=== PATIENT | female | born 1965 | race Caucasian/White ===

== ENCOUNTER 2020-06-24 13:31 | Outpatient (REF) | payer OTHER, SELFPAY | END 2020-06-24 13:32 | disposition home or self-care (01) | LOC: HO.HMGCLDS 13:31 | PROVIDERS: PCP Internal Medicine; Visit Provider Internal Medicine | DX: Z20.828 Contact with and (suspected) exposure to other viral communicable diseases (principal) | CPT/HCPCS: C9803; U0003 ==

== ENCOUNTER 2020-08-04 08:53 | Emergency (ER) | payer MEDICAID, SELFPAY ==
[2020-08-04 09:13] VITALS: BP 151/68; PULSE 59; RESP 16; TEMP 36.6; O2SAT 98; BMI 26.5
--- NOTE | 2020-08-04 09:18 | ED.BACK ---
HPI - Back Pain/Injury General Chief Complaint: Back Pain/Injury Stated Complaint: back pain Time Seen by Provider: 08/04/20 09:16 Source: patient Mode of arrival: ambulatory Limitations: no limitations History of Present Illness HPI Narrative: 5-year-old female with a past medical history of chronic back pain here with right lower back pain for the last 3-4 days. She tells me last she went to plug something in and felt a spasm in her right lower back. Since then she has had persistent pain. She also tells me she has been doing a lot of wrapping, decorating her house for [employer] and she also has been some time outside shoveling. The pain does not radiate anywhere. No numbness or tingling. No bowel or bladder incontinence. No fevers or chills. Taking naproxen and Tylenol at home with continued pain. MD elicited complaint: back pain Pertinent past history: prior back pain Onset (ago): day(s) Timing: constant Severity: moderate Quality: sharp and spasming Location: lumbar spine Radiation: none Exacerbating factors: movement and walking Relieving factors: immobilization Associated symptoms: denies other symptoms Related Data Previous Rx's Medication Instructions Recorded naproxen 500 mg tablet 500 mg PO BID PRN #60 tab 07/30/20 cyclobenzaprine 10 mg PO TID PRN #15 tab 08/04/20 hydrocodone-acetaminophen 1 tab PO TID PRN #10 tab 08/04/20 lidocaine [Lidoderm] 1 patch TOPICAL DAILY #15 ea 08/04/20 Allergies Allergy/AdvReac Type Severity Reaction Status Date / Time peanut [Peanut] Allergy Mild AVOIDS Verified 08/04/20 08:56 PREFERANCE strawberry [[place]] Allergy Mild HIVES Verified 08/04/20 08:56 lactose [Lactose] AdvReac Mild STOMACH Verified 08/04/20 08:56 UPSET sertraline [Zoloft] AdvReac Unknown skin lesion Verified 03/05/20 00:00 tramadol AdvReac Unknown severe Verified 08/04/20 08:56 headaches Review of Systems Review of Systems: Yes all other systems are reviewed and are negative Constitutional: Constitutional: Reports no additional constitutional complaints, Denies body ache(s), Denies chills, Denies fever(s), Denies headache(s) and Denies weakness Eyes: Eyes: Reports no additional eye complaints and Denies change in vision ENT: Reports system reviewed and no additional complaints, except as documented, Denies dizziness, Denies headache(s), Denies nasal congestion, Denies nasal discharge and Denies neck pain Cardiovascular: Cardiovascular: Reports no additional cardiovascular complaints, Denies chest pain, Denies leg edema and Denies dyspnea Respiratory: Respiratory: Reports no additional respiratory complaints, Denies cough and Denies dyspnea Gastrointestinal: Gastrointestinal: Reports no additional gastrointestinal complaints, Denies abdominal pain, Denies diarrhea, Denies nausea and Denies vomiting Genitourinary: Genitourinary: Reports no additional female genitourinary complaints and Denies urinary incontinence Musculoskeletal: Musculoskeletal: Reports no additional musculoskeletal complaints, Reports back pain, Denies arthralgias, Denies joint swelling, Denies neck pain, Denies numbness and Denies tingling Integumentary/Breasts: Skin/Breast: Reports system reviewed and no additional complaints, except as docu and Denies rash Neurologic: Reports system reviewed and no additional complaints, except as documented, Denies Abnormal speech present, Denies dizziness, Denies headache(s), Denies numbness, Denies tingling and Denies weakness PMFSH Past Medical History Attestation statement: The following information was validated with the patient. Source: old records reviewed and nursing notes reviewed Medical History Chronic back pain IBS (irritable bowel syndrome) Social History Social History Alcohol intake: never Smoked in Last 30 Days: No Use of substances other than those prescribed or required for medical reasons: No Advance Directives: No Advance Directives Information Provided: Yes Physical Exam Vital Signs: Vital Signs: Last Vital Signs Temp 97.9 F 08/04/20 09:13 Pulse 59 08/04/20 09:13 Resp 16 08/04/20 09:13 BP 151/68 H 08/04/20 09:13 Pulse Ox 98 08/04/20 09:13 Body Mass Index 26.5 Const: General: cooperative, healthy appearing, comfortable and no acute distress Orientation/consciousness: patient oriented x3 Limitations: no limitations HENMT: Head: Yes normal to inspection Ears: hearing grossly normal bilaterally General nose exam: Normal external nose present Face and sinus: Yes normal facial exam Mouth: Normal oral and palatal mucosa present Throat: Yes posterior oropharynx normal Eyes: General: appearance normal, both eyes and all related structures Pupils: Equal, round and reactive pupils present Neck: Neck: Yes normal visual inspection Chest: Chest palpation & inspection: normal inspection of the chest Resp: Effort & Inspection: normal respiratory effort Auscultation: clear to auscultation bilaterally Cardio: Rate: regular rate Rhythm: regular rhythm Peripheral pulses: Peripheral pulses 2+ throughout GI: Inspection: Yes normal to inspection Palpation (GI): Soft to palpation and nontender Auscultation: normal bowel sounds Back/Spine/Pelvis: Other: Right paraspinal lumbar tenderness in the soft tissue with palpable muscle spasm. Thoracic/Lumbar Spine: thoracic and lumbar spine normal to inspection Skin: General skin exam: no rashes or lesions noted Neuro: General: patient oriented x3, no focal motor deficits and normal sensation to monofilament Cranial nerves: Yes CN's II-XII intact bilaterally, Yes Equal, round and reactive pupils present, Yes Bilaterally intact EOM present, Yes Nystagmus not present, Yes Normal facial strength present, Yes Midline tongue present and Yes Normal gag reflex present Cognition (Neuro): normal cognition Speech: No Abnormal speech present Gait exam (Neuro): Normal gait present Motor exam (neuro): 5/5 motor strength present throughout Sensory Exam: Normal double simultaneous stimulation for sensation Deep tendon reflexes (DTR's): Right patellar reflex intensity grade: 2+, Left patellar reflex intensity grade: 2+, Right ankle reflex intensity grade: 2+ and Left ankle reflex intensity grade: 2+ Coordination: [id number] test normal, [id number] test normal and tandem gait normal Extrem: General: Yes normal to inspection Course Course Course Narrative: Right lower back pain times 3-4 days with increased activity at home. No neurological deficits. No red flag symptoms. No midline tenderness, step-offs or deformities. Palpable muscle spasm on exam with moderate to severe soft tissue tenderness in the right lower spine. Patient was medicated with Toradol in the ER with improvement. Likely lumbar strain. Will send home with supportive care. Reviewed worrisome signs and symptoms and when to return to the emergency department. Comfortable with discharge home. MDM - Back Pain/Injury Medical Records Attestation: I reviewed the patient's medical records. Lab Data Attestation: I reviewed the patient's lab results. Discharge Plan Discharge Clinical Impression: Strain of lumbar region Qualifiers: Encounter type: initial encounter Qualified Code(s): S39.012A - Strain of muscle, fascia and tendon of lower back, initial encounter Patient Disposition: Home, Self-Care Instructions: Low Back Strain (ED) Additional Instructions: No heavy lifting or bending Heat or ice to the area Continue naproxen Prescriptions: New cyclobenzaprine 10 mg tablet 10 mg PO TID PRN (Reason: muscle spasm) Qty: 15 RF: 0 lidocaine [Lidoderm] 5 % adhesive patch,medicated 1 patch topical DAILY Qty: 15 RF: 0 hydrocodone-acetaminophen 5-300 mg tablet 1 tab PO TID PRN (Reason: pain) Qty: 10 RF: 0 No Action naproxen 500 mg tablet 500 mg PO BID PRN (Reason: for pain) Qty: 60 RF: 0 Referrals: Danielle Wahl MD [Primary Care Provider] - 2 days Interventions: ED Discharge Assessment Last Done: 08/04/20 09:43 Discharge Date/Time: 08/04/20 09:44
[2020-08-04] MEDS: Ketorolac Tromethamine 60 MG/2 ML VIAL IM (09:38)
== END 2020-08-04 09:44 | disposition home or self-care (01) ==
PROVIDERS: Emergency Provider Emergency Medicine; PCP Internal Medicine
DX: S39.012A Strain of muscle, fascia and tendon of lower back, initial encounter (principal); X50.1XXA Overexertion from prolonged static or awkward postures, initial encounter; Y93.H1 Activity, digging, shoveling and raking; Y92.017 Garden or yard in single-family (private) house as the place of occurrence of the external cause; Y99.9 Unspecified external cause status
CPT/HCPCS: 96372; 99283; 99284; J1885

== ENCOUNTER 2020-08-21 19:45 | Outpatient (REF) | payer BC, MEDICAID, SELFPAY ==
--- NOTE | 2020-08-21 19:44 | MR_ITS ---
EXAMINATION: MR LUMBAR SPINE WITHOUT CONTRAST CLINICAL INFORMATION: Intervertebral disc disorder with radiculopathy. COMPARISON: Lumbar spine MRI from 05/08/2014. CT abdomen and pelvis from 09/06/2016. TECHNIQUE: MRI of the lumbar spine was obtained using routine sequences without contrast. FINDINGS: Straightening of the normal lumbar lordosis. Mild left convex curvature of the lumbar spine. Minimal degenerative stepwise retrolistheses from L3-S1. Moderate degenerative disc disease at all lower thoracic and lumbar levels, worst at L3-L4. Associated mixed Modic type discogenic endplate changes including mild Modic type I discogenic edema at L3-L4, L4-L5, and L5-S1. No additional suspicious marrow edema. Small Schmorl's nodes from T10-L5. Otherwise, the vertebral body heights are largely maintained. The conus medullaris terminates at the level of L1. The distal spinal cord is normal in appearance. No significant abnormalities of the paraspinal musculature. Limited evaluation of the intra-abdominal structures without significant abnormalities. The abdominal aorta is of normal contour and caliber. AXIAL SPINAL LEVELS: L1-L2: Shallow diffuse disc bulge. There is mild left and no right facet joint arthropathy. There is no neural foraminal stenosis. There is no spinal canal stenosis. L2-L3: Shallow diffuse disc bulge. There is mild bilateral facet joint arthropathy. There is no neural foraminal stenosis. There is no spinal canal stenosis. L3-L4: Mild diffuse disc bulge eccentric to the right. There is moderate bilateral facet joint arthropathy. There is mild right and no left neural foraminal stenosis. There is narrowing of the right subarticular zone with no overt spinal canal stenosis centrally. L4-L5: Mild diffuse disc bulge eccentric to the left with superimposed shallow left foraminal disc protrusion. There is moderate left and mild right facet joint arthropathy. There is mild bilateral neural foraminal stenosis. There is narrowing of the left worse than right subarticular zones with no overt spinal canal stenosis centrally. L5-S1: Mild diffuse disc bulge with superimposed shallow central disc protrusion. There is mild bilateral facet joint arthropathy. There is mild left and no right neural foraminal stenosis. There is mild narrowing of the subarticular zones with no overt spinal canal stenosis centrally. MR/MR lumbar spine wo con IMPRESSION: Moderate multilevel degenerative spondyloarthropathy of the lumbar spine as described in detail above. There are mild narrowings of the subarticular zones and neural foramina from L3-S1. No overt spinal canal stenosis.
== END 2020-08-21 19:46 | disposition home or self-care (01) ==
LOC: HO.MRI 19:45
PROVIDERS: Visit Provider Internal Medicine
DX: M51.16 Intervertebral disc disorders with radiculopathy, lumbar region (principal)
CPT/HCPCS: 72148

== ENCOUNTER 2021-04-02 12:05 | Emergency (ER) | payer BC, MEDICAID, SELFPAY ==
--- NOTE | ~2021-04-02 | CT_ITS ---
EXAMINATION: CT ABDOMEN AND PELVIS WITH CONTRAST CLINICAL INFORMATION: Right lower quadrant pain COMPARISON: CT scan abdomen pelvis 03/13/2020 TECHNIQUE: Multidetector volumetric images were obtained from the superior aspect of the liver through the pubic symphysis following administration 85 mL of Omnipaque 350 intravenous contrast. Sagittal and coronal reformatted images were obtained on the technologist's workstation. Oral contrast: No This CT examination was performed using dose optimization techniques as appropriate, variously including the following: *Automated exposure control *Adjustment of mA and/or kV according to patient size (this includes techniques or standardized protocols for targeted exams where dose is matched to indication/reason for exam; i.e. extremities or head) *Use of iterative reconstruction technique DLP: 550 mGy-cm FINDINGS: LUNG BASES: The visualized lung bases are unremarkable. LIVER, GALLBLADDER, AND BILIARY TREE: The liver is enlarged measuring 21 cm in greatest length. Smooth border but slightly decreased attenuation suggesting hepatic steatosis. There is a large mass in the right lobe of liver measuring 6.6 x 5.4 x 5.8 cm which has characteristics of a hemangioma and was previously proven to be such on MR of the abdomen. No other focal hepatic lesion or biliary ductal dilatation is present. The gallbladder is unremarkable with no evidence of radiopaque gallstones, gallbladder wall thickening, or obvious pericholecystic inflammatory changes. PANCREAS: Unremarkable. SPLEEN: Spleen is prominent in size measuring 12.8 cm, unchanged. ADRENAL GLANDS: Unremarkable. KIDNEYS AND URETERS: The kidneys are normal in size, shape, and attenuation. No hydronephrosis, hydroureter, or calculi seen. No perinephric stranding. BLADDER: The bladder wall demonstrates symmetric thickening at 8 mm. No stones are seen. GASTROINTESTINAL TRACT: Mucosal edema is seen involving the right and proximal transverse colon, new since the prior study. The edematous changes previously seen in the left: Are no longer without apparent. Multiple prominent lymph nodes in the root of the cecal mesentery have increased in size since the prior study. The small bowel is unremarkable. The appendix is unremarkable. ABDOMINAL WALL: No significant hernia is appreciated. LYMPH NODES: Small mesenteric lymph nodes as described above but no retroperitoneal lymphadenopathy is seen. VASCULAR: Unremarkable PELVIC VISCERA: Status post hysterectomy. An abnormal adnexal mass or free fluid is not seen. OSSEOUS STRUCTURES: Unremarkable. Mild degenerative changes present. CT/CT abdomen pelvis w con IMPRESSION: 1. Enlarged fatty liver with 6.6 cm hemangioma 2. Mild splenomegaly with the spleen measuring 12.8 cm, unchanged 3. Thick-walled bladder again seen could represent chronic cystitis. 4. Resolution of edematous findings in the left colon with now mucosal edema in the right colon and proximal transverse colon consistent with colitis. Increase in size of lymph nodes in the mesentery adjacent to this
[2021-04-02 12:32] VITALS: BP 143/80; PULSE 65; RESP 18; TEMP 36.9; O2SAT 97; BMI 27.4
[2021-04-02 16:20] LABS: MANUAL DIFF FLAG NO
[2021-04-02 16:26] LABS: Basophils Percent Auto 0.7 % (0-2); Eosinophils Absolute Auto 0.1 X10*3/uL (0.0-0.4); Eosinophils Percent Auto 1.7 % (0-4); Hematocrit 38.8 % (37-47); Hemoglobin 12.8 g/dl (12.0-16.0); Imm Gran Abs Auto 0.02 X10*3/uL (0.00-0.03); Imm Gran Pct Auto 0.5 % (0.0-0.4); Lymphocytes Absolute Auto 1.2 X10*3/uL (1.2-4.9); Lymphocytes Percent Auto 28.9 % (20-40); Mean Corpuscular Hemoglobin 29.8 pg (27.0-33.0); Mean Corpuscular Volume 90.4 fL (80-98); Mean Platelet Volume 10.8 fL (9.4-12.3); Monocytes Absolute Auto 0.5 X10*3/uL (0.1-1.2); Monocytes Percent Auto 11.9 % (2-11); Neutrophils Absolute Auto 2.4 X10*3/uL (2.0-8.3); Neutrophils Percent Auto 56.3 % (45-73); Platelet Count 143 X10*3/uL (160-400); Red Blood Count 4.29 X10*6/uL (4.20-5.50); White Blood Count 4.2 X10*3/uL (4.8-10.8)
--- NOTE | 2021-04-02 16:35 | ED.GENADULT ---
HPI - General Adult General Chief complaint: Abdominal Pain Stated complaint: cant eat, drink, severe stomach pain Time Seen by Provider: 04/02/21 16:23 Source: patient Limitations: no limitations History of Present Illness HPI narrative: This is a 55-year-old female with a history of IBS who complains of pain in her abdomen worse over the last few days, but beginning about 3 days ago, associated with profuse vomiting and diarrhea. The patient states she has not been able to keep anything down and also has had watery diarrhea. She notes since yesterday especially that the pain seems to be in her right lower abdomen. She denies any fever but has had chills. She denies any Dysuria or urinary frequency, has had decreased urine output. She has had a mild cough. She notes that she had a COVID test [place] mall but has not received the results yet. She has been vaccinated with [employer] x2. She notes the pain is intermittent, sharp, not worse with movement Related Data Home Medications Medication Instructions Recorded Confirmed naproxen 500 mg tablet 500 mg PO BID PRN 10/23/20 10/23/20 ascorbic acid (vitamin C) 500 mg 500 mg PO DAILY 01/30/21 01/30/21 tablet Previous Rx's Medication Instructions Recorded cyclobenzaprine 10 mg tablet 10 mg PO TID PRN #15 tab 09/17/20 hydroxyzine HCl 25 mg tablet 25 mg PO DAILY PRN #30 tab 09/17/20 sertraline 50 mg tablet 50 mg PO DAILY #30 tab 01/03/21 ondansetron HCl 8 mg tablet 8 mg PO Q12H PRN #14 tab 01/19/21 pantoprazole 40 mg tablet,delayed 40 mg PO DAILY #30 tab 01/19/21 release fluocinonide 0.05 % topical cream 1 appl TOPICAL BID PRN #60 g 03/02/21 dicyclomine 20 mg tablet 20 mg PO QID #12 tab 04/02/21 ondansetron 4 mg disintegrating 4 mg PO Q6H PRN #12 tab 04/02/21 tablet Allergies Allergy/AdvReac Type Severity Reaction Status Date / Time peanut [Peanut] Allergy Mild AVOIDS Verified 04/02/21 12:31 PREFERANCE strawberry [[place]] Allergy Mild HIVES Verified 04/02/21 12:31 lactose [Lactose] AdvReac Mild STOMACH Verified 04/02/21 12:31 UPSET sertraline [Zoloft] AdvReac Unknown skin lesion Verified 04/02/21 12:31 tramadol AdvReac Unknown severe Verified 04/02/21 12:31 headaches Review of Systems Review of Systems: Yes all other systems are reviewed and are negative Constitutional: Constitutional: Reports as per HPI, Reports chills and Denies fever(s) Eyes: Eyes: Reports as per HPI and Reports no additional eye complaints ENT: Reports system reviewed and no additional complaints, except as documented, Reports as per HPI, Denies nasal congestion, Denies nasal discharge and Denies sore throat Cardiovascular: Cardiovascular: Reports as per HPI, Denies chest pain and Denies dyspnea Respiratory: Respiratory: Reports as per HPI, Reports cough and Denies dyspnea Gastrointestinal: Gastrointestinal: Reports as per HPI, Reports abdominal pain, Reports diarrhea, Reports nausea and Reports vomiting Genitourinary: Genitourinary: Reports as per HPI, Denies hematuria, Denies urinary frequency and Denies dysuria Musculoskeletal: Musculoskeletal: Reports no additional musculoskeletal complaints and Denies numbness Integumentary/Breasts: Skin/Breast: Reports as per HPI and Denies rash Neurologic: Reports as per HPI, Denies focal weakness, Denies numbness and Denies Sensory deficit (Neuro) Psychiatric: Psychiatric: Reports no additional psychiatric complaints and Reports as per HPI Endocrine: Endocrine: Reports no additional endocrine complaints and Reports as per HPI Hematologic/Lymphatic: Hematologic/Lymphatic: Reports no additional hematologic/lymphatic complaints, Reports as per HPI and Reports other (No peripheral edema) [facility] Past Medical History Medical History Anxiety Chronic back pain Depression Dermatitis Eczema of both hands IBS (irritable bowel syndrome) Lumbar back pain with radiculopathy affecting right lower extremity Lumbar disc herniation with radiculopathy Surgical History History of partial hysterectomy History of tubal ligation Family History Family History (Updated 01/30/21 @ 10:27 by Rain Barnes CMA) Father IBS (irritable bowel syndrome) Myocardial infarction Mother Arthritis Maternal Aunt Breast cancer Sister Substance use disorder Sister Substance use disorder Mental health disorder Sister Mental health disorder Sister No problems noted. Sister No problems noted. Son No problems noted. Son No problems noted. Son No problems noted. Son No problems noted. Social History Social History (Updated 01/30/21 @ 10:23 by Rain Barnes [facility]) Housing: House Alcohol intake: never Patient Tobacco Use Status: Never used Tobacco e-Cigarette/Vaping Use: Never Used Second Hand Smoke Exposure: Yes Advance Directives: Yes Advance Directives Information Provided: Yes Advance Directives on File: No Patient : No service: No Current occupational status: employed Physical Exam Vital Signs: Vital Signs: Last Vital Signs Temp 98.4 F 04/02/21 12:32 Pulse 58 04/02/21 16:50 Resp 16 04/02/21 16:50 BP 144/62 H 04/02/21 16:50 Pulse Ox 99 04/02/21 16:50 Body Mass Index 27.4 Const: General: cooperative, no acute distress and alert Orientation/consciousness: patient oriented x3 HENMT: Head: Yes normal to inspection Eyes: General: appearance normal, both eyes and all related structures Eyelids: Yes eyelids normal Conjunctivae: conjunctivae normal Pupils: Equal, round and reactive pupils present Neck: Neck: Yes normal visual inspection and Yes supple Chest: Chest palpation & inspection: normal inspection of the chest Resp: Effort & Inspection: normal respiratory effort Auscultation: clear to auscultation bilaterally Cardio: Rate: regular rate Rhythm: regular rhythm Heart sounds: S1 normal heart sound present, S2 normal heart sound present, no gallops, no murmurs and no rubs GI: Palpation (GI): Soft to palpation, Tenderness to palpation present (GI) (Mild right upper quadrant, moderate right lower quadrant, no guarding) Negative for Rovsing's sign negative and Other GI palpation findings present (Non-distended) Auscultation: normal bowel sounds Skin: General skin exam: no rashes or lesions noted Neuro: General: patient oriented x3, no focal motor deficits and CN's II-XI intact bilaterally Cranial nerves: Yes Equal, round and reactive pupils present Cognition (Neuro): normal cognition Motor exam (neuro): 5/5 motor strength present throughout Sensory Exam: No Sensory deficit (Neuro) Extrem: General: Yes normal to inspection and Yes no pedal edema Psych: Appearance: grossly normal Affect: normal affect Medical Decision Making MDM Narrative Medical decision making narrative: Patient with history of irritable bowel syndrome, has had which she describes as profuse vomiting diarrhea for few days. Chemistry normal with no evidence of dehydration, no electrolyte abnormality. White blood cell count normal. Patient afebrile here states she did have a fever few days ago. CT did show right-sided colonic bowel wall edema as well as some mesenteric adenopathy, which may explain the patient's right-sided pain. Given the overall clinical picture, I do not suspect a bacterial colitis since the patient has had significant vomiting, has no elevated white blood cell count, no report of blood in her stool, no fever here today. Lab findings are not consistent with the patient's report of profuse vomiting and diarrhea and inability to hold down any fluids. Likely viral syndrome. Recommend supportive treatment with fluids, Zofran for nausea, Imodium and Bentyl for diarrhea and cramping. Lab Data Lab results reviewed: Yes I reviewed the patient's lab results. Result diagrams: 04/02/21 16:14 04/02/21 16:14 Labs: Lab Results 04/02/21 04/02/21 Range/Units 16:14 16:14 WBC 4.2 L (4.8-10.8) X10*3/uL RBC 4.29 (4.20-5.50) X10*6/uL Hgb 12.8 (12.0-16.0) g/dl Hct 38.8 (37-47) % MCV 90.4 (80-98) fL MCH 29.8 (27.0-33.0) pg MCHC 33.0 (31.0-35.0) g/dl RDW 13.0 (11.0-16.0) % Plt Count 143 L (160-400) X10*3/uL MPV 10.8 (9.4-12.3) fL Immature Gran % (Auto) 0.5 H (0.0-0.4) % Neut % (Auto) 56.3 (45-73) % Lymph % (Auto) 28.9 (20-40) % [place] % (Auto) 11.9 H (2-11) % Eos % (Auto) 1.7 (0-4) % Baso % (Auto) 0.7 (0-2) % Lymph # (Auto) 1.2 (1.2-4.9) X10*3/uL [place] # (Auto) 0.5 (0.1-1.2) X10*3/uL Eos # (Auto) 0.1 (0.0-0.4) X10*3/uL Baso # (Auto) 0.0 (0.0-0.2) X10*3/uL Abs Immat Gran (auto) 0.02 (0.00-0.03) X10*3/uL Absolute Neuts (auto) 2.4 (2.0-8.3) X10*3/uL Absolute Nucleated RBC 0.000 (0.0-0.012) X10*3/uL Nucleated RBC % (auto) 0.0 (0.0-0.2) /100WBC Sodium 141 (135-145) mmol/L Potassium 3.9 (3.3-5.1) mmol/L Chloride 104 (96-108) mmol/L Carbon Dioxide 27 (22-29) mmol/L Anion Gap 14 (12-20) BUN 13 (9-16) mg/dL Creatinine 0.76 (0.5-1.4) mg/dL Estim Creat Clear Calc 74.7 Estimated GFR > 60 Random Glucose 94 (60-115) mg/dL Calcium 9.0 (8.4-10.2) mg/dL Total Bilirubin 0.4 (0.0-1.0) mg/dL Direct Bilirubin 0.2 (0.0-0.5) mg/dL AST 25 (5-31) U/L ALT 25 (0-31) U/L Alkaline Phosphatase 66 (39-117) U/L Total Protein 7.3 (6.5-8.0) g/dL Albumin 4.2 (3.5-5.0) g/dL Lipase 32 (8-78) U/L Imaging Data CT scan - abdomen: Radiologist's impression: IMPRESSION: 1.? Enlarged fatty liver with 6.6 cm hemangioma 2.? Mild splenomegaly with the spleen measuring 12.8 cm, unchanged 3.? Thick-walled bladder again seen could represent chronic cystitis. 4.? Resolution of edematous findings in the left colon with now mucosal edema in the right colon and proximal transverse colon consistent with colitis. Increase in size of lymph nodes in the mesentery adjacent to this Discharge Plan Discharge Clinical Impression: Vomiting and diarrhea Patient Disposition: Home, Self-Care Instructions: Acute Nausea and Vomiting (ED), Acute Diarrhea (ED), Abdominal Pain (ED) Additional Instructions: Drink clear liquids consistently throughout the day. Use the ondansetron as prescribed for nausea. Use the Imodium and Bentyl for diarrhea and cramping. Follow-up with primary care physician. Return for any new or worsened symptoms such as progressive abdominal pain, fever Prescriptions: New dicyclomine 20 mg tablet 20 mg PO QID Qty: 12 RF: 0 ondansetron 4 mg tablet,disintegrating 4 mg PO Q6H PRN (Reason: nausea and vomiting) Qty: 12 RF: 0 No Action cyclobenzaprine 10 mg tablet 10 mg PO TID PRN (Reason: for muscle spasm) Qty: 15 RF: 0 hydroxyzine HCl 25 mg tablet 25 mg PO DAILY PRN (Reason: for anxiety) Qty: 30 RF: 3 sertraline 50 mg tablet 50 mg PO DAILY Qty: 30 RF: 2 ondansetron HCl 8 mg tablet 8 mg PO Q12H PRN (Reason: nausea and vomiting) Qty: 14 RF: 0 pantoprazole 40 mg tablet,delayed release (DR/EC) 40 mg PO DAILY Qty: 30 RF: 3 fluocinonide 0.05 % cream 1 appl topical BID PRN (Reason: rash) Qty: 60 RF: 0 naproxen 500 mg tablet 500 mg PO BID PRN (Reason: pain) RF: 0 ascorbic acid (vitamin C) 500 mg tablet 500 mg PO DAILY RF: 0 Interventions: ED Discharge Assessment Last Done: 04/02/21 19:21 Discharge Date/Time: 04/02/21 19:22
[2021-04-02] MEDS: 0.9 % Sodium Chloride 1,000 ML 999 ML IV (16:47)
[2021-04-02 16:50] VITALS: BP 144/62; PULSE 58; RESP 16; O2SAT 99
[2021-04-02] MEDS: ondansetron HCL 4 MG/2 ML VIAL IVPUSH (16:52)
[2021-04-02 16:58] LABS: Alanine Aminotransferase 25 U/L (0-31); Albumin Level 4.2 g/dL (3.5-5.0); Alkaline Phosphatase 66 U/L (39-117); Anion Gap 14 (12-20); Aspartate Amino Transferase 25 U/L (5-31); Bilirubin Direct 0.2 mg/dL (0.0-0.5); Bilirubin Total 0.4 mg/dL (0.0-1.0); Blood Urea Nitrogen 13 mg/dL (9-16); Carbon Dioxide 27 mmol/L (22-29); Chloride 104 mmol/L (96-108); Creatinine Clr Calc Pharmacy 74.7; Estimated Glomerular Filt Rate > 60; Glucose Random 94 mg/dL (60-115); Lipase 32 U/L (8-78); Potassium 3.9 mmol/L (3.3-5.1); Sodium 141 mmol/L (135-145); Total Protein 7.3 g/dL (6.5-8.0)
[2021-04-02] MEDS: iohexoL 350 MG/ML 100 ML INFUS..BTL IV (17:14)
[2021-04-02] MEDS: Dicyclomine HCl 10 MG CAPSULE 20 MG PO (19:16)
== END 2021-04-02 19:22 | disposition home or self-care (01) ==
PROVIDERS: Emergency Provider Emergency Medicine; PCP Internal Medicine
DX: R10.9 Unspecified abdominal pain (principal); R11.10 Vomiting, unspecified; R19.7 Diarrhea, unspecified; Z79.899 Other long term (current) drug therapy
CPT/HCPCS: 36415; 74177; 80048; 80076; 83690; 85025; 96361; 96374; 99284; J2405; Q9967

== ENCOUNTER 2022-07-28 16:38 | Outpatient (REF) | payer BC, OTHER, SELFPAY ==
[2022-07-28 17:40] LABS: Influenza A PCR NEGATIVE (Negative); Influenza B PCR NEGATIVE (Negative); Resp Syncy Virus RNA Qual PCR NEGATIVE (Negative); SARS COV2 PCR INHOUSE POSITIVE (Negative)
== END 2022-07-28 16:39 | disposition home or self-care (01) ==
LOC: HO.LNP 16:38
PROVIDERS: Visit Provider Physician Assistant
DX: Z20.822 Contact with and (suspected) exposure to COVID-19 (principal); B34.9 Viral infection, unspecified
CPT/HCPCS: 0241U

== ENCOUNTER 2022-10-03 08:06 | Outpatient (REF) | payer BC, OTHER, SELFPAY ==
[2022-10-03 11:43] LABS: MANUAL DIFF FLAG NO
[2022-10-03 11:48] LABS: Basophils Percent Auto 0.4 % (0-2); Eosinophils Absolute Auto 0.3 X10*3/uL (0.0-0.4); Eosinophils Percent Auto 3.5 % (0-4); Hematocrit 40.3 % (37.0-47.0); Hemoglobin 13.4 g/dl (12.0-16.0); Imm Gran Abs Auto 0.02 X10*3/uL (0.00-0.03); Imm Gran Pct Auto 0.3 % (0.0-0.4); Lymphocytes Absolute Auto 1.8 X10*3/uL (1.2-4.9); Lymphocytes Percent Auto 24.2 % (20-40); Mean Corpuscular HGB Conc 33.3 g/dl (31.0-35.0); Mean Corpuscular Hemoglobin 29.2 pg (27.0-33.0); Mean Corpuscular Volume 87.8 fL (80.0-98.0); Mean Platelet Volume 11.6 fL (9.4-12.3); Monocytes Absolute Auto 0.5 X10*3/uL (0.1-1.2); Neutrophils Absolute Auto 4.9 x10*3/uL (2.0-8.3); Neutrophils Percent Auto 65.6 % (45-73); Platelet Count 174 X10*3/uL (160-400); Red Blood Count 4.59 X10*6/uL (4.20-5.50); Red Cell Distribution Width 12.6 % (11.0-16.0); White Blood Count 7.5 X10*3/uL (4.8-10.8)
[2022-10-03 12:09] LABS: Alanine Aminotransferase 24 U/L (0-31); Anion Gap 13 (12-20); Aspartate Amino Transferase 22 U/L (5-31); Blood Urea Nitrogen 13 mg/dL (9-16); Carbon Dioxide 26 mmol/L (22-29); Chloride 107 mmol/L (96-108); Cholesterol 199 mg/dL; Estimated Glomerular Filt Rate > 60; Glucose Fasting 111 mg/dL (60-99); HDL Cholesterol 32 mg/dL; LDL Cholesterol Calculated 113 mg/dl; Potassium 4.3 mmol/L (3.3-5.1); Sodium 142 mmol/L (135-145); Triglycerides 270 mg/dL
[2022-10-03 12:27] LABS: Vitamin D 25-OH Total 20.7 ng/mL (>30)
== END 2022-10-03 08:07 | disposition home or self-care (01) ==
LOC: HO.HMGCLDS 08:06
PROVIDERS: PCP Internal Medicine; Visit Provider Internal Medicine
DX: Z00.01 Encounter for general adult medical examination with abnormal findings (principal); F32.9 Major depressive disorder, single episode, unspecified; G89.29 Other chronic pain; M54.50 Low back pain, unspecified; R12 Heartburn
CPT/HCPCS: 36415; 80048; 80061; 82306; 84450; 84460; 85025

== ENCOUNTER → 2022-10-12 10:03 | Outpatient (BNVA) | payer BC, OTHER, SELFPAY | PROVIDERS: PCP Internal Medicine; Visit Provider Nurse Practitioner Family | DX: Z13.89 Encounter for screening for other disorder (principal) ==

== ENCOUNTER 2022-10-13 12:28 | Day surgery (SDC) | payer BC, OTHER, SELFPAY ==
[2022-10-13 13:06] VITALS: BMI 27.0
[2022-10-13 13:11] VITALS: BP 171/70; PULSE 59; RESP 18; TEMP 36.6; O2SAT 97
[2022-10-13 13:19] VITALS: BMI 27.0
--- NOTE | 2022-10-13 13:19 | MHC.SHP ---
Pre-Procedural Eval Section A Date of Service: 10/13/22 Section B Chief Complaint: screening,heartburn Relevant Family History (Specify if Yes): No Relevant Social History: None Present Medications: see Short Stay Collaborative assessment Medical History: Significant History (Anxiety Chronic low back pain Depression Dermatitis Eczema of both hands Heartburn IBS (irritable bowel syndrome) Idiopathic thrombocytopenia Lumbar back pain with radiculopathy affecting right lower extremity Spondyloarthropathy of lumbar spine) History of Previous Operations: Relevant previous surgery/procedure and date(s) (hysterectomy ) Allergies: Allergies Allergy/AdvReac Type Severity Reaction Status Date / Time peanut [Peanut] Allergy Mild AVOIDS Verified 10/12/22 10:17 PREFERANCE strawberry [[place]] Allergy Mild HIVES Verified 10/12/22 10:17 lactose [Lactose] AdvReac Mild STOMACH Verified 10/12/22 10:17 UPSET tramadol AdvReac Unknown severe Verified 10/12/22 10:17 headaches Review of Systems Sugical H&P ROS: Negative: Constitution, Cardiovascular, Respiratory, Neurological, Psychiatric, Hem-Onc, Allergic/Immunologic, Gastrointestinal, Genitourinary, Musculoskeletal, Integumentary, Endocrine and Eyes/Ears/Nose/Throat Exam Surgical H&P Exam: Normal: HEENT, Normal: Heart, Normal: Lungs, Normal: Extremities, Normal: Abdomen, Normal: Skin and Normal: Neurological Plan Diagnosis/Plan: Unchanged I have reviewed the history and physical and performed a pertinent physical examination on my patient. No changes have occurred unless specified. patient referred for colonoscopy and EGD by PCP for screening colon and due to hx of heartburn Time Spent With Patient Time: Total time managing care of this patient today ____ minutes.
[2022-10-13] MEDS: Lactated Ringers 1,000 ML 50 ML IVCONT (13:42)
--- NOTE | 2022-10-13 14:10 | W.PM.OPN ---
Operative Note Operative Note Date of Service: 10/13/22 Narrative: Operative Information Procedure Description: EGD, Colonoscopy Indication: heartburn and screening Anesthesia: MAC FLEXIBLE TRANSORAL UPPER GASTROINTESTINAL ENDOSCOPY AND COLONOSCOPY PROCEDURE NOTE UPPER ENDOSCOPY Consent: Indications for the procedure and potential complications of bleeding, perforation, reaction to medications and missed diagnosis were discussed with the patient and informed consent was obtained. Instrument: Olympus GIF H 190 J mid size upper endoscope Monitoring: Vital signs and clinical assessment, continuous EKG monitoring, Pulse oximetry, Carbon Dioxide monitoring and blood pressure monitoring were done throughout the procedure. Procedure: The patient was placed in the left lateral decubitis position and pre-procedure medications were administered and a bite block was placed. The endoscope was inserted into the mouth and advanced under direct vision to the third part of duodenum. A careful inspection was made as the upper endoscope was withdrawn including a retroflexed examination of the proximal stomach; Findings and interventions are described below. Findings: Larynx:normal Esophagus: GE junction at 38 cm, diaphragm hiatus at 38 cm, mild bogginess and erythema at GEJ bx taken as well as from distal and proximal esophagus in separate jars Stomach: Patchy erythema. Biopsies were obtained. Grade 2 flap valve on retroflexed examination of the cardia. Duodenum: Normal bulb and descending duodenum, Intervention: Biopsies as noted above COLONOSCOPY Instrument: Olympus variable stiffness pediatric scope 190L Colonoscopy Monitoring: Vital signs and clinical assessment, continuous EKG monitoring, Pulse oximetry, Carbon Dioxide monitoring and blood pressure monitoring were done throughout the procedure. Colon withdrawal time was 14 minutes. Procedure: The patient was placed in the left lateral decubitis position and pre-procedure medications were administered. After a digital rectal examination of the ano-rectum, the video colonoscope was inserted into the rectum and advanced through the colon to the cecum/TI. The colonoscope was slowly withdrawn in a retrograde panoramic fashion and the colon mucosa was carefully examined including a retroflexed view of the rectum. Findings and interventions are described below. Procedure Difficulty: easy Findings: Terminal Ileum- granular appearance -bx taken Cecum: granular appearance, bx taken, 6-7 mm sessile polyp removed with cold forceps Ascending Colon: normal Transverse Colon -normal Descending Colon:normal Sigmoid Colon: moderate diverticulosis Rectum: Retroflexion with medium sized internal hemorrhoids, grade I, patchy erythema distal rectum bx taken, 6-7 mm sessile polyp removed with cold forceps Anorectum - normal Colon preparation: [place] Bowel Preparation Scale Right colon; 1-2 Transverse colon: 2 Left colon; 1-2 (0 = Unprepared colon segment with mucosa not seen due to solid stool that cannot be cleared. 1 = Portion of mucosa of the colon segment seen, but other areas of the colon segment not well seen due to staining, residual stool and/or opaque liquid. 2 = Minor amount of residual staining, small fragments of stool and/or opaque liquid, but mucosa of colon segment seen well. 3 = Entire mucosa of colon segment seen well with no residual staining, small fragments of stool or opaque liquid) Impression and Post Procedure Diagnosis: Endoscopy Findings: gastritis esophagitis Colonoscopy Findings: polyps internal hemorrhoids diverticular disease rectal erythema Plan: Await Pathology results Repeat Colonoscopy in 5 years due to fair prep or earlier if clinically indicated High fiber diet leaflet avoid straining at stool, epsom salts and sitz bath, anusol supps or cream if H pylori pos then treat Above findings were reviewed with the patient and relevant handouts were provided if indicated.
--- NOTE | 2022-10-13 14:30 | P.CONAN_ITS ---
[facility] Active Problems Active Problems: All Active Problems (Updated 10/12/22 @ 10:11 by TEJINDER Hunter) Lumbar degenerative disc disease (Acute) Idiopathic thrombocytopenia (Acute) Heartburn (Acute) Chronic low back pain (Acute) Spondyloarthropathy of lumbar spine (Acute) Eczema of both hands (Acute) Dermatitis (Acute) Anxiety (Acute) Depression (Acute) Past Medical History Medical History Anxiety Chronic low back pain Depression Dermatitis Eczema of both hands Heartburn IBS (irritable bowel syndrome) Idiopathic thrombocytopenia Lumbar back pain with radiculopathy affecting right lower extremity Spondyloarthropathy of lumbar spine Family History Family History Father IBS (irritable bowel syndrome) Myocardial infarction Mother Arthritis Maternal Aunt Breast cancer Sister Substance use disorder Sister Substance use disorder Mental health disorder Sister Mental health disorder Sister No problems noted. Sister No problems noted. Son No problems noted. Son No problems noted. Son No problems noted. Son No problems noted. Family history of problems with anesthesia: No Surgical History Surgical History History of partial hysterectomy History of tubal ligation History of Problems with Anesthesia: No Social History Social History Housing: House Alcohol intake: never Patient Tobacco Use Status: Never used Tobacco e-Cigarette/Vaping Use: Never Used Second Hand Smoke Exposure: Yes Use of substances other than those prescribed or required for medical reasons: No Are you DNR?: No Advance Directives: No Advance Directives Information Provided: Yes service: No Current occupational status: employed Cognitive needs: No Hearing needs: No Vision needs: Yes Meds Allergies Allergy/AdvReac Type Severity Reaction Status Date / Time peanut [Peanut] Allergy Mild AVOIDS Verified 10/12/22 10:17 PREFERANCE strawberry [[place]] Allergy Mild HIVES Verified 10/12/22 10:17 lactose [Lactose] AdvReac Mild STOMACH Verified 10/12/22 10:17 UPSET tramadol AdvReac Unknown severe Verified 10/12/22 10:17 headaches Active Medications: Current Medications Lactated Ringer's (Lr) 1,000 mls @ 50 mls/hr IVCONT .Q20H MERRICK Last Admin: 10/13/22 13:42 Dose: 50 mls/hr Home Medications Medication Instructions Recorded Confirmed Last Taken Type multivitamin 1 tab PO DAILY 01/21/22 10/01/22 Unknown History Exam Exam Date and Time: October 13, 2022 1430 Height,Weight and Vital Signs: Height 5 ft 2.5 in Weight 68.039 kg Last Vital Signs Temp 97.8 F 10/13/22 13:11 Pulse 59 10/13/22 13:11 Resp 18 10/13/22 13:11 BP 171/70 H 10/13/22 13:11 Pulse Ox 97 10/13/22 13:11 O2 Del Method 10/13/22 13:11 Airway Mallampati Class: II TM Dist: >3cm Neck ROM: Full Heart: RRR Lungs: CTA Assessment and Plan Final Anesthetic Review Family History of Problems with Anesthesia: No History of Problems with Anesthesia: No NPO: Yes ASA Class: II Final Preanesthetic Review: Meds/Allgs Chart Reviewed, Consent Obtained/Reviewed and Anes Risks/Benef Reviewed Patient Risk: Low Procedure Risk: Low Anesthetic Plan Anesthetic Plan: MAC: Disposition: Standard PACU
[2022-10-13 14:48] VITALS: BP 146/76; PULSE 56; RESP 16; TEMP 36.3; O2SAT 97
[2022-10-13 15:03] VITALS: BP 180/90; PULSE 59; RESP 16; O2SAT 99
--- NOTE | 2022-10-13 15:08 | HO.POSTANES ---
Post Anesthesia Evaluation Post Anesthesia Evaluation Vital Signs: Vital Signs Temp Pulse Resp BP Pulse Ox O2 Del Method 10/13/22 14:48 97.4 F 56 16 146/76 H 97 Room Air 10/13/22 13:11 97.8 F 59 18 171/70 H 97 Room Air Anesthesia: Monitored Mental Status: Awake Pain Control: Satisfactory Nausea/Vomiting: None (Z) Hydration: Adequate Anesthesia-Related Issues: No Anes. Related Issues
[2022-10-13] MEDS: Acetaminophen 325 MG TABLET 650 MG PO (15:16)
[2022-10-13 15:18] VITALS: BP 172/95; PULSE 54; RESP 18; TEMP 36.3; O2SAT 99
[2022-10-13 15:33] VITALS: BP 164/79; PULSE 57; RESP 18; TEMP 36.3; O2SAT 98
== END 2022-10-13 15:57 | disposition home or self-care (01) ==
PROVIDERS: PCP Internal Medicine; Visit Provider Internal Medicine Gastroenterology
PROC: (CPT 45380; principal; 2022-10-13 13:40)
DX: Z12.11 Encounter for screening for malignant neoplasm of colon (principal); K63.5 Polyp of colon; K62.1 Rectal polyp; K57.30 Diverticulosis of large intestine without perforation or abscess without bleeding; K64.0 First degree hemorrhoids; K62.89 Other specified diseases of anus and rectum; K58.9 Irritable bowel syndrome, unspecified; R12 Heartburn; K29.50 Unspecified chronic gastritis without bleeding; K20.80 Other esophagitis without bleeding; K44.9 Diaphragmatic hernia without obstruction or gangrene; D69.3 Immune thrombocytopenic purpura; L30.9 Dermatitis, unspecified; G89.29 Other chronic pain; M47.26 Other spondylosis with radiculopathy, lumbar region; Z79.899 Other long term (current) drug therapy; Z88.8 Allergy status to other drugs, medicaments and biological substances; Z91.010 Allergy to peanuts; Z91.018 Allergy to other foods
CPT/HCPCS: 45380; 43239; 88305; 88342

== ENCOUNTER 2022-10-15 10:39 | Emergency (ER) | payer BC, OTHER, SELFPAY ==
--- NOTE | ~2022-10-15 | XR_ITS ---
EXAMINATION: XR CHEST CLINICAL INFORMATION: Chest pain. COMPARISON: 03/07/2020 chest radiographs. TECHNIQUE: 2 views of the chest were obtained. FINDINGS: No significant abnormality is noted involving the heart, lungs, mediastinum, bony thorax or soft tissues. XR/XR chest 2V IMPRESSION: No acute cardiopulmonary process.
--- NOTE | 2022-10-15 10:43 | ECG_ITS ---
Test Reason : cp Blood Pressure : / mmHG Vent. Rate : 067 BPM Atrial Rate : 067 BPM P-R Int : 166 ms QRS Dur : 072 ms QT Int : 416 ms P-R-T Axes : 061 038 066 degrees QTc Int : 439 ms Normal sinus rhythm Normal ECG When compared with ECG of 07-MAR-2020 13:03, No significant change was found Referred By: Generic ED Physician Electronically Signed By:RUDY MENESES MD
[2022-10-15 10:52] VITALS: BP 178/97; PULSE 65; RESP 20; TEMP 36.8; O2SAT 97; BMI 28.5
--- NOTE | 2022-10-15 10:59 | ED_ITS ---
HPI - Chest Pain General Chief Complaint: Chest Pain <Nikolas Daniel - Last Filed: 10/15/22 11:00> Stated Complaint: chest pain <Nikolas Daniel - Last Filed: 10/15/22 11:00> Time Seen by Provider: 10/15/22 11:25 <Nikolas Daniel - Last Filed: 10/15/22 11:00> Source: patient <Jen Parker MD - Last Filed: 10/15/22 13:49> Mode of arrival: ambulatory <Jen Parker MD - Last Filed: 10/15/22 13:49> History of Present Illness HPI narrative: 57-year-old female with known GERD/acid reflux presents after having an upper endoscopy and since yesterday has had epigastric discomfort that patient describes as pulsing and pressure in nature and then also had some associated headache. Otherwise, she denies any fevers or chills. <Jen Parker MD - Last Filed: 10/15/22 13:49> Related Data Home Medications: Home Medications Medication Instructions Recorded Confirmed multivitamin 1 tab PO DAILY 01/21/22 10/01/22 Previous Rx's Medication Instructions Recorded aluminum-mag hydroxide-simethicone 5 ml PO QID PRN indigestion #240 mL 07/28/22 400 mg-400 mg-40 mg/5 mL oral susp (Maalox Maximum Strength) sertraline 50 mg tablet 50 mg PO DAILY #90 tabs 07/30/22 tizanidine 4 mg tablet 4 mg PO BEDTIME PRN muscle 09/20/22 spasticity #30 tabs pantoprazole 40 mg tablet,delayed 40 mg PO DAILY #30 tabs 10/01/22 release ondansetron 4 mg disintegrating 4 mg PO Q8H PRN nausea and 10/02/22 tablet vomiting #3 tabs peg-electrolyte solution 420 gram 240 ml PO Q10M #4,000 mL 10/02/22 oral solution lidocaine 5 % topical patch 1 patch topical .COMPLEX pain 30 10/12/22 days #30 ea ondansetron HCl 4 mg tablet 4 mg PO Q8H PRN nausea and 10/15/22 vomiting 4 days #7 tabs <Nikolas Daniel - Last Filed: 10/15/22 11:00> Allergies/Adverse Reactions: Allergies Allergy/AdvReac Type Severity Reaction Status Date / Time peanut [Peanut] Allergy Mild AVOIDS Verified 10/12/22 10:17 PREFERANCE strawberry [[place]] Allergy Mild HIVES Verified 10/12/22 10:17 lactose [Lactose] AdvReac Mild STOMACH Verified 10/12/22 10:17 UPSET tramadol AdvReac Unknown severe Verified 10/12/22 10:17 headaches <Nikolas Daniel - Last Filed: 10/15/22 11:00> Review of Systems Review of Systems: Pertinent positives and negatives as stated in HPI <Jen Parker MD - Last Filed: 10/15/22 13:49> PMFSH Past Medical History Source: nursing notes reviewed <Jen Parker MD - Last Filed: 10/15/22 13:49> Medical History: Medical History Anxiety Chronic low back pain Depression Dermatitis Eczema of both hands Heartburn IBS (irritable bowel syndrome) Idiopathic thrombocytopenia Lumbar back pain with radiculopathy affecting right lower extremity Spondyloarthropathy of lumbar spine <Nikolas Daniel - Last Filed: 10/15/22 11:00> Surgical History: Surgical History History of partial hysterectomy History of tubal ligation <Nikolas Daniel - Last Filed: 10/15/22 11:00> Family History Family History: Family History Father IBS (irritable bowel syndrome) Myocardial infarction Mother Arthritis Maternal Aunt Breast cancer Sister Substance use disorder Sister Substance use disorder Mental health disorder Sister Mental health disorder Sister No problems noted. Sister No problems noted. Son No problems noted. Son No problems noted. Son No problems noted. Son No problems noted. <Nikolas Daniel - Last Filed: 10/15/22 11:00> Social History Social History: Social History Housing: House Alcohol intake: never Patient Tobacco Use Status: Never used Tobacco e-Cigarette/Vaping Use: Never Used Second Hand Smoke Exposure: Yes Advance Directives: No service: No Current occupational status: employed Cognitive needs: No Hearing needs: No Vision needs: Yes <Nikolas Daniel - Last Filed: 10/15/22 11:00> Physical Exam Vital Signs: Vital Signs: Last Vital Signs Temp 98.2 F 10/15/22 10:52 Pulse 62 10/15/22 13:04 Resp 13 10/15/22 13:04 BP 144/75 H 10/15/22 13:04 Pulse Ox 96 10/15/22 13:04 O2 Del Method 10/15/22 13:04 BMI result Body Mass Index 28.5 <Nikolas Daniel - Last Filed: 10/15/22 11:00> Vital Signs: Last Vital Signs Temp 98.2 F 10/15/22 10:52 Pulse 62 10/15/22 13:04 Resp 13 10/15/22 13:04 BP 144/75 H 10/15/22 13:04 Pulse Ox 96 10/15/22 13:04 O2 Del Method 10/15/22 13:04 BMI result Body Mass Index 28.5 VITAL SIGNS: Reviewed. GENERAL: Well developed, well nourished, in no acute distress. HEAD: Normocephalic/atraumatic EYES: PERRLA, EOMI EARS: Ext canals without abnormality OROPHARYNX: no oral lesions noted, posterior pharynx clear LUNGS: Normal breath sounds. No adventitious sounds or accessory muscle use. SpO2<96> CARDIOVASCULAR: Regular rate and rhythm without noted murmurs ABDOMEN: Soft, non-tender, non-distended with bowel sounds. MUSCULOSKELETAL: No tenderness, deformities, or effusions noted on gross inspection. EXTREMITIES: No cyanosis, clubbing or edema. SKIN: Inspection of the skin reveals no rashes NEUROLOGIC: Alert and oriented x 4. Strength and sensation to light touch were grossly intact x 4. <Jen Parker MD - Last Filed: 10/15/22 13:49> Course Course Course Narrative: RME- 49-year-old female past medical history significant for IBS, GERD, chronic back pain presents for evaluation of chest pain. She reports chest pain with associated nausea, vomiting. The chest pain radiates to her left shoulder and started yesterday. Of note, the patient did have an upper endoscopy yesterday. Patient denies any cardiac history but does state that she has been noticing her blood pressure is more elevated recently. She reports that she is not diagnosed with hypertension. Plan for cardiac workup including labs, chest x-ray and EKG. <Nikolas Daniel - Last Filed: 10/15/22 11:00> Medical Decision Making Medical Decision Making MDM Narrative: This is a 57-year-old female with history and clinical presentation suggestive of possible gastritis, pancreatitis but doubt any cardiopulmonary etiology. Basic labs, EKG as well as a chest x-ray were ordered. Review of all investigations, my interpretation is patient likely has a component of gastritis with reflux. Patient was provided with a GI cocktail as well as Tylenol. <Jen Parker MD - Last Filed: 10/15/22 13:49> Differential Diagnosis Please see the discussion above <Jen Parker MD - Last Filed: 10/15/22 13:49> Lab Data Please see the discussion above <Jen Parker MD - Last Filed: 10/15/22 13:49> Result Diagrams: 10/15/22 11:18 10/15/22 11:18 <Nikolas Daniel - Last Filed: 10/15/22 11:00> Labs: Lab Results 10/15/22 10/15/22 10/15/22 Range/Units 11:18 11:18 11:18 WBC 6.7 (4.8-10.8) X10*3/uL RBC 4.66 (4.20-5.50) X10*6/uL Hgb 13.3 (12.0-16.0) g/dl Hct 40.4 (37.0-47.0) % MCV 86.7 (80.0-98.0) fL MCH 28.5 (27.0-33.0) pg MCHC 32.9 (31.0-35.0) g/dl RDW 12.5 (11.0-16.0) % Plt Count 177 (160-400) X10*3/uL MPV 10.6 (9.4-12.3) fL Immature Gran % (Auto) 0.1 (0.0-0.4) % Neut % (Auto) 62.1 (45-73) % Lymph % (Auto) 28.7 (20-40) % [place] % (Auto) 6.4 (2-11) % Eos % (Auto) 2.1 (0-4) % Baso % (Auto) 0.6 (0-2) % Lymph # (Auto) 1.9 (1.2-4.9) X10*3/uL [place] # (Auto) 0.4 (0.1-1.2) X10*3/uL Eos # (Auto) 0.1 (0.0-0.4) X10*3/uL Baso # (Auto) 0.0 (0.0-0.2) X10*3/uL Abs Immat Gran (auto) 0.01 (0.00-0.03) X10*3/uL Absolute Neuts (auto) 4.2 (2.0-8.3) x10*3/uL Absolute Nucleated RBC 0.000 (0.0-0.012) X10*3/uL Nucleated RBC % (auto) 0.0 (0.0-0.2) /100WBC PT 11.6 (10.0-13.1) SEC INR 1.0 (0.9-1.1) APTT 32.0 (26.0-36.4) SEC Sodium 141 (135-145) mmol/L Potassium 3.7 (3.3-5.1) mmol/L Chloride 105 (96-108) mmol/L Carbon Dioxide 27 (22-29) mmol/L Anion Gap 13 (12-20) BUN 11 (9-16) mg/dL Creatinine 0.70 (0.5-1.4) mg/dL Estim Creat Clear Calc 80.7 Estimated GFR > 60 Random Glucose 101 (60-115) mg/dL Calcium 9.1 (8.4-10.2) mg/dL Magnesium 2.1 (1.6-2.6) mg/dL Total Bilirubin 0.4 (0.0-1.0) mg/dL AST 18 (5-31) U/L ALT 20 (0-31) U/L Alkaline Phosphatase 87 (39-117) U/L Troponin I High Sens (<3.5-17.0) ng/L Total Protein 7.2 (6.5-8.0) g/dL Albumin 4.2 (3.5-5.0) g/dL Lipase 46 (8-78) U/L 10/15/22 Range/Units 11:18 WBC (4.8-10.8) X10*3/uL RBC (4.20-5.50) X10*6/uL Hgb (12.0-16.0) g/dl Hct (37.0-47.0) % MCV (80.0-98.0) fL MCH (27.0-33.0) pg MCHC (31.0-35.0) g/dl RDW (11.0-16.0) % Plt Count (160-400) X10*3/uL MPV (9.4-12.3) fL Immature Gran % (Auto) (0.0-0.4) % Neut % (Auto) (45-73) % Lymph % (Auto) (20-40) % [place] % (Auto) (2-11) % Eos % (Auto) (0-4) % Baso % (Auto) (0-2) % Lymph # (Auto) (1.2-4.9) X10*3/uL [place] # (Auto) (0.1-1.2) X10*3/uL Eos # (Auto) (0.0-0.4) X10*3/uL Baso # (Auto) (0.0-0.2) X10*3/uL Abs Immat Gran (auto) (0.00-0.03) X10*3/uL Absolute Neuts (auto) (2.0-8.3) x10*3/uL Absolute Nucleated RBC (0.0-0.012) X10*3/uL Nucleated RBC % (auto) (0.0-0.2) /100WBC PT (10.0-13.1) SEC INR (0.9-1.1) APTT (26.0-36.4) SEC Sodium (135-145) mmol/L Potassium (3.3-5.1) mmol/L Chloride (96-108) mmol/L Carbon Dioxide (22-29) mmol/L Anion Gap (12-20) BUN (9-16) mg/dL Creatinine (0.5-1.4) mg/dL Estim Creat Clear Calc Estimated GFR Random Glucose (60-115) mg/dL Calcium (8.4-10.2) mg/dL Magnesium (1.6-2.6) mg/dL Total Bilirubin (0.0-1.0) mg/dL AST (5-31) U/L ALT (0-31) U/L Alkaline Phosphatase (39-117) U/L Troponin I High Sens < 3.5 (<3.5-17.0) ng/L Total Protein (6.5-8.0) g/dL Albumin (3.5-5.0) g/dL Lipase (8-78) U/L <Nikolas Daniel - Last Filed: 10/15/22 11:00> Lab Results 10/15/22 10/15/22 10/15/22 Range/Units 11:18 11:18 11:18 WBC 6.7 (4.8-10.8) X10*3/uL RBC 4.66 (4.20-5.50) X10*6/uL Hgb 13.3 (12.0-16.0) g/dl Hct 40.4 (37.0-47.0) % MCV 86.7 (80.0-98.0) fL MCH 28.5 (27.0-33.0) pg MCHC 32.9 (31.0-35.0) g/dl RDW 12.5 (11.0-16.0) % Plt Count 177 (160-400) X10*3/uL MPV 10.6 (9.4-12.3) fL Immature Gran % (Auto) 0.1 (0.0-0.4) % Neut % (Auto) 62.1 (45-73) % Lymph % (Auto) 28.7 (20-40) % [place] % (Auto) 6.4 (2-11) % Eos % (Auto) 2.1 (0-4) % Baso % (Auto) 0.6 (0-2) % Lymph # (Auto) 1.9 (1.2-4.9) X10*3/uL [place] # (Auto) 0.4 (0.1-1.2) X10*3/uL Eos # (Auto) 0.1 (0.0-0.4) X10*3/uL Baso # (Auto) 0.0 (0.0-0.2) X10*3/uL Abs Immat Gran (auto) 0.01 (0.00-0.03) X10*3/uL Absolute Neuts (auto) 4.2 (2.0-8.3) x10*3/uL Absolute Nucleated RBC 0.000 (0.0-0.012) X10*3/uL Nucleated RBC % (auto) 0.0 (0.0-0.2) /100WBC PT 11.6 (10.0-13.1) SEC INR 1.0 (0.9-1.1) APTT 32.0 (26.0-36.4) SEC Sodium 141 (135-145) mmol/L Potassium 3.7 (3.3-5.1) mmol/L Chloride 105 (96-108) mmol/L Carbon Dioxide 27 (22-29) mmol/L Anion Gap 13 (12-20) BUN 11 (9-16) mg/dL Creatinine 0.70 (0.5-1.4) mg/dL Estim Creat Clear Calc 80.7 Estimated GFR > 60 Random Glucose 101 (60-115) mg/dL Calcium 9.1 (8.4-10.2) mg/dL Magnesium 2.1 (1.6-2.6) mg/dL Total Bilirubin 0.4 (0.0-1.0) mg/dL AST 18 (5-31) U/L ALT 20 (0-31) U/L Alkaline Phosphatase 87 (39-117) U/L Troponin I High Sens (<3.5-17.0) ng/L Total Protein 7.2 (6.5-8.0) g/dL Albumin 4.2 (3.5-5.0) g/dL Lipase 46 (8-78) U/L 10/15/22 Range/Units 11:18 WBC (4.8-10.8) X10*3/uL RBC (4.20-5.50) X10*6/uL Hgb (12.0-16.0) g/dl Hct (37.0-47.0) % MCV (80.0-98.0) fL MCH (27.0-33.0) pg MCHC (31.0-35.0) g/dl RDW (11.0-16.0) % Plt Count (160-400) X10*3/uL MPV (9.4-12.3) fL Immature Gran % (Auto) (0.0-0.4) % Neut % (Auto) (45-73) % Lymph % (Auto) (20-40) % [place] % (Auto) (2-11) % Eos % (Auto) (0-4) % Baso % (Auto) (0-2) % Lymph # (Auto) (1.2-4.9) X10*3/uL [place] # (Auto) (0.1-1.2) X10*3/uL Eos # (Auto) (0.0-0.4) X10*3/uL Baso # (Auto) (0.0-0.2) X10*3/uL Abs Immat Gran (auto) (0.00-0.03) X10*3/uL Absolute Neuts (auto) (2.0-8.3) x10*3/uL Absolute Nucleated RBC (0.0-0.012) X10*3/uL Nucleated RBC % (auto) (0.0-0.2) /100WBC PT (10.0-13.1) SEC INR (0.9-1.1) APTT (26.0-36.4) SEC Sodium (135-145) mmol/L Potassium (3.3-5.1) mmol/L Chloride (96-108) mmol/L Carbon Dioxide (22-29) mmol/L Anion Gap (12-20) BUN (9-16) mg/dL Creatinine (0.5-1.4) mg/dL Estim Creat Clear Calc Estimated GFR Random Glucose (60-115) mg/dL Calcium (8.4-10.2) mg/dL Magnesium (1.6-2.6) mg/dL Total Bilirubin (0.0-1.0) mg/dL AST (5-31) U/L ALT (0-31) U/L Alkaline Phosphatase (39-117) U/L Troponin I High Sens < 3.5 (<3.5-17.0) ng/L Total Protein (6.5-8.0) g/dL Albumin (3.5-5.0) g/dL Lipase (8-78) U/L <Jen Brazille, MD - Last Filed: 10/15/22 13:49> Independent Interpretation I performed an independent interpretation of an: EKG <Jen Parker MD - Last Filed: 10/15/22 13:49> Interpretation: Normal sinus rhythm, HR-67, no STEMI, NH/QRS/QTC are within normal limits. <Jen Parker MD - Last Filed: 10/15/22 13:49> Radiology Impression Radiologist Impression: My interpretation is in agreement with radiology's impression of the imaging study <Jen Parker MD - Last Filed: 10/15/22 13:49> External Record Review External record reviewed: Office record, Outpatient record and Prior outpatient labs <Jen Parker MD - Last Filed: 10/15/22 13:49> Discharge Plan Discharge Clinical Impression: Gastritis, Atypical chest pain, Headache <Nikolas Daniel - Last Filed: 10/15/22 11:00> Patient Disposition: Home, Self-Care <Nikolas Daniel - Last Filed: 10/15/22 11:00> Instructions: Chest Pain (ED), Gastritis (ED), Diet for Stomach Ulcers and Gastritis (ED), General Headache (ED) <Nikolas Daniel - Last Filed: 10/15/22 11:00> Additional Instructions: 1. Resume all home medications as prescribed. 2. Please limit the consumption of your ibuprofen/Motrin/Aleve/aspirin/Excedrin as this could further contribute to your stomach pain. 3. Please follow-up with your guest service representative. Return to the ER for any worsening symptoms. <Nikolas Daniel - Last Filed: 10/15/22 11:00> Prescriptions: New ondansetron HCl 4 mg tablet 4 mg PO Q8H PRN (Reason: nausea and vomiting) 4 Days Qty: 7 0RF No Action sertraline 50 mg tablet 50 mg PO DAILY Qty: 90 0RF tizanidine 4 mg tablet 4 mg PO BEDTIME PRN (Reason: muscle spasticity) Qty: 30 0RF peg-electrolyte soln 420 gram recon soln 240 ml PO Q10M Qty: 4000 0RF Rx Instructions: until fecal effluent is clear; do not exceed a total volume of 2,000 mL ondansetron 4 mg tablet,disintegrating 4 mg PO Q8H PRN (Reason: nausea and vomiting) Qty: 3 0RF pantoprazole 40 mg tablet,delayed release (DR/EC) 40 mg PO DAILY Qty: 30 1RF multivitamin Tablet 1 tab PO DAILY alum-mag hydroxide-simeth [Maalox Maximum Strength] 400-400-40 mg/5 mL suspension 5 ml PO QID PRN (Reason: indigestion) Qty: 240 0RF lidocaine 5 % adhesive patch,medicated 1 patch topical .COMPLEX 30 Days Qty: 30 3RF Rx Instructions: 1 patch topically up to 12 hours per day <Nikolas Daniel - Last Filed: 10/15/22 11:00> Referrals: Danielle Wahl MD [Primary Care Provider] - Saul Mast MD [Physician] - <Nikolas Daniel - Last Filed: 10/15/22 11:00>
[2022-10-15 11:24] LABS: MANUAL DIFF FLAG NO
[2022-10-15 11:27] LABS: Basophils Percent Auto 0.6 % (0-2); Eosinophils Absolute Auto 0.1 X10*3/uL (0.0-0.4); Eosinophils Percent Auto 2.1 % (0-4); Hematocrit 40.4 % (37.0-47.0); Hemoglobin 13.3 g/dl (12.0-16.0); Imm Gran Abs Auto 0.01 X10*3/uL (0.00-0.03); Imm Gran Pct Auto 0.1 % (0.0-0.4); Lymphocytes Absolute Auto 1.9 X10*3/uL (1.2-4.9); Lymphocytes Percent Auto 28.7 % (20-40); Mean Corpuscular HGB Conc 32.9 g/dl (31.0-35.0); Mean Corpuscular Hemoglobin 28.5 pg (27.0-33.0); Mean Corpuscular Volume 86.7 fL (80.0-98.0); Mean Platelet Volume 10.6 fL (9.4-12.3); Monocytes Absolute Auto 0.4 X10*3/uL (0.1-1.2); Monocytes Percent Auto 6.4 % (2-11); Neutrophils Absolute Auto 4.2 x10*3/uL (2.0-8.3); Neutrophils Percent Auto 62.1 % (45-73); Platelet Count 177 X10*3/uL (160-400); Red Blood Count 4.66 X10*6/uL (4.20-5.50); Red Cell Distribution Width 12.5 % (11.0-16.0); White Blood Count 6.7 X10*3/uL (4.8-10.8)
[2022-10-15 11:43] LABS: Alanine Aminotransferase 20 U/L (0-31); Albumin Level 4.2 g/dL (3.5-5.0); Alkaline Phosphatase 87 U/L (39-117); Anion Gap 13 (12-20); Aspartate Amino Transferase 18 U/L (5-31); Bilirubin Total 0.4 mg/dL (0.0-1.0); Blood Urea Nitrogen 11 mg/dL (9-16); Calcium 9.1 mg/dL (8.4-10.2); Carbon Dioxide 27 mmol/L (22-29); Chloride 105 mmol/L (96-108); Creatinine Clr Calc Pharmacy 80.7; Estimated Glomerular Filt Rate > 60; Glucose Random 101 mg/dL (60-115); Lipase 46 U/L (8-78); Magnesium 2.1 mg/dL (1.6-2.6); Potassium 3.7 mmol/L (3.3-5.1); Sodium 141 mmol/L (135-145); Total Protein 7.2 g/dL (6.5-8.0)
[2022-10-15 11:44] LABS: Prothrombin Time 11.6 SEC (10.0-13.1)
[2022-10-15 11:51] LABS: Troponin-I High Sensitivity < 3.5 ng/L (<3.5-17.0)
--- NOTE | 2022-10-15 12:51 | PC.NURSE ---
ambulating to and from the bathroom with steady gait.
[2022-10-15 13:04] VITALS: BP 144/75; PULSE 62; RESP 13; O2SAT 96
[2022-10-15] MEDS: Lidocaine HCl Viscous 2 % 15 ML SOLUTION 10 ML MUCOUS MEM (13:43)
[2022-10-15] MEDS: Magnesium Hydrox/Alum Hydrox 30 ML ORAL.SUSP PO (13:44)
[2022-10-15] MEDS: Acetaminophen 325 MG TABLET 975 MG PO (13:44)
== END 2022-10-15 13:57 | disposition home or self-care (01) ==
PROVIDERS: Physician Assistant; Emergency Provider Student in an Organized Health Care Education/Training Program; PCP Internal Medicine
DX: R07.89 Other chest pain (principal); R51.9 Headache, unspecified; Z79.899 Other long term (current) drug therapy
CPT/HCPCS: 36415; 71046; 80053; 83690; 83735; 84484; 85025; 85610; 85730; 93005; 99283; 99284

== ENCOUNTER 2023-01-07 11:58 | Day surgery (SDC) | payer BC, OTHER, SELFPAY ==
--- NOTE | 2022-12-03 11:03 | P.CONAN_ITS ---
HPI - Anesthesia Eval Consult details Narrative: 57yo F for Bilateral L4-L5 Transforaminal Epidural Steroid Injection, 12/18/22 s/p EGD/[place] 10/2022 with MAC PMF Active Problems Active Problems: All Active Problems (Updated 10/18/22 @ 15:31 by TEJINDER Hunter) Greater trochanteric bursitis of left hip (Acute) Sacroiliac joint pain (Acute) Lumbar degenerative disc disease (Acute) Idiopathic thrombocytopenia (Acute) Heartburn (Acute) Chronic low back pain (Acute) Spondyloarthropathy of lumbar spine (Acute) Eczema of both hands (Acute) Dermatitis (Acute) Anxiety (Acute) Depression (Acute) Past Medical History Medical History Anxiety Chronic low back pain Depression Dermatitis Eczema of both hands Heartburn IBS (irritable bowel syndrome) Idiopathic thrombocytopenia Lumbar back pain with radiculopathy affecting right lower extremity Spondyloarthropathy of lumbar spine Family History Family History Father IBS (irritable bowel syndrome) Myocardial infarction Mother Arthritis Maternal Aunt Breast cancer Sister Substance use disorder Sister Substance use disorder Mental health disorder Sister Mental health disorder Sister No problems noted. Sister No problems noted. Son No problems noted. Son No problems noted. Son No problems noted. Son No problems noted. Family history of problems with anesthesia: No Surgical History Surgical History History of partial hysterectomy History of tubal ligation History of Problems with Anesthesia: No Social History Social History Housing: House Alcohol intake: never Patient Tobacco Use Status: Never used Tobacco e-Cigarette/Vaping Use: Never Used Second Hand Smoke Exposure: Yes service: No Current occupational status: employed Cognitive needs: No Hearing needs: No Vision needs: Yes Meds Allergies Allergy/AdvReac Type Severity Reaction Status Date / Time peanut [Peanut] Allergy Mild AVOIDS Verified 10/12/22 10:17 PREFERANCE strawberry [[place]] Allergy Mild HIVES Verified 10/12/22 10:17 lactose [Lactose] AdvReac Mild STOMACH Verified 10/12/22 10:17 UPSET tramadol AdvReac Unknown severe Verified 10/12/22 10:17 headaches Home Medications Medication Instructions Recorded Confirmed Last Taken Type multivitamin 1 tab PO DAILY 01/21/22 10/01/22 Unknown History Exam Exam Date and Time: December 03, 2022 1103 Pertinent Lab Results Pertinent Lab Results: Laboratory Tests 10/15/22 10/15/22 11:18 11:18 WBC 6.7 Hgb 13.3 Hct 40.4 Plt Count 177 Sodium 141 Potassium 3.7 Chloride 105 Carbon Dioxide 27 BUN 11 Creatinine 0.70 Narrative Narrative: EKG 10/2022 Vent. Rate : 067 BPM ? ? Atrial Rate : 067 BPM ?? P-R Int : 166 ms? QRS Dur : 072 ms ? ? QT Int : 416 ms ? ? ? P-R-T Axes : 061 038 066 degrees ?? QTc Int : 439 ms ? Normal sinus rhythm Normal ECG When compared with ECG of 07-MAR-2020 13:03, No significant change was found ? Assessment and Plan Assessment Anesthesia Assessment: Chart Reviewed Final Anesthetic Review Family History of Problems with Anesthesia: No History of Problems with Anesthesia: No
--- NOTE | 2023-01-06 09:23 | HO.ANESPROP2 ---
HPI - Anesthesia Eval Consult details Narrative: 57yo F for Bilateral L4-L5 Transforaminal Epidural Steroid Injection [facility] [place] [facility] 10/2022 with atypical Cp post EGD. Found to be gastritis. PMFSH Active Problems Active Problems: All Active Problems (Updated 10/18/22 @ 15:31 by TEJINDER Hunter) Greater trochanteric bursitis of left hip (Acute) Sacroiliac joint pain (Acute) Lumbar degenerative disc disease (Acute) Idiopathic thrombocytopenia (Acute) Heartburn (Acute) Chronic low back pain (Acute) Spondyloarthropathy of lumbar spine (Acute) Eczema of both hands (Acute) Dermatitis (Acute) Anxiety (Acute) Depression (Acute) Past Medical History Medical History Anxiety Chronic low back pain Depression Dermatitis Eczema of both hands Heartburn IBS (irritable bowel syndrome) Idiopathic thrombocytopenia Lumbar back pain with radiculopathy affecting right lower extremity Spondyloarthropathy of lumbar spine Family History Family History Father IBS (irritable bowel syndrome) Myocardial infarction Mother Arthritis Maternal Aunt Breast cancer Sister Substance use disorder Sister Substance use disorder Mental health disorder Sister Mental health disorder Sister No problems noted. Sister No problems noted. Son No problems noted. Son No problems noted. Son No problems noted. Son No problems noted. Family history of problems with anesthesia: No Surgical History Surgical History History of partial hysterectomy History of tubal ligation History of Problems with Anesthesia: No Social History Social History Housing: House Alcohol intake: never Patient Tobacco Use Status: Never used Tobacco e-Cigarette/Vaping Use: Never Used Second Hand Smoke Exposure: Yes Are you DNR?: No Advance Directives: No Advance Directives Information Provided: Yes Nutrition Risks: No Nutritional Risk service: No Current occupational status: employed Cognitive needs: No Hearing needs: No Vision needs: Yes Meds Allergies Allergy/AdvReac Type Severity Reaction Status Date / Time peanut [Peanut] Allergy Mild AVOIDS Verified 10/12/22 10:17 PREFERANCE strawberry [[place]] Allergy Mild HIVES Verified 10/12/22 10:17 lactose [Lactose] AdvReac Mild STOMACH Verified 10/12/22 10:17 UPSET tramadol AdvReac Unknown severe Verified 10/12/22 10:17 headaches Home Medications Medication Instructions Recorded Confirmed Last Taken Type multivitamin 1 tab PO DAILY 01/21/22 10/01/22 Unknown History Exam Exam Date and Time: January 06, 2023 0923 Pertinent Lab Results Pertinent Lab Results: Laboratory Tests 10/15/22 10/15/22 11:18 11:18 WBC 6.7 Hgb 13.3 Hct 40.4 Plt Count 177 Sodium 141 Potassium 3.7 Chloride 105 Carbon Dioxide 27 BUN 11 Creatinine 0.70 Narrative Narrative: EKG 10/2022 Vent. Rate : 067 BPM ? ? Atrial Rate : 067 BPM ?? P-R Int : 166 ms? QRS Dur : 072 ms ? ? QT Int : 416 ms ? ? ? P-R-T Axes : 061 038 066 degrees ?? QTc Int : 439 ms ? Normal sinus rhythm Normal ECG When compared with ECG of 07-MAR-2020 13:03, No significant change was found Assessment and Plan Assessment Anesthesia Assessment: Chart Reviewed Final Anesthetic Review Family History of Problems with Anesthesia: No History of Problems with Anesthesia: No
--- NOTE | ~2023-01-07 | FL_ITS ---
EXAMINATION: XR FLUOROSCOPY WITH IMAGES CLINICAL INFORMATION: Pain management, transforaminal SAM. COMPARISON: MR lumbar spine 08/21/2020 TECHNIQUE: Fluoroscopy Supervised By: Dr. Sylvain Mack. Fluoroscopy Time: 0.4 minutes. Cumulative Dose: 6.72 mGy. DAP: 1.65 Gycm2. Images: 5. FINDINGS: There are spinal needles overlying the bilateral outer L4 neural foramen. There is contrast seen in the respective nerve sheaths. Transforaminal epidural extension is also present. No visible vascular communication. There are scattered degenerative changes lumbar spine with vertebral spurring. FL/FL guidance in OR IMPRESSION: Fluoroscopy for pain management procedures.
[2023-01-07 12:21] VITALS: BMI 28.9
[2023-01-07] MEDS: Lactated Ringers 1,000 ML 100 ML IVCONT (12:23)
--- NOTE | 2023-01-07 12:45 | MHC.SHP ---
Pre-Procedural Eval Section A Date of Service: 01/07/23 The patient is an INPATIENT: No Changes since office visit: Yes Patient answered all questions The History & Physical has been completed within 30 days and I have reviewed it.: No Section B Chief Complaint: Radiculopathy, lumbar region Details of Present Illness: as above Relevant Family History (Specify if Yes): No Relevant Social History: None Present Medications: see Short Stay Collaborative assessment Medical History: No relevant PMH History of Previous Operations: No relevant previous surgery Allergies: Allergies Allergy/AdvReac Type Severity Reaction Status Date / Time peanut [Peanut] Allergy Mild AVOIDS Verified 10/12/22 10:17 PREFERANCE strawberry [[place]] Allergy Mild HIVES Verified 10/12/22 10:17 lactose [Lactose] AdvReac Mild STOMACH Verified 10/12/22 10:17 UPSET tramadol AdvReac Unknown severe Verified 10/12/22 10:17 headaches Review of Systems Sugical H&P ROS: Negative: Constitution, Cardiovascular, Respiratory, Neurological, Psychiatric, Hem-Onc, Allergic/Immunologic, Gastrointestinal, Genitourinary, Musculoskeletal, Integumentary, Endocrine and Eyes/Ears/Nose/Throat Exam Surgical H&P Exam: Normal: HEENT, Normal: Heart, Normal: Lungs, Normal: Extremities, Normal: Abdomen, Normal: Skin and Normal: Neurological Plan Diagnosis/Plan: Unchanged I have reviewed the history and physical and performed a pertinent physical examination on my patient. No changes have occurred unless specified. Time Spent With Patient Time: Total time managing care of this patient today ____ minutes.
[2023-01-07 12:53] VITALS: BP 149/67; PULSE 58; RESP 16; TEMP 36.2; O2SAT 97
--- NOTE | 2023-01-07 12:55 | PC.NURSE ---
IV inserted by Natalie Melissa RN
--- NOTE | 2023-01-07 13:13 | P.OP_ITS ---
Operative Note Operative Note Date of Service: 01/07/23 Narrative: Transforaminal epidural steroid injection L4-L5 BILATRERAL? ?THE PATIENT CAME TO THE OPERATING ROOM AFTER OBTAINING INFORMED CONSENT.? THE RISKS OF THE PROCEDURE WERE DELINEATED THE RISK OF BLEEDING INFECTION PERIPHERAL NERVE DAMAGE EPIDURAL HEMATOMA EPIDURAL ABSCESS AND OTHER UNSPECIFIED RISKS.? THE PATIENT WAS POSITIONED PRONE ON THE OPERATING TABLE [employer] MONITORS WERE APPLIED, PATIENT WAS MINIMALLY SEDATED, BUT STAYED AWAKE THROUGHOUT THE PROCEDURE.. TIME-OUT WAS OBTAINED DELINEATING CORRECT SIDE AND SITE OF THE PROCEDURE, PATIENT NAME AND DATE OF , NEED OF THE ANTIBIOTIC, RISK OF FIRE. The PATIENT PARTICIPATED IN THE TIME OUT PROCEDURE. LUMBAR AREA OF THE PATIENT WAS PREPPED WITH CHLORAPREP AND DRAPED WITH STERILE DRAPES, STERILELY DRAPED C-ARM WAS BROUGHT OVER THE OPERATING FIELD AND SQ PICTURE OF L4 VERTEBRA WAS DELINEATED ON THE SCREEN.? C-ARM WAS TILTED 25? TO THE RIGH SIDE AND PICTURE OF THE RIGHT PEDICLE L4 VERTEBRA WAS OBTAINED ON THE SCREEN.? 3 MM BELOW THE LOWEST POINT OF THE PEDICLE PROJECTION TO THE SKIN WAS CHOSEN A STARTING POINT OF THE INJECTION.? 22 GAUGE 5 IN SPINAL NEEDLE WAS INSERTED THROUGH THE SKIN AND STARTED TO ADVANCE TO THE FORAMINA IN ANTERIOR POSTERIOR, OBLIQUE AND LATERAL VIEWS IN TUNNEL VISION FASHION.? WHEN ON LATERAL VIEW THE NEEDLE ENTERED THE MOST POSTERIOR AND SUPERIOR PORTION OF THE FORAMINA INJECTION OF THE CONTRAST PERFORMED DELINEATING ANTERIOR EPIDURAL SPREAD OF THE CONTRAST.? AFTER THAT TREATMENT SOLUTION CONTAINING 5 ML OF PRESERVATIVE-FREE LIDOCAINE 1% MIXED WITH KENALOG 40 MG WAS INJECTED INTO THE NEEDLE.? UPON COMPLETION OF THE INJECTION THE NEEDLE WAS REMOVED AND STERILE DRESSING WAS APPLIED. THERE INJECTION WAS REPEATED AT THE LEVEL L4-L5 ON THE LEFT IN THE MIRRORING FASHION ABOVE. ?PATIENT TOLERATED PROCEDURE WELL SHE WAS AWAKEN TAKEN OUTSIDE OF THE OPERATING ROOM TO PACU WHERE SHE RECOVERED UNEVENTFULLY.? SHE WENT HOME WITHOUT IMMEDIATE COMPLICATIONS.
[2023-01-07 13:59] VITALS: BP 168/78; PULSE 58; RESP 18; TEMP 36.6; O2SAT 95
[2023-01-07 14:14] VITALS: BP 138/65; PULSE 60; RESP 18; O2SAT 98
[2023-01-07] MEDS: ondansetron HCL 4 MG/2 ML VIAL IVPUSH (14:18)
[2023-01-07 14:29] VITALS: BP 152/76; PULSE 61; RESP 18; O2SAT 98
== END 2023-01-07 15:38 | disposition home or self-care (01) ==
LOC: HO.SSS 11:58
PROVIDERS: PCP Internal Medicine; Visit Provider Anesthesiology
PROC: 3E0R33Z Introduction of Anti-inflammatory into Spinal Canal, Percutaneous Approach (ICD-10-PCS; CPT 64483; principal; 2023-01-07 13:10)
DX: M54.16 Radiculopathy, lumbar region (principal); M54.50 Low back pain, unspecified; G89.29 Other chronic pain; M47.896 Other spondylosis, lumbar region; M53.3 Sacrococcygeal disorders, not elsewhere classified; M70.62 Trochanteric bursitis, left hip; D69.6 Thrombocytopenia, unspecified; F32.A Depression, unspecified; Z87.828 Personal history of other (healed) physical injury and trauma; Z79.899 Other long term (current) drug therapy; Z88.8 Allergy status to other drugs, medicaments and biological substances
CPT/HCPCS: 64483; J2250; J2405; J3010; J3301; Q9965

== ENCOUNTER 2023-02-28 09:05 | Emergency (ER) | payer BC, OTHER, SELFPAY ==
[2023-02-28 09:07] VITALS: BP 185/98; PULSE 70; RESP 16; TEMP 36.1; O2SAT 99; BMI 26.5
--- NOTE | 2023-02-28 09:09 | ECG_ITS ---
Test Reason : HYPERTENSION Blood Pressure : / mmHG Vent. Rate : 060 BPM Atrial Rate : 060 BPM P-R Int : 168 ms QRS Dur : 076 ms QT Int : 438 ms P-R-T Axes : 065 047 066 degrees QTc Int : 438 ms Normal sinus rhythm Normal ECG When compared with ECG of 15-OCT-2022 10:42, No significant change was found Referred By: Generic ED Physician Electronically Signed By:Gurvinder Beebe
--- NOTE | 2023-02-28 09:19 | ED_ITS ---
HPI - General Adult General Chief complaint: General Medical Stated complaint: HBP Time Seen by Provider: 02/28/23 09:19 Source: patient and family Mode of arrival: ambulatory History of Present Illness HPI narrative: 57-year-old female who reports she has had consistent hypertension for over a month, she has been unable to get an appointment with her primary care provider until March in states that last night her blood pressure was elevated and she describes a headache that has not resulted in any visual disturbance, she denies speech abnormalities or unilateral pain/numbness/weakness/tingling. Patient states she did not take any medication today because she was feeling nauseous and is taking antacids for GERD but did not take it today because she was feeling nauseous. She denies any association with alcohol/drugs and denies any fever, chills, shortness of breath, chest pain, bowel or bladder issues and denies any diarrhea and instead states that she has had some constipation after being on Percocet for her dental procedure. Related Data Home Medications Medication Instructions Recorded Confirmed multivitamin 1 tab PO DAILY 01/21/22 10/01/22 Previous Rx's Medication Instructions Recorded aluminum-mag hydroxide-simethicone 5 ml PO QID PRN indigestion #240 mL 07/28/22 400 mg-400 mg-40 mg/5 mL oral susp (Maalox Maximum Strength) ondansetron 4 mg disintegrating 4 mg PO Q8H PRN nausea and 10/02/22 tablet vomiting #3 tabs peg-electrolyte solution 420 gram 240 ml PO Q10M #4,000 mL 10/02/22 oral solution lidocaine 5 % topical patch 1 patch topical .COMPLEX pain 30 10/12/22 days #30 ea ondansetron HCl 4 mg tablet 4 mg PO Q8H PRN nausea and 10/15/22 vomiting 4 days #7 tabs sertraline 50 mg tablet 50 mg PO DAILY #90 tabs 10/27/22 tizanidine 4 mg tablet 4 mg PO BEDTIME PRN muscle 10/27/22 spasticity #30 tabs pantoprazole 40 mg tablet,delayed 40 mg PO DAILY #30 tabs 12/10/22 release hydrochlorothiazide 25 mg tablet 25 mg PO DAILY #14 tabs 02/28/23 Allergies Allergy/AdvReac Type Severity Reaction Status Date / Time peanut [Peanut] Allergy Mild AVOIDS Verified 10/12/22 10:17 PREFERANCE strawberry [[place]] Allergy Mild HIVES Verified 10/12/22 10:17 lactose [Lactose] AdvReac Mild STOMACH Verified 10/12/22 10:17 UPSET tramadol AdvReac Unknown severe Verified 10/12/22 10:17 headaches Review of Systems Review of Systems: Pertinent positives and negatives as stated in HPI PMFSH Past Medical History Source: nursing notes reviewed Medical History Anxiety Chronic low back pain Depression Dermatitis Eczema of both hands [place] IBS (irritable bowel syndrome) Idiopathic thrombocytopenia Lumbar back pain with radiculopathy affecting right lower extremity Spondyloarthropathy of lumbar spine Surgical History History of partial hysterectomy History of tubal ligation Family History Family History Father IBS (irritable bowel syndrome) Myocardial infarction Mother Arthritis Maternal Aunt Breast cancer Sister Substance use disorder Sister Substance use disorder Mental health disorder Sister Mental health disorder Sister No problems noted. Sister No problems noted. Son No problems noted. Son No problems noted. Son No problems noted. Son No problems noted. Social History Social History Housing: House Alcohol intake: never Patient Tobacco Use Status: Never used Tobacco Smoked in Last 30 Days: No e-Cigarette/Vaping Use: Never Used Second Hand Smoke Exposure: Yes Use of substances other than those prescribed or required for medical reasons: No Advance Directives: No Advance Directives Information Provided: Yes service: No Current occupational status: employed Cognitive needs: No Hearing needs: No Vision needs: Yes Physical Exam ED Vital Signs: Vital Signs - 24 hr 02/28/23 09:07 02/28/23 09:26 02/28/23 10:08 Temperature 96.9 F 98.3 F Pulse Rate 70 61 Respiratory Rate 16 16 Blood Pressure 185/98 H 178/80 H 141/77 H Pulse Oximetry 99 97 Oxygen Delivery Method Room Air Room Air 02/28/23 11:07 Temperature Pulse Rate Respiratory Rate Blood Pressure 140/69 H Pulse Oximetry Oxygen Delivery Method BMI result Body Mass Index 26.5 VITAL SIGNS: Reviewed. GENERAL: Well developed, well nourished, in no acute distress. HEAD: Normocephalic/atraumatic EYES: PERRLA, EOMI EARS: Ext canals without abnormality NOSE: Nares patent bilateral OROPHARYNX: no oral lesions noted, posterior pharynx clear NECK: Supple, no adenopathy LUNGS: Normal breath sounds. No adventitious sounds or accessory muscle use. SpO2<97> CARDIOVASCULAR: Regular rate and rhythm without noted murmurs ABDOMEN: Soft, non-tender, non-distended with bowel sounds. MUSCULOSKELETAL: No tenderness, deformities, or effusions noted on gross inspection. EXTREMITIES: No cyanosis, clubbing or edema. SKIN: Inspection of the skin reveals no rashes NEUROLOGIC: Alert and oriented x 4. Strength and sensation to light touch were grossly intact x 4, no facial asymmetry, no pronator drift, cranial nerves 2-12 are grossly intact. Medications Administered Discontinued Medications Generic Name Dose Route Start Last Admin Trade Name Freq PRN Reason Stop Dose Admin Acetaminophen 975 mg 02/28/23 09:39 02/28/23 10:09 Acetaminophen 325 Mg Tablet PO 02/28/23 09:40 975 mg ONCE ONE Administration Hydrochlorothiazide 25 mg 02/28/23 09:40 02/28/23 10:09 Hydrochlorothiazide 25 Mg Tablet PO 02/28/23 09:41 25 mg ONCE ONE Administration Protocol Ibuprofen 400 mg 02/28/23 09:39 02/28/23 10:09 Ibuprofen 400 Mg Tablet PO 02/28/23 09:40 400 mg ONCE ONE Administration Ondansetron HCl 4 mg 02/28/23 09:40 02/28/23 10:09 Ondansetron Odt 4 Mg Tab.Rapdis TRANSLINGU 02/28/23 09:41 4 mg ONCE ONE Administration Medical Decision Making Medical Decision Making [facility] [place] Narrative: 57-year-old female with history and clinical presentation without focal findings or chest pain, DDX: GERD, medication induced hypertension, general headache, gastritis I reviewed all investigations, hematologic indices do not support infection, anemia as there is no leukocytosis/left shift/thrombocytopenia. Chemistry indices negative for evidence of electrolyte abnormalities/HIEU. I feel that urinalysis is a dirty sample and will not empirically start antibiotics at this time. On re-evaluation patient's headache is improved will discharge home with 30 days of antihypertensives until she is seen by her primary care physician. Differential Diagnosis Differential Diagnoses: The differential diagnosis associated with the presentation includes Please see the discussion above Admission/Observation Consideration of admission/observation: Escalation of care including admission/observation considered Lab Data MDM Lab Attestation statement: I reviewed the patient's lab results. Please see the discussion above 02/28/23 09:46 02/28/23 09:47 Labs: Lab Results 02/28/23 02/28/23 02/28/23 Range/Units 09:46 09:46 09:47 WBC 6.3 (4.8-10.8) X10*3/uL RBC 4.55 (4.20-5.50) X10*6/uL Hgb 13.4 (12.0-16.0) g/dl Hct 40.6 (37.0-47.0) % MCV 89.2 (80.0-98.0) fL MCH 29.5 (27.0-33.0) pg MCHC 33.0 (31.0-35.0) g/dl RDW 12.6 (11.0-16.0) % Plt Count 174 (160-400) X10*3/uL MPV 10.3 (9.4-12.3) fL Immature Gran % (Auto) 0.3 (0.0-0.4) % Neut % (Auto) 67.3 (45-73) % Lymph % (Auto) 23.4 (20-40) % [place] % (Auto) 7.5 (2-11) % Eos % (Auto) 1.0 (0-4) % Baso % (Auto) 0.5 (0-2) % Lymph # (Auto) 1.5 (1.2-4.9) X10*3/uL [place] # (Auto) 0.5 (0.1-1.2) X10*3/uL Eos # (Auto) 0.1 (0.0-0.4) X10*3/uL Baso # (Auto) 0.0 (0.0-0.2) X10*3/uL Abs Immat Gran (auto) 0.02 (0.00-0.03) X10*3/uL Absolute Neuts (auto) 4.2 (2.0-8.3) x10*3/uL Absolute Nucleated RBC 0.000 (0.0-0.012) X10*3/uL Nucleated RBC % (auto) 0.0 (0.0-0.2) /100WBC Sodium 141 (135-145) mmol/L Potassium 3.6 (3.3-5.1) mmol/L Chloride 105 (96-108) mmol/L Carbon Dioxide 27 (22-29) mmol/L Anion Gap 13 (12-20) BUN 12 (9-16) mg/dL Creatinine 0.74 (0.5-1.4) mg/dL Estim Creat Clear Calc 73.7 Estimated GFR > 60 Random Glucose 104 (60-115) mg/dL Calcium 9.3 (8.4-10.2) mg/dL Total Bilirubin 0.3 (0.0-1.0) mg/dL AST 14 (5-31) U/L ALT 14 (0-31) U/L Alkaline Phosphatase 72 (39-117) U/L Total Protein 7.3 (6.5-8.0) g/dL Albumin 4.2 (3.5-5.0) g/dL Urine Color Yellow Urine Appearance Clear Urine pH 5.5 (5.0-9.0) Ur Specific [place] 1.015 (1.005-1.025) Urine Protein Negative (Neg-Trace) mg/dL Urine Glucose (UA) Negative (Negative) mg/dL Urine Ketones Negative (Negative) mg/dL Urine Blood Negative (Negative) Urine Nitrite Negative (Negative) Ur Leukocyte Esterase Small (1+) H (Negative) Urine RBC 0-2 (0-2) /HPF Urine WBC 6-10 H (0-5) /HPF Ur Squamous Epith Cells 3-5 (0-2) /HPF Urine Bacteria None Seen (None Seen) Hyaline Casts 0-2 (0-2) /LPF Independent Interpretation I performed an independent interpretation of an: EKG Interpretation: Normal sinus rhythm, HR-60, no STEMI, ID/QRS/QTC is within normal limits. External Record Review External record reviewed: Outpatient record and Prior outpatient labs Chronic Conditions Patient?s care impacted by: Hypertension Discharge Plan Discharge Clinical Impression: Headache, Elevated blood pressure reading Patient Disposition: Home, Self-Care Instructions: DASH Eating Plan (ED), Hypertension (ED), General Headache (ED) Additional Instructions: 1. Resume all home medications as prescribed. 2. Follow-up with primary care provider. 3. I have given you a short prescription for your blood pressure until you are evaluated by your primary care doctor. Return to the ER for any worsening symptoms. Prescriptions: New hydrochlorothiazide 25 mg tablet 25 mg PO DAILY Qty: 14 0RF No Action peg-electrolyte soln 420 gram recon soln 240 ml PO Q10M Qty: 4000 0RF Rx Instructions: until fecal effluent is clear; do not exceed a total volume of 2,000 mL ondansetron 4 mg tablet,disintegrating 4 mg PO Q8H PRN (Reason: nausea and vomiting) Qty: 3 0RF sertraline 50 mg tablet 50 mg PO DAILY Qty: 90 0RF tizanidine 4 mg tablet 4 mg PO BEDTIME PRN (Reason: muscle spasticity) Qty: 30 0RF pantoprazole 40 mg tablet,delayed release (DR/EC) 40 mg PO DAILY Qty: 30 1RF ondansetron HCl 4 mg tablet 4 mg PO Q8H PRN (Reason: nausea and vomiting) 4 Days Qty: 7 0RF multivitamin Tablet 1 tab PO DAILY alum-mag hydroxide-simeth [Maalox Maximum Strength] 400-400-40 mg/5 mL suspension 5 ml PO QID PRN (Reason: indigestion) Qty: 240 0RF lidocaine 5 % adhesive patch,medicated 1 patch topical .COMPLEX 30 Days Qty: 30 3RF Rx Instructions: 1 patch topically up to 12 hours per day Referrals: Danielle Wahl MD [Primary Care Provider] -
[2023-02-28 09:26] VITALS: BP 178/80; PULSE 61; RESP 16; TEMP 36.8; O2SAT 97
--- NOTE | 2023-02-28 09:32 | PC.NURSE ---
pt a &ox3, respirations even and unlabored. skin warm pink and dry. pt reporting headaches 03/25. reports having high blood pressure for a few weeks now. pt stated she had one pressure that was 200/100 . reports nausea.
[2023-02-28 09:51] LABS: Basophils Percent Auto 0.5 % (0-2); Eosinophils Absolute Auto 0.1 X10*3/uL (0.0-0.4); Hematocrit 40.6 % (37.0-47.0); Hemoglobin 13.4 g/dl (12.0-16.0); Imm Gran Abs Auto 0.02 X10*3/uL (0.00-0.03); Imm Gran Pct Auto 0.3 % (0.0-0.4); Lymphocytes Absolute Auto 1.5 X10*3/uL (1.2-4.9); Lymphocytes Percent Auto 23.4 % (20-40); MANUAL DIFF FLAG NO; Mean Corpuscular Hemoglobin 29.5 pg (27.0-33.0); Mean Corpuscular Volume 89.2 fL (80.0-98.0); Mean Platelet Volume 10.3 fL (9.4-12.3); Monocytes Absolute Auto 0.5 X10*3/uL (0.1-1.2); Monocytes Percent Auto 7.5 % (2-11); Neutrophils Absolute Auto 4.2 x10*3/uL (2.0-8.3); Neutrophils Percent Auto 67.3 % (45-73); Platelet Count 174 X10*3/uL (160-400); Red Blood Count 4.55 X10*6/uL (4.20-5.50); Red Cell Distribution Width 12.6 % (11.0-16.0); White Blood Count 6.3 X10*3/uL (4.8-10.8)
[2023-02-28 09:52] LABS: Appearance Urine Clear; Color Urine Yellow; Glucose Urine UA Negative (Negative); Leukocyte Esterase Urine Small (1+) (Negative); Nitrite Urine Negative (Negative); PH 5.5 (5.0-9.0); Specific Gravity - Urine 1.015 (1.005-1.025); UMIC TRIGGER UACC YES; Urine Blood Negative (Negative); Urine Ketones Negative (Negative); Urine Protein Negative (Neg-Trace)
[2023-02-28 09:57] LABS: Bacteria Urine None Seen (None Seen); Hyaline Casts Urine 0-2 /LPF (0-2); RBC Urine 0-2 /HPF (0-2); UACC Culture Trigger YES
[2023-02-28 10:06] LABS: Alanine Aminotransferase 14 U/L (0-31); Albumin Level 4.2 g/dL (3.5-5.0); Alkaline Phosphatase 72 U/L (39-117); Anion Gap 13 (12-20); Aspartate Amino Transferase 14 U/L (5-31); Bilirubin Total 0.3 mg/dL (0.0-1.0); Blood Urea Nitrogen 12 mg/dL (9-16); Calcium 9.3 mg/dL (8.4-10.2); Carbon Dioxide 27 mmol/L (22-29); Chloride 105 mmol/L (96-108); Creatinine Clr Calc Pharmacy 73.7; Estimated Glomerular Filt Rate > 60; Glucose Random 104 mg/dL (60-115); Potassium 3.6 mmol/L (3.3-5.1); Sodium 141 mmol/L (135-145); Total Protein 7.3 g/dL (6.5-8.0)
[2023-02-28 10:08] VITALS: BP 141/77
[2023-02-28] MEDS: hydroCHLOROthiazide 25 MG TABLET PO (10:09)
[2023-02-28] MEDS: Ibuprofen 400 MG TABLET PO (10:09)
[2023-02-28] MEDS: Acetaminophen 325 MG TABLET 975 MG PO (10:09)
[2023-02-28] MEDS: Ondansetron ODT 4 MG TAB.RAPDIS TRANSLINGU (10:09)
[2023-02-28 11:07] VITALS: BP 140/69
== END 2023-02-28 11:38 | disposition home or self-care (01) ==
PROVIDERS: Emergency Provider Student in an Organized Health Care Education/Training Program; PCP Internal Medicine
DX: R51.9 Headache, unspecified (principal); R03.0 Elevated blood-pressure reading, without diagnosis of hypertension; R11.2 Nausea with vomiting, unspecified; Z79.899 Other long term (current) drug therapy
CPT/HCPCS: 36415; 80053; 81001; 85025; 87086; 93005; 99284

== ENCOUNTER → 2023-02-28 09:09 | Outpatient (BNV) | payer BC, OTHER, SELFPAY | PROVIDERS: Emergency Provider Student in an Organized Health Care Education/Training Program; PCP Internal Medicine; Visit Provider Internal Medicine Cardiovascular Disease | DX: I10 Essential (primary) hypertension (principal) | CPT/HCPCS: 93010 ==

== ENCOUNTER 2023-03-01 10:22 | Observation (INO) | payer BC, SELFPAY ==
[2023-03-01] VITALS (11 sets, daily range): BP systolic 125–204; BP diastolic 59–112; PULSE 56–72; RESP 16–20; TEMP 36–37; O2SAT 96–99; BMI 27.1
--- NOTE | ~2023-03-01 | CT_ITS ---
EXAMINATION: CT ABDOMEN AND PELVIS WITHOUT CONTRAST CLINICAL INFORMATION: Abdominal pain. Nausea and vomiting. COMPARISON: 04/02/2021 TECHNIQUE: Multidetector volumetric imaging was performed from the superior aspect of the liver through the pubic symphysis. Sagittal and coronal reformatted images were obtained on the technologist's workstation. This CT examination was performed using dose optimization techniques as appropriate, variously including the following: *Automated exposure control *Adjustment of mA and/or kV according to patient size (this includes techniques or standardized protocols for targeted exams where dose is matched to indication/reason for exam; i.e. extremities or head) *Use of iterative reconstruction technique DLP: 407 mGy-cm FINDINGS: LUNG BASES: The visualized lung bases are unremarkable. LIVER, GALLBLADDER, AND BILIARY TREE: The liver is normal in size, shape, and attenuation. No biliary ductal dilatation. There is a hypodense mass posteriorly in the right lobe of the liver involving segments 6 and 7. This measures 7 x 4 cm. Prior MRI shows that this represents a hemangioma.. Layering high attenuation in the gallbladder lumen suggestive of sludge. No wall thickening or adjacent inflammation. PANCREAS: Unremarkable. SPLEEN: Unremarkable. ADRENAL GLANDS: Unremarkable. KIDNEYS AND URETERS: The kidneys are normal in size, shape, and attenuation. No hydronephrosis, hydroureter, or calculi seen. No perinephric stranding. BLADDER: Unremarkable. GASTROINTESTINAL TRACT: The stomach is unremarkable. Normal caliber of the small bowel. No obstruction. Much of the colon is decompressed. No definite wall thickening. There may be mild pericolonic inflammation. This is most evident at the left hemicolon. ABDOMINAL WALL: No significant hernia is appreciated. LYMPH NODES: Normal. VASCULAR: Normal caliber aorta with mild atherosclerotic calcification. Circumaortic left renal vein. PELVIC VISCERA: Uterus not seen. No adnexal mass. OSSEOUS STRUCTURES: No acute or suspicious osseous abnormality. Degenerative change throughout the spine. Mild degenerative changes in both hips. Mild bilateral sclerosis along the sacroiliac joints. CT/CT abdomen pelvis wo IV con IMPRESSION: There may be mild inflammation along the left hemicolon, suggestive of colitis. Redemonstration of a hemangioma along the posterior aspect of the right lobe of the liver.. Fleischner guidelines were followed.
--- NOTE | ~2023-03-01 | CT_ITS ---
EXAMINATION: CT ANGIOGRAM NECK WITH CONTRAST CT ANGIOGRAM BRAIN WITH CONTRAST CLINICAL INFORMATION: Hypertension. Neck pain. Headache. COMPARISON: None. TECHNIQUE: Test bolus sequences followed by intravenous administration 100 mL of Omnipaque 350. Helical imaging was performed in the axial plane from the thoracic inlet to the skull vertex. Delayed postcontrast imaging of the head was also performed. The data was processed at the staff technologist workstation for generation of MIP sequences. Angled MIPs and volume rendered reformatted images were also generated at an offline 3D workstation. Stenoses are assessed in accordance with NASCET criteria unless otherwise indicated. This CT examination was performed using dose optimization techniques as appropriate, variously including the following: *Automated exposure control *Adjustment of mA and/or kV according to patient size (this includes techniques or standardized protocols for targeted exams where dose is matched to indication/reason for exam; i.e. extremities or head) *Use of iterative reconstruction technique DLP: 2079 mGy-cm FINDINGS: Head CT: There is no intracranial hemorrhage, mass effect, extra-axial collection, or territorial infarction. Low attenuation foci are seen within the right and left basal ganglia on series 16 image 47/76 could represent recent/age indeterminate infarcts. There is no abnormal enhancement. The ventricles are normal in size without hydrocephalus. The dural venous sinuses are normally opacified. There is mild to moderate ethmoid and sphenoid sinus mucosal thickening. Neck CTA: There is a normal aortic arch with no significant stenosis of the great vessel origins. The common and internal carotid arteries are normal in course and caliber. The lower portion the right vertebral artery is difficult to evaluate due to extensive venous contamination. Left vertebral artery is dominant and appears normal. Head CTA: No large vessel occlusion is seen. There is disposition of both [employer] airspace [employer]. There is no evidence of arterial stenosis or occlusion. No aneurysm is seen. Non-vascular findings: There is soft tissue thickening involving the right posterior inferior aspect of the maxillary sinus with associated erosive changes extending into the retroantral fat and retromolar trigone region best seen on series 6 image 5 and 04/1097 bilateral palatine tonsilloliths are noted. No discrete laryngeal or pharyngeal lesion is seen. Enlarged level 2 lymph nodes are noted bilaterally with normal fatty genaro and normal morphology. There is no consolidation within the upper lungs. Degenerative changes are seen within the spine with mild to moderate spinal canal stenosis at C5-C6 and C6-C7 related to prominent disc osteophyte complexes. CT/CT angio head neck IMPRESSION: CT HEAD: No intracranial hemorrhage or large acute infarction. Low-attenuation foci within the right and left basal ganglia could represent recent/age indeterminate infarcts. CTA NECK: No hemodynamically significant stenosis in the major arteries of the neck. CTA HEAD: 1. No large vessel occlusion or significant stenosis within the intracranial circulation. Additional findings: Soft tissue thickening involving the right posterior inferior aspect of the maxillary sinus with associated erosive changes of the sinus floor with abnormal soft tissue extending into the retroantral fat and retromolar trigone region. Findings concerning for infiltrative lesion potentially squamous cell carcinoma for which dedicated ENT evaluation is recommended.
--- NOTE | ~2023-03-01 | CT_ITS ---
EXAMINATION: CT HEAD WITHOUT CONTRAST CLINICAL INFORMATION: Facial numbness. COMPARISON: CT head 03/15/2017 TECHNIQUE: Contiguous axial imaging was performed from the skull base to vertex without intravenous administration of contrast. Coronal and sagittal reformatted images are performed at the CT scanner. [This CT examination was performed using dose optimization techniques as appropriate, variously including the following: *Automated exposure control *Adjustment of mA and/or kV according to patient size (this includes techniques or standardized protocols for targeted exams where dose is matched to indication/reason for exam; i.e. extremities or head) *Use of iterative reconstruction technique] DLP: 747 mGy-cm. FINDINGS: There is no evidence of acute intracranial hemorrhage or territorial infarction. No abnormal mass-effect or midline shift is seen. Joaquin to white matter differentiation is well preserved. No extra-axial fluid collections are identified. The ventricles are normal in size. There is no abnormal attenuation within the brain parenchyma. There is no osseous abnormality. The mastoid air cells and visualized portions of the paranasal sinuses are well-aerated. CT/CT head/brain wo IV con IMPRESSION: No acute intracranial pathology.
--- NOTE | 2023-03-01 10:49 | ED_ITS ---
HPI - General Adult General Chief complaint: General Medical Stated complaint: headache,neck pain,nausea,vomiting,dizzy Time Seen by Provider: 03/01/23 10:35 Source: patient Mode of arrival: ambulatory Limitations: no limitations History of Present Illness HPI narrative: patient is a 57-year-old female with a past medical history of anxiety, chronic low back pain, idiopathic thrombocytopenia of presenting to the emergency department with a chief complaint of hypertension. Patient reports taking your blood pressure this morning and recording 180/110 and again at 190/120. She does patient reports she was here yesterday for similar complaint and was sent home with hydrochlorothiazide. Patient reports right arm pain/weakness last night which is no longer present.Are patient reports associated nausea, vom iting, dizziness, stomach pain, neck pain, shortness of breath, poor p.o. intake. Patient denies chest pain, numbness, tingling, vision changes, pain with extraocular movements, syncope. Related Data Home Medications Medication Instructions Recorded Confirmed multivitamin 1 tab PO DAILY 01/21/22 10/01/22 Previous Rx's Medication Instructions Recorded aluminum-mag hydroxide-simethicone 5 ml PO QID PRN indigestion #240 mL 07/28/22 400 mg-400 mg-40 mg/5 mL oral susp (Maalox Maximum Strength) ondansetron 4 mg disintegrating 4 mg PO Q8H PRN nausea and 10/02/22 tablet vomiting #3 tabs peg-electrolyte solution 420 gram 240 ml PO Q10M #4,000 mL 10/02/22 oral solution lidocaine 5 % topical patch 1 patch topical .COMPLEX pain 30 10/12/22 days #30 ea ondansetron HCl 4 mg tablet 4 mg PO Q8H PRN nausea and 10/15/22 vomiting 4 days #7 tabs sertraline 50 mg tablet 50 mg PO DAILY #90 tabs 10/27/22 tizanidine 4 mg tablet 4 mg PO BEDTIME PRN muscle 10/27/22 spasticity #30 tabs pantoprazole 40 mg tablet,delayed 40 mg PO DAILY #30 tabs 12/10/22 release hydrochlorothiazide 25 mg tablet 25 mg PO DAILY #14 tabs 02/28/23 Allergies Allergy/AdvReac Type Severity Reaction Status Date / Time peanut [Peanut] Allergy Mild AVOIDS Verified 03/01/23 10:49 PREFERANCE strawberry [[place]] Allergy Mild HIVES Verified 03/01/23 10:49 lactose [Lactose] AdvReac Mild STOMACH Verified 03/01/23 10:49 UPSET tramadol AdvReac Unknown severe Verified 03/01/23 10:49 headaches Review of Systems Review of Systems: Constitutional : No Weight loss, No Fever, No Chills, No Fatigue, No Malaise ENT/Mouth : No sore throat, No Rhinorrhea Eyes: No Eye Pain, No Swelling, No Redness Cardiovascular : No Chest Pain, +SOB, No Dyspnea on Exertion, No Orthopnea, No Edema, No Palpitations Respiratory : No Cough, No Sputum, No Wheezing Gastrointestinal : +Nausea, +Vomiting, No Diarrhea, No Constipation, +abdominal Pain, No Hematochezia, No Melena Genitourinary : No Dysuria, No Urinary Frequency, No Hematuria, Musculoskeletal : No joint pain, No Myalgias, No Joint Swelling Skin : No Skin Lesions, No rash Neuro : No Weakness, No Numbness, +Dizziness, +Headache, No vision changes, No Syncope All other systems reviewed and are negative Yes all other systems are reviewed and are negative [facility] Past Medical History Attestation statement: The following information was validated with the patient. Source: old records reviewed and nursing notes reviewed Medical History Anxiety Chronic low back pain Depression Dermatitis Eczema of both hands Heartburn IBS (irritable bowel syndrome) Idiopathic thrombocytopenia Lumbar back pain with radiculopathy affecting right lower extremity Spondyloarthropathy of lumbar spine Surgical History History of partial hysterectomy History of tubal ligation Family History Family History Father IBS (irritable bowel syndrome) Myocardial infarction Mother Arthritis Maternal Aunt Breast cancer Sister Substance use disorder Sister Substance use disorder Mental health disorder Sister Mental health disorder Sister No problems noted. Sister No problems noted. Son No problems noted. Son No problems noted. Son No problems noted. Son No problems noted. Social History Social History Housing: House Alcohol intake: never Patient Tobacco Use Status: Never used Tobacco Smoked in Last 30 Days: No e-Cigarette/Vaping Use: Never Used Second Hand Smoke Exposure: Yes Use of substances other than those prescribed or required for medical reasons: No Advance Directives: No Advance Directives Information Provided: No service: No Current occupational status: employed Cognitive needs: No Hearing needs: No Vision needs: Yes Physical Exam ED Vital Signs: Vital Signs - 24 hr 03/01/23 10:43 03/01/23 11:35 03/01/23 12:00 Temperature 98.6 F Pulse Rate 62 60 57 Respiratory Rate 18 18 18 Blood Pressure 204/112 H 147/84 H 179/88 H Pulse Oximetry 98 97 Oxygen Delivery Method Room Air Room Air 03/01/23 11:55 03/01/23 12:35 03/01/23 13:18 Temperature Pulse Rate 60 56 63 Respiratory Rate 18 Blood Pressure 166/85 H 145/84 H 125/83 Pulse Oximetry Oxygen Delivery Method BMI result Body Mass Index 27.1 Hypertension 204/112 Appearance: Alert.? Oriented X3.? No acute distress.? Head: Normocephalic, atraumatic, no step-offs or deformities Eyes: Pupils equal, round and reactive to light.? Reports pain with extraoccular movements. Vision intact. Neck: Normal inspection.? Neck supple.? CVS: Normal heart rate and rhythm.? Pulses normal.? Respiratory: No respiratory distress.? Breath sounds normal.? Abdomen: Soft and nontender.? Skin: Skin warm and dry.? Normal skin color.? Normal skin turgor.? Extremities: No lower extremity edema.? No calf ttp. 5/5 strength to bilateral upper and lower extremities Neuro: Oriented X 3.? No motor deficit.? No sensory deficit. CN 2-12 intact Course Reevaluation(s) Reevaluation #1: CBC appears to be within normal limits. Chemistry unremarkable. Troponin negative. EKG nonischemic. BNP within normal limits. Patient still has a negative NIH Stroke Scale, neuro nonfocal. Patient's urine clean. Patient's CTA with no large vessel occlusion or significant stenosis within the intrac ranial circulation. Soft tissue thickening involving the right posterior inferior aspects of the maxillary sinus associated with rows of changes question infiltrative lesion potentially squamous cell carcinoma, advised her to follow- up with ENT, patient aware of these findings. Also showing age-indeterminate infarct in the basal ganglia, I did call neurology did discuss this case with them who tells me to use clinical judgment as to whether not patient should be admitted, patient has been hypertensive, has not been able to get in with PCP, symptomatic. Will speak to the hospitalist team. Patient would benefit from MRI Time: 14:13 Medications Administered Discontinued Medications Generic Name Dose Route Start Last Admin Trade Name Maria Teresa PRN Reason Stop Dose Admin Amlodipine Besylate 5 mg 03/01/23 12:42 03/01/23 12:53 Amlodipine Besylate 5 Mg Tablet PO 03/01/23 12:43 5 mg ONCE ONE Administration Protocol Aspirin 81 mg 03/01/23 13:10 03/01/23 13:42 Aspirin Enteric Coated 81 Mg Tablet. PO 03/01/23 13:11 81 mg ONCE ONE Administration Diphenhydramine HCl 25 mg 03/01/23 13:47 03/01/23 14:09 Diphenhydramine Hcl 50 Mg/Ml Vial IVPUSH 03/01/23 13:48 25 mg ONCE ONE Administration Iohexol 70 ml 03/01/23 11:16 03/01/23 11:17 Iohexol 350 Mg/Ml 100 Ml Infus..Btl IV 03/01/23 11:17 70 ml ONCE ONE Administration Labetalol HCl 5 mg 03/01/23 10:56 03/01/23 13:16 Labetalol Hcl 100 Mg/20 Ml Vial IVPUSH 03/01/23 10:57 Not Given ONCE ONE Metoclopramide HCl 10 mg 03/01/23 13:47 03/01/23 14:10 Metoclopramide Hcl 10 Mg/2 Ml Vial IVPUSH 03/01/23 13:48 10 mg ONCE ONE Administration Morphine Sulfate 2 mg 03/01/23 13:47 03/01/23 14:09 Morphine Sulfate 2 Mg/Ml Cartridge IVPUSH 03/01/23 13:48 2 mg ONCE ONE Administration Protocol Ondansetron HCl 4 mg 03/01/23 12:16 03/01/23 12:19 Ondansetron Hcl 4 Mg/2 Ml Vial IVPUSH 03/01/23 12:17 4 mg ONCE ONE Administration Medical Decision Making Medical Decision Making MDM Narrative: 57-year-old female presenting with hypertension. physical exam significant for a blood pressure of 204/112, pain with extraocular movements, Left-sided neck pain radiating down likely hypertensive urgency versus emergency vs tia . Will rule out carotid dissection , intracranial hemorrhage will give IV blood pressure medications. Will obtain head and neck CTA, EKG, blood work. Differential Diagnosis Differential Diagnoses: The differential diagnosis associated with the presentation includes likely hypertensive urgency versus emergency vs tia. Will rule out carotid dissection , intracranial hemorrhage Lab Data 03/01/23 11:45 03/01/23 11:45 Labs: Lab Results 03/01/23 03/01/23 03/01/23 Range/Units 11:45 11:45 11:45 WBC 7.2 (4.8-10.8) X10*3/uL RBC 4.71 (4.20-5.50) X10*6/uL Hgb 13.9 (12.0-16.0) g/dl Hct 41.1 (37.0-47.0) % MCV 87.3 (80.0-98.0) fL MCH 29.5 (27.0-33.0) pg MCHC 33.8 (31.0-35.0) g/dl RDW 12.4 (11.0-16.0) % Plt Count 181 (160-400) X10*3/uL MPV 10.5 (9.4-12.3) fL Immature Gran % (Auto) 0.1 (0.0-0.4) % Neut % (Auto) 71.5 (45-73) % Lymph % (Auto) 20.8 (20-40) % [place] % (Auto) 6.3 (2-11) % Eos % (Auto) 0.7 (0-4) % Baso % (Auto) 0.6 (0-2) % Lymph # (Auto) 1.5 (1.2-4.9) X10*3/uL [place] # (Auto) 0.5 (0.1-1.2) X10*3/uL Eos # (Auto) 0.1 (0.0-0.4) X10*3/uL Baso # (Auto) 0.0 (0.0-0.2) X10*3/uL Abs Immat Gran (auto) 0.01 (0.00-0.03) X10*3/uL Absolute Neuts (auto) 5.1 (2.0-8.3) x10*3/uL Absolute Nucleated RBC 0.000 (0.0-0.012) X10*3/uL Nucleated RBC % (auto) 0.0 (0.0-0.2) /100WBC Sodium 138 (135-145) mmol/L Potassium 3.5 (3.3-5.1) mmol/L Chloride 101 (96-108) mmol/L Carbon Dioxide 26 (22-29) mmol/L Anion Gap 15 (12-20) BUN 11 (9-16) mg/dL Creatinine 0.74 (0.5-1.4) mg/dL Estim Creat Clear Calc 74.4 Estimated GFR > 60 Random Glucose 103 (60-115) mg/dL Calcium 9.6 (8.4-10.2) mg/dL Magnesium 2.2 (1.6-2.6) mg/dL Total Bilirubin 0.4 (0.0-1.0) mg/dL AST 16 (5-31) U/L ALT 15 (0-31) U/L Alkaline Phosphatase 75 (39-117) U/L Troponin I High Sens (<3.5-17.0) ng/L B-Natriuretic Peptide 18 (<100) pg/mL Total Protein 7.6 (6.5-8.0) g/dL Albumin 4.3 (3.5-5.0) g/dL Urine Color Urine Appearance Urine pH (5.0-9.0) Ur Specific [place] (1.005-1.025) Urine Protein (Neg-Trace) mg/dL Urine Glucose (UA) (Negative) mg/dL Urine Ketones (Negative) mg/dL Urine Blood (Negative) Urine Nitrite (Negative) Ur Leukocyte Esterase (Negative) 03/01/23 03/01/23 Range/Units 11:45 12:11 WBC (4.8-10.8) X10*3/uL RBC (4.20-5.50) X10*6/uL Hgb (12.0-16.0) g/dl Hct (37.0-47.0) % MCV (80.0-98.0) fL MCH (27.0-33.0) pg MCHC (31.0-35.0) g/dl RDW (11.0-16.0) % Plt Count (160-400) X10*3/uL MPV (9.4-12.3) fL Immature Gran % (Auto) (0.0-0.4) % Neut % (Auto) (45-73) % Lymph % (Auto) (20-40) % [place] % (Auto) (2-11) % Eos % (Auto) (0-4) % Baso % (Auto) (0-2) % Lymph # (Auto) (1.2-4.9) X10*3/uL [place] # (Auto) (0.1-1.2) X10*3/uL Eos # (Auto) (0.0-0.4) X10*3/uL Baso # (Auto) (0.0-0.2) X10*3/uL Abs Immat Gran (auto) (0.00-0.03) X10*3/uL Absolute Neuts (auto) (2.0-8.3) x10*3/uL Absolute Nucleated RBC (0.0-0.012) X10*3/uL Nucleated RBC % (auto) (0.0-0.2) /100WBC Sodium (135-145) mmol/L Potassium (3.3-5.1) mmol/L Chloride (96-108) mmol/L Carbon Dioxide (22-29) mmol/L Anion Gap (12-20) BUN (9-16) mg/dL Creatinine (0.5-1.4) mg/dL Estim Creat Clear Calc Estimated GFR Random Glucose (60-115) mg/dL Calcium (8.4-10.2) mg/dL Magnesium (1.6-2.6) mg/dL Total Bilirubin (0.0-1.0) mg/dL AST (5-31) U/L ALT (0-31) U/L Alkaline Phosphatase (39-117) U/L Troponin I High Sens < 2.7 (<3.5-17.0) ng/L B-Natriuretic Peptide (<100) pg/mL Total Protein (6.5-8.0) g/dL Albumin (3.5-5.0) g/dL Urine Color Yellow Urine Appearance Clear Urine pH 6.5 (5.0-9.0) Ur Specific [place] 1.025 (1.005-1.025) Urine Protein Negative (Neg-Trace) mg/dL Urine Glucose (UA) Negative (Negative) mg/dL Urine Ketones Negative (Negative) mg/dL Urine Blood Negative (Negative) Urine Nitrite Negative (Negative) Ur Leukocyte Esterase Negative (Negative) Core Measures AMI core measures followed: Yes Measure exclusions: not indicated Critical Care Time Critical Care Time Critical Care Time: Yes Total Critical Care Time: 35 Attestation: I attest to this time spent taking care of the patient, obtaining history, physical, reviewing labs, imaging, speaking to my attending, speaking to specialist. Discharge Plan Discharge Clinical Impression: Hypertensive urgency, Headache, Nausea Patient Disposition: Admitted As Inpatient
--- NOTE | 2023-03-01 10:50 | ECG_ITS ---
Test Reason : hypertension Blood Pressure : / mmHG Vent. Rate : 057 BPM Atrial Rate : 057 BPM P-R Int : 174 ms QRS Dur : 074 ms QT Int : 438 ms P-R-T Axes : 053 044 061 degrees QTc Int : 426 ms Sinus bradycardia Otherwise normal ECG When compared with ECG of 28-FEB-2023 09:08, No significant change was found Referred By: Sal Ly Electronically Signed By:Gurvinder Beebe
--- NOTE | 2023-03-01 10:58 | PC.NURSE ---
PT CURRENTLY OFF UNIT TO CT SCAN. FAMILY MEMBER AT BEDSIDE. NEUROS INTACT. PT AWARE AND AGREEABLE TO ED CARE PLAN
[2023-03-01] MEDS: iohexoL 350 MG/ML 100 ML INFUS..BTL 70 ML IV (11:17)
--- NOTE | 2023-03-01 11:36 | PC.NURSE ---
PT RETURNED FROM CT SCAN. TECH ATTEMPTING TO OBTAIN LAB WORK. BP RECHECKED. BP 147/84. CURRENTLY HOLDING LABETOLOL DOSE DUE TO DROP IN PRESSURE. ZOEY MCKEON AWARE. PT AWARE OF CARE PLAN. FAMILY AT BEDSIDE
[2023-03-01 11:52] LABS: Basophils Percent Auto 0.6 % (0-2); Eosinophils Absolute Auto 0.1 X10*3/uL (0.0-0.4); Eosinophils Percent Auto 0.7 % (0-4); Hematocrit 41.1 % (37.0-47.0); Hemoglobin 13.9 g/dl (12.0-16.0); Imm Gran Abs Auto 0.01 X10*3/uL (0.00-0.03); Imm Gran Pct Auto 0.1 % (0.0-0.4); Lymphocytes Absolute Auto 1.5 X10*3/uL (1.2-4.9); Lymphocytes Percent Auto 20.8 % (20-40); MANUAL DIFF FLAG NO; Mean Corpuscular HGB Conc 33.8 g/dl (31.0-35.0); Mean Corpuscular Hemoglobin 29.5 pg (27.0-33.0); Mean Corpuscular Volume 87.3 fL (80.0-98.0); Mean Platelet Volume 10.5 fL (9.4-12.3); Monocytes Absolute Auto 0.5 X10*3/uL (0.1-1.2); Monocytes Percent Auto 6.3 % (2-11); Neutrophils Absolute Auto 5.1 x10*3/uL (2.0-8.3); Neutrophils Percent Auto 71.5 % (45-73); Platelet Count 181 X10*3/uL (160-400); Red Blood Count 4.71 X10*6/uL (4.20-5.50); Red Cell Distribution Width 12.4 % (11.0-16.0); White Blood Count 7.2 X10*3/uL (4.8-10.8)
[2023-03-01 12:15] LABS: Alanine Aminotransferase 15 U/L (0-31); Albumin Level 4.3 g/dL (3.5-5.0); Alkaline Phosphatase 75 U/L (39-117); Anion Gap 15 (12-20); Aspartate Amino Transferase 16 U/L (5-31); Bilirubin Total 0.4 mg/dL (0.0-1.0); Blood Urea Nitrogen 11 mg/dL (9-16); Calcium 9.6 mg/dL (8.4-10.2); Carbon Dioxide 26 mmol/L (22-29); Chloride 101 mmol/L (96-108); Creatinine Clr Calc Pharmacy 74.4; Estimated Glomerular Filt Rate > 60; Glucose Random 103 mg/dL (60-115); Magnesium 2.2 mg/dL (1.6-2.6); Potassium 3.5 mmol/L (3.3-5.1); Sodium 138 mmol/L (135-145); Total Protein 7.6 g/dL (6.5-8.0)
[2023-03-01] MEDS: ondansetron HCL 4 MG/2 ML VIAL IVPUSH (12:19)
[2023-03-01 12:20] LABS: Troponin-I High Sensitivity < 2.7 ng/L (<3.5-17.0)
[2023-03-01 12:20] LABS: Appearance Urine Clear; Color Urine Yellow; Glucose Urine UA Negative (Negative); Leukocyte Esterase Urine Negative (Negative); Nitrite Urine Negative (Negative); PH 6.5 (5.0-9.0); Specific Gravity - Urine 1.025 (1.005-1.025); Urine Blood Negative (Negative); Urine Ketones Negative (Negative); Urine Protein Negative (Neg-Trace)
[2023-03-01 12:21] LABS: B Type Natriuretic Peptide 18 pg/mL (<100)
--- NOTE | 2023-03-01 12:21 | PC.NURSE ---
CONTINUE TO HOLD OFF ON LABETOLOL. PROVIDER AWARE OF BLOOD PRESSURES. PT C/O NAUSEA. MEDICATED WITH ZOFRAN ORDERED.
--- NOTE | 2023-03-01 12:44 | PC.NURSE ---
PROVIDER SPOKE WITH NEUROLOGY. NO ADDITIONAL ORDERS FROM NEUROLOGY. PLAN IS TO SPEAK WITH ATTENDING FOR FURTHER DIRECTION
[2023-03-01] MEDS: amLODIPine Besylate 5 MG TABLET PO (12:53)
--- NOTE | 2023-03-01 13:26 | PC.NURSE ---
NAUSEA RETURNED PROVIDER AWARE AWAITING NEW ORDERS PLAN IS FOR MEDICAL ADMISSION. PT AWARE OF CARE PLAN
--- NOTE | 2023-03-01 13:26 | PC.NURSE ---
PT REMAINS AWAKE, ALERT AND ORIENTED SKIN WARM AND DRY C/O NAUSEA. AWAITING MED ORDER NEUROS INTACT. SPEAKING IN FULL CLEAR SENTENCES.
[2023-03-01] MEDS: Aspirin Enteric Coated 81 MG TABLET.DR PO (13:42)
[2023-03-01] MEDS: Morphine Sulfate 2 MG/ML CARTRIDGE IVPUSH (14:09)
[2023-03-01] MEDS: diphenhydrAMINE HCL 50 MG/ML VIAL 25 MG IVPUSH (14:09)
[2023-03-01] MEDS: Metoclopramide HCl 10 MG/2 ML VIAL IVPUSH (14:10)
--- NOTE | 2023-03-01 14:41 | PHA.MEDREC ---
Pharmacy Consult ? Medication Reconciliation Pharmacy has completed the medication reconciliation. spoke with patient and confirmed medications. Nurse and patient report that she did not react well to the HCTZ.
--- NOTE | 2023-03-01 15:03 | PM.IMHP ---
History of Present Illness Date of Service: 03/01/23 Chief Complaint: Headache and dizziness 57 year old women presenting with dizziness, headache, weakness. She reports that the symptoms have worsened in the last 2 days. She reported since September of 2022 she has been experiencing dizziness and headaches and often generalized malaise. She had a dental appointment for tooth extraction last week and they reported to her that her blood pressure was elevated, she reported that she did not know about this previously. On Wednesday she reported that she felt weak and reported that her son had to carry her to her room because she felt like she would pass out. She reported dizziness with nausea and hot and cold flashes that have also been on and off along with headache , however the headache did correlate with palpation posterior neck muscles. She denied chest pain, shortness of breath, vomiting, diarrhea, loss of consciousness, history of seizure disorder. She denied recent travel or sick contacts. She initially presented to the ER yesterday with the same symptoms including headache, and was discharged home with hydrochlorothiazide. Patient reports that her symptoms worsen and she needed to come back to the ER. In the ER, head and neck CTA showed soft tissue thickening involving the right posterior inferior aspect of the maxillary sinus with associated erosive changes on the sinus floor findings concerning for infiltrative lesion potentially squamous cell carcinoma, no large vessel occlusion or significant stenosis, low attenuation foci with the right and left basal ganglia possibly representing age-indeterminate infarcts. All of her labs are within acceptable limits blood pressure was pretty high with reading of 204/112 being the highest. In the ER she was given a dose of amlodipine, labetalol, morphine, Reglan, Benadryl, aspirin. She will be placed on observation for severe headache, dizziness secondary to hypertensive urgency. Review of Systems Review of Systems: Denies any recent fever chills or decrease in appetite respiratory denies any shortness of breath coverage production cardiovascular denied chest pain gastrointestinal denies any dysphagia abdominal pain nausea vomiting or diarrhea genitourinary denies any dysuria frequency or hematuria musculoskeletal denies any joint pain or swelling neuropsych denies any weakness or seizures all other systems reviewed are negative [facility] Medical History Anxiety Chronic low back pain Depression Dermatitis Eczema of both hands Heartburn IBS (irritable bowel syndrome) Idiopathic thrombocytopenia Lumbar back pain with radiculopathy affecting right lower extremity Spondyloarthropathy of lumbar spine Family History Father IBS (irritable bowel syndrome) Myocardial infarction Mother Arthritis Maternal Aunt Breast cancer Sister Substance use disorder Sister Substance use disorder Mental health disorder Sister Mental health disorder Sister No problems noted. Sister No problems noted. Son No problems noted. Son No problems noted. Son No problems noted. Son No problems noted. Surgical History History of partial hysterectomy History of tubal ligation Social History Housing: House Alcohol intake: never Patient Tobacco Use Status: Never used Tobacco Smoked in Last 30 Days: No e-Cigarette/Vaping Use: Never Used Second Hand Smoke Exposure: Yes Use of substances other than those prescribed or required for medical reasons: No Advance Directives: No Advance Directives Information Provided: No service: No Current occupational status: employed Cognitive needs: No Hearing needs: No Vision needs: Yes Meds Allergies Allergy/AdvReac Type Severity Reaction Status Date / Time peanut [Peanut] Allergy Mild AVOIDS Verified 03/01/23 10:49 PREFERANCE strawberry [[place]] Allergy Mild HIVES Verified 03/01/23 10:49 lactose [Lactose] AdvReac Mild STOMACH Verified 03/01/23 10:49 UPSET tramadol AdvReac Unknown severe Verified 03/01/23 10:49 headaches Active Medications: Current Medications Pharmacy Consult (Consult Rx Perform Med Rec) 1 each MISCELLANE ONCE PRN PRN Reason: Consult order Home Medications Medication Instructions Recorded Confirmed Last Taken Type acetaminophen 650 mg 1,950 mg PO DAILY PRN Pain 03/01/23 03/01/23 Unknown History tablet,extended release famotidine 20 mg tablet 20 mg PO DAILY 03/01/23 03/01/23 Unknown History lidocaine 5 % topical patch 1 patch topical DAILY PRN Pain 03/01/23 03/01/23 Unknown History sertraline 25 mg tablet 25 mg PO DAILY 03/01/23 03/01/23 Unknown History Physical Exam Vital Signs and Narrative: Vital Signs: Last Vital Signs Temp 98.6 F 03/01/23 10:43 Pulse 65 03/01/23 14:05 Resp 20 03/01/23 14:05 BP 170/79 H 03/01/23 14:05 Pulse Ox 98 03/01/23 14:05 O2 Del Method Room Air 03/01/23 14:05 BMI result Body Mass Index 27.1 Appearing in no acute distress head is normocephalic atraumatic eyes pupils are PERRLA sclera is anicteric mouth throat mucous membranes are intact and moist neck is supple no lymphadenopathy, no JVD noted lung sounds are clear to auscultation heart regular rate rhythm, clear S1, S2 positive bowel sounds, abdomen is soft, nontender neuro patient is alert x3, no focal deficits, 5/5 strength to upper and lower extremities Palpable soft tissue area to posterior neck Results Labs 03/01/23 11:45 03/01/23 11:45 Labs: Laboratory Results - last 24 hr 03/01/23 03/01/23 03/01/23 11:45 11:45 11:45 MCV 87.3 MCH 29.5 MCHC 33.8 RDW 12.4 Plt Count 181 MPV 10.5 Immature Gran % (Auto) 0.1 Neut % (Auto) 71.5 Lymph % (Auto) 20.8 [place] % (Auto) 6.3 Eos % (Auto) 0.7 Baso % (Auto) 0.6 Lymph # (Auto) 1.5 [place] # (Auto) 0.5 Eos # (Auto) 0.1 Baso # (Auto) 0.0 Abs Immat Gran (auto) 0.01 Absolute Neuts (auto) 5.1 Absolute Nucleated RBC 0.000 Nucleated RBC % (auto) 0.0 Anion Gap 15 Estim Creat Clear Calc 74.4 Estimated GFR > 60 Random Glucose 103 Calcium 9.6 Magnesium 2.2 Total Bilirubin 0.4 AST 16 ALT 15 Alkaline Phosphatase 75 Troponin I High Sens B-Natriuretic Peptide 18 Total Protein 7.6 Albumin 4.3 Urine Color Urine Appearance Urine pH Ur Specific [place] Urine Protein Urine Glucose (UA) Urine Ketones Urine Blood Urine Nitrite Ur Leukocyte Esterase 03/01/23 03/01/23 11:45 12:11 MCV MCH MCHC RDW Plt Count MPV Immature Gran % (Auto) Neut % (Auto) Lymph % (Auto) [place] % (Auto) Eos % (Auto) Baso % (Auto) Lymph # (Auto) [place] # (Auto) Eos # (Auto) Baso # (Auto) Abs Immat Gran (auto) Absolute Neuts (auto) Absolute Nucleated RBC Nucleated RBC % (auto) Anion Gap Estim Creat Clear Calc Estimated GFR Random Glucose Calcium Magnesium Total Bilirubin AST ALT Alkaline Phosphatase Troponin I High Sens < 2.7 B-Natriuretic Peptide Total Protein Albumin Urine Color Yellow Urine Appearance Clear Urine pH 6.5 Ur Specific [place] 1.025 Urine Protein Negative Urine Glucose (UA) Negative Urine Ketones Negative Urine Blood Negative Urine Nitrite Negative Ur Leukocyte Esterase Negative Imaging Radiologist's Impressions: Impressions Head/Neck CTA 03/01/23 11:20 IMPRESSION: CT HEAD: No intracranial hemorrhage or large acute infarction. Low-attenuation foci within the right and left basal ganglia could represent recent/age indeterminate infarcts. CTA NECK: No hemodynamically significant stenosis in the major arteries of the neck. CTA HEAD: 1. No large vessel occlusion or significant stenosis within the intracranial circulation. Additional findings: Soft tissue thickening involving the right posterior inferior aspect of the maxillary sinus with associated erosive changes of the sinus floor with abnormal soft tissue extending into the retroantral fat and retromolar trigone region. Findings concerning for infiltrative lesion potentially squamous cell carcinoma for which dedicated ENT evaluation is recommended. Assessment and Plan (1) Hypertensive urgency: Status: Acute Plan 57-year-old woman admitted by hypertensive urgency and severe headache, dizziness, nausea and weakness. Patient has no previous history of hypertension although her symptoms started in September of 2022. She has been complaining of headaches but does have palpable soft tissue pain to her posterior neck area Hypertensive urgency. symptoms since 09/2022 No diagnosis of hypertension start lisinopril monitor blood pressure closely Headache Possibly related to hypertensive urgency, also some correlation with palpable neck pain, ? musculoskeletal head and neck CTA showing low attenuation within the right and left basal ganglia, not showing any arterial stenosis or occlusion monitor neuro status MRI tomorrow pain management Maxillary sinus lesion noted erosive lesion on Head CTA concern for squamous cell carcinoma MRI ordered for headache and question of TIA therefore can also assess the maxillary sinus area mental health Continue medications GERD Continue PPI chronic low back pain pain management lidocaine patch DVT prophylaxis with Lovenox Attending Dr. Donovan Full code OBS Time Spent With Patient Time: Total time managing care of this patient today ____ minutes. Quality Stroke Does the patient have a stroke diagnosis?: No VTE Prior VTE?: No VTE Risk Level:: Medical - moderate - high VTE Device Contraindication: Treatment Not Indicated VTE Drug Contraindication: N/A - Med Ordered
[2023-03-01] MEDS: 0.9 % Sodium Chloride Flush 3 ML SYRINGE IVFLUSH (16:22)
[2023-03-01] MEDS: Enoxaparin Sodium 40 MG/0.4 ML SYRINGE SUBCUT (16:22)
--- NOTE | 2023-03-01 19:01 | PC.NURSE ---
This RN attempted to call report x2 to IP RN; Unable to connect - discharge planner notified. GUERRERO
[2023-03-01] MEDS: Acetaminophen 325 MG TABLET 650 MG PO (21:01)
[2023-03-02] VITALS (9 sets, daily range): BP systolic 112–189; BP diastolic 58–103; PULSE 54–81; RESP 16–20; TEMP 36–36.9; O2SAT 95–97
[2023-03-02] MEDS: 0.9 % Sodium Chloride Flush 3 ML SYRINGE IVFLUSH ×4 (00:29→20:44)
[2023-03-02] MEDS: Acetaminophen 325 MG TABLET 650 MG PO ×3 (04:45→20:43)
[2023-03-02] MEDS: Omeprazole 20 MG CAPSULE.DR PO (04:46)
[2023-03-02] MEDS: Famotidine 20 MG TABLET PO (04:46)
--- NOTE | 2023-03-02 06:33 | PC.NURSE ---
CARE ASSUMED 23:15...AWAKE..ALERT..ORIENTED X3 AT HS...SPEECH CLEAR..HERNANDEZ..STATED HEADACHE AND NAUSEA PREVIOUSLY RESOLVED POST-PHENERGAN AND ATIVAN....RESTFUL OVERNIGHT...C/O RETURN OF HEADACHE 810 AND NAUSEA (NO VOMITING) THIS AM...MEDICATED WITH IV PHENERGAN FOLLOWED BY TYLENOL WITH RELIEF OF NAUSEA AND HEADACHE DECREASED TO 1/10...RESTFUL....DOZING INTERMITTANTLY AFTERWARDS
[2023-03-02 07:02] LABS: MANUAL DIFF FLAG NO
[2023-03-02 07:05] LABS: Basophils Percent Auto 0.7 % (0-2); Eosinophils Absolute Auto 0.1 X10*3/uL (0.0-0.4); Eosinophils Percent Auto 1.6 % (0-4); Hematocrit 39.2 % (37.0-47.0); Imm Gran Abs Auto 0.02 X10*3/uL (0.00-0.03); Imm Gran Pct Auto 0.4 % (0.0-0.4); Lymphocytes Absolute Auto 2.1 X10*3/uL (1.2-4.9); Lymphocytes Percent Auto 37.3 % (20-40); Mean Corpuscular HGB Conc 33.2 g/dl (31.0-35.0); Mean Corpuscular Hemoglobin 29.7 pg (27.0-33.0); Mean Corpuscular Volume 89.5 fL (80.0-98.0); Mean Platelet Volume 11.1 fL (9.4-12.3); Monocytes Absolute Auto 0.5 X10*3/uL (0.1-1.2); Monocytes Percent Auto 8.1 % (2-11); Neutrophils Absolute Auto 2.9 x10*3/uL (2.0-8.3); Neutrophils Percent Auto 51.9 % (45-73); Platelet Count 182 X10*3/uL (160-400); Red Blood Count 4.38 X10*6/uL (4.20-5.50); Red Cell Distribution Width 12.6 % (11.0-16.0); White Blood Count 5.5 X10*3/uL (4.8-10.8)
[2023-03-02 07:22] LABS: Alanine Aminotransferase 12 U/L (0-31); Albumin Level 3.9 g/dL (3.5-5.0); Alkaline Phosphatase 64 U/L (39-117); Anion Gap 13 (12-20); Aspartate Amino Transferase 14 U/L (5-31); Bilirubin Total 0.3 mg/dL (0.0-1.0); Blood Urea Nitrogen 9 mg/dL (9-16); Calcium 9.3 mg/dL (8.4-10.2); Carbon Dioxide 29 mmol/L (22-29); Chloride 101 mmol/L (96-108); Creatinine Clr Calc Pharmacy 77.5; Estimated Glomerular Filt Rate > 60; Glucose Random 103 mg/dL (60-115); Potassium 3.4 mmol/L (3.3-5.1); Sodium 140 mmol/L (135-145); Total Protein 6.8 g/dL (6.5-8.0)
[2023-03-02] MEDS: Lidocaine 4 % Patch ADH..PATCH 1 PATCH TRANSDERMA (09:39)
[2023-03-02] MEDS: hydrALAZINE HCl 20 MG/ML VIAL 10 MG IVPUSH (09:46)
--- NOTE | 2023-03-02 10:48 | MHC.CM.PN ---
CM attempted to meet with Patient, who was unavailable but CM spoke with Patient's Mother and addressed BHAGAT with her (original left for Patient and a copy has been placed on the chart). 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 Home/self care is the goal and CM has initiated and will follow for dc planning. Patient has received [employer] vax x2 and her PCP is Dr. Wahl.
[2023-03-02] MEDS: lisinopriL 5 MG TABLET PO (11:08)
[2023-03-02] MEDS: Sertraline HCL 25 MG TABLET PO (11:08)
--- NOTE | 2023-03-02 13:01 | P.PNIM_ITS ---
Subjective Subjective Date of Service: 03/02/23 Review of Systems Follow up headache, hypertensive urgency no with abd pain still with nausea Physical Exam Vital Signs: Vital Signs: Last Vital Signs Temp 97.1 F 03/02/23 11:10 Pulse 75 03/02/23 11:10 Resp 20 03/02/23 11:10 BP 131/58 L 03/02/23 11:10 Pulse Ox 96 03/02/23 11:10 O2 Del Method Room Air 03/02/23 11:10 BMI result Body Mass Index 27.1 Appearing in no acute distress lung sounds are clear to auscultation heart regular rate rhythm, clear S1, S2 positive bowel sounds, abdomen is soft, nontender neuro patient is alert x3, no focal deficits Objective Data Active Medications Acetaminophen (Acetaminophen 325 Mg Tablet) 650 mg PO Q6H PRN PRN Reason: Pain, Mild (Pain Scale 1-3) Last Admin: 03/02/23 04:45 Dose: 650 mg Documented By: NAHOMI Al Hydroxide/Mg Hydroxide (Magnesium Hydrox/Alum Hydrox 30 Ml Oral.Susp) 30 ml PO QID PRN PRN Reason: indigestion Enoxaparin Sodium (Enoxaparin Sodium 40 Mg/0.4 Ml Syringe) 40 mg SUBCUT Q24H [facility] Last Admin: 03/01/23 16:22 Dose: 40 mg Documented By: MAYRA Famotidine (Famotidine 20 Mg Tablet) 20 mg PO DAILY@0630 [facility] Last Admin: 03/02/23 04:46 Dose: 20 mg Documented By: NAHOMI Promethazine HCl 12.5 mg/ (Sodium Chloride) 50.5 mls @ 202 mls/hr IV Q6H PRN PRN Reason: Nausea and Vomiting Last Infusion: 03/02/23 09:45 Dose: 0 mls/hr Documented By: SHAYY Levofloxacin (Levofloxacin 500 Mg Tablet) 500 mg PO Q24H [facility] Stop: 03/07/23 12:59 Lidocaine (Lidocaine 4 % Patch Adh..Patch) 1 patch TRANSDERMA DAILY [facility]; Protocol Last Admin: 03/02/23 09:39 Dose: 1 patch Documented By: SHAYY Lisinopril (Lisinopril 5 Mg Tablet) 5 mg PO DAILY [facility]; Protocol Last Admin: 03/02/23 11:08 Dose: 5 mg Documented By: SHAYY Metronidazole (Metronidazole 500 Mg Tablet) 500 mg PO Q8H [facility] Stop: 03/07/23 12:59 Omeprazole (Omeprazole 20 Mg Capsule.Dr) 20 mg PO DAILY@0630 [facility] Last Admin: 03/02/23 04:46 Dose: 20 mg Documented By: NAHOMI Ondansetron HCl (Ondansetron Hcl 4 Mg/2 Ml Vial) 4 mg IVPUSH Q8H PRN PRN Reason: Nausea and Vomiting Oxycodone HCl (Oxycodone Hcl Immed Release 5 Mg Tablet) 5 mg PO Q4H PRN PRN Reason: Pain, Mild (Pain Scale 1-3) Pharmacy Consult (Consult Rx Perform Med Rec) 1 each MISCELLANE ONCE PRN PRN Reason: Consult order Sertraline HCl (Sertraline Hcl 25 Mg Tablet) 25 mg PO DAILY [facility] Last Admin: 03/02/23 11:08 Dose: 25 mg Documented By: SHAYY Sodium Chloride (0.9 % Sodium Chloride Flush 3 Ml Syringe) 3 ml IVFLUSH QSHIFT [facility] Last Admin: 03/02/23 09:39 Dose: 3 ml Documented By: SHAYY Tizanidine HCl (Tizanidine Hcl 4 Mg Tablet) 4 mg PO BEDTIME PRN PRN Reason: muscle spasticity Labs 03/02/23 06:33 03/02/23 06:33 Labs: Laboratory Results - last 24 hr 03/02/23 03/02/23 06:33 06:33 MCV 89.5 MCH 29.7 MCHC 33.2 RDW 12.6 Plt Count 182 MPV 11.1 Immature Gran % (Auto) 0.4 Neut % (Auto) 51.9 Lymph % (Auto) 37.3 [place] % (Auto) 8.1 Eos % (Auto) 1.6 Baso % (Auto) 0.7 Lymph # (Auto) 2.1 [place] # (Auto) 0.5 Eos # (Auto) 0.1 Baso # (Auto) 0.0 Abs Immat Gran (auto) 0.02 Absolute Neuts (auto) 2.9 Absolute Nucleated RBC 0.000 Nucleated RBC % (auto) 0.0 Anion Gap 13 Estim Creat Clear Calc 77.5 Estimated GFR > 60 Random Glucose 103 Calcium 9.3 Total Bilirubin 0.3 AST 14 ALT 12 Alkaline Phosphatase 64 Total Protein 6.8 Albumin 3.9 Assessment and Plan (1) Hypertensive urgency: Status: Acute Plan 57-year-old woman admitted by hypertensive urgency and severe headache, dizziness, nausea and weakness.? Patient has no previous history of hypertension although her symptoms started in September of 2022.? She has been complaining of headaches but does have palpable soft tissue pain to her posterior neck area Hypertensive urgency.? symptoms since 09/2022 seems like culprit of headaches No diagnosis of hypertension start lisinopril monitor blood pressure closely Colitis acute abdominal pain abd ct showing>mild inflammation along left hemicolon suggestive of colitis started levaquin and flagyl po for 5 days Headache Likely related to hypertensive urgency,? also some correlation with palpable neck pain, ? musculoskeletal head and neck CTA showing low attenuation within the right and left basal ganglia, not showing any arterial stenosis or occlusion monitor neuro status pain management Maxillary sinus lesion noted erosive lesion on Head CTA concern for squamous cell carcinoma o/p ENT follow up mental health Continue medications GERD Continue PPI chronic low back pain pain management lidocaine patch DVT prophylaxis with Lovenox Attending Dr. Salas Full code DISPO when abd pain resolves, ut home OBS Time Spent With Patient Time: Total time managing care of this patient today ____ minutes. Quality Stroke Does the patient have a stroke diagnosis?: No VTE Prior VTE?: No VTE Risk Level:: Medical - moderate - high VTE Device Contraindication: Treatment Not Indicated VTE Drug Contraindication: N/A - Med Ordered
[2023-03-02] MEDS: levoFLOXacin 500 MG TABLET PO (14:01)
[2023-03-02] MEDS: Enoxaparin Sodium 40 MG/0.4 ML SYRINGE SUBCUT (14:01)
[2023-03-02] MEDS: metroNIDAZOLE 500 MG TABLET PO ×2 (14:01→20:42)
[2023-03-02] MEDS: oxyCODONE HCl Immed Release 5 MG TABLET PO (20:37)
[2023-03-02] MEDS: TiZANidine HCL 4 MG TABLET PO (20:40)
[2023-03-02] MEDS: ondansetron HCL 4 MG/2 ML VIAL IVPUSH (23:31)
[2023-03-03] VITALS (16 sets, daily range): BP systolic 80–180; BP diastolic 42–88; PULSE 54–67; RESP 14–20; TEMP 35.9–36.4; O2SAT 95–98
--- NOTE | 2023-03-03 | ECG_ITS ---
Test Reason : ruddy Blood Pressure : / mmHG Vent. Rate : 054 BPM Atrial Rate : 054 BPM P-R Int : 180 ms QRS Dur : 086 ms QT Int : 516 ms P-R-T Axes : 052 058 065 degrees QTc Int : 489 ms Sinus bradycardia Prolonged QT Abnormal ECG When compared with ECG of 01-MAR-2023 10:46, QT has lengthened Referred By: Ginette García Electronically Signed By:Gurvinder Beebe
[2023-03-03 01:02] LABS: Glucose, Whole Blood 110 mg/dL (60-115)
[2023-03-03] MEDS: 0.9 % Sodium Chloride 1,000 ML 999 ML IV ×2 (01:03→04:24)
--- NOTE | 2023-03-03 02:53 | PC.NURSE ---
ASSUMED CARE OF PT AT 1900. PT DENIED COMPLAINTS. STATED SHE HAD A HEADACHE EARLIER BUT WAS PAIN FREE AT THAT TIME. BP WAS 114/64. MONITOR DISPLAYED SINUS RHYTHM, RATE 60'S, NO ECTOPY OBSERVED. ASSESSMENT UNREMARKABLE. LATER, AT 2340, PT RANG CALL RUIZ C/O NAUSEA, NO VOMITTING PER NURSES AIDE. WENT IN TO SEE PT AND SHE WAS PALE AND DIAPHORETIC. BP WAS 80'S/40'S BY AUTOMATIC BP MACHINE AND THE SAME MANUALLY. MONITOR SHOWED [place] 50'S WITH PVC'S. PT GIVEN ZOFRAN WITH GOOD EFFECT. NOTIFIED DR HANEY VIA TIGER TEXT AT 2349, 1210 AND 1227 WITH THE LAST TEXT STATING PT'S SYMPTOMS HAVE RESOLVED AND STILL SB, 50'S BUT NO MORE PVC'S AND BP 80/42. MD ORDERED 1 L OF NS IV AND EKG WHICH WAS DONE AND UNREMARKABLE EXCEPT FOR SB WITH PROLONGED QT. EKG TIGER TEXTED TO MD. SBP CONTINUED 80'S CHECKED Q1HR AND NOW AT 0245 BP IS 90/54. PT IS ASYMPTOMATIC AND STARTING TO FALL ASLEEP. MD UPDATED.
--- NOTE | 2023-03-03 04:43 | PC.NURSE ---
another liter of ns ordered and infusing. bp is improving. last bp 107/58. pt denies nausea or headache. monitor shows sinus ruddy, 50'socc pvc's noted.
[2023-03-03] MEDS: metroNIDAZOLE 500 MG TABLET PO ×3 (05:34→21:34)
[2023-03-03] MEDS: Omeprazole 20 MG CAPSULE.DR PO (05:34)
[2023-03-03 06:31] LABS: Anion Gap 11 (12-20); Blood Urea Nitrogen 10 mg/dL (9-16); Calcium 8.6 mg/dL (8.4-10.2); Carbon Dioxide 26 mmol/L (22-29); Chloride 107 mmol/L (96-108); Creatinine Clr Calc Pharmacy 75.4; Estimated Glomerular Filt Rate > 60; Glucose Random 103 mg/dL (60-115); Potassium 3.2 mmol/L (3.3-5.1); Sodium 141 mmol/L (135-145)
[2023-03-03] MEDS: Potassium Chloride ER 20 MEQ TAB.ER.PRT 40 MEQ PO (08:24)
[2023-03-03] MEDS: Lidocaine 4 % Patch ADH..PATCH 1 PATCH TRANSDERMA (08:25)
[2023-03-03] MEDS: 0.9 % Sodium Chloride Flush 3 ML SYRINGE IVFLUSH ×3 (08:25→21:34)
[2023-03-03] MEDS: Sertraline HCL 25 MG TABLET PO (08:25)
--- NOTE | 2023-03-03 10:57 | P.PNIM_ITS ---
Subjective Subjective Date of Service: 03/03/23 Interval History: seen and examined this morning follow up for colitis, elevated blood pressure BP low overnight, in the 80s currently BP 140s, awake, alert, denies dizziness. had some b/l lower facial tingling which has now resolved. abdominal pain improved, no diarrhea yet this am Review of Systems Review of Systems: Yes all other systems are reviewed and are negative Constitutional Constitutional: Denies chills and Denies fever(s) ENT Ears, Nose, Mouth, and Throat: Denies dizziness Cardiovascular Cardiovascular: Denies chest pain, Denies palpitations and Denies dyspnea Respiratory Respiratory: Denies cough and Denies dyspnea Gastrointestinal Gastrointestinal: Denies abdominal pain, Denies nausea and Denies vomiting Neurologic Neurologic: Denies dizziness Endocrine Endocrine: Denies palpitations Physical Exam Vital Signs: Vital Signs: Last Vital Signs Temp 97.5 F 03/03/23 07:35 Pulse 63 03/03/23 07:35 Resp 17 03/03/23 07:35 BP 148/65 H 03/03/23 07:35 Pulse Ox 96 03/03/23 07:35 O2 Del Method Room Air 03/03/23 07:35 BMI result Body Mass Index 27.1 Const: General: cooperative, comfortable, no acute distress, alert and awake Nutritional Appearance: average body habitus Orientation/consciousness: patient oriented x3 Resp: Effort & Inspection: normal respiratory effort, able to speak in complete sentences, no respiratory distress and no use of accessory muscles Auscultation: clear to auscultation bilaterally GI: Inspection: No distended Palpation (GI): Soft to palpation and nontender Neuro: General: patient oriented x3, moves all extremities and CN's II-XI intact bilaterally Extrem: General: Yes no pedal edema Objective Data Active Medications Acetaminophen (Acetaminophen 325 Mg Tablet) 650 mg PO Q6H PRN PRN Reason: Pain, Mild (Pain Scale 1-3) Last Admin: 03/02/23 20:43 Dose: 650 mg Documented By: ADAN Al Hydroxide/Mg Hydroxide (Magnesium Hydrox/Alum Hydrox 30 Ml Oral.Susp) 30 ml PO QID PRN PRN Reason: indigestion Enoxaparin Sodium (Enoxaparin Sodium 40 Mg/0.4 Ml Syringe) 40 mg SUBCUT Q24H [facility] Last Admin: 03/02/23 14:01 Dose: 40 mg Documented By: SHAYY Famotidine (Famotidine 20 Mg Tablet) 20 mg PO DAILY@0630 [facility] Last Admin: 03/03/23 05:36 Dose: Not Given Documented By: ADAN Non-Admin Reason: already on prilosec Promethazine HCl 12.5 mg/ (Sodium Chloride) 50.5 mls @ 202 mls/hr IV Q6H PRN PRN Reason: Nausea and Vomiting Last Infusion: 03/02/23 09:45 Dose: 0 mls/hr Documented By: SHAYY Levofloxacin (Levofloxacin 500 Mg Tablet) 500 mg PO Q24H [facility] Stop: 03/07/23 12:59 Last Admin: 03/02/23 14:01 Dose: 500 mg Documented By: SHAYY Lidocaine (Lidocaine 4 % Patch Adh..Patch) 1 patch TRANSDERMA DAILY [facility]; Protocol Last Admin: 03/03/23 08:25 Dose: 1 patch Documented By: CHRISTINA Lisinopril (Lisinopril 5 Mg Tablet) 5 mg PO DAILY [facility]; Protocol Last Admin: 03/02/23 11:08 Dose: 5 mg Documented By: SHAYY Metronidazole (Metronidazole 500 Mg Tablet) 500 mg PO Q8H [facility] Stop: 03/07/23 12:59 Last Admin: 03/03/23 05:34 Dose: 500 mg Documented By: ADAN Omeprazole (Omeprazole 20 Mg Capsule.Dr) 20 mg PO DAILY@0630 [facility] Last Admin: 03/03/23 05:34 Dose: 20 mg Documented By: ADAN Ondansetron HCl (Ondansetron Hcl 4 Mg/2 Ml Vial) 4 mg IVPUSH Q8H PRN PRN Reason: Nausea and Vomiting Last Admin: 03/02/23 23:31 Dose: 4 mg Documented By: ADAN Oxycodone HCl (Oxycodone Hcl Immed Release 5 Mg Tablet) 5 mg PO Q4H PRN PRN Reason: Pain, Mild (Pain Scale 1-3) Last Admin: 03/02/23 20:37 Dose: 5 mg Documented By: ADAN Pharmacy Consult (Consult Rx Perform Med Rec) 1 each MISCELLANE ONCE PRN PRN Reason: Consult order Sertraline HCl (Sertraline Hcl 25 Mg Tablet) 25 mg PO DAILY [facility] Last Admin: 03/03/23 08:25 Dose: 25 mg Documented By: CHRISTINA Sodium Chloride (0.9 % Sodium Chloride Flush 3 Ml Syringe) 3 ml IVFLUSH QSHIFT [facility] Last Admin: 03/03/23 08:25 Dose: 3 ml Documented By: CHRISTINA Tizanidine HCl (Tizanidine Hcl 4 Mg Tablet) 4 mg PO BEDTIME PRN PRN Reason: muscle spasticity Last Admin: 03/02/23 20:40 Dose: 4 mg Documented By: ADAN Labs 03/02/23 06:33 03/03/23 06:02 Labs: Laboratory Results - last 24 hr 03/03/23 03/03/23 00:56 06:02 Anion Gap 11 L Estim Creat Clear Calc 75.4 Estimated GFR > 60 POC Glucose 110 Random Glucose 103 Calcium 8.6 D Assessment and Plan (1) Hypertensive urgency: Status: Acute (2) Colitis: Status: Acute Plan 57-year-old woman admitted by hypertensive urgency and severe headache, dizziness, nausea and weakness.? Patient has no previous history of hypertension although her symptoms started in September of 2022.? She has been complaining of headaches but does have palpable soft tissue pain to her posterior neck area uncontrolled HTN No previous diagnosis of hypertension received 5 lisinopril and IV hydralazine 10 mg x1 yesterday am. became hypotensive overnight bp improved with IVF will hold lisinopril today and monitor blood pressure trend Colitis acute abdominal pain abd ct showing>mild inflammation along left hemicolon suggestive of colitis does not meet sirs criteria started levaquin and flagyl po for 5 days hypokalemia k 3.2 replace and follow Headache possibly related to hypertensive urgency treat symptomatically possible stroke head and neck CTA showing low attenuation within the right and left basal gangl ia could represent recent/age indeterminate infarcts, not showing any arterial stenosis or occlusion will obtain neurology consult Maxillary sinus lesion noted erosive lesion on Head CTA concern for squamous cell carcinoma o/p ENT follow up mental health Continue medications GERD Continue PPI chronic low back pain pain management lidocaine patch DVT prophylaxis with [employer] Attending Dr. Salas Full code Time Spent With Patient Time: Total time managing care of this patient today ____ minutes. Quality Stroke Does the patient have a stroke diagnosis?: No VTE Prior VTE?: No VTE Risk Level:: Medical - moderate - high VTE Device Contraindication: Treatment Not Indicated VTE Drug Contraindication: N/A - Med Ordered
[2023-03-03] MEDS: ondansetron HCL 4 MG/2 ML VIAL IVPUSH (12:57)
[2023-03-03] MEDS: levoFLOXacin 500 MG TABLET PO (12:57)
[2023-03-03] MEDS: Acetaminophen 325 MG TABLET 650 MG PO (13:04)
--- NOTE | 2023-03-03 13:24 | P.CNNE_ITS ---
History of Present Illness Data of Consult Service Date: 03/03/23 Primary Care Provider: Danielle Wahl MD HPI Reason for consult: Facial numbness 57 years old woman with uncontrolled hypertension came to hospital with high blood pressure and right-sided facial numbness that sometime was also felt on l eft side. It was a difficult to describe feeling. Now on this feeling was resolved. There was no associated speech or language difficulty or headache. Review of Systems Review of Systems: She was not drinking alcohol and did not have any recent cold or flu-like illness. [facility] Past Medical History Medical History Anxiety Chronic low back pain Depression Dermatitis Eczema of both hands Heartburn IBS (irritable bowel syndrome) Idiopathic thrombocytopenia Lumbar back pain with radiculopathy affecting right lower extremity Spondyloarthropathy of lumbar spine Family History Family History Father IBS (irritable bowel syndrome) Myocardial infarction Mother Arthritis Maternal Aunt Breast cancer Sister Substance use disorder Sister Substance use disorder Mental health disorder Sister Mental health disorder Sister No problems noted. Sister No problems noted. Son No problems noted. Son No problems noted. Son No problems noted. Son No problems noted. Surgical History Surgical History History of partial hysterectomy History of tubal ligation Social History Social History Household Members: Spouse Household Members Other:: son Housing: House Do you presently have visiting nurse or other home services: No Alcohol intake: never Patient Tobacco Use Status: Never used Tobacco e-Cigarette/Vaping Use: Never Used Second Hand Smoke Exposure: Yes service: No Current occupational status: employed Cognitive needs: No Hearing needs: No Vision needs: Yes Meds Allergies Allergy/AdvReac Type Severity Reaction Status Date / Time peanut [Peanut] Allergy Mild AVOIDS Verified 03/01/23 10:49 PREFERANCE strawberry [[place]] Allergy Mild HIVES Verified 03/01/23 10:49 lactose [Lactose] AdvReac Mild STOMACH Verified 03/01/23 10:49 UPSET tramadol AdvReac Unknown severe Verified 03/01/23 10:49 headaches Active Medications: Current Medications Acetaminophen (Acetaminophen 325 Mg Tablet) 650 mg PO Q6H PRN PRN Reason: Pain, Mild (Pain Scale 1-3) Last Admin: 03/03/23 13:04 Dose: 650 mg Al Hydroxide/Mg Hydroxide (Magnesium Hydrox/Alum Hydrox 30 Ml Oral.Susp) 30 ml PO QID PRN PRN Reason: indigestion Enoxaparin Sodium (Enoxaparin Sodium 40 Mg/0.4 Ml Syringe) 40 mg SUBCUT Q24H [facility] Last Admin: 03/02/23 14:01 Dose: 40 mg Famotidine (Famotidine 20 Mg Tablet) 20 mg PO DAILY@629 [facility] Last Admin: 03/03/23 05:36 Dose: Not Given Promethazine HCl 12.5 mg/ (Sodium Chloride) 50.5 mls @ 202 mls/hr IV Q6H PRN PRN Reason: Nausea and Vomiting Last Infusion: 03/02/23 09:45 Dose: Infused Levofloxacin (Levofloxacin 500 Mg Tablet) 500 mg PO Q24H [facility] Stop: 03/07/23 12:59 Last Admin: 03/03/23 12:57 Dose: 500 mg Lidocaine (Lidocaine 4 % Patch Adh..Patch) 1 patch TRANSDERMA DAILY [facility]; Prot ocol Last Admin: 03/03/23 08:25 Dose: 1 patch Lisinopril (Lisinopril 5 Mg Tablet) 5 mg PO DAILY [facility]; Protocol Last Admin: 03/02/23 11:08 Dose: 5 mg Metronidazole (Metronidazole 500 Mg Tablet) 500 mg PO Q8H [facility] Stop: 03/07/23 12:59 Last Admin: 03/03/23 12:57 Dose: 500 mg Omeprazole (Omeprazole 20 Mg Capsule.Dr) 20 mg PO DAILY@30 [facility] Last Admin: 03/03/23 05:34 Dose: 20 mg Ondansetron HCl (Ondansetron Hcl 4 Mg/2 Ml Vial) 4 mg IVPUSH Q8H PRN PRN Reason: Nausea and Vomiting Last Admin: 03/03/23 12:57 Dose: 4 mg Oxycodone HCl (Oxycodone Hcl Immed Release 5 Mg Tablet) 5 mg PO Q4H PRN PRN Reason: Pain, Mild (Pain Scale 1-3) Last Admin: 03/02/23 20:37 Dose: 5 mg Pharmacy Consult (Consult Rx Perform Med Rec) 1 each MISCELLANE ONCE PRN PRN Reason: Consult order Sertraline HCl (Sertraline Hcl 25 Mg Tablet) 25 mg PO DAILY [facility] Last Admin: 03/03/23 08:25 Dose: 25 mg Sodium Chloride (0.9 % Sodium Chloride Flush 3 Ml Syringe) 3 ml IVFLUSH QSHIFT [facility] Last Admin: 03/03/23 08:25 Dose: 3 ml Tizanidine HCl (Tizanidine Hcl 4 Mg Tablet) 4 mg PO BEDTIME PRN PRN Reason: muscle spasticity Last Admin: 03/02/23 20:40 Dose: 4 mg Home Medications Medication Instructions Recorded Confirmed Last Taken Type acetaminophen 650 mg 1,950 mg PO DAILY PRN Pain 03/01/23 03/01/23 Unknown History tablet,extended release famotidine 20 mg tablet 20 mg PO DAILY 03/01/23 03/01/23 Unknown History lidocaine 5 % topical patch 1 patch topical DAILY PRN Pain 03/01/23 03/01/23 Unknown History sertraline 25 mg tablet 25 mg PO DAILY 03/01/23 03/01/23 Unknown History Physical Exam Vital Signs: Vital Signs: Last Vital Signs Temp 96.8 F 03/03/23 11:33 Pulse 67 03/03/23 11:33 Resp 17 03/03/23 11:33 BP 180/80 H 03/03/23 11:41 Pulse Ox 98 03/03/23 11:33 O2 Del Method Room Air 03/03/23 11:33 BMI result Body Mass Index 27.1 Neuro: Other: He is alert and awake with normal spontaneity of speech fluency comprehension and affect. Visual martinez are full to confrontation. There is very mild right- sided facial flatness. Tongue is midline. There is no pronator drift. Deep tendon reflexes are trace to absent with flexor plantars. Speech is normal. Results Labs 03/02/23 06:33 03/03/23 06:02 Labs: BMP 03/03/23 06:02 Sodium 141 Potassium 3.2 L Chloride 107 Carbon Dioxide 26 BUN 10 Creatinine 0.[address] did not reveal any significant abnormality and CTA of brain and neck were unremarkable. Assessment and Plan (1) Transient ischemic attack: Status: Acute 57 years old woman with uncontrolled hypertension related microvascular ischemic transient ischemic attack resulting in facial numbness. Mainstay of management is blood pressure control, statin, and anti-platelet agent such as baby aspirin daily. Time Spent With Patient Time: Total time managing care of this patient today ____ minutes. Procedures Date of Service Date of Service: 03/03/23
--- NOTE | 2023-03-03 14:29 | MHC.STROKE ---
Addendum entered by Amy Danielson RN 03/04/23 14:49: I FOLLOWED UP WITH THE PATIENT TODAY AND WE REVIEWED THE NEUROLOGY RECOMMENDATIONS, HER CTA SCAN RESULTS, LIPID PANEL AND I ANSWERED ALL OF HER QUESTIONS. HER BP IS MUCH IMPROVED, SHE IS STILL HAVING SOME DIARRHEA, AND IS SOMEWHAT ANXIOUS MUCH LESS SO AFTER I MET WITH HER. SHE IS AWARE THAT SHE HAS TO FOLLOW UP WITH HER PCP AND COMPLY WITH ANY RECOMMENDATIONS THEY HAVE. SHE IS IN AGREEMENT AND WILL FOLLOW HER PCP RECOMMENDATIONS. I REVIEWED HER TRIGLYCERIDES AND DIET OPTIONS WELL. Original Note: I MET WITH THE PATIENT TO PROVIDE STROKE TIA EDUCATION. WE REVIEWED HER INDIVIDUAL RISK FACTORS AND SPECIFICALLY HER BP. SHE DOES CHECK HER BP AT HOME AND I DID PROVIDE HER WITH A BP MONITORING CHART TO DOCUMENT HER BP'S AT HOME. WE TALKED ABOUT MEDICATION COMPLIANCE, ASPIRIN, STATINS, CHECKING AN ECHO, LIPID PANEL. I REVIEWED THE STROKE HANDOUTS AND EDUCATION BOOKLET. I ANSWERED ALL OF HER QUESTIONS. HER SYMPTOMS STARTED 02/28/23 NO DEFINITE TIME, HER HEADACHE, HER EYES BURNED, HER FACE FELT FUNNY. NIHSS = 0. WE DISCUSSED DIET, EXERCISE. ASSESSED FOR REHAB AND SHE IS INDEPENDENT. I WILL CONTINUE TO FOLLOW.
[2023-03-03] MEDS: Enoxaparin Sodium 40 MG/0.4 ML SYRINGE SUBCUT (14:55)
[2023-03-03 14:57] LABS: Cholesterol 203 mg/dL; HDL Cholesterol 30 mg/dL; LDL Cholesterol Calculated 113 mg/dl; Triglycerides 301 mg/dL
[2023-03-03] MEDS: oxyCODONE HCl Immed Release 5 MG TABLET PO (16:48)
[2023-03-03] MEDS: Atorvastatin Calcium 40 MG TABLET PO (21:34)
[2023-03-04 03:27] VITALS: BP 146/71; PULSE 60; RESP 18; TEMP 36.2; O2SAT 96
[2023-03-04] MEDS: metroNIDAZOLE 500 MG TABLET PO ×2 (05:22→12:52)
[2023-03-04] MEDS: Omeprazole 20 MG CAPSULE.DR PO (05:24)
[2023-03-04] MEDS: Famotidine 20 MG TABLET PO (05:24)
[2023-03-04] MEDS: oxyCODONE HCl Immed Release 5 MG TABLET PO ×2 (05:29→12:52)
[2023-03-04 06:10] LABS: Anion Gap 13 (12-20); Blood Urea Nitrogen 7 mg/dL (9-16); Calcium 9.2 mg/dL (8.4-10.2); Carbon Dioxide 24 mmol/L (22-29); Chloride 108 mmol/L (96-108); Creatinine Clr Calc Pharmacy 78.6; Estimated Glomerular Filt Rate > 60; Glucose Random 101 mg/dL (60-115); Potassium 3.6 mmol/L (3.3-5.1); Sodium 141 mmol/L (135-145)
--- NOTE | 2023-03-04 07:00 | CA_ITS ---
Transthoracic Echocardiogram Patient (Last, First, Middle): Stephany Peña A Gender: Female Date of : 1965 Age: 57 Procedure Date: 03/04/2023 Procedure Type: Transthoracic Echocardiogram Location: [facility] [place] Height: 157.48 cm Weight: 67.13 kg BSA: 1.68 m2 Heart Rate: bpm BP: 148 / 65 mmHg [employer] Tester: TO Referring MD: Sophie MCKEON Symptoms: PVCs, uncontrolled HTN Study Quality: Adequate Conclusions: - Normal left ventricular size and systolic function. The visually estimated ejection fraction is between 60-65%. There is no evidence of regional wall motion abnormalities. Diastolic function is normal for age. There is mild septal asymmetric hypertrophy. Normal global longitudinal strain -22%. - Normal right ventricular cavity size and systolic function. - There is mild dilatation of the sinuses of Valsalva measuring 3.74 cm and mild dilatation of the ascending aorta measuring 3.40 cm. Findings Left Ventricle Normal left ventricular size and systolic function. The visually estimated ejection fraction is between 60-65%. There is no evidence of regional wall motion abnormalities. Diastolic function is normal for age. There is mild septal asymmetric hypertrophy. Normal global longitudinal strain -22%. Right Ventricle Normal right ventricular cavity size and systolic function. Atria The left atrium is likely dilated. The right atrium is mildly dilated. Aortic Valve Normal aortic valve structure and function. There is no aortic valve stenosis. There is trace (trivial) aortic valve regurgitation. Mitral Valve Normal mitral valve structure and function. There is no mitral valve regurgitation. There is no mitral valve stenosis. Pulmonic Valve Normal pulmonic valve structure and function. There is no pulmonic valve regurgitation. Tricuspid Valve Normal tricuspid valve structure and function. There is no tricuspid valve regurgitation. Tricuspid regurgitation envelope is inadequate for calculation of right ventricular systolic pressure. Mildly elevated right atrial pressure. Great Vessels There is mild dilatation of the sinuses of Valsalva measuring 3.74 cm and mild dilatation of the ascending aorta measuring 3.40 cm. Venous The inferior vena cava is dilated and collapses greater than 50% with inspiration. Pericardium/Pleural There is no evidence of pericardial effusion. Prior Study Comparison No prior study available for comparison. Measurements 2D Linear Measurements IVSd: 1.26 0.6-0.9/0.6-1.0 cm LVIDd: 4.23 3.9-5.3/4.2-5.9 cm LVIDd Index: 2.52 2.4-3.2/2.2-3.1 cm/m2 LVIDs: 2.55 2.0-3.6 cm LVPWd: 0.78 0.7-1.1 cm LA Diam: 3.60 2.7-3.8/3.0-4.0 cm LAIDs Index: 2.14 1.5-2.3 cm/m2 LV Mass: 177.27 67-162/88-224 g LV Mass Index: 105.52 43-95/49-115 g/m2 LVOT Diam: 2.10 3.0+(-)1.3 cm 2D Systolic Function EF 4C: 64.10 >55% EF 2C: 63.90 >55% EF BiP: 63.90 >55% Mitral Valve MV Pk E: 0.63 MV PK A: 0.48 MV Decel Time: 263.00 E/A: 1.30 E'Lateral: 8.92 E'Medial: 6.74 E/E' Med: 9.30 E/E' Lat: 7.10 PHT: 77.00 MVA PHT: 2.86 Decel Mills: 2.40 Aortic Valve AoV Pk Neo: 1.36 AoV Mn Neo: 0.87 AoV VTI: 0.27 AoV Pk Grad: 7.00 Aov Mn Grad: 4.00 GINA Cont.VTI: 3.38 AI Pk Neo: 3.34 AI Mills: 1.16 LVOT LVOT Pk Neo: 1.18 LVOT Mn Neo: 0.73 LVOT VTI: 0.26 LVOT Pk Grad: 6.00 LVOT Mn Grad: 2.00 LVOT Diam: 2.10 LVOT Area: 3.46 Diastolic Function MV Pk E: 0.63 MV Pk A: 0.48 E/A: 1.30 E'Medial: 6.74 E/E' Med: 9.30 E' Laterial: 8.92 E/E' Lat: 7.10 Right Ventricle TAPSE (mm): 29.30 TVS' Neo: 14.10 Tricuspid Valve RA Press: 8.00 Great Vessels Aorta Sinus of Valsalva: 3.74 2.0-3.[address] [place]: 2.48 1.7-3.4 cm Ao Asc: 3.40 2.1-3.4 cm Updated in Other Vendor System with Status of Final Gurvinder Beebe MD electronically signed on 03/04/2023 4:06:15 PM with status of Final
[2023-03-04 07:29] VITALS: BP 143/70; PULSE 56; RESP 18; TEMP 36.2; O2SAT 94
[2023-03-04] MEDS: Lidocaine 4 % Patch ADH..PATCH 1 PATCH TRANSDERMA (09:37)
[2023-03-04] MEDS: Aspirin 81 MG TAB.CHEW PO (09:37)
[2023-03-04] MEDS: Sertraline HCL 25 MG TABLET PO (09:37)
[2023-03-04] MEDS: 0.9 % Sodium Chloride Flush 3 ML SYRINGE IVFLUSH ×2 (09:39→15:02)
[2023-03-04] MEDS: Acetaminophen 325 MG TABLET 650 MG PO (09:42)
[2023-03-04 11:47] VITALS: BP 147/74; PULSE 61; RESP 20; TEMP 36.2; O2SAT 97
--- NOTE | 2023-03-04 12:42 | P.DS_ITS ---
DS: Providers Provider Date of Service: 03/04/23 Date of admission: 03/01/23 13:20 Date of discharge: 03/04/23 Primary care physician: Danielle Wahl MD Consults: 03/03/23 11:10 Consult to Neurology Routine Consulting Provider: [facility] Reason for consultation: age indeterminate infarct of brain CT, facial tingling, elevated bp Has provider been notified: No Attending physician on discharge: Po Salas Discharging clinician: Sophie Isaacs DS: Diagnosis Discharge Diagnosis (1) Transient ischemic attack: Status: Acute (2) Colitis: Status: Acute DS: Summary Hospital Course Hospital Course: From H&P on day of admission 57 year old women presenting with? dizziness, headache, weakness.? She reports that the symptoms have worsened in the last 2 days.? She reported since September of 2022 she has been experiencing dizziness and headaches and often generalized malaise.? She had a dental appointment for tooth extraction last week and they reported to her that her blood pressure was elevated, she reported that she did not know about this previously.? On Wednesday she reported that she felt weak and reported that her son had to carry her to her room because she felt like she would pass out.? She reported dizziness with nausea and hot and cold flashes that have also been on and off along with headache , however the headache did correlate with palpation posterior neck muscles.? She denied chest pain, shortness of breath, vomiting, diarrhea, loss of consciousness, history of seizure disorder.? She denied recent travel or sick contacts.? She initially presented to the ER yesterday with the same symptoms including headache, and was discharged home with hydrochlorothiazide.? Patient reports that her symptoms worsen and she needed to come back to the ER.? In the ER, head and neck CTA showed soft tissue thickening involving the right p osterior inferior aspect of the maxillary sinus with associated erosive changes on the sinus floor findings concerning for infiltrative lesion potentially squamous cell carcinoma, no large vessel occlusion or significant stenosis, low attenuation foci with the right and left basal ganglia possibly representing age-indeterminate infarcts.? All of her labs are within acceptable limits blood pressure was pretty high with reading of 204/112 being the highest.? In the ER she was given a dose of amlodipine, labetalol, morphine, Reglan, Benadryl, aspirin.? She will be placed on observation for severe headache, dizziness secondary to hypertensive urgency. uncontrolled HTN No previous diagnosis of hypertension. Blood pressure elevated on day of arrival with BP is 180s. she received meds as above and was admitted and started on 5 mg lisinopril. blood pressure the next evening dropped to the 80s. She was treated with IVF and her blood pressure improved. The lisinopril was placed on hold and her blood pressure has remained in the 140s-150s. she has HCTZ on her med list but states that she has no history of HTN and was not taking HCTZ and think the ED may have prescribed it to her earlier this month. patient urged to monitor blood pressure daily at home and keep a log and follow up with PCP for close blood pressure monitoring. TIA head and neck CTA showing low attenuation within the right and left basal ganglia could represent recent/age indeterminate infarcts, CTA not showing any arterial stenosis or occlusion. she was seen by neurology who felt that her symptoms were related to TIA. She was started on aspirin and statin. LDL was 113. lifestyle modifications including diet and exercise were discussed. Repeat brain CT obtained in follow up and no stroke was seen. Colitis acute abdominal pain. abd ct showing mild inflammation along left hemicolon suggestive of colitis. does not meet sirs criteria. was started on levaquin and flagyl po. abdominal pain improved and she is tolerating a regular diet. she will be discharged to complete course of oral antibiotics. hypokalemia. resolved with replacement Maxillary sinus lesion. incidentally noted erosive lesion on Head CTA concern for squamous cell carcinoma. discussed with patient - will need close outpatient ENT follow up Time Spent with Patient Time attestation: Total time managing care of this patient today ____ minutes. Discharge coordination time: Greater than 30 minutes Quality: Safe Use of Opioids Does Pt have an Active Cancer Diagnosis on the Problem List?: No Quality: Stroke Does the patient have a stroke diagnosis?: No Physical Exam Vital Signs: Vital Signs: Last Vital Signs Temp 97.1 F 03/04/23 11:47 Pulse 61 03/04/23 11:47 Resp 20 03/04/23 11:47 BP 147/74 H 03/04/23 11:47 Pulse Ox 97 03/04/23 11:47 O2 Del Method Room Air 03/04/23 11:47 BMI result Body Mass Index 27.1 Const: General: cooperative, comfortable, no acute distress, alert and awake Nutritional Appearance: average body habitus Orientation/consciousness: patient oriented x3 Resp: Effort & Inspection: normal respiratory effort, able to speak in complete sentences, no respiratory distress and no use of accessory muscles Auscultation: clear to auscultation bilaterally GI: Inspection: No distended Palpation (GI): Soft to palpation and nontender Neuro: General: patient oriented x3, moves all extremities, no focal motor deficits and CN's II-XI intact bilaterally Extrem: General: Yes no pedal edema DS: Data Data Completed and Pending Labs on day of discharge: Laboratory Results - last 24 hr 03/03/23 03/04/23 06:02 05:26 Sodium 141 Potassium 3.6 Chloride 108 Carbon Dioxide 24 Anion Gap 13 BUN 7 L Creatinine 0.70 Estim Creat Clear Calc 78.6 Estimated GFR > 60 Random Glucose 101 Calcium 9.2 D Triglycerides 301 Cholesterol 203 LDL Cholesterol, Calc 113 HDL Cholesterol 30 Discharge Plan Discharge Patient Disposition: Home, Self-Care Discharge Diagnosis: TIA uncontrolled blood pressure colitis Referrals: Danielle Wahl MD [Primary Care Provider] - 1 Week Baljinder Garcia [Physician] - 1 Week Discharge Medications: New levofloxacin 500 mg Tablet 500 mg PO Q24H 2 Days Qty: 2 0RF metronidazole 500 mg Tablet 500 mg PO Q8H 2 Days Qty: 6 0RF atorvastatin 40 mg Tablet 40 mg PO BEDTIME 30 Days Qty: 30 0RF aspirin 81 mg Tablet,Chewable 81 mg PO DAILY 30 Days Qty: 30 0RF Continued tizanidine 4 mg tablet 4 mg PO BEDTIME PRN (Reason: muscle spasticity) Qty: 30 0RF pantoprazole 40 mg tablet,delayed release (DR/EC) 40 mg PO DAILY Qty: 30 1RF acetaminophen 650 mg Tablet Extended Release 1,950 mg PO DAILY PRN (Reason: Pain) famotidine 20 mg Tablet 20 mg PO DAILY sertraline 25 mg Tablet 25 mg PO DAILY lidocaine 5 % adhesive patch,medicated 1 patch topical DAILY PRN (Reason: Pain) Rx Instructions: 1 patch topically up to 12 hours per day alum-mag hydroxide-simeth [Maalox Maximum Strength] 400-400-40 mg/5 mL suspension 5 ml PO QID PRN (Reason: indigestion) Qty: 240 0RF Discontinued hydrochlorothiazide 25 mg tablet 25 mg PO DAILY Qty: 14 0RF Discharge Orders: Discharge Order (Routine); Ordered 03/04/23 Ordered By: Sophie Isaacs Activity on Discharge: As tolerated Stand Alone Forms: Patient Portal Discharge page Care Plan Goals: see below Health Concerns: TIA uncontrolled blood pressure colitis possible ENT lesion Plan of Treatment: start taking 81 mg of aspirin daily start taking lipitor to lower cholesterol - will need liver function monitored periodically per PCP complete course of antibiotics for colitis as prescribed call to schedule appointment with ENT provider as soon as possible to evaluate the lesion noted on the CT scan call to schedule follow up appointment with PCP Assessment: see discharge summary
[2023-03-04] MEDS: ondansetron HCL 4 MG/2 ML VIAL IVPUSH (12:52)
[2023-03-04] MEDS: levoFLOXacin 500 MG TABLET PO (12:52)
[2023-03-04] MEDS: Enoxaparin Sodium 40 MG/0.4 ML SYRINGE SUBCUT (15:01)
[2023-03-04 15:51] VITALS: BP 144/76; PULSE 60; RESP 18; TEMP 36.1; O2SAT 96
== END 2023-03-04 17:52 | disposition home or self-care (01) ==
LOC: HO.ED 10:57 → HO.EDOVER 14:15 → HO.IMC 19:28 → HO.EDOVER 03-03 14:42 → HO.IMC 03-03 14:42
PROVIDERS: Physician Assistant; Admitting Provider Nurse Practitioner Acute Care; Emergency Provider Emergency Medicine; PCP Internal Medicine; Visit Provider Physician Assistant Medical
DX: G45.9 Transient cerebral ischemic attack, unspecified (principal); I16.0 Hypertensive urgency; K52.9 Noninfective gastroenteritis and colitis, unspecified; E87.6 Hypokalemia; J34.89 Other specified disorders of nose and nasal sinuses; R06.02 Shortness of breath; R51.9 Headache, unspecified; R53.1 Weakness; R11.2 Nausea with vomiting, unspecified; K21.9 Gastro-esophageal reflux disease without esophagitis; G89.29 Other chronic pain; M54.50 Low back pain, unspecified; F41.9 Anxiety disorder, unspecified; F32.9 Major depressive disorder, single episode, unspecified; Z79.899 Other long term (current) drug therapy
CPT/HCPCS: 36415; 70450; 70496; 70498; 74176; 80048; 80053; 80061; 81003; 82947; 83735; 83880; 84484; 85025; 93005; 93306; 93356; 96361; 96365; 96366; 96372; 96375; 99222; 99285; J1200; J1650; J2270; J2405; J2550; J2765; Q9957; Q9967

== ENCOUNTER → 2023-03-01 10:50 | Outpatient (BNV) | payer BC, OTHER, SELFPAY | PROVIDERS: Admitting Provider Nurse Practitioner Acute Care; Emergency Provider Emergency Medicine; PCP Internal Medicine; Visit Provider Internal Medicine Cardiovascular Disease | DX: R00.1 Bradycardia, unspecified (principal) | CPT/HCPCS: 93010 ==

== ENCOUNTER 2023-03-01 13:20 | Outpatient (BNV) | payer BC, SELFPAY | END 2023-03-04 07:00 | PROVIDERS: Admitting Provider Nurse Practitioner Acute Care; Emergency Provider Emergency Medicine; PCP Internal Medicine; Visit Provider Internal Medicine Cardiovascular Disease | DX: I51.7 Cardiomegaly (principal) | CPT/HCPCS: 93306 ==

== ENCOUNTER 2023-03-01 13:20 | Outpatient (BNV) | payer BC, SELFPAY | END 2023-03-03 01:03 | PROVIDERS: Admitting Provider Nurse Practitioner Acute Care; Emergency Provider Emergency Medicine; PCP Internal Medicine; Visit Provider Internal Medicine Cardiovascular Disease | DX: I45.81 Long QT syndrome (principal) | CPT/HCPCS: 93010 ==

== ENCOUNTER → 2023-03-01 13:20 | Outpatient (BNV) | payer BC, MEDICAID, SELFPAY | PROVIDERS: Admitting Provider Nurse Practitioner Acute Care; Emergency Provider Emergency Medicine; PCP Internal Medicine; Visit Provider Nurse Practitioner Acute Care | DX: G45.9 Transient cerebral ischemic attack, unspecified (principal); K52.9 Noninfective gastroenteritis and colitis, unspecified | CPT/HCPCS: 99232; 99233; 99236; 99239 ==

== ENCOUNTER 2023-03-19 09:04 | Outpatient (AMB) | payer BC, MEDICAID, SELFPAY ==
--- NOTE | 2023-03-19 09:07 | MHC.PC.OV ---
Vital Signs 03/19/23 09:08 Height 5 ft 2.5 in Weight 153 lb BMI 27.5 BP 150/88 H Blood Pressure Location Rt brachial Position Sitting Pulse 65 Pulse Source Pulse Oximeter Pulse Oximetry (%) 96 Oxygen Delivery Method Room Air Intake Visit Reasons: [facility] ER elevated b/p Intake Note: Pt is here for a [facility] f/u elevated b/p Allergies peanut [Peanut] Allergy (Mild, Verified 03/19/23 09:29) AVOIDS PREFERANCE strawberry [[place]] Allergy (Mild, Verified 03/19/23 09:29) HIVES lactose [Lactose] Adverse Reaction (Mild, Verified 03/19/23 09:29) STOMACH UPSET tramadol Adverse Reaction (Unknown, Verified 03/19/23 09:29) severe headaches Medication List - Last Reconciled 03/19/23 by Danielle Wahl MD acetaminophen ER 1,950 mg PO DAILY PRN alum-mag hydroxide-simeth 400-400-40 mg/5 mL (Maalox Maximum Strength) 5 mL PO QID PRN aspirin 81 mg PO DAILY 30 days atorvastatin 40 mg PO BEDTIME 30 days famotidine 20 mg PO DAILY PRN lidocaine 5% 1 patch topical DAILY PRN losartan 50 mg PO DAILY ondansetron HCl 4 mg PO Q8H PRN sertraline 25 mg PO DAILY sertraline 25 mg PO DAILY tizanidine 4 mg PO BEDTIME PRN Tobacco use date assessed: 03/19/23 Dental Screening Dental Screen Date: 03/19/23 Did you have a dental visit in the last 12 months?: Yes Did you have a dental problem in the last 6 months where you did not have access to dental care?: Yes Was dental information given to patient?: Patient has dentist HPI [facility] ER elevated b/p HPI Details 57-year-old lady with history of anxiety,/depression, IBS, here today for follow-up after recent admission for elevated blood pressure, colitis and TIA. In the ER, she had a head and neck CTA which showed soft tissue thickening involving the right posterior inferior aspect of the maxillary signs with associated erosive changes in sinus floor, concerning for infiltrative lesion potentially squamous cell CA, no large vessel occlusion or significant stenosis, low-attenuation foci with right and left basal ganglia possibly representing age-indeterminate infarct. She was evaluated by Neurology who felt that her symptoms were related to her TIA she was started on aspirin and a statin within LDL cholesterol initially at 113 mg/dL. A repeat brain CT obtained during admission did not show any evidence of stroke. Abdominal CT showed mild inflammation along left abel colon suggestive of colitis, and patient was placed on Levaquin and Flagyl p.o. with improvement of abdominal pain , and she was able to tolerate regular diet on her discharge She was seen by 03/09/2023 by Nephrology, Dr. Modesto Plasencia, who noted that she had persistent hyperkalemia, to be checked for primary hyperaldosteronism. She was started on losartan 50 mg daily, and advised patient to check her blood pressure to keep a record of this, and he also ordered an MRI of the head with and without contrast with results still pending. She is to follow-up with him in a month. He ordered compressive metabolic panel, CBC and differential, magnesium, phosphorus, uric acid, UA with microscope, urine albumin/creatinine ratio, vitamin-D level, aldosterone, plasma renin activity, with results still pending. At present patient states that she has been feeling well with no complaints of any headache, no chest pain, no nausea vomiting or dizziness. [facility] Medical History (Updated 03/19/23 @ 10:01 by Danielle Wahl MD) Anxiety Chronic low back pain Colitis Depression Dermatitis Eczema of both hands Essential hypertension Heartburn Hx of TIA (transient ischemic attack) and stroke IBS (irritable bowel syndrome) Idiopathic thrombocytopenia Lumbar back pain with radiculopathy affecting right lower extremity Sinus mucosal thickening Spondyloarthropathy of lumbar spine Surgical History History of partial hysterectomy History of tubal ligation Family History Father IBS (irritable bowel syndrome) Myocardial infarction Mother Arthritis Maternal Aunt Breast cancer Sister Substance use disorder Sister Substance use disorder Mental health disorder Sister Mental health disorder Sister No problems noted. Sister No problems noted. Son No problems noted. Son No problems noted. Son No problems noted. Son No problems noted. Social History Household Members: Spouse Household Members Other:: son Housing: House Do you presently have visiting nurse or other home services: No Alcohol intake: never Patient Tobacco Use Status: Never used Tobacco e-Cigarette/Vaping Use: Never Used Second Hand Smoke Exposure: Yes service: No Current occupational status: employed Cognitive needs: No Hearing needs: No Vision needs: Yes Questionnaire Thrive Questionnaire Date Thrive assessed: 03/02/23 ANNA-7 AMB Questionnaire ANNA-7 Date ANNA - 7 assessed: 10/01/22 Source: Developed by Drs. Chi Ingram, Lilly Tirado, Eduardo Teixeira and colleagues, with an educational cooper from [employer]. Review of Systems Const Denies fever(s) and Denies weakness Eyes Denies change in vision ENT Details: Has difficulty blowing her nose specially on the right side Card Reports no additional complaints Resp Reports no additional complaints GI Denies change in bowel habits Denies hematuria, Denies urinary frequency, Denies dysuria, Denies urinary incontinence and Denies urinary urgency Musc Reports as per HPI Neuro Denies weakness Psych Reports as per HPI Endo Denies polydipsia and Denies polyuria Dmitry/Lymph Denies easy bleeding and Reports easy bruising Aller/Immun Reports no additional complaints Physical exam (Primary Care) Vital Signs: Last Vital Signs Pulse 65 03/19/23 09:08 BP 150/88 H 03/19/23 09:08 Pulse Ox 96 03/19/23 09:08 Oxygen Delivery Method Room Air 03/19/23 09:08 BMI result Body Mass Index 27.5 Tobacco/Smoking Status: Tobacco use Status Tobacco use date assessed 03/19/23 03/19/23 09:17 Patient Tobacco Use Status Never used Tobacco 03/19/23 09:13 e-Cigarette/Vaping Use Never Used 03/19/23 09:13 Thrive Assessment: Date of Thrive Assessment Date Thrive assessed 03/02/23 03/19/23 09:13 Const General: comfortable, no acute distress, alert and Physically active Orientation/consciousness: patient oriented x3 Limitations: no limitations HENMT Head: Yes normocephalic and Yes atraumatic Ears: external ears normal and TM's normal bilaterally General nose exam: Normal external nose present and No nasal discharge present Face and sinus: Yes face symmetric Mouth: Normal oral and palatal mucosa present, oropharynx normal and moist mucous membranes Eyes General: appearance normal, both eyes and all related structures Neck Neck: Yes full ROM, Yes no lymphadenopathy and Yes supple Thyroid: Thyroid normal Resp Effort & Inspection: normal respiratory effort and able to speak in complete sentences Auscultation: clear to auscultation bilaterally Cardio Rate: regular rate Rhythm: regular rhythm Heart sounds: S1 normal heart sound present and S2 normal heart sound present GI Palpation (GI): Soft to palpation, nontender, no guarding and no masses Auscultation: normal bowel sounds General: Yes no CVA tenderness Back/Spine/Pelvis Back: no CVA tenderness and No back tenderness Skin Other: Erythematous papular rash on the palms of both hands Neuro General: patient oriented x3, gait normal, moves all extremities, Normal light touch and pain sensation and no focal motor deficits Cranial nerves: Yes CN's II-XII intact bilaterally Cognition (Neuro): normal cognition Extrem General: Yes full ROM, Yes no joint enlargement, Yes no clubbing, cyanosis or edema, Yes no calf tenderness and Yes normal gait Psych Appearance: grossly normal and well kempt Mental Status: mental status grossly normal Speech and movement: Normal speech and movement present and Clear speech present Affect: normal affect Attitude: cooperative Thought process: Normal thought process present Thought content: Normal thought content present Assessment and Plan Assessment & Plan (1) Sinus mucosal thickening: Code(s): J34.89 - Other specified disorders of nose and nasal sinuses Plan: Suspicious for squamous cell CA, Referred to ENT for further evaluation management (2) Anxiety: Code(s): F41.9 - Anxiety disorder, unspecified Plan: Currently on sertraline 25 mg daily (3) Transient ischemic attack: Code(s): G45.9 - Transient cerebral ischemic attack, unspecified Plan: Seen by Neurology already continued on aspirin 81 mg daily, and atorvastatin 40 mg at bedtime. Stressed importance of getting blood pressure, lipids under control (4) Heartburn: Code(s): R12 - Heartburn Plan: On famotidine 20 mg once a day 1 hour before eating (5) Essential hypertension: Code(s): I10 - Essential (primary) hypertension Plan: Recently seen by Nephrology and started on losartan 50 mg daily Orders: Orders Alanine Aminotransferase 03/19/23 F41.9 - Anxiety disorder, unspecified, G45.9 - Transient cerebral ischemic attack, unspecified, I10 - Essential (primary) hypertension, R12 - Heartburn, Z86.73 - Personal history of transient ischemic attack (TIA), and cerebral infarction without residual deficits Aspartate Amino Transferase 03/19/23 F41.9 - Anxiety disorder, unspecified, G45.9 - Transient cerebral ischemic attack, unspecified, I10 - Essential (primary) hypertension, R12 - Heartburn, Z86.73 - Personal history of transient ischemic attack (TIA), and cerebral infarction without residual deficits Lipid Panel 03/19/23 F41.9 - Anxiety disorder, unspecified, G45.9 - Transient cerebral ischemic attack, unspecified, I10 - Essential (primary) hypertension, R12 - Heartburn, Z86.73 - Personal history of transient ischemic attack (TIA), and cerebral infarction without residual deficits Referrals Ear/Nose/Throat Referral J34.89 - Other specified disorders of nose and nasal sinuses Medications: New sertraline 25 mg (1/2 x 50 mg) PO DAILY 30 tabs 5RF famotidine 20 mg PO DAILY PRN 30 tabs 5RF heartburn triamcinolone acetonide 0.5% 1 appl topical DAILY 10 days 15 grams 1RF rash on palm Discontinued lidocaine 5% 1 patch topically up to 12 hours per day 30 days 30 ea 3RF pain G89.29 - Other chronic pain, M47.816 - Spondylosis without myelopathy or radiculopathy, lumbar region, M51.36 - Other intervertebral disc degeneration, lumbar region, M54.50 - Low back pain, unspecified Coding Level of Care Code Est Pt Level 4 (12284) Diagnoses Sinus mucosal thickening J34.89 Anxiety F41.9 Transient ischemic attack G45.9 Heartburn R12 Essential hypertension I10
[2023-03-19 09:08] VITALS: BP 150/88; PULSE 65; O2SAT 96; BMI 27.5
== END 2023-03-19 13:14 | disposition home or self-care (01) ==
PROVIDERS: PCP Internal Medicine; Visit Provider Internal Medicine
DX: I10 Essential (primary) hypertension (principal); J34.89 Other specified disorders of nose and nasal sinuses; F41.9 Anxiety disorder, unspecified; G45.9 Transient cerebral ischemic attack, unspecified; R12 Heartburn
CPT/HCPCS: 99214

== ENCOUNTER 2023-04-26 10:35 | Outpatient (AMB) | payer BC, SELFPAY ==
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
[2023-04-26 10:43] VITALS: BP 185/81; PULSE 55; O2SAT 97; BMI 27.8
== END 2023-04-26 11:21 | disposition home or self-care (01) ==
PROVIDERS: PCP Internal Medicine; Visit Provider Nurse Practitioner Family
DX: G89.29 Other chronic pain (principal); M51.36 Other intervertebral disc degeneration, lumbar region; M53.3 Sacrococcygeal disorders, not elsewhere classified; M54.50 Low back pain, unspecified; M47.816 Spondylosis without myelopathy or radiculopathy, lumbar region; M70.62 Trochanteric bursitis, left hip
CPT/HCPCS: 99214

== ENCOUNTER → 2023-04-26 10:35 | Outpatient (BNVA) | payer BC, SELFPAY | PROVIDERS: PCP Internal Medicine; Visit Provider Nurse Practitioner Family ==

== ENCOUNTER 2023-06-04 13:00 | Day surgery (SDC) | payer BC, SELFPAY ==
[2023-06-02 12:19] VITALS: BMI 27.7
--- NOTE | 2023-06-03 11:10 | HO.ANESPROP2 ---
Documented by User: Hansa Galeas NP 06/03/23 11:16 HPI - Anesthesia Eval Consult details Narrative: 58yo F for Bilateral Diagnostic Sacroiliac Joint Steroid Injection s/p epidural injection 12/2022 with MAC [facility] admit 02/2023 with TIA. Neuro eval and started on ASA and statin. Incidental finding of ? sinus mass. MRI and ENT eval WNL. Follows nephro for HTN and hyperkalemia. Started on losartan. PMFSH Active Problems Active Problems: All Active Problems (Updated 03/19/23 @ 10:01 by Danielle Wahl MD) Greater trochanteric bursitis of left hip (Acute) Sacroiliac joint pain (Acute) Lumbar degenerative disc disease (Acute) Essential hypertension (Acute) Hx of TIA (transient ischemic attack) and stroke (Acute) Sinus mucosal thickening (Acute) Idiopathic thrombocytopenia (Acute) Heartburn (Acute) Chronic low back pain (Acute) Spondyloarthropathy of lumbar spine (Acute) Eczema of both hands (Acute) Dermatitis (Acute) Anxiety (Acute) Depression (Acute) Past Medical History Medical History Essential hypertension Hx of TIA (transient ischemic attack) and stroke Sinus mucosal thickening Colitis Idiopathic thrombocytopenia Heartburn Chronic low back pain Spondyloarthropathy of lumbar spine Eczema of both hands Dermatitis Anxiety Depression Lumbar back pain with radiculopathy affecting right lower extremity IBS (irritable bowel syndrome) Family History Family History Father IBS (irritable bowel syndrome) Myocardial infarction Mother Arthritis Maternal Aunt Breast cancer Sister Substance use disorder Sister Substance use disorder Mental health disorder Sister Mental health disorder Sister No problems noted. Sister No problems noted. Son No problems noted. Son No problems noted. Son No problems noted. Son No problems noted. Family history of problems with anesthesia: No Surgical History Surgical History (Updated 06/02/23 @ 12:04 by Gale Bond RN) History of esophagogastroduodenoscopy (EGD) H/O colonoscopy History of surgery History of partial hysterectomy History of tubal ligation History of Problems with Anesthesia: No Social History Social History Household Members: Spouse Household Members Other:: son Housing: House Do you presently have visiting nurse or other home services: No Alcohol intake: never Patient Tobacco Use Status: Never used Tobacco e-Cigarette/Vaping Use: Never Used Second Hand Smoke Exposure: Yes Use of substances other than those prescribed or required for medical reasons: No Are you DNR?: No Advance Directives: No Advance Directives Information Provided: Yes service: No Current occupational status: employed Cognitive needs: No Hearing needs: No Vision needs: Yes Meds Allergies Allergy/AdvReac Type Severity Reaction Status Date / Time peanut [Peanut] Allergy Mild AVOIDS Verified 04/26/23 10:44 PREFERANCE strawberry [[place]] Allergy Mild HIVES Verified 04/26/23 10:44 lactose [Lactose] AdvReac Mild STOMACH Verified 04/26/23 10:44 UPSET tramadol AdvReac Unknown severe Verified 04/26/23 10:44 headaches Home Medications Medication Instructions Recorded Confirmed Last Taken Type acetaminophen 650 mg 1,950 mg PO DAILY PRN Pain 03/01/23 06/02/23 Unknown History tablet,extended release losartan 50 mg tablet 50 mg PO DAILY 03/19/23 06/02/23 Unknown History ondansetron HCl 4 mg tablet 4 mg PO Q8H PRN nausea/vomiting 03/19/23 06/02/23 Unknown History sertraline 25 mg tablet 25 mg PO DAILY 03/19/23 06/02/23 Unknown History Exam Exam Date and Time: June 03, 2023 1110 Height,Weight and Vital Signs: Height 5 ft 2.5 in Weight 69.853 kg Pertinent Lab Results Pertinent Lab Results: Laboratory Tests 03/02/23 03/04/23 06:33 05:26 WBC 5.5 Hgb 13.0 Hct 39.2 Plt Count 182 Sodium 141 Potassium 3.6 Chloride 108 Carbon Dioxide 24 BUN 7 L Creatinine 0.70 Narrative Narrative: ECHO 02/2023 Conclusions: - Normal left ventricular size and systolic function. The visually estimated ejection fraction is between 60-65%. There is no evidence of regional wall motion abnormalities. Diastolic function is normal for age. There is mild septal asymmetric hypertrophy. Normal global longitudinal strain -22%. - Normal right ventricular cavity size and systolic function. - There is mild dilatation of the sinuses of Valsalva measuring 3.74 cm and mild dilatation of the ascending aorta measuring 3.40 cm. EKG 02/2023 Vent. Rate : 054 BPM Atrial Rate : 054 BPM P-R Int : 180 ms QRS Dur : 086 ms QT Int : 516 ms P-R-T Axes : 052 058 065 degrees QTc Int : 489 ms Sinus bradycardia Prolonged QT Abnormal ECG When compared with ECG of 01-MAR-2023 10:46, QT has lengthened Assessment and Plan Assessment Anesthesia Assessment: Chart Reviewed Final Anesthetic Review Family History of Problems with Anesthesia: No History of Problems with Anesthesia: No Documented by User: Faustino Taylor MD 06/04/23 15:02 PMFSH Past Medical History Medical History Essential hypertension Hx of TIA (transient ischemic attack) and stroke Sinus mucosal thickening Colitis Idiopathic thrombocytopenia Heartburn Chronic low back pain Spondyloarthropathy of lumbar spine Eczema of both hands Dermatitis Anxiety Depression Lumbar back pain with radiculopathy affecting right lower extremity IBS (irritable bowel syndrome) Family History Family History Father IBS (irritable bowel syndrome) Myocardial infarction Mother Arthritis Maternal Aunt Breast cancer Sister Substance use disorder Sister Substance use disorder Mental health disorder Sister Mental health disorder Sister No problems noted. Sister No problems noted. Son No problems noted. Son No problems noted. Son No problems noted. Son No problems noted. Surgical History Surgical History (Updated 06/02/23 @ 12:04 by Gale Bond RN) History of esophagogastroduodenoscopy (EGD) H/O colonoscopy History of surgery History of partial hysterectomy History of tubal ligation Social History Social History Household Members: Spouse Household Members Other:: son Housing: House Do you presently have visiting nurse or other home services: No Alcohol intake: never Patient Tobacco Use Status: Never used Tobacco e-Cigarette/Vaping Use: Never Used Second Hand Smoke Exposure: Yes Use of substances other than those prescribed or required for medical reasons: No Are you DNR?: No Advance Directives: No Advance Directives Information Provided: Yes service: No Current occupational status: employed Cognitive needs: No Hearing needs: No Vision needs: Yes Meds Allergies Allergy/AdvReac Type Severity Reaction Status Date / Time peanut [Peanut] Allergy Mild AVOIDS Verified 04/26/23 10:44 PREFERANCE strawberry [[place]] Allergy Mild HIVES Verified 04/26/23 10:44 lactose [Lactose] AdvReac Mild STOMACH Verified 04/26/23 10:44 UPSET tramadol AdvReac Unknown severe Verified 04/26/23 10:44 headaches Home Medications Medication Instructions Recorded Confirmed Last Taken Type acetaminophen 650 mg 1,950 mg PO DAILY PRN Pain 03/01/23 06/02/23 Unknown History tablet,extended release losartan 50 mg tablet 50 mg PO DAILY 03/19/23 06/02/23 Unknown History ondansetron HCl 4 mg tablet 4 mg PO Q8H PRN nausea/vomiting 03/19/23 06/02/23 Unknown History sertraline 25 mg tablet 25 mg PO DAILY 03/19/23 06/02/23 Unknown History Exam Airway Mallampati Class: II TM Dist: >3cm Neck ROM: Full Loose/Missing/Broken Teeth: No Heart: ok Lungs: ok Assessment and Plan Assessment Anesthesia Assessment: Anesthesia Plan Discussed Final Anesthetic Review NPO: Yes ASA Class: II Final Preanesthetic Review: No Changes in Pt Med Stat, Meds/Allgs Chart Reviewed, Consent Obtained/Reviewed and Anes Risks/Benef Reviewed Patient Risk: Intermediate Procedure Risk: Intermediate Anesthetic Plan Anesthetic Plan: MAC: and Agree w/ Assess. and Plan Disposition: Standard PACU
--- NOTE | ~2023-06-04 | FL_ITS ---
EXAMINATION: XR FLUOROSCOPY WITH IMAGES CLINICAL INFORMATION: Bilateral SI joint injections. COMPARISON: None available. TECHNIQUE: Fluoroscopy Supervised By: Dr. Sylvain Mack. Fluoroscopy Time: 0.2 minutes. Cumulative Dose: 3.80 mGy. DAP: 1.03 Gycm2. Images: 3. FINDINGS: Images demonstrate needle placement and contrast injection over the bilateral sacroiliac joints FL/FL guidance in OR IMPRESSION: Fluoroscopy guidance for pain management procedure
[2023-06-04 13:45] VITALS: BMI 27.0
[2023-06-04 13:48] VITALS: BMI 27.0
[2023-06-04 13:49] VITALS: BP 131/70; PULSE 61; RESP 16; TEMP 37; O2SAT 97
[2023-06-04] MEDS: Lactated Ringers 1,000 ML 100 ML IVCONT (13:52)
--- NOTE | 2023-06-04 13:58 | MHC.SHP ---
Pre-Procedural Eval Section A Date of Service: 06/04/23 The patient is an INPATIENT: No Changes since office visit: Yes Patient answered all questions The History & Physical has been completed within 30 days and I have reviewed it.: No Section B Chief Complaint: Sacrococcygeal disorders, not elsewhere classified Details of Present Illness: as above Relevant Family History (Specify if Yes): No Relevant Social History: None Present Medications: see Short Stay Collaborative assessment Medical History: No relevant PMH History of Previous Operations: No relevant previous surgery Allergies: Allergies Allergy/AdvReac Type Severity Reaction Status Date / Time peanut [Peanut] Allergy Mild AVOIDS Verified 04/26/23 10:44 PREFERANCE strawberry [[place]] Allergy Mild HIVES Verified 04/26/23 10:44 lactose [Lactose] AdvReac Mild STOMACH Verified 04/26/23 10:44 UPSET tramadol AdvReac Unknown severe Verified 04/26/23 10:44 headaches Review of Systems Sugical H&P ROS: Negative: Constitution, Cardiovascular, Respiratory, Neurological, Psychiatric, Hem-Onc, Allergic/Immunologic, Gastrointestinal, Genitourinary, Integumentary, Endocrine and Eyes/Ears/Nose/Throat and Yes, Specify: Musculoskeletal ( Sacroiliitis, spondylosis lumbar spine) Exam Surgical H&P Exam: Normal: HEENT, Normal: Heart, Normal: Lungs, Normal: Extremities, Normal: Abdomen, Normal: Skin and Normal: Neurological Plan Diagnosis/Plan: Change I have reviewed the history and physical and performed a pertinent physical examination on my patient. No changes have occurred unless specified. I will perform diagnostic bilateral sacroiliac joint injection. Time Spent With Patient Time: Total time managing care of this patient today ____ minutes.
--- NOTE | 2023-06-04 14:16 | W.PM.OPN ---
Operative Note Operative Note Date of Service: 06/04/23 Narrative: Bilateral diagnostic Sacroiliac joint injection ? Informed consent was explained thoroughly to the patient.? All questions about benefits and risks for the procedure were answered. ? Patient came to the operating room and was positioned prone on the operating table with the pillow under the pelvis. ASA monitors were applied the patient was sedated. Time-out was performed delineating right-sided side of the procedure name i and date of of the patient nature of the procedure and patient allergies. The lower back and buttocks of the patient were prepped with ChloraPrep prepped and draped with sterile utility towels.? Sterilely draped C-arm was brought over the operating field and sq picture of patient's pelvis was demonstrated on the screen. ? ?For the right joint - tilting C-arm contralateral to the site of the joint the most posterior portion of the joints was superimposed with anterior silhouette of the joint.? Skin was injected in the projection of the joint slightly medial to the location of the joint with 25 gauge 1/2 inch needle using local lidocaine 2% . After that 22 gauge 3 and 1/2 inch needle was driven to the right-joint in tunnel vision fashion.? When needle entered the joint capsule injection of the contrast was performed demonstrating intra-articular and minimally periarticular spread of the contrast.? After that 4.5 cc. of ropivacaine 0.5% was injected into the joint.? Upon completion of the injections the needle was re -iserted at the left side toward the left SI joint and the procedure was performed on the left in the mirroring fashion. After completion of the procedure the needle was removed, ? sterile dressing was applied.? Upon completion of the injection patient was taken outside of the operating room to the recovery room where recovered uneventfully.
--- NOTE | 2023-06-04 15:27 | PM.OP ---
Brief Operative Note Date of Service: 06/04/23 Pre-op diagnosis: Sacroiliitis, bilateral sacroiliac pain Post-op diagnosis: same Surgeon: Sylvain Mack MD Anesthesia: MAC Was an Eap Counselor used for this Procedure?: No Estimated blood loss (mL): 1 Condition: stable Disposition: PACU
[2023-06-04 15:32] VITALS: BP 124/69; PULSE 56; RESP 18; TEMP 36.7; O2SAT 95
[2023-06-04 15:47] VITALS: BP 142/80; PULSE 61; RESP 16; O2SAT 96
[2023-06-04 16:02] VITALS: BP 134/78; PULSE 56; RESP 16; O2SAT 96
[2023-06-04] MEDS: Acetaminophen 325 MG TABLET 975 MG PO (16:32)
[2023-06-04 16:40] VITALS: BP 149/68; PULSE 58; RESP 18; TEMP 36.3; O2SAT 99
== END 2023-06-04 16:53 | disposition home or self-care (01) ==
PROVIDERS: PCP Internal Medicine; Visit Provider Anesthesiology
PROC: 3E0U33Z Introduction of Anti-inflammatory into Joints, Percutaneous Approach (ICD-10-PCS; CPT 27096; principal; 2023-06-04 14:40)
DX: M53.3 Sacrococcygeal disorders, not elsewhere classified (principal); G89.29 Other chronic pain; M51.36 Other intervertebral disc degeneration, lumbar region; M54.50 Low back pain, unspecified; M47.816 Spondylosis without myelopathy or radiculopathy, lumbar region; M70.62 Trochanteric bursitis, left hip; I10 Essential (primary) hypertension; D69.3 Immune thrombocytopenic purpura; Z86.73 Personal history of transient ischemic attack (TIA), and cerebral infarction without residual deficits; Z98.890 Other specified postprocedural states; Z79.899 Other long term (current) drug therapy; Z88.8 Allergy status to other drugs, medicaments and biological substances; Z79.82 Long term (current) use of aspirin
CPT/HCPCS: 27096; J2250; J2795; J3010; Q9967

== ENCOUNTER → 2023-06-04 13:00 | Outpatient (BNV) | payer BC, SELFPAY | PROVIDERS: PCP Internal Medicine; Visit Provider Anesthesiology | DX: M53.3 Sacrococcygeal disorders, not elsewhere classified (principal) | CPT/HCPCS: 27096 ==

== ENCOUNTER 2023-06-11 14:54 | Outpatient (AMB) | payer BC, SELFPAY ==
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
[2023-06-11 15:02] VITALS: BP 167/78; PULSE 64; O2SAT 98; BMI 27.0
== END 2023-06-11 15:23 | disposition home or self-care (01) ==
PROVIDERS: PCP Internal Medicine; Visit Provider Nurse Practitioner Family
DX: M53.3 Sacrococcygeal disorders, not elsewhere classified (principal); M54.50 Low back pain, unspecified; G89.29 Other chronic pain; M47.816 Spondylosis without myelopathy or radiculopathy, lumbar region; M46.1 Sacroiliitis, not elsewhere classified
CPT/HCPCS: 99213

== ENCOUNTER → 2023-06-11 14:54 | Outpatient (BNVA) | payer BC, SELFPAY | PROVIDERS: PCP Internal Medicine; Visit Provider Nurse Practitioner Family ==

== ENCOUNTER 2023-07-29 09:46 | Day surgery (SDC) | payer MEDICARE, BC, MEDICAID, SELFPAY ==
[2023-06-22 10:45] VITALS: BMI 27.0
--- NOTE | 2023-06-23 13:51 | HO.ANESPROP2 ---
Documented by User: Hansa Galeas NP 07/21/23 13:01 HPI - Anesthesia Eval Consult details Narrative: 58yo F for Bilateral Therapeutic Sacroiliac Joint Steroid Injection, ?07/29/23 s/p same 05/2023 with MAC [facility] admit 02/2023 with TIA. Neuro eval and started on ASA and statin. Incidental finding of ? sinus mass. MRI and ENT eval WNL. Follows nephro for HTN and hyperkalemia. Started on losartan. [facility] Active Problems Active Problems: All Active Problems (Updated 06/11/23 @ 15:21 by TEJINDER Hunter) Sacroiliitis (Acute) Greater trochanteric bursitis of left hip (Acute) Sacroiliac joint pain (Acute) Lumbar degenerative disc disease (Acute) Essential hypertension (Acute) Hx of TIA (transient ischemic attack) and stroke (Acute) Sinus mucosal thickening (Acute) Idiopathic thrombocytopenia (Acute) Heartburn (Acute) Chronic low back pain (Acute) Spondyloarthropathy of lumbar spine (Acute) Eczema of both hands (Acute) Dermatitis (Acute) Anxiety (Acute) Depression (Acute) Past Medical History Medical History (Updated 07/29/23 @ 10:08 by Rashmi Handy RN) GERD (gastroesophageal reflux disease) HTN (hypertension) Essential hypertension Hx of TIA (transient ischemic attack) and stroke Sinus mucosal thickening Colitis Idiopathic thrombocytopenia Heartburn Chronic low back pain Spondyloarthropathy of lumbar spine Eczema of both hands Dermatitis Anxiety Depression Lumbar back pain with radiculopathy affecting right lower extremity IBS (irritable bowel syndrome) Family History Family History Father IBS (irritable bowel syndrome) Myocardial infarction Mother Arthritis Maternal Aunt Breast cancer Sister Substance use disorder Sister Substance use disorder Mental health disorder Sister Mental health disorder Sister No problems noted. Sister No problems noted. Son No problems noted. Son No problems noted. Son No problems noted. Son No problems noted. Family history of problems with anesthesia: No Surgical History Surgical History History of esophagogastroduodenoscopy (EGD) H/O colonoscopy History of surgery History of partial hysterectomy History of tubal ligation History of Problems with Anesthesia: No Social History Social History Household Members: Spouse Household Members Other:: son Housing: House Do you presently have visiting nurse or other home services: No Alcohol intake: never Patient Tobacco Use Status: Never used Tobacco e-Cigarette/Vaping Use: Never Used Second Hand Smoke Exposure: Yes Use of substances other than those prescribed or required for medical reasons: No Are you DNR?: No Advance Directives: No Advance Directives Information Provided: Yes service: No Current occupational status: employed Cognitive needs: No Hearing needs: No Vision needs: Yes Meds Allergies Allergy/AdvReac Type Severity Reaction Status Date / Time peanut [Peanut] Allergy Mild AVOIDS Verified 07/29/23 10:09 PREFERANCE strawberry [[place]] Allergy Mild HIVES Verified 07/29/23 10:09 lactose [Lactose] AdvReac Mild STOMACH Verified 07/29/23 10:09 UPSET tramadol AdvReac Unknown severe Verified 07/29/23 10:09 headaches Home Medications Medication Instructions Recorded Confirmed Last Taken Type acetaminophen 650 mg 1,950 mg PO DAILY PRN Pain 03/01/23 06/22/23 Unknown History tablet,extended release losartan 50 mg tablet 50 mg PO DAILY 03/19/23 06/22/23 Unknown History ondansetron HCl 4 mg tablet 4 mg PO Q8H PRN nausea/vomiting 03/19/23 06/22/23 Unknown History omeprazole magnesium 20 mg 20 mg PO DAILY 07/29/23 07/29/23 Unknown History tablet,delayed release (Prilosec OTC) sertraline 50 mg tablet 50 mg PO DAILY 07/29/23 07/29/23 Unknown History Exam Exam Date and Time: June 23, 2023 1351 Height,Weight and Vital Signs: Height 5 ft 2.5 in Weight 68.039 kg Pertinent Lab Results Pertinent Lab Results: Laboratory Tests 03/02/23 03/04/23 06:33 05:26 WBC 5.5 Hgb 13.0 Hct 39.2 Plt Count 182 Sodium 141 Potassium 3.6 Chloride 108 Carbon Dioxide 24 BUN 7 L Creatinine 0.70 Narrative Narrative: ECHO 02/2023 Conclusions: - Normal left ventricular size and systolic function. The visually estimated ejection fraction is between 60-65%. There is no evidence of regional wall motion abnormalities. Diastolic function is normal for age. There is mild septal asymmetric hypertrophy. Normal global longitudinal strain -22%. - Normal right ventricular cavity size and systolic function. - There is mild dilatation of the sinuses of Valsalva measuring 3.74 cm and mild dilatation of the ascending aorta measuring 3.40 cm. EKG 02/2023 Vent. Rate : 054 BPM Atrial Rate : 054 BPM P-R Int : 180 ms QRS Dur : 086 ms QT Int : 516 ms P-R-T Axes : 052 058 065 degrees QTc Int : 489 ms Sinus bradycardia Prolonged QT Abnormal ECG When compared with ECG of 01-MAR-2023 10:46, QT has lengthened Assessment and Plan Assessment Anesthesia Assessment: Chart Reviewed Final Anesthetic Review Family History of Problems with Anesthesia: No History of Problems with Anesthesia: No Documented by User: Faustino Taylor MD 07/29/23 11:33 [facility] Past Medical History Medical History (Updated 07/29/23 @ 10:08 by Rashmi Handy RN) GERD (gastroesophageal reflux disease) HTN (hypertension) Essential hypertension Hx of TIA (transient ischemic attack) and stroke Sinus mucosal thickening Colitis Idiopathic thrombocytopenia Heartburn Chronic low back pain Spondyloarthropathy of lumbar spine Eczema of both hands Dermatitis Anxiety Depression Lumbar back pain with radiculopathy affecting right lower extremity IBS (irritable bowel syndrome) Family History Family History Father IBS (irritable bowel syndrome) Myocardial infarction Mother Arthritis Maternal Aunt Breast cancer Sister Substance use disorder Sister Substance use disorder Mental health disorder Sister Mental health disorder Sister No problems noted. Sister No problems noted. Son No problems noted. Son No problems noted. Son No problems noted. Son No problems noted. Surgical History Surgical History History of esophagogastroduodenoscopy (EGD) H/O colonoscopy History of surgery History of partial hysterectomy History of tubal ligation Social History Social History Household Members: Spouse Household Members Other:: son Housing: House Do you presently have visiting nurse or other home services: No Alcohol intake: never Patient Tobacco Use Status: Never used Tobacco e-Cigarette/Vaping Use: Never Used Second Hand Smoke Exposure: Yes Use of substances other than those prescribed or required for medical reasons: No Are you DNR?: No Advance Directives: No Advance Directives Information Provided: Yes service: No Current occupational status: employed Cognitive needs: No Hearing needs: No Vision needs: Yes Meds Allergies Allergy/AdvReac Type Severity Reaction Status Date / Time peanut [Peanut] Allergy Mild AVOIDS Verified 07/29/23 10:09 PREFERANCE strawberry [[place]] Allergy Mild HIVES Verified 07/29/23 10:09 lactose [Lactose] AdvReac Mild STOMACH Verified 07/29/23 10:09 UPSET tramadol AdvReac Unknown severe Verified 07/29/23 10:09 headaches Home Medications Medication Instructions Recorded Confirmed Last Taken Type acetaminophen 650 mg 1,950 mg PO DAILY PRN Pain 03/01/23 06/22/23 Unknown History tablet,extended release losartan 50 mg tablet 50 mg PO DAILY 03/19/23 06/22/23 Unknown History ondansetron HCl 4 mg tablet 4 mg PO Q8H PRN nausea/vomiting 03/19/23 06/22/23 Unknown History omeprazole magnesium 20 mg 20 mg PO DAILY 07/29/23 07/29/23 Unknown History tablet,delayed release (Prilosec OTC) sertraline 50 mg tablet 50 mg PO DAILY 07/29/23 07/29/23 Unknown History Exam Airway Mallampati Class: I TM Dist: >3cm Neck ROM: Full Loose/Missing/Broken Teeth: No Heart: ok Lungs: ok Assessment and Plan Assessment Anesthesia Assessment: Anesthesia Plan Discussed Final Anesthetic Review NPO: Yes ASA Class: II and III Final Preanesthetic Review: No Changes in Pt Med Stat, Meds/Allgs Chart Reviewed, Consent Obtained/Reviewed and Anes Risks/Benef Reviewed Patient Risk: Low Procedure Risk: Intermediate Anesthetic Plan Anesthetic Plan: MAC: and Agree w/ Assess. and Plan Disposition: Standard PACU
--- NOTE | ~2023-07-29 | FL_ITS ---
EXAMINATION: XR FLUOROSCOPY WITH IMAGES CLINICAL INFORMATION: Therapeutic sacroiliac joint injection, bilateral. COMPARISON: None available. TECHNIQUE: Fluoroscopy Supervised By: Dr. Sylvain Mack. Fluoroscopy Time: 0.3 minutes. Cumulative Dose: 3.43 mGy. DAP: 0.0595 Gycm2. Images: 2. FINDINGS: Images demonstrate needle placement and contrast injection over the bilateral sacroiliac joints FL/FL guidance in OR IMPRESSION: Fluoroscopy guidance for bilateral sacroiliac joint injection.
[2023-07-29 10:09] VITALS: BMI 28.1
[2023-07-29 10:34] VITALS: BP 144/63; PULSE 58; RESP 15; TEMP 36.3; O2SAT 96
--- NOTE | 2023-07-29 10:52 | MHC.SHP ---
Pre-Procedural Eval Section A Date of Service: 07/29/23 The patient is an INPATIENT: No Changes since office visit: Yes Patient answered all questions The History & Physical has been completed within 30 days and I have reviewed it.: No Section B Chief Complaint: Sacrococcygeal disorders,sacroiliitis, Details of Present Illness: As above Relevant Family History (Specify if Yes): No Relevant Social History: None Present Medications: see Short Stay Collaborative assessment Medical History: No relevant PMH History of Previous Operations: No relevant previous surgery Allergies: Allergies Allergy/AdvReac Type Severity Reaction Status Date / Time peanut [Peanut] Allergy Mild AVOIDS Verified 07/29/23 10:09 PREFERANCE strawberry [[employer]] Allergy Mild HIVES Verified 07/29/23 10:09 lactose [Lactose] AdvReac Mild STOMACH Verified 07/29/23 10:09 UPSET tramadol AdvReac Unknown severe Verified 07/29/23 10:09 headaches Review of Systems Sugical H&P ROS: Negative: Constitution, Cardiovascular, Respiratory, Neurological, Psychiatric, Allergic/Immunologic, Gastrointestinal, Genitourinary, Musculoskeletal, Integumentary, Endocrine and Eyes/Ears/Nose/Throat and Yes, Specify: Hem-Onc (History of thrombocytopenia) Review of Systems Comment: On regular CBC lab work done this year her platelet count is normal [id number]. Exam Surgical H&P Exam: Normal: HEENT, Normal: Heart, Normal: Lungs, Normal: Extremities, Normal: Abdomen, Normal: Skin and Normal: Neurological Plan Diagnosis/Plan: Unchanged I have reviewed the history and physical and performed a pertinent physical examination on my patient. No changes have occurred unless specified. Time Spent With Patient Time: Total time managing care of this patient today ____ minutes.
[2023-07-29 12:19] VITALS: BP 132/66; PULSE 56; RESP 14; TEMP 36.9; O2SAT 95
--- NOTE | 2023-07-29 12:22 | PM.OP ---
Brief Operative Note Date of Service: 07/29/23 Pre-op diagnosis: Sacroiliitis, sacroiliac joint pain. Post-op diagnosis: same Procedure: bilateral sacroiliac joint steroid injection Surgeon: Sylvain Mack MD Anesthesia: MAC Was an Automotive Worker Foreman used for this Procedure?: No Estimated blood loss (mL): 0 Condition: stable Disposition: PACU
--- NOTE | 2023-07-29 12:25 | W.PM.OPN ---
Operative Note Operative Note Date of Service: 07/29/23 Narrative: bilateral therapeutic sacroiliac joint injection. Informed consent was explained thoroughly to the patient. All questions about benefits and risks for the procedure were answered. Patient came to the operating room and was positioned prone on the operating table with the pillow under the pelvis. [place] [employer] monitors were applied and patient was deeply sedated. Time out was performed delineating name and of the patient, allergies and the nature of the procedure. The lower back and buttocks of the patient were prepped with ChloraPrep prepped and draped with sterile utility towels. C-arm was brought over the operating field and sq picture of patient's pelvis was demonstrated on the screen. For the right and left joints tilting C-arm contralateral to the site of the joint the most posterior portion of the joints was superimposed with anterior silhouette of the joint. Skin was injected in the projection of the joint slightly medial to the location of the joint with 25 gauge 1/2 inch needle using local lidocaine 2% . After that 22 gauge 3 and 1/2 inch needle was driven to the right joint in tunnel vision fashion. When needle entered the joint capsule injection of the contrast was performed demonstrating intra-articular and minimally periarticular spread of the contrast. After that 5 cc. of ropivacaine 0.5% mixed with kenalog 40 mg was injected into the each joint. Upon completion of the injections the needle was removed Sterile dressing was applied. Upon completion of the injection patient was taken outside of the operating room to the recovery room where recovered uneventfully
[2023-07-29 12:34] VITALS: BP 137/75; PULSE 58; RESP 12; O2SAT 97
[2023-07-29 12:43] VITALS: BP 145/73; PULSE 54; RESP 18; TEMP 36.4; O2SAT 97
== END 2023-07-29 14:55 | disposition home or self-care (01) ==
PROVIDERS: PCP Internal Medicine; Visit Provider Anesthesiology
PROC: 3E0U33Z Introduction of Anti-inflammatory into Joints, Percutaneous Approach (ICD-10-PCS; CPT 27096; principal; 2023-07-29 11:30)
DX: M46.1 Sacroiliitis, not elsewhere classified (principal); M53.3 Sacrococcygeal disorders, not elsewhere classified; G89.29 Other chronic pain; M54.50 Low back pain, unspecified; M47.816 Spondylosis without myelopathy or radiculopathy, lumbar region; M54.16 Radiculopathy, lumbar region; I10 Essential (primary) hypertension; D69.3 Immune thrombocytopenic purpura; F32.A Depression, unspecified; F41.1 Generalized anxiety disorder; Z86.73 Personal history of transient ischemic attack (TIA), and cerebral infarction without residual deficits; Z88.8 Allergy status to other drugs, medicaments and biological substances; Z98.890 Other specified postprocedural states
CPT/HCPCS: G0260; J2250; J2704; J2795; J3010; J3301; Q9967

== ENCOUNTER → 2023-07-29 09:46 | Outpatient (BNV) | payer MEDICARE, BC, MEDICAID, SELFPAY | PROVIDERS: PCP Internal Medicine; Visit Provider Anesthesiology | DX: M53.3 Sacrococcygeal disorders, not elsewhere classified (principal); M46.1 Sacroiliitis, not elsewhere classified | CPT/HCPCS: 27096 ==

== ENCOUNTER → 2023-09-02 11:11 | Outpatient (BNVA) | payer MEDICARE, BC, SELFPAY | PROVIDERS: PCP Internal Medicine; Visit Provider Nurse Practitioner Family ==

== ENCOUNTER 2023-09-02 11:47 | Emergency (ER) | payer BC, MEDICARE, SELFPAY ==
[2023-09-02] VITALS (8 sets, daily range): BP systolic 149–202; BP diastolic 71–104; PULSE 59–68; RESP 16–19; TEMP 36.6–37; O2SAT 93–98; BMI 28.6
--- NOTE | ~2023-09-02 | XR_ITS ---
EXAMINATION: XR CHEST CLINICAL INFORMATION: Hypertension COMPARISON: Chest 10/15/2022 TECHNIQUE: AP upright portable view of the chest was obtained. 4:04 PM FINDINGS: The lungs are well expanded. There is question of patchy opacity overlying the left 10th posterior rib which may represent atelectasis and/or pneumonia, or a summation of shadows. No pleural effusion. The cardiomediastinal silhouette is within normal limits. No acute osseous abnormality. XR/XR chest 1V IMPRESSION: Question of left lower lobe atelectasis and/or pneumonia, or a summation of shadows.
--- NOTE | ~2023-09-02 | CT_ITS ---
EXAMINATION: CT head/brain wo IV con CLINICAL INFORMATION: Reason for Exam Headache and hypertension COMPARISON: CT head 02/02/2023 TECHNIQUE: Contiguous axial imaging was performed from the skull base to vertex without intravenous contrast. Sagittal and coronal reformatted images were obtained. This CT examination was performed using dose optimization techniques as appropriate, variously including the following: * Automated exposure control * Adjustment of mA and/or kV according to patient size (this includes techniques or standardized protocols for targeted exams where dose is matched to indication/reason for exam; i.e. extremities or head) Use of iterative reconstruction technique DLP: 605 mGy-cm FINDINGS: No acute osseous or soft tissue abnormality. The mastoid air cells and visualized portions of the paranasal sinuses are well aerated. Empty sella. Advanced degenerative changes of the temporomandibular joints with bony remodeling of the mandibular condyles. There is no evidence of acute intracranial hemorrhage or territorial infarction. No abnormal mass effect or midline shift is seen. Joaquin to white matter differentiation is well preserved. No extra-axial fluid collections are identified. No hydrocephalus. CT/CT head/brain wo IV con IMPRESSION: 1. No acute intracranial abnormality. 2. Empty sella. 3. Advanced degenerative changes of the temporomandibular joints with bony remodeling of the mandibular condyles.
--- NOTE | 2023-09-02 12:11 | ECG_ITS ---
Test Reason : high bp Blood Pressure : / mmHG Vent. Rate : 061 BPM Atrial Rate : 061 BPM P-R Int : 164 ms QRS Dur : 076 ms QT Int : 444 ms P-R-T Axes : 060 026 054 degrees QTc Int : 446 ms Normal sinus rhythm Normal ECG When compared with ECG of 03-MAR-2023 01:03, No significant change was found Referred By: Nikolas Daniel Electronically Signed By:NEETA ALBERTO
--- NOTE | 2023-09-02 12:11 | ED_ITS ---
HPI - General Adult General Chief complaint: Headache Stated complaint: Referred by dr Andrew murray BP Time Seen by Provider: 09/02/23 15:43 Source: patient Mode of arrival: ambulatory Limitations: no limitations History of Present Illness HPI narrative: 58-year-old female history of essential hypertension patient is on losartan 50 mg daily patient confirms that she is compliant with her medication, for the last week has been having headache on and off had an appointment with pain management clinic today found to be hypertensive with systolic blood pressure above 200 was sent to the ED from pain management clinic for further evaluation. Patient also is complaining of suprapubic pain and frequency urination with burning sensation with urination. Patient declined coughing, no fever, no chills. Related Data Home Medications Medication Instructions Recorded Confirmed acetaminophen 650 mg 1,950 mg PO DAILY PRN Pain 03/01/23 06/22/23 tablet,extended release losartan 50 mg tablet 50 mg PO DAILY 03/19/23 06/22/23 ondansetron HCl 4 mg tablet 4 mg PO Q8H PRN nausea/vomiting 03/19/23 06/22/23 omeprazole magnesium 20 mg 20 mg PO DAILY 07/29/23 07/29/23 tablet,delayed release (Prilosec OTC) sertraline 50 mg tablet 50 mg PO DAILY 07/29/23 07/29/23 Previous Rx's Medication Instructions Recorded aluminum-mag hydroxide-simethicone 5 ml PO QID PRN indigestion #240 mL 07/28/22 400 mg-400 mg-40 mg/5 mL oral susp (Maalox Maximum Strength) aspirin 81 mg chewable tablet 81 mg PO DAILY 30 days #30 tabs 03/04/23 atorvastatin 40 mg tablet 40 mg PO BEDTIME 30 days #30 tabs 03/04/23 famotidine 20 mg tablet 20 mg PO DAILY PRN heartburn #30 03/19/23 tabs triamcinolone acetonide 0.5 % 1 appl topical DAILY rash on palm 03/19/23 topical cream 10 days #15 grams lidocaine 5 % topical patch 1 patch topical DAILY Pain 30 days 04/26/23 #30 ea acetaminophen 300 mg-codeine 30 mg 1 tab PO Q12H PRN pain 10 days #20 09/02/23 tablet tabs amlodipine 5 mg tablet 5 mg PO DAILY #20 tabs 09/02/23 cefuroxime axetil 500 mg tablet 500 mg PO BID #14 tabs 09/02/23 ondansetron 4 mg disintegrating 4 mg PO Q8-12H PRN nausea and 09/02/23 tablet vomiting #4 tabs Allergies Allergy/AdvReac Type Severity Reaction Status Date / Time peanut [Peanut] Allergy Mild AVOIDS Verified 09/02/23 12:06 PREFERANCE strawberry [[place]] Allergy Mild HIVES Verified 09/02/23 12:06 lactose [Lactose] AdvReac Mild STOMACH Verified 09/02/23 12:06 UPSET tramadol AdvReac Unknown severe Verified 09/02/23 12:06 headaches Review of Systems 2 Review of Systems: All other systems are reviewed and are negative Constitutional: Reports as per HPI and Reports no additional constitutional complaints Eyes: Reports as per HPI and Reports no additional eye complaints Reports system reviewed and no additional complaints, except as documented Cardiovascular: Reports as per HPI and Reports no additional cardiovascular complaints Respiratory: Reports as per HPI and Reports no additional respiratory complaints Gastrointestinal: Reports as per HPI and Reports no additional gastrointestinal complaints Genitourinary: Reports no additional female genitourinary complaints Musculoskeletal: Reports no additional musculoskeletal complaints Skin/Breast: Reports system reviewed and no additional complaints, except as docu Psychiatric: Reports no additional psychiatric complaints Endocrine: Reports no additional endocrine complaints Hematologic/Lymphatic: Reports no additional hematologic/lymphatic complaints Allergic/Immunologic: Reports no additional allergic/immunologic complaints Reports system reviewed and no additional complaints, except as documented and Reports Abnormal speech present PMFSH Past Medical History Onset Date is defined in the Problem List Problems that require an onset date and time if occurred within 24 hrs of arrival to the ED Aortic Dissection and Rupture; Neurologic impairment; Cardiopulmonary Arrest; Endotracheal Intubation; Insertion or Replacement of Mechanical Circulatory Assist Device Medical History GERD (gastroesophageal reflux disease) HTN (hypertension) Essential hypertension Hx of TIA (transient ischemic attack) and stroke Sinus mucosal thickening Colitis Idiopathic thrombocytopenia Heartburn Chronic low back pain Spondyloarthropathy of lumbar spine Eczema of both hands Dermatitis Anxiety Depression Lumbar back pain with radiculopathy affecting right lower extremity IBS (irritable bowel syndrome) Surgical History History of esophagogastroduodenoscopy (EGD) H/O colonoscopy History of surgery History of partial hysterectomy History of tubal ligation Family History Family History Father IBS (irritable bowel syndrome) Myocardial infarction Mother Arthritis Maternal Aunt Breast cancer Sister Substance use disorder Sister Substance use disorder Mental health disorder Sister Mental health disorder Sister No problems noted. Sister No problems noted. Son No problems noted. Son No problems noted. Son No problems noted. Son No problems noted. Social History Social History Household Members: Spouse Household Members Other:: son Housing: House Do you presently have visiting nurse or other home services: No Alcohol intake: former Patient Tobacco Use Status: Never used Tobacco Smoked in Last 30 Days: Yes e-Cigarette/Vaping Use: Never Used Second Hand Smoke Exposure: Yes Use of substances other than those prescribed or required for medical reasons: No Advance Directives: No Advance Directives Information Provided: No Patient : No service: No Current occupational status: employed Cognitive needs: No Hearing needs: No Vision needs: Yes Physical Exam ED Vital Signs: Vital Signs - 24 hr 09/02/23 12:07 09/02/23 14:08 09/02/23 15:12 Temperature 98.6 F 97.8 F Pulse Rate 65 63 68 Respiratory Rate 16 17 16 Blood Pressure 202/104 H 190/71 H 196/84 H Pulse Oximetry 98 93 Oxygen Delivery Method Room Air Room Air 09/02/23 16:00 09/02/23 16:40 09/02/23 17:08 Temperature Pulse Rate 59 60 61 Respiratory Rate 16 16 16 Blood Pressure 171/73 H 171/73 H 154/77 H Pulse Oximetry 97 97 98 Oxygen Delivery Method Room Air Room Air Room Air 09/02/23 17:33 09/02/23 18:33 Temperature Pulse Rate 59 60 Respiratory Rate 19 18 Blood Pressure 149/77 H 157/81 H Pulse Oximetry 97 96 Oxygen Delivery Method Room Air BMI result Body Mass Index 28.6 Vital signs have been reviewed and appear to be correct. Blood pressure elevated. Heart rate normal. Respiratory rate normal. Temperature normal. Oxygen saturation normal. Appearance: Alert. Oriented X3. No acute distress. Head: Normal external exam. Normocephalic. Atraumatic. No Acosta signs noted. No raccoon eyes noted Eyes: PERRLA. EOMI. Conjunctiva and sclera normal. Eyelids normal. ENT: TM's Normal. Pharynx normal. Uvula midline. Moist mucous membranes. No trismus noted. No drooling noted. No muffled voice noted. Neck: Normal inspection. Neck supple. FROM. No adenopathy. Thyroid Normal. No meningeal signs. No neck mass noted. CVS: Normal heart rate and rhythm. Heart sound normal. No murmurs noted. Pulses normal throughout. Respiratory: No respiratory distress. Painless inspiration. Breath sounds normal. No wheezes/rales/rhonchi noted. Chest nontender. No accessory muscle usage noted or decreased air movement noted. Abdomen: Soft and nontender. Bowel sounds normal in all 4 quadrants. No distention noted. No organomegaly noted. No visible injury noted. Back: No CVA tenderness. Full range of motion noted. Skin: Skin warm and dry. Normal skin color. Normal skin turgor. No rashes/lesions/lacerations noted. Extremities: No lower extremity edema. Extremities exhibit normal range of motion. Extremities nontender. Neuro: Oriented X 3. Cranial nerve exam: II-XII are grossly intact No motor deficit. No sensory deficit. Reflexes normal. Course Course Course Narrative: RME- 58-year-old female presents for evaluation of headache and high blood pressure. She was at pain management earlier today where she is being followed for right lower back pain and sacroiliitis. She was found to have a blood pressure elevated to 210/95. She has had a constant global headache for the last 3-4 days. Blood pressure in triage is 203/102. She had a CT scan in February of 2023 of her head that did not show any acute findings. Plan for labs, remainder of exam workup will be deferred to primary provider Reevaluation(s) Reevaluation #1: Chest x-ray is questioning left lower lobe atelectasis versus pneumonia however patient has no fever, no cough, no chills. However patient will be started on cefuroxime for UTI. Head CT is unremarkable for acute intracranial pathology. Headache has improved and blood pressure is more stable with amlodipine as discussed with the patient will start on amlodipine to make an appointment with PCP to follow-up. Symptomatic UTI start on cefuroxime Time: 19:38 Medications Administered Discontinued Medications Generic Name Dose Route Start Last Admin Trade Name Maria Teresa PRN Reason Stop Dose Admin Acetaminophen 650 mg 09/02/23 16:59 09/02/23 17:06 Acetaminophen 325 Mg Tablet PO 09/02/23 17:00 650 mg ONCE ONE Administration Amlodipine Besylate 5 mg 09/02/23 15:54 09/02/23 16:41 Amlodipine Besylate 5 Mg Tablet PO 09/02/23 15:55 5 mg ONCE ONE Administration Protocol Ondansetron HCl 4 mg 09/02/23 16:25 09/02/23 16:41 Ondansetron Odt 4 Mg Tab.Rapdis TRANSLINGU 09/02/23 16:26 4 mg ONCE ONE Administration Medical Decision Making Differential Diagnosis Differential Diagnoses: The differential diagnosis associated with the presentation includes (Hypertensive emergency, intracranial bleed, UTI, pneumonia, pneumothorax, electrolyte abnormality, severe anemia.) Admission/Observation Consideration of admission/observation: Escalation of care including admission/observation considered Lab Data MDM Lab Attestation statement: I reviewed the patient's lab results. 09/02/23 12:22 09/02/23 12:22 Labs: Lab Results 09/02/23 09/02/23 Range/Units 12:22 17:41 WBC 6.4 (4.8-10.8) X10*3/uL RBC 4.45 (4.20-5.50) X10*6/uL Hgb 13.3 (12.0-16.0) g/dl Hct 39.5 (37.0-47.0) % MCV 88.8 (80.0-98.0) fL MCH 29.9 (27.0-33.0) pg MCHC 33.7 (31.0-35.0) g/dl RDW 12.8 (11.0-16.0) % Plt Count 169 (160-400) X10*3/uL MPV 10.4 (9.4-12.3) fL Immature Gran % (Auto) 0.2 (0.0-0.4) % Neut % (Auto) 62.4 (45-73) % Lymph % (Auto) 29.7 (20-40) % Dickey % (Auto) 6.4 (2-11) % Eos % (Auto) 0.8 (0-4) % Baso % (Auto) 0.5 (0-2) % Lymph # (Auto) 1.9 (1.2-4.9) X10*3/uL Dickey # (Auto) 0.4 (0.1-1.2) X10*3/uL Eos # (Auto) 0.1 (0.0-0.4) X10*3/uL Baso # (Auto) 0.0 (0.0-0.2) X10*3/uL Abs Immat Gran (auto) 0.01 (0.00-0.03) X10*3/uL Absolute Neuts (auto) 4.0 (2.0-8.3) x10*3/uL Absolute Nucleated RBC 0.000 (0.0-0.012) X10*3/uL Nucleated RBC % (auto) 0.0 (0.0-0.2) /100WBC Sodium 142 (135-145) mmol/L Potassium 3.9 (3.3-5.1) mmol/L Chloride 106 (96-108) mmol/L Carbon Dioxide 27 (22-29) mmol/L Anion Gap 13 (12-20) BUN 15 (9-16) mg/dL Creatinine 0.74 (0.5-1.4) mg/dL Estim Creat Clear Calc 75.5 Estimated GFR > 60 Random Glucose 106 (60-115) mg/dL Calcium 9.6 (8.4-10.2) mg/dL Total Bilirubin 0.4 (0.0-1.0) mg/dL AST 16 (5-31) U/L ALT 15 (0-31) U/L Alkaline Phosphatase 75 (39-117) U/L Total Protein 7.5 (6.5-8.0) g/dL Albumin 4.3 (3.5-5.0) g/dL Lipase 37 (8-78) U/L Urine Color Yellow Urine Appearance Clear Urine pH 7.0 (5.0-9.0) Ur Specific [place] 1.010 (1.005-1.025) Urine Protein Negative (Neg-Trace) mg/dL Urine Glucose (UA) Negative (Negative) mg/dL Urine Ketones Negative (Negative) mg/dL Urine Blood Negative (Negative) Urine Nitrite Positive H (Negative) Ur Leukocyte Esterase Trace H (Negative) Urine RBC 0-2 (0-2) /HPF Urine WBC 6-10 H (0-5) /HPF Ur Squamous Epith Cells 0-2 (0-2) /HPF Urine Bacteria 4+ (None Seen) Hyaline Casts 0-2 (0-2) /LPF Independent Interpretation I performed an independent interpretation of an: EKG (Normal sinus rhythm at 61 beats per minute, normal axis deviation, normal intervals, no ST-T changes, no EKG changes.), Plain X-Ray (Chest:Question of left lower lobe atelectasis and/or pneumonia, or a summation of shadows. ) and CT Scan (Head:1. No acute intracranial abnormality. 2. Empty sella. 3. Advanced degenerative changes of the temporomandibular joints with bony remodeling of the mandibular condyles. ) Radiology Impression Discussion of test interpretation with radiology: I have reviewed the radiologist's reading. Chronic Conditions Patient?s care impacted by: Hypertension Discharge Plan Discharge Clinical Impression: Essential hypertension, UTI (urinary tract infection) Patient Disposition: Home, Self-Care Instructions: Urinary Tract Infection in Women (DC), Hypertension (ED) Prescriptions: New cefuroxime axetil 500 mg tablet 500 mg PO BID Qty: 14 0RF ondansetron 4 mg tablet,disintegrating 4 mg PO Q8-12H PRN (Reason: nausea and vomiting) Qty: 4 0RF amlodipine 5 mg tablet 5 mg PO DAILY Qty: 20 0RF No Action acetaminophen 650 mg Tablet Extended Release 1,950 mg PO DAILY PRN (Reason: Pain) atorvastatin 40 mg Tablet 40 mg PO BEDTIME 30 Days Qty: 30 0RF aspirin 81 mg Tablet,Chewable 81 mg PO DAILY 30 Days Qty: 30 0RF omeprazole magnesium [Prilosec OTC] 20 mg Tablet,Delayed Release (Dr/Ec) 20 mg PO DAILY sertraline 50 mg tablet 50 mg PO DAILY losartan 50 mg tablet 50 mg PO DAILY ondansetron HCl 4 mg tablet 4 mg PO Q8H PRN (Reason: nausea/vomiting) famotidine 20 mg tablet 20 mg PO DAILY PRN (Reason: heartburn) Qty: 30 5RF triamcinolone acetonide 0.5 % cream 1 appl topical DAILY 10 Days Qty: 15 1RF alum-mag hydroxide-simeth [Maalox Maximum Strength] 400-400-40 mg/5 mL suspension 5 ml PO QID PRN (Reason: indigestion) Qty: 240 0RF lidocaine 5 % adhesive patch,medicated 1 patch topical DAILY 30 Days Qty: 30 0RF Rx Instructions: 1 patch topically up to 12 hours per day acetaminophen-codeine 300-30 mg tablet 1 tab PO Q12H PRN (Reason: pain) 10 Days Qty: 20 0RF Referrals: Danielle Wahl MD [Primary Care Provider] -
[2023-09-02 12:27] LABS: MANUAL DIFF FLAG NO
[2023-09-02 12:31] LABS: Basophils Percent Auto 0.5 % (0-2); Eosinophils Absolute Auto 0.1 X10*3/uL (0.0-0.4); Eosinophils Percent Auto 0.8 % (0-4); Hematocrit 39.5 % (37.0-47.0); Hemoglobin 13.3 g/dl (12.0-16.0); Imm Gran Abs Auto 0.01 X10*3/uL (0.00-0.03); Imm Gran Pct Auto 0.2 % (0.0-0.4); Lymphocytes Absolute Auto 1.9 X10*3/uL (1.2-4.9); Lymphocytes Percent Auto 29.7 % (20-40); Mean Corpuscular HGB Conc 33.7 g/dl (31.0-35.0); Mean Corpuscular Hemoglobin 29.9 pg (27.0-33.0); Mean Corpuscular Volume 88.8 fL (80.0-98.0); Mean Platelet Volume 10.4 fL (9.4-12.3); Monocytes Absolute Auto 0.4 X10*3/uL (0.1-1.2); Monocytes Percent Auto 6.4 % (2-11); Neutrophils Percent Auto 62.4 % (45-73); Platelet Count 169 X10*3/uL (160-400); Red Blood Count 4.45 X10*6/uL (4.20-5.50); Red Cell Distribution Width 12.8 % (11.0-16.0); White Blood Count 6.4 X10*3/uL (4.8-10.8)
[2023-09-02 12:42] LABS: Alanine Aminotransferase 15 U/L (0-31); Albumin Level 4.3 g/dL (3.5-5.0); Alkaline Phosphatase 75 U/L (39-117); Anion Gap 13 (12-20); Aspartate Amino Transferase 16 U/L (5-31); Bilirubin Total 0.4 mg/dL (0.0-1.0); Blood Urea Nitrogen 15 mg/dL (9-16); Calcium 9.6 mg/dL (8.4-10.2); Carbon Dioxide 27 mmol/L (22-29); Chloride 106 mmol/L (96-108); Creatinine Clr Calc Pharmacy 75.5; Estimated Glomerular Filt Rate > 60; Glucose Random 106 mg/dL (60-115); Lipase 37 U/L (8-78); Potassium 3.9 mmol/L (3.3-5.1); Sodium 142 mmol/L (135-145); Total Protein 7.5 g/dL (6.5-8.0)
[2023-09-02] MEDS: amLODIPine Besylate 5 MG TABLET PO (16:41)
[2023-09-02] MEDS: Ondansetron ODT 4 MG TAB.RAPDIS TRANSLINGU (16:41)
--- NOTE | 2023-09-02 16:50 | PC.NURSE ---
Pt is a&ox4 coming in for headache/ htn from pain management. states chronic back pain, able to make needs known, MAEI, resp even and unlabored.
[2023-09-02] MEDS: Acetaminophen 325 MG TABLET 650 MG PO (17:06)
[2023-09-02 17:52] LABS: Appearance Urine Clear; Color Urine Yellow; Glucose Urine UA Negative (Negative); Leukocyte Esterase Urine Trace (Negative); Nitrite Urine Positive (Negative); UMIC TRIGGER UACC YES; Urine Blood Negative (Negative); Urine Ketones Negative (Negative); Urine Protein Negative (Neg-Trace)
[2023-09-02 17:54] LABS: Bacteria Urine 4+ (None Seen); Hyaline Casts Urine 0-2 /LPF (0-2); RBC Urine 0-2 /HPF (0-2); Squamous Epithelial Cell Urine 0-2 /HPF (0-2); UACC Culture Trigger YES
== END 2023-09-02 20:11 | disposition home or self-care (01) ==
PROVIDERS: Internal Medicine; Physician Assistant; Emergency Provider Emergency Medicine; PCP Internal Medicine
DX: R51.9 Headache, unspecified (principal); N39.0 Urinary tract infection, site not specified; R35.0 Frequency of micturition; R07.89 Other chest pain; I10 Essential (primary) hypertension; Z79.899 Other long term (current) drug therapy
CPT/HCPCS: 36415; 70450; 71045; 80053; 81001; 83690; 85025; 87086; 87088; 87186; 93005; 99284; 99285

== ENCOUNTER → 2023-09-02 12:11 | Outpatient (BNV) | payer MEDICARE, BC, MEDICAID, SELFPAY | PROVIDERS: PCP Internal Medicine; Visit Provider Internal Medicine | DX: I10 Essential (primary) hypertension (principal) | CPT/HCPCS: 93010 ==

== ENCOUNTER 2023-09-06 19:36 | Outpatient (REF) | payer MEDICARE, MEDICAID, BC, SELFPAY ==
--- NOTE | ~2023-09-06 | MR_ITS ---
EXAMINATION: MR LUMBAR SPINE WITHOUT CONTRAST CLINICAL INFORMATION: Lumbar radiculopathy COMPARISON: MRI lumbar spine 08/21/2020 TECHNIQUE: MRI of the lumbar spine was obtained using routine sequences without contrast. FINDINGS: Slight levocurvature of the mid lumbar spine, apex at L3-L4. Straightening of the normal lumbar lordosis. Stable grade 1 retrolisthesis at L3-L4. Vertebral body heights are maintained. There is no suspicious osseous lesion. Multilevel disc desiccation with stable disc height loss, most pronounced and severe eccentric to the right at L3-L4 along the concavity of the levocurvature, and moderate eccentric to the left at L5-S1. Multilevel endplate Schmorl's nodes again seen, a couple which are larger in size along the opposing T12 and L1 endplates with new marginal endplate edema. Redemonstrated mixed type I/II Modic endplate change at L3-L4 and type I Modic endplate change on the left at L5-S1. Multilevel anterior osteophytic spurring is seen. Level by level detail as follows: L1-L2: No spinal canal or neural foraminal stenosis. L2-L3: Slight annular disc bulge and mild bilateral facet arthrosis. No spinal canal or neural foraminal stenosis. L3-L4: Redemonstrated retrolisthesis with right eccentric annular disc bulge and right lateral disc osteophyte. Mild bilateral facet arthrosis. No spinal canal stenosis. Redemonstrated right subarticular zone narrowing and abutment of the traversing right L4 nerve root. Stable mild right without left neural foraminal narrowing. L4-L5: Annular disc bulge eccentric to the left with mild to moderate bilateral facet arthrosis and ligamentum flavum thickening. No spinal canal stenosis, noting subarticular zone narrowing and abutment along the traversing right and possibly also left L5 nerve root. Stable mild bilateral neural foraminal stenosis. L5-S1: Annular disc bulge with redemonstrated central and left subarticular/foraminal disc protrusions with mild to moderate bilateral facet arthrosis. No spinal canal stenosis. Stable mild to moderate left neural foraminal stenosis. Patent right neural foramen. The conus medullaris terminates at the level of L1-L2. The distal spinal cord is normal in appearance. No epidural fluid collection, hematoma, or mass. No significant abnormalities of the paraspinal musculature. Retroaortic left renal vein. Hepatomegaly. The abdominal aorta is of normal contour and caliber. MR/MR lumbar spine wo con IMPRESSION: 1. Slight levocurvature of the mid lumbar spine and grade 1 retrolisthesis at L3-L4, unchanged. 2. Increased size of opposing endplate Schmorl's nodes with new marginal edema at T12-L1. 3. Stable lumbar spondylosis as above without significant spinal canal stenosis and varying degrees of mild neural foraminal encroachment without significant mass effect on the exiting nerve roots. 4. Hepatomegaly.
== END 2023-09-06 19:37 | disposition home or self-care (01) ==
LOC: HO.MRI 19:36
PROVIDERS: PCP Internal Medicine; Visit Provider Nurse Practitioner Family
DX: M54.16 Radiculopathy, lumbar region (principal); M46.1 Sacroiliitis, not elsewhere classified; M51.36 Other intervertebral disc degeneration, lumbar region; M47.816 Spondylosis without myelopathy or radiculopathy, lumbar region
CPT/HCPCS: 72148

== ENCOUNTER 2023-09-10 10:10 | Outpatient (AMB) | payer MEDICARE, BC, MEDICAID, SELFPAY ==
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
[2023-09-10 10:17] VITALS: BP 182/79; PULSE 57; O2SAT 99; BMI 28.4
== END 2023-09-10 10:52 | disposition home or self-care (01) ==
PROVIDERS: PCP Internal Medicine; Visit Provider Nurse Practitioner Family
DX: M53.3 Sacrococcygeal disorders, not elsewhere classified (principal); M54.50 Low back pain, unspecified; G89.29 Other chronic pain; M47.816 Spondylosis without myelopathy or radiculopathy, lumbar region; M46.1 Sacroiliitis, not elsewhere classified; M54.16 Radiculopathy, lumbar region; M51.36 Other intervertebral disc degeneration, lumbar region; M54.51 Vertebrogenic low back pain
CPT/HCPCS: 99214

== ENCOUNTER → 2023-09-10 10:10 | Outpatient (BNVA) | payer MEDICARE, MEDICAID, SELFPAY | PROVIDERS: PCP Internal Medicine; Visit Provider Nurse Practitioner Family | DX: M53.3 Sacrococcygeal disorders, not elsewhere classified (principal); G89.29 Other chronic pain; M54.50 Low back pain, unspecified; M47.26 Other spondylosis with radiculopathy, lumbar region; M46.1 Sacroiliitis, not elsewhere classified; M51.36 Other intervertebral disc degeneration, lumbar region; M54.51 Vertebrogenic low back pain | CPT/HCPCS: 99212 ==

== ENCOUNTER 2023-09-23 16:23 | Outpatient (AMB) | payer MEDICARE, BC, MEDICAID, SELFPAY ==
[2023-09-23 16:49] VITALS: BP 146/80; PULSE 61; O2SAT 98; BMI 28.7
--- NOTE | 2023-09-23 16:49 | A.OFFPC_ITS ---
Vital Signs 09/23/23 16:49 Height 5 ft 2 in Weight 157 lb BMI 28.7 BP 146/80 H Blood Pressure Location Lt brachial Position Sitting Pulse 61 Pulse Source Pulse Oximeter Pulse Oximetry (%) 98 Oxygen Delivery Method Room Air Intake Visit Reasons: ER [place] [facility] [place] BP Intake Note: Pt is here today for her ER f/u elevated b/p Allergies peanut [Peanut] Allergy (Mild, Verified 09/26/23 17:25) AVOIDS PREFERANCE strawberry [[place]] Allergy (Mild, Verified 09/26/23 17:25) HIVES lactose [Lactose] Adverse Reaction (Mild, Verified 09/26/23 17:25) STOMACH UPSET tramadol Adverse Reaction (Unknown, Verified 09/26/23 17:25) severe headaches Medication List - Last Reconciled 09/23/23 by Danielle Wahl MD acetaminophen ER 1,950 mg PO DAILY PRN alum-mag hydroxide-simeth 400-400-40 mg/5 mL (Maalox Maximum Strength) 5 mL PO QID PRN amlodipine 5 mg PO DAILY aspirin 81 mg PO DAILY 30 days atorvastatin 40 mg PO BEDTIME 30 days famotidine 20 mg PO DAILY PRN lidocaine 5% 1 patch topical DAILY 30 days omeprazole magnesium (Prilosec OTC) 20 mg PO DAILY ondansetron 4 mg PO Q8-12H PRN sertraline 50 mg PO DAILY triamcinolone acetonide 0.5% 1 appl topical DAILY 10 days Tobacco use date assessed: 09/23/23 Dental Screening Dental Screen Date: 09/23/23 HPI ER follow [facility] [place] BP HPI Details 58-year-old female here for follow-up on her hypertension. She presented to the ER approximately 2 weeks ago complaining of headache and high blood pressure. She was at pain management earlier that day, where she is being followed for right lower back pain and sacroiliitis. She was found to have a blood pressure elevated to 210/95. She has had a constant global headache 3-4 days prior to appointment. Blood pressure in triage was 203/102. She had a CT scan in February of 2023 of her head that did not show any acute findings. Chest x- ray is questioning left lower lobe atelectasis versus pneumonia however patient has no fever, no cough, no chills. UA showed presence of UTI and was placed on cefuroxime , symptoms now has resolved. Head CT was unremarkable for acute intracranial pathology. Headache has improved and blood pressure was lowered with amlodipine . At present , no complaints of any headache, chest pain, lightheadedness, or urinary tract symptoms [facility] Medical History (Updated 09/26/23 @ 17:33 by Danielle Wahl MD) GERD (gastroesophageal reflux disease) HTN (hypertension) Essential hypertension Hx of TIA (transient ischemic attack) and stroke Sinus mucosal thickening Colitis Idiopathic thrombocytopenia Heartburn Chronic low back pain Spondyloarthropathy of lumbar spine Eczema of both hands Dermatitis Anxiety Depression Lumbar back pain with radiculopathy affecting right lower extremity IBS (irritable bowel syndrome) Surgical History History of esophagogastroduodenoscopy (EGD) H/O colonoscopy History of surgery History of partial hysterectomy History of tubal ligation Family History Father IBS (irritable bowel syndrome) Myocardial infarction Mother Arthritis Maternal Aunt Breast cancer Sister Substance use disorder Sister Substance use disorder Mental health disorder Sister Mental health disorder Sister No problems noted. Sister No problems noted. Son No problems noted. Son No problems noted. Son No problems noted. Son No problems noted. Social History Household Members: Spouse Household Members Other:: son Housing: House Do you presently have visiting nurse or other home services: No Alcohol intake: former Patient Tobacco Use Status: Never used Tobacco e-Cigarette/Vaping Use: Never Used Second Hand Smoke Exposure: Yes service: No Current occupational status: employed Cognitive needs: No Hearing needs: No Vision needs: Yes Questionnaire PHQ-9 Over the last 2 weeks, how often have you been bothered by any of the following problems? 1. Little interest or pleasure in doing things: not at all 2. Feeling down, depressed, or hopeless: not at all 3. Trouble falling or staying asleep, or sleeping too much: not at all 4. Feeling tired or having little energy: not at all 5. Poor appetite or overeating: not at all 6. Feeling bad about yourself - or that you are a failure or have let yourself or your family down: not at all 7. Trouble concentrating on things, such as reading the newspaper or watching television: not at all 8. Moving or speaking so slowly that other people could have noticed. Or the opposite - being so fidgety or restless that you have been moving around a lot more than usual: not at all 9. Thoughts that you would be better off or of hurting yourself in some way: not at all Total score: 0 Depression Screening Interpretation: Negative (Stable and controlled on sertraline) Depression Screening Done: Yes 53505 - PHQ-9 Billing: Yes Source: Developed by Drs. Chi Ingram, Lilly Tirado, Eduardo Teixeira and colleagues, with an educational cooper from [employer]. Thrive Questionnaire Date Thrive assessed: 09/23/23 I am a: Patient What is your living situation today?: I have a steady place to live Within the past 12 months, did the food you bought not last and you didn't have the money to get more?: Never true Within the past 12 months, did you worry whether your food would run out before you got money to buy more?: Never true Do you have trouble paying for medicines?: No Do you have trouble getting transportation to medical appointments?: No Do you have trouble paying your heating and electricity bill?: No Do you have trouble taking care of your child, family member or friend?: No Do you have trouble with day-to-day activities such as bathing, preparing meals, shopping, managing finances, etc.?: No Are you currently unemployed and looking for a job?: No Are you interested in more education?: No THRIVE Score: 0 AUDIT C Alcohol Use Questionnaire (AUDIT-C) 1. How often do you have a drink containing alcohol?: Never Total Score: 0 ANNA-7 AMB Questionnaire ANNA-7 Date ANNA - 7 assessed: 09/23/23 Feeling nervous, anxious, or on edge: 0 = Not at all Not being able to stop or control worryin = Not at all Worrying too much about different things: 0 = Not at all Trouble relaxin = Not at all Being so restless that it is hard to sit still: 0 = Not at all Becoming easily annoyed or irritable: 0 = Not at all Feeling afraid as if something awful might happen: 0 = Not at all Total ANNA-7 score (0-4 normal; 5-9 mild; 10-14 moderate; 15-21 severe): 0 Source: Developed by Drs. Chi Ingram, Lilly Tirado, Eduardo Teixeira and colleagues, with an educational cooper from [employer]. ANNA-7 Assessment Billing ANNA-7 Assessment Tool: ANNA-7 Assessment 45801 Review of Systems Const Reports as per HPI and Denies fever(s) Eyes Denies change in vision ENT Reports no additional complaints Card Reports no additional complaints Resp Reports no additional complaints GI Denies change in bowel habits and Denies heartburn (Controlled on omeprazole) Denies hematuria, Denies urinary frequency, Denies dysuria, Denies urinary incontinence and Denies urinary urgency Musc Reports as per HPI Neuro Reports no additional complaints Psych Reports as per HPI Endo Denies polydipsia and Denies polyuria Dmitry/Lymph Denies easy bleeding and Reports easy bruising Aller/Immun Reports no additional complaints Physical exam (Primary Care) Vital Signs: Last Vital Signs Pulse 61 09/23/23 16:49 BP 146/80 H 09/23/23 16:49 Pulse Ox 98 09/23/23 16:49 Oxygen Delivery Method Room Air 09/23/23 16:49 BMI result Body Mass Index 28.7 Tobacco/Smoking Status: Tobacco use Status Tobacco use date assessed 09/23/23 09/23/23 16:59 Patient Tobacco Use Status Never used Tobacco 09/23/23 16:59 e-Cigarette/Vaping Use Never Used 09/23/23 16:59 PHQ-9: PHQ-9 Score PHQ-9: Total score 0 09/23/23 17:25 Depression Screening Interpretation: Negative (Stable and controlled on sertraline) Thrive Assessment: Date of Thrive Assessment Date Thrive assessed 09/23/23 09/23/23 16:59 Const General: comfortable, no acute distress and alert Orientation/consciousness: patient oriented x3 Limitations: no limitations HENMT Head: Yes normocephalic and Yes atraumatic Ears: external ears normal General nose exam: Normal external nose present and No nasal discharge present Face and sinus: Yes face symmetric Mouth: Normal oral and palatal mucosa present, oropharynx normal and moist mucous membranes Eyes General: appearance normal, both eyes and all related structures Neck Neck: Yes full ROM, Yes no lymphadenopathy and Yes supple Resp Effort & Inspection: normal respiratory effort and able to speak in complete sentences Auscultation: clear to auscultation bilaterally Cardio Rate: regular rate Rhythm: regular rhythm Heart sounds: S1 normal heart sound present and S2 normal heart sound present GI Palpation (GI): Soft to palpation, nontender, no guarding and no masses Auscultation: normal bowel sounds General: Yes no CVA tenderness Back/Spine/Pelvis Back: no CVA tenderness and No back tenderness Neuro General: patient oriented x3, gait normal, moves all extremities, Normal light touch and pain sensation and no focal motor deficits Cranial nerves: Yes CN's II-XII intact bilaterally Cognition (Neuro): normal cognition Extrem General: Yes full ROM, Yes no joint enlargement, Yes no clubbing, cyanosis or edema, Yes no calf tenderness and Yes normal gait Psych Appearance: grossly normal and well kempt Mental Status: mental status grossly normal Speech and movement: Normal speech and movement present and Clear speech present Affect: normal affect Attitude: cooperative Thought process: Normal thought process present Thought content: Normal thought content present Assessment and Plan Assessment & Plan (1) Essential hypertension: Code(s): I10 - Essential (primary) hypertension Plan: Blood pressure improving, l but systolic blood pressure still elevated. Will continue on amlodipine 5 mg once a day and added metoprolol succinate ER 25 mg at night with supper.. Reinforced importance of adhering to a low-salt diet and getting regular exercise. Schedule a follow-up to check blood pressure with nurse in 2 weeks Medications: New metoprolol succinate ER 25 mg PO QPM 30 tabs 2RF Refilled ondansetron 4 mg PO Q8-12H PRN 4 tabs 0RF nausea and vomiting Coding Level of Care Code Est Pt Level 3 (72664) Diagnoses Essential hypertension I10 Additional Codes ANNA-7 Assessment Billing - ANNA-7 Assessment Tool: ANNA-7 Assessment 87241 ([id number])
== END 2023-09-23 17:29 | disposition home or self-care (01) ==
PROVIDERS: PCP Internal Medicine; Visit Provider Internal Medicine
DX: I10 Essential (primary) hypertension (principal)
CPT/HCPCS: 99213

== ENCOUNTER 2023-10-11 11:27 | Emergency (ER) | payer MEDICARE, BC, MEDICAID, SELFPAY ==
--- NOTE | ~2023-10-11 | XR_ITS ---
EXAMINATION: XR CHEST CLINICAL INFORMATION: Chest pain COMPARISON: None available. TECHNIQUE: 2 views of the chest were obtained. FINDINGS: No significant abnormality is noted involving the heart, lungs, mediastinum, bony thorax or soft tissues. XR/XR chest 2V IMPRESSION: Unremarkable chest examination.
--- NOTE | 2023-10-11 11:31 | ECG_ITS ---
Test Reason : chest pain Blood Pressure : / mmHG Vent. Rate : 064 BPM Atrial Rate : 064 BPM P-R Int : 174 ms QRS Dur : 074 ms QT Int : 406 ms P-R-T Axes : 053 039 062 degrees QTc Int : 418 ms Normal sinus rhythm Normal ECG When compared with ECG of 02-SEP-2023 12:17, No significant change was found Referred By: Generic ED Physician Electronically Signed By:NEETA ALBERTO
[2023-10-11 12:08] VITALS: BP 151/88; PULSE 68; RESP 16; TEMP 36.9; O2SAT 95; BMI 29.4
--- NOTE | 2023-10-11 12:22 | ED.GENADULT ---
HPI - General Adult General Chief complaint: General Medical Stated complaint: chest pain Time Seen by Provider: 10/11/23 19:35 Source: patient Mode of arrival: ambulatory Limitations: no limitations History of Present Illness HPI narrative: 58 year old female with pmhx significant for anxiety, HTN, and GERD presents to the ED today for evaluation of substernal/epigastric discomfort x2 days. Admits that this discomfort is worse when lying down and improves with sitting up. This discomfort will resolve for a few hours before returning. No radiation. Discomfort does not change with deep breathing. She has a history of GERD and currently takes omeprazole daily as prescribed by her PCP. She endorses a familial history of cardiac disease and states her sister recently from an [place]. Denies fever, chills, cough, hemoptysis, chest pain, palpitations, wheezing, SOB, dizziness, nausea, vomiting, calf pain. Denies known sick contacts. Denies recent travel or long car rides. Denies ilicit drug use or etoh consumption. Related Data Home Medications Medication Instructions Recorded Confirmed acetaminophen 650 mg 1,950 mg PO DAILY PRN Pain 03/01/23 09/23/23 tablet,extended release omeprazole magnesium 20 mg 20 mg PO DAILY 07/29/23 09/23/23 tablet,delayed release (Prilosec OTC) sertraline 50 mg tablet 50 mg PO DAILY 07/29/23 09/23/23 Previous Rx's Medication Instructions Recorded aluminum-mag hydroxide-simethicone 5 ml PO QID PRN indigestion #240 mL 07/28/22 400 mg-400 mg-40 mg/5 mL oral susp (Maalox Maximum Strength) aspirin 81 mg chewable tablet 81 mg PO DAILY 30 days #30 tabs 03/04/23 atorvastatin 40 mg tablet 40 mg PO BEDTIME 30 days #30 tabs 03/04/23 famotidine 20 mg tablet 20 mg PO DAILY PRN heartburn #30 03/19/23 tabs triamcinolone acetonide 0.5 % 1 appl topical DAILY rash on palm 03/19/23 topical cream 10 days #15 grams lidocaine 5 % topical patch 1 patch topical DAILY Pain 30 days 04/26/23 #30 ea metoprolol succinate 25 mg 25 mg PO QPM #30 tabs 09/23/23 tablet,extended release 24 hr ondansetron 4 mg disintegrating 4 mg PO Q8-12H PRN nausea and 09/23/23 tablet vomiting #4 tabs amlodipine 5 mg tablet 5 mg PO DAILY #90 tabs 09/27/23 ondansetron 4 mg disintegrating 4 mg PO DAILY PRN nausea and 10/11/23 tablet vomiting 5 days #14 tabs pantoprazole 40 mg tablet,delayed 40 mg PO BEDTIME 4 weeks #28 tabs 10/11/23 release (Protonix) Allergies Allergy/AdvReac Type Severity Reaction Status Date / Time peanut [Peanut] Allergy Mild AVOIDS Verified 09/26/23 17:25 PREFERANCE strawberry [[place]] Allergy Mild HIVES Verified 09/26/23 17:25 lactose [Lactose] AdvReac Mild STOMACH Verified 09/26/23 17:25 UPSET tramadol AdvReac Unknown severe Verified 09/26/23 17:25 headaches Review of Systems Review of Systems: Constitutional: No fever, chills, fatigue, night sweats, weight changes ENT/Mouth: No ear pain, hearing loss, nasal congestion, sinus pain, rhinorrhea, sore throat Eyes: No eye pain, swelling, redness, vision changes, discharge Cardio: No chest pain, palpitations, POSADA, orthopnea, peripheral edema Pulm: No SOB, cough, sputum, wheezing, dyspnea, hemoptysis GI: No nausea, vomiting, hematemesis, diarrhea, constipation, hematochezia, melena, +epigastric pain : No irregular bleeding, dysuria, frequency, urgency, hesitancy, hematuria, flank pain, urinary flow changes, urinary incontinence or retention MSK: No back pain, neck pain, joint pain, myalgias Skin: No lesions, rashes Neuro: No weakness, numbness, paresthesias, LOC, dizziness, headache Psych: No anxiety/panic, depression, SI/HI, AH/VH All other systems reviewed and are negative. [facility] Past Medical History Attestation statement: The following information was validated with the patient. Source: old records reviewed and nursing notes reviewed Medical History GERD (gastroesophageal reflux disease) HTN (hypertension) Essential hypertension Hx of TIA (transient ischemic attack) and stroke Sinus mucosal thickening Colitis Idiopathic thrombocytopenia Heartburn Chronic low back pain Spondyloarthropathy of lumbar spine Eczema of both hands Dermatitis Anxiety Depression Lumbar back pain with radiculopathy affecting right lower extremity IBS (irritable bowel syndrome) Surgical History History of esophagogastroduodenoscopy (EGD) H/O colonoscopy History of surgery History of partial hysterectomy History of tubal ligation Family History Family History Father IBS (irritable bowel syndrome) Myocardial infarction Mother Arthritis Maternal Aunt Breast cancer Sister Substance use disorder Sister Substance use disorder Mental health disorder Sister Mental health disorder Sister No problems noted. Sister No problems noted. Son No problems noted. Son No problems noted. Son No problems noted. Son No problems noted. Social History Social History Household Members: Spouse Household Members Other:: son Housing: House Do you presently have visiting nurse or other home services: No Alcohol intake: never Patient Tobacco Use Status: Never used Tobacco Smoked in Last 30 Days: No e-Cigarette/Vaping Use: Never Used Second Hand Smoke Exposure: Yes Use of substances other than those prescribed or required for medical reasons: No Advance Directives: No Advance Directives Information Provided: No Patient : No service: No Current occupational status: employed Cognitive needs: No Hearing needs: No Vision needs: Yes Physical Exam ED Vital Signs: Vital Signs - 24 hr 10/11/23 12:08 10/11/23 19:28 Temperature 98.5 F 98.2 F Pulse Rate 68 70 Respiratory Rate 16 18 Blood Pressure 151/88 H 158/85 H Pulse Oximetry 95 97 Oxygen Delivery Method Room Air Room Air BMI result Body Mass Index 29.4 Vital signs stable. Not tachycardic. Not hypoxic. Const General: cooperative, healthy appearing, comfortable, no acute distress, alert and awake Orientation/consciousness: patient oriented x3 Limitations: no limitations HENMT Head: Yes normal to inspection, Yes normocephalic and Yes atraumatic Eyes General: appearance normal, both eyes and all related structures Conjunctivae: conjunctivae normal Sclerae: sclerae normal Pupils: Equal, round and reactive pupils present Neck Neck: Yes normal visual inspection, Yes full ROM, Yes no lymphadenopathy and Yes no JVD Chest Chest palpation & inspection: normal inspection of the chest, normal palpation of entire chest wall, no crepitus and no tenderness Resp Effort & Inspection: normal respiratory effort, able to speak in complete sentences and no cough Auscultation: clear to auscultation bilaterally, no rhonchi and no wheezes Cardio Other: 2+ radial pulses Jugular venous distension: no JVD Rate: regular rate Rhythm: regular rhythm GI Inspection: Yes normal to inspection Palpation (GI): Soft to palpation, nontender and no guarding Auscultation: normal bowel sounds Skin General skin exam: no rashes or lesions noted Neuro General: patient oriented x3 and gait normal Cranial nerves: Yes Equal, round and reactive pupils present Gait exam (Neuro): Normal gait present Extrem General: Yes normal to inspection and Yes capillary refill normal Course Course Course Narrative: RME:?58 yo female here for eval of sternal/ epigastric pain described as an ache . worse with lying down, better when sitting up. will resolve for a few hours and return. hx of gerd, on prilosec daily. familial hx of MIs and cardiac deaths at young age. denies n/v. labs, ekg, cxr ordered Full HPI, ROS and PE to be performed by the primary ED provider. Reevaluation(s) Reevaluation #1: 1937-- CBC without leukocytosis or left shift. No anemia. H&H stable. Chemistry without acute electrolyte abnormality requiring intervention. Initial troponin undetectable. Delta troponin flat. Chest x-ray unremarkable. There are no signs of pneumonia or effusion. EKG showing normal sinus rhythm at a rate of 64 beats per minute, QT 406, QTC 418, no acute ischemic changes or ST elevations. > results discussed with the patient. There is no clear etiology for her discomfort however this may be attributable to her underlying GERD. Will send Protonix to pharmacy. Advised her to stop her omeprazole. Will also send Zofran to pharmacy. Advised her to follow-up with either her primary care provider or GI doctor this week. Patient has remained stable throughout ED visit today. Discussed worrisome signs and symptoms and when to return to the ED. All questions answered at this time. Patient is agreeable with disposition and stable for discharge. Medical Decision Making Medical Decision Making MDM Narrative: 58 year old female with pmhx significant for anxiety, HTN, and GERD presents to the ED today for evaluation of substernal/epigastric discomfort x2 days. Patient is hypertensive. Vitals otherwise wnl. Patient is nontoxic appearing in no acute distress. No JVD or peripheral edema. RRR. No reproducible chest wall tenderness. Lungs are CTA bilaterally. No calf tenderness b/l. Abdomen soft, ND/NT, no rebound or guarding. Normoactive bs x4. Ambulating with steady gait. Differential includes GERD, gastritis, ACS, arrhythmia, costochondritis, pleurisy, msk pain. Lower suspicion for PE as vitals are stable, no risk factors. Low suspicion for pancreatitis, cholecystitis. Plan for labs, troponin, EKG, chest x-ray and re-evaluation. Differential Diagnosis Differential Diagnoses: The differential diagnosis associated with the presentation includes as above. Admission/Observation not indicated. Lab Data MDM Lab Attestation statement: I reviewed the patient's lab results. as above. 10/11/23 15:50 10/11/23 15:50 Labs: Lab Results 10/11/23 10/11/23 Range/Units 15:50 18:46 WBC 8.1 (4.8-10.8) X10*3/uL RBC 4.28 (4.20-5.50) X10*6/uL Hgb 12.9 (12.0-16.0) g/dl Hct 37.7 (37.0-47.0) % MCV 88.1 (80.0-98.0) fL MCH 30.1 (27.0-33.0) pg MCHC 34.2 (31.0-35.0) g/dl RDW 13.2 (11.0-16.0) % Plt Count 174 (160-400) X10*3/uL MPV 10.7 (9.4-12.3) fL Immature Gran % (Auto) 0.1 (0.0-0.4) % Neut % (Auto) 64.1 (45-73) % Lymph % (Auto) 26.1 (20-40) % Haralson % (Auto) 7.7 (2-11) % Eos % (Auto) 1.6 (0-4) % Baso % (Auto) 0.4 (0-2) % Lymph # (Auto) 2.1 (1.2-4.9) X10*3/uL [place]on # (Auto) 0.6 (0.1-1.2) X10*3/uL Eos # (Auto) 0.1 (0.0-0.4) X10*3/uL Baso # (Auto) 0.0 (0.0-0.2) X10*3/uL Abs Immat Gran (auto) 0.01 (0.00-0.03) X10*3/uL Absolute Neuts (auto) 5.2 (2.0-8.3) x10*3/uL Absolute Nucleated RBC 0.000 (0.0-0.012) X10*3/uL Nucleated RBC % (auto) 0.0 (0.0-0.2) /100WBC Sodium 141 (135-145) mmol/L Potassium 3.7 (3.3-5.1) mmol/L Chloride 106 (96-108) mmol/L Carbon Dioxide 28 (22-29) mmol/L Anion Gap 11 L (12-20) BUN 12 (9-16) mg/dL Creatinine 0.69 (0.5-1.4) mg/dL Estim Creat Clear Calc 85.3 Estimated GFR > 60 Random Glucose 110 (60-115) mg/dL Calcium 9.4 (8.4-10.2) mg/dL Magnesium 2.3 (1.6-2.6) mg/dL Total Bilirubin 0.2 (0.0-1.0) mg/dL AST 16 (5-31) U/L ALT 15 (0-31) U/L Alkaline Phosphatase 85 (39-117) U/L Troponin I High Sens < 2.7 < 2.7 (<3.5-17.0) ng/L Total Protein 7.6 (6.5-8.0) g/dL Albumin 4.2 (3.5-5.0) g/dL Lipase 50 (8-78) U/L Independent Interpretation I performed an independent interpretation of an: EKG and Plain X-Ray Interpretation: EKG showing normal sinus rhythm with a rate of 64 beats per minute, QT 406, QTC 418, no acute ischemic changes or ST elevations. I have personally reviewed CXR and agree with radiologist's interpretation. Radiology Impression Discussion of test interpretation with radiology: I have reviewed the radiologist's reading. Radiologist Impression: XR chest 2V IMPRESSION: Unremarkable chest examination External Record Review External record reviewed: Inpatient record Tests considered The following testing was considered but not selected: I considered ordering CT abd/pelvis however exam benign, no concern for acute abdomen. Prescription Management I considered prescription management with: Other (antacid) Chronic Conditions Patient?s care impacted by: Hypertension and Other (GERD) Social Determinants Patient?s care significantly limited by Social Determinants of Health including: Other Social Determinant of Health Critical Care Time Critical Care Time Critical Care Time: No Discharge Plan Discharge Clinical Impression: Epigastric abdominal pain Patient Disposition: Home, Self-Care Instructions: Gastroesophageal Reflux Disease (ED), Abdominal Pain (ED) Additional Instructions: Your lab work today is reassuring. Your cardiac enzymes are normal. Your chest xray is normal. Your ekg is normal. There is no clear etiology for your discomfort. It may be due to acid reflux. Protonix has been sent to your pharmacy. Take this in place of your omeprazole. Zofran has been sent to your pharmacy. Take this as needed for nausea. Follow up with your GI doctor and/or PCP as they may need to adjust your medications. For new or worsening symptoms, please return to the ED. In the case of an emergency call 911. Prescriptions: New ondansetron 4 mg tablet,disintegrating 4 mg PO DAILY PRN (Reason: nausea and vomiting) 5 Days Qty: 14 0RF pantoprazole [Protonix] 40 mg tablet,delayed release (DR/EC) 40 mg PO BEDTIME 28 Days Qty: 28 0RF No Action amlodipine 5 mg tablet 5 mg PO DAILY Qty: 90 1RF acetaminophen 650 mg Tablet Extended Release 1,950 mg PO DAILY PRN (Reason: Pain) atorvastatin 40 mg Tablet 40 mg PO BEDTIME 30 Days Qty: 30 0RF aspirin 81 mg Tablet,Chewable 81 mg PO DAILY 30 Days Qty: 30 0RF omeprazole magnesium [Prilosec OTC] 20 mg Tablet,Delayed Release (Dr/Ec) 20 mg PO DAILY sertraline 50 mg tablet 50 mg PO DAILY famotidine 20 mg tablet 20 mg PO DAILY PRN (Reason: heartburn) Qty: 30 5RF triamcinolone acetonide 0.5 % cream 1 appl topical DAILY 10 Days Qty: 15 1RF metoprolol succinate 25 mg tablet extended release 24 hr 25 mg PO QPM Qty: 30 2RF ondansetron 4 mg tablet,disintegrating 4 mg PO Q8-12H PRN (Reason: nausea and vomiting) Qty: 4 0RF alum-mag hydroxide-simeth [Maalox Maximum Strength] 400-400-40 mg/5 mL suspension 5 ml PO QID PRN (Reason: indigestion) Qty: 240 0RF lidocaine 5 % adhesive patch,medicated 1 patch topical DAILY 30 Days Qty: 30 0RF Rx Instructions: 1 patch topically up to 12 hours per day Referrals: [facility] Gastroenterology Services [Provider Group] Interventions: ED Discharge Assessment Last Done: 10/11/23 19:38 Discharge Date/Time: 10/11/23 19:39
[2023-10-11 15:53] LABS: MANUAL DIFF FLAG NO
[2023-10-11 15:54] LABS: Basophils Percent Auto 0.4 % (0-2); Eosinophils Absolute Auto 0.1 X10*3/uL (0.0-0.4); Eosinophils Percent Auto 1.6 % (0-4); Hematocrit 37.7 % (37.0-47.0); Hemoglobin 12.9 g/dl (12.0-16.0); Imm Gran Abs Auto 0.01 X10*3/uL (0.00-0.03); Imm Gran Pct Auto 0.1 % (0.0-0.4); Lymphocytes Absolute Auto 2.1 X10*3/uL (1.2-4.9); Lymphocytes Percent Auto 26.1 % (20-40); Mean Corpuscular HGB Conc 34.2 g/dl (31.0-35.0); Mean Corpuscular Hemoglobin 30.1 pg (27.0-33.0); Mean Corpuscular Volume 88.1 fL (80.0-98.0); Mean Platelet Volume 10.7 fL (9.4-12.3); Monocytes Absolute Auto 0.6 X10*3/uL (0.1-1.2); Monocytes Percent Auto 7.7 % (2-11); Neutrophils Absolute Auto 5.2 x10*3/uL (2.0-8.3); Neutrophils Percent Auto 64.1 % (45-73); Platelet Count 174 X10*3/uL (160-400); Red Blood Count 4.28 X10*6/uL (4.20-5.50); Red Cell Distribution Width 13.2 % (11.0-16.0); White Blood Count 8.1 X10*3/uL (4.8-10.8)
[2023-10-11 16:09] LABS: Alanine Aminotransferase 15 U/L (0-31); Albumin Level 4.2 g/dL (3.5-5.0); Alkaline Phosphatase 85 U/L (39-117); Anion Gap 11 (12-20); Aspartate Amino Transferase 16 U/L (5-31); Bilirubin Total 0.2 mg/dL (0.0-1.0); Blood Urea Nitrogen 12 mg/dL (9-16); Calcium 9.4 mg/dL (8.4-10.2); Carbon Dioxide 28 mmol/L (22-29); Chloride 106 mmol/L (96-108); Creatinine Clr Calc Pharmacy 85.3; Estimated Glomerular Filt Rate > 60; Glucose Random 110 mg/dL (60-115); Lipase 50 U/L (8-78); Magnesium 2.3 mg/dL (1.6-2.6); Potassium 3.7 mmol/L (3.3-5.1); Sodium 141 mmol/L (135-145); Total Protein 7.6 g/dL (6.5-8.0)
[2023-10-11 16:17] LABS: Troponin-I High Sensitivity < 2.7 ng/L (<3.5-17.0)
[2023-10-11 19:12] LABS: Troponin-I High Sensitivity < 2.7 ng/L (<3.5-17.0)
[2023-10-11 19:28] VITALS: BP 158/85; PULSE 70; RESP 18; TEMP 36.8; O2SAT 97
== END 2023-10-11 19:39 | disposition home or self-care (01) ==
PROVIDERS: Physician Assistant Medical; Emergency Provider Emergency Medicine Emergency Medical Services; PCP Internal Medicine
DX: R10.13 Epigastric pain (principal); K21.9 Gastro-esophageal reflux disease without esophagitis; R07.9 Chest pain, unspecified; I10 Essential (primary) hypertension; Z79.899 Other long term (current) drug therapy
CPT/HCPCS: 36415; 71046; 80053; 83690; 83735; 84484; 85025; 93005; 99283; 99284

== ENCOUNTER → 2023-10-11 11:31 | Outpatient (BNV) | payer MEDICARE, BC, MEDICAID, SELFPAY | PROVIDERS: PCP Internal Medicine; Visit Provider Internal Medicine | DX: R07.9 Chest pain, unspecified (principal) | CPT/HCPCS: 93010 ==

== ENCOUNTER 2023-10-14 08:19 | Outpatient (AMB) | payer MEDICARE, BC, MEDICAID, SELFPAY ==
--- NOTE | 2023-10-14 08:30 | A.OFFPC_ITS ---
Vital Signs 10/14/23 08:52 Height 5 ft 3 in Weight 162 lb 2 oz BMI 28.7 BP 148/86 H Blood Pressure Location Lt brachial Position Sitting Pulse 65 Pulse Source Pulse Oximeter Pulse Oximetry (%) 97 Oxygen Delivery Method Room Air Intake Visit Reasons: [facility] [place] ER f/u ok'd by Dr. Aguiar Intake Note: Pt is here today for ER follow up. Allergies peanut [Peanut] Allergy (Mild, Verified 10/15/23 00:35) AVOIDS PREFERANCE strawberry [[place]] Allergy (Mild, Verified 10/15/23 00:35) HIVES lactose [Lactose] Adverse Reaction (Mild, Verified 10/15/23 00:35) STOMACH UPSET tramadol Adverse Reaction (Unknown, Verified 10/15/23 00:35) severe headaches Medication List - Last Reconciled 10/15/23 by Danielle Wahl MD acetaminophen ER 1,950 mg PO DAILY PRN alum-mag hydroxide-simeth 400-400-40 mg/5 mL (Maalox Maximum Strength) 5 mL PO QID PRN amlodipine 5 mg PO DAILY aspirin 81 mg PO DAILY 30 days atorvastatin 40 mg PO BEDTIME 30 days famotidine 20 mg PO DAILY PRN lidocaine 5% 1 patch topical DAILY 30 days metoprolol succinate ER 25 mg PO QPM omeprazole magnesium (Prilosec OTC) 20 mg PO DAILY ondansetron 4 mg PO DAILY PRN 5 days ondansetron 4 mg PO Q8-12H PRN pantoprazole (Protonix) 40 mg PO BEDTIME 4 weeks sertraline 50 mg PO DAILY triamcinolone acetonide 0.5% 1 appl topical DAILY 10 days Tobacco use date assessed: 10/14/23 Dental Screening Dental Screen Date: 10/14/23 Did you have a dental visit in the last 12 months?: Yes Did you have a dental problem in the last 6 months where you did not have access to dental care?: No Was dental information given to patient?: Patient has dentist HPI [facility] [place] ER f/u ok'd by Dr. Aguiar HPI Details 58-year-old lady with hypertension, hype rlipidemia, anxiety depression, here today for follow-up after recent ER visit several days ago complaining of pressure, sharp pains in middle of chest.. This was not accompanied by any s hortness of breath, no headache or lightheadedness. She states that she has been waiting there for 8 hours at the ER, left AMA, EKG and troponin levels all came back normal. She has been taking omeprazole,, and occasional famotidine which she states has not been helping. [facility] Medical History GERD (gastroesophageal reflux disease) HTN (hypertension) Essential hypertension Hx of TIA (transient ischemic attack) and stroke Sinus mucosal thickening Colitis Idiopathic thrombocytopenia Heartburn Chronic low back pain Spondyloarthropathy of lumbar spine Eczema of both hands Dermatitis Anxiety Depression Lumbar back pain with radiculopathy affecting right lower extremity IBS (irritable bowel syndrome) Surgical History History of esophagogastroduodenoscopy (EGD) H/O colonoscopy History of surgery History of partial hysterectomy History of tubal ligation Family History Father IBS (irritable bowel syndrome) Myocardial infarction Mother Arthritis Maternal Aunt Breast cancer Sister Substance use disorder Sister Substance use disorder Mental health disorder Sister Mental health disorder Sister No problems noted. Sister No problems noted. Son No problems noted. Son No problems noted. Son No problems noted. Son No problems noted. Social History Household Members: Spouse Household Members Other:: son Housing: House Do you presently have visiting nurse or other home services: No Alcohol intake: never Patient Tobacco Use Status: Never used Tobacco e-Cigarette/Vaping Use: Never Used Second Hand Smoke Exposure: Yes service: No Current occupational status: employed Cognitive needs: No Hearing needs: No Vision needs: Yes Questionnaire Thrive Questionnaire Date Thrive assessed: 09/23/23 AUDIT C Alcohol Use Questionnaire (AUDIT-C) 1. How often do you have a drink containing alcohol?: Never 3. How often do you have six or more drinks on one occasion?: Never Total Score: 0 Score Reviewed/Action Taken: Yes ANNA-7 AMB Questionnaire ANNA-7 Date ANNA - 7 assessed: 09/23/23 Source: Developed by Drs. Chi Ingram, Lilly Tirado, Eduardo Teixeira and colleagues, with an educational cooper from [employer]. Review of Systems Const Reports as per HPI and Denies fever(s) Eyes Denies change in vision ENT Reports no additional complaints Card Reports no additional complaints Resp Reports no additional complaints GI Denies change in bowel habits Denies hematuria, Denies urinary frequency, Denies dysuria, Denies urinary incontinence and Denies urinary urgency Musc Reports as per HPI Neuro Reports no additional complaints Psych Reports as per HPI Endo Denies polydipsia and Denies polyuria Dmitry/Lymph Denies easy bleeding and Reports easy bruising Aller/Immun Reports no additional complaints Physical exam (Primary Care) Vital Signs: Last Vital Signs Pulse 65 10/14/23 08:52 BP 148/86 H 10/14/23 08:52 Pulse Ox 97 10/14/23 08:52 Oxygen Delivery Method Room Air 10/14/23 08:52 BMI result Body Mass Index 28.7 Tobacco/Smoking Status: Tobacco use Status Tobacco use date assessed 10/14/23 10/14/23 08:34 Patient Tobacco Use Status Never used Tobacco 10/14/23 08:34 e-Cigarette/Vaping Use Never Used 10/14/23 08:34 Thrive Assessment: Date of Thrive Assessment Date Thrive assessed 09/23/23 10/14/23 08:34 Const General: comfortable, no acute distress and alert HENME Head: Yes normocephalic Ears: external ears normal General nose exam: Normal external nose present Face and sinus: Yes face symmetric Mouth: Normal oral and palatal mucosa present, oropharynx normal and moist mucous membranes Neck Neck: Yes full ROM, Yes no lymphadenopathy and Yes supple Resp Effort & Inspection: normal respiratory effort and able to speak in complete sentences Auscultation: clear to auscultation bilaterally Cardio Rate: regular rate Rhythm: regular rhythm Heart sounds: S1 normal heart sound present and S2 normal heart sound present GI Palpation (GI): Soft to palpation, nontender, no guarding and no masses Auscultation: normal bowel sounds Back/Spine/Pelvis Back: No back tenderness Psych Appearance: grossly normal and well kempt Mental Status: mental status grossly normal Speech and movement: Normal speech and movement present and Clear speech present Affect: normal affect Attitude: cooperative Thought process: Normal thought process present Thought content: Normal thought content present Assessment and Plan Assessment & Plan (1) Epigastric abdominal pain: Code(s): R10.13 - Epigastric pain (2) Nausea: Code(s): R11.0 - Nausea Plan Ordered the an upper GI series, advised to continue taking pantoprazole 40 mg daily at bedtime, and avoid eating food that is acidic, avoid fried greasy foods avoid lying down right away after eating. Will refer to gastroenterology clinic for further evaluation Orders: Orders [place] upper GI series 10/14/23 R10.13 - Epigastric pain, R11.0 - Nausea Referrals Gastroenterology Referral R10.13 - Epigastric pain, R11.0 - Nausea Coding Level of Care Code Est Pt Level 3 (62921) Diagnoses Epigastric abdominal pain R10.13 Nausea R11.0
[2023-10-14 08:52] VITALS: BP 148/86; PULSE 65; O2SAT 97; BMI 28.7
== END 2023-10-14 09:46 | disposition home or self-care (01) ==
LOC: HO.HMGC 08:20
PROVIDERS: PCP Internal Medicine; Visit Provider Internal Medicine
DX: R10.13 Epigastric pain (principal); R11.0 Nausea
CPT/HCPCS: 99213

== ENCOUNTER 2023-11-19 10:54 | Day surgery (SDC) | payer MEDICARE, BC, SELFPAY ==
--- NOTE | 2023-11-18 10:41 | P.CONAN_ITS ---
Documented by User: Hansa Galeas NP 11/18/23 10:42 HPI - Anesthesia Eval Consult details Narrative: 58yo F for Interlaminar Midline L3-L4 Epidural Steroid Injection PMFSH Active Problems Active Problems: All Active Problems Vertebrogenic low back pain (Acute) Lumbar radiculopathy (Acute) Sacroiliitis (Acute) Sacroiliac joint pain (Acute) Lumbar degenerative disc disease (Acute) Essential hypertension (Acute) Idiopathic thrombocytopenia (Acute) Spondyloarthropathy of lumbar spine (Acute) Anxiety (Acute) Depression (Acute) Past Medical History Medical History GERD (gastroesophageal reflux disease) HTN (hypertension) Essential hypertension Hx of TIA (transient ischemic attack) and stroke Sinus mucosal thickening Colitis Idiopathic thrombocytopenia Heartburn Chronic low back pain Spondyloarthropathy of lumbar spine Eczema of both hands Dermatitis Anxiety Depression Lumbar back pain with radiculopathy affecting right lower extremity IBS (irritable bowel syndrome) Family History Family History Father IBS (irritable bowel syndrome) Myocardial infarction Mother Arthritis Maternal Aunt Breast cancer Sister Substance use disorder Sister Substance use disorder Mental health disorder Sister Mental health disorder Sister No problems noted. Sister No problems noted. Son No problems noted. Son No problems noted. Son No problems noted. Son No problems noted. Family history of problems with anesthesia: No Surgical History Surgical History History of esophagogastroduodenoscopy (EGD) H/O colonoscopy History of surgery History of partial hysterectomy History of tubal ligation History of Problems with Anesthesia: No Social History Social History Household Members: Spouse Household Members Other:: son Housing: House Do you presently have visiting nurse or other home services: No Alcohol intake: never Patient Tobacco Use Status: Never used Tobacco e-Cigarette/Vaping Use: Never Used Second Hand Smoke Exposure: Yes Are you DNR?: No Advance Directives: No Advance Directives Information Provided: Yes Nutrition Risks: No Nutritional Risk service: No Current occupational status: employed Cognitive needs: No Hearing needs: No Vision needs: Yes Meds Allergies Allergy/AdvReac Type Severity Reaction Status Date / Time peanut [Peanut] Allergy Mild AVOIDS Verified 10/15/23 00:35 PREFERANCE strawberry [[place]] Allergy Mild HIVES Verified 10/15/23 00:35 lactose [Lactose] AdvReac Mild STOMACH Verified 10/15/23 00:35 UPSET tramadol AdvReac Unknown severe Verified 10/15/23 00:35 headaches Home Medications ?Medication ?Instructions ?Recorded ?Confirmed ?Last Taken ?Type acetaminophen 650 mg 1,950 mg PO DAILY PRN Pain 03/01/23 10/15/23 Unknown History tablet,extended release omeprazole magnesium 20 mg 20 mg PO DAILY 07/29/23 10/15/23 Unknown History tablet,delayed release (Prilosec OTC) sertraline 50 mg tablet 50 mg PO DAILY 07/29/23 10/15/23 11/19/23 History Exam Pertinent Lab Results Pertinent Lab Results: Laboratory Tests 03/02/23 03/04/23 10/11/23 06:33 05:26 15:50 WBC 5.5 8.1 Hgb 13.0 12.9 Hct 39.2 37.7 Plt Count 182 174 Sodium 141 141 Potassium 3.6 3.7 Chloride 108 106 Carbon Dioxide 24 28 BUN 7 L 12 Creatinine 0.70 0.69 Narrative Narrative: EKG 09/2023 Vent. Rate : 064 BPM Atrial Rate : 064 BPM P-R Int : 174 ms QRS Dur : 074 ms QT Int : 406 ms P-R-T Axes : 053 039 062 degrees QTc Int : 418 ms Normal sinus rhythm Normal ECG When compared with ECG of 02-SEP-2023 12:17, No significant change was found Assessment and Plan Assessment Anesthesia Assessment: Chart Reviewed Final Anesthetic Review Family History of Problems with Anesthesia: No History of Problems with Anesthesia: No Documented by User: Ritchie Danielson MD 11/19/23 11:30 [facility] Past Medical History Medical History GERD (gastroesophageal reflux disease) HTN (hypertension) Essential hypertension Hx of TIA (transient ischemic attack) and stroke Sinus mucosal thickening Colitis Idiopathic thrombocytopenia Heartburn Chronic low back pain Spondyloarthropathy of lumbar spine Eczema of both hands Dermatitis Anxiety Depression Lumbar back pain with radiculopathy affecting right lower extremity IBS (irritable bowel syndrome) Family History Family History Father IBS (irritable bowel syndrome) Myocardial infarction Mother Arthritis Maternal Aunt Breast cancer Sister Substance use disorder Sister Substance use disorder Mental health disorder Sister Mental health disorder Sister No problems noted. Sister No problems noted. Son No problems noted. Son No problems noted. Son No problems noted. Son No problems noted. Surgical History Surgical History History of esophagogastroduodenoscopy (EGD) H/O colonoscopy History of surgery History of partial hysterectomy History of tubal ligation Social History Social History Household Members: Spouse Household Members Other:: son Housing: House Do you presently have visiting nurse or other home services: No Alcohol intake: never Patient Tobacco Use Status: Never used Tobacco e-Cigarette/Vaping Use: Never Used Second Hand Smoke Exposure: Yes Are you DNR?: No Advance Directives: No Advance Directives Information Provided: Yes Nutrition Risks: No Nutritional Risk service: No Current occupational status: employed Cognitive needs: No Hearing needs: No Vision needs: Yes Meds Allergies Allergy/AdvReac Type Severity Reaction Status Date / Time peanut [Peanut] Allergy Mild AVOIDS Verified 10/15/23 00:35 PREFERANCE strawberry [[place]] Allergy Mild HIVES Verified 10/15/23 00:35 lactose [Lactose] AdvReac Mild STOMACH Verified 10/15/23 00:35 UPSET tramadol AdvReac Unknown severe Verified 10/15/23 00:35 headaches Home Medications ?Medication ?Instructions ?Recorded ?Confirmed ?Last Taken ?Type acetaminophen 650 mg 1,950 mg PO DAILY PRN Pain 03/01/23 10/15/23 Unknown History tablet,extended release omeprazole magnesium 20 mg 20 mg PO DAILY 07/29/23 10/15/23 Unknown History tablet,delayed release (Prilosec OTC) sertraline 50 mg tablet 50 mg PO DAILY 07/29/23 10/15/23 11/19/23 History Exam Airway Mallampati Class: II TM Dist: >3cm Neck ROM: Full Loose/Missing/Broken Teeth: No Heart: rrr Lungs: cta Assessment and Plan Assessment Anesthesia Assessment: Anesthesia Plan Discussed Final Anesthetic Review NPO: Yes ASA Class: II Final Preanesthetic Review: No Changes in Pt Med Stat, Meds/Allgs Chart Reviewed, Consent Obtained/Reviewed and Anes Risks/Benef Reviewed Patient Risk: Intermediate Procedure Risk: Intermediate Anesthetic Plan Anesthetic Plan: MAC: Disposition: Standard PACU
--- NOTE | ~2023-11-19 | FL_ITS ---
EXAMINATION: XR FLUOROSCOPY WITH IMAGES CLINICAL INFORMATION: Interlaminar midline L3-L4 epidural steroid injection. COMPARISON: Portions of the MRI lumbar spine dated 09/06/2023; lumbar spine radiographs dated 05/08/2014. TECHNIQUE: Fluoroscopy Supervised By: Dr. Sylvain Mack. Fluoroscopy Time: 31.9 seconds. Cumulative Dose: 6.5196 mGy. DAP: 2.8359 Gycm2. Images: 1. FINDINGS: The submitted image is an AP view of the spine extending from T12 through the upper aspect of the L5 vertebral body. FL/FL guidance in OR IMPRESSION: Intraoperative fluoroscopic guidance is provided during interlaminar midline L3-L4 epidural steroid injection. Please see the patient's Operative Report for full procedural details.
[2023-11-19 10:56] VITALS: BP 150/76; PULSE 62; RESP 20; TEMP 36.1; O2SAT 97; BMI 29.3
[2023-11-19] MEDS: Lactated Ringers 1,000 ML 100 ML IVCONT (11:15)
--- NOTE | 2023-11-19 13:00 | MHC.SHP ---
Pre-Procedural Eval Section A - 24 Hr Update-Section A only Date of Service: 11/19/23 The patient is an INPATIENT: No Changes since office visit: Yes Patient answered all questions The patient has been examined within 24 hours of the surgical procedure. The History & Physical has been completed within 30 days and I have reviewed it.: No Section B - Complete if H&P > 30 days Chief Complaint: Radiculopathy, lumbar region,sciatica right side Details of Present Illness: as above Relevant Family History (Specify if Yes): No Relevant Social History: None Present Medications: see Short Stay Collaborative assessment Medical History: No relevant PMH History of Previous Operations: No relevant previous surgery Allergies: Allergies Allergy/AdvReac Type Severity Reaction Status Date / Time peanut [Peanut] Allergy Mild AVOIDS Verified 10/15/23 00:35 PREFERANCE strawberry [[place]] Allergy Mild HIVES Verified 10/15/23 00:35 lactose [Lactose] AdvReac Mild STOMACH Verified 10/15/23 00:35 UPSET tramadol AdvReac Unknown severe Verified 10/15/23 00:35 headaches Review of Systems Sugical H&P ROS: Negative: Constitution, Respiratory, Neurological, Psychiatric, Hem-Onc, Allergic/Immunologic, Gastrointestinal, Genitourinary, Musculoskeletal (as above), Integumentary, Endocrine and Eyes/Ears/Nose/Throat and Yes, Specify: Cardiovascular (HTN) Exam Surgical H&P Exam: Normal: HEENT, Normal: Heart, Normal: Lungs, Normal: Extremities, Normal: Abdomen, Normal: Skin and Normal: Neurological Plan Diagnosis/Plan: Unchanged I have reviewed the history and physical and performed a pertinent physical examination on my patient. No changes have occurred unless specified. Time Spent With Patient Time: Total time managing care of this patient today ____ minutes.
[2023-11-19 13:53] VITALS: BP 127/65; PULSE 68; RESP 16; TEMP 36.6; O2SAT 95
--- NOTE | 2023-11-19 13:58 | PM.OP ---
Brief Operative Note Date of Service: 11/19/23 Pre-op diagnosis: Disc degeneration lumbar radiculopathy lumbar Post-op diagnosis: same Procedure: Epidural steroid injection interlaminar L3-L4 Surgeon: Sylvain Mack MD Anesthesia: MAC Was an Stained Glass Glazier Helper used for this Procedure?: No Estimated blood loss (mL): 0 Condition: stable Disposition: PACU
--- NOTE | 2023-11-19 13:59 | W.PM.OPN ---
Operative Note Operative Note Date of Service: 11/19/23 Narrative: Stephany is very pleasant 58 years old female who came to the operating room today for performance of interlaminar epidural steroid injection. She did not want to proceed for 2 levels of the epidural steroid injection she wanted to perform only L3-L4. I agree with her on this decision. Informed consent was explained patient agreed to the plan. We took the patient to the operating room and positioned her prone on the operating table. ASA monitors were applied and patient was sedated. Time-out was performed delineating site and side of the procedure name and date of of the patient risk of fire needs for antibiotic prophylaxis. The lower back was prepped with ChloraPrep and draped with sterile utility self adhesive towels. C-arm was brought over the operating field and sq picture of L3 and L4 vertebra was demonstrated on the screen. Interlaminar space L3-L4 was chosen as the site of the injection. Slightly to the right of the spinous process of L4 projection to the skin injection of the lidocaine 1% was made to anesthetize the skin. After that 20 gauge Touhy needle was advanced to were the epidural space L3-L4 using loss of resistance technique to locate the epidural space. When the loss of resistance was felt injection of the contrast was performed demonstrating right-sided epidural space. After that 6 cc of lidocaine 1% mixed with Kenalog 40 mg was injected into the epidural space. The patient tolerated procedure well. She was taken outside of the operating room to recovery room where she recovered uneventfully. She went home without immediate complications.
[2023-11-19 14:00] VITALS: BP 113/63; PULSE 55; RESP 16; O2SAT 95
[2023-11-19 14:15] VITALS: BP 118/60; PULSE 54; RESP 16; O2SAT 97
[2023-11-19 14:30] VITALS: BP 109/64; PULSE 57; RESP 16; TEMP 36.2; O2SAT 97
== END 2023-11-19 15:12 | disposition home or self-care (01) ==
PROVIDERS: PCP Nurse Practitioner Family; Visit Provider Anesthesiology
PROC: 3E0R33Z Introduction of Anti-inflammatory into Spinal Canal, Percutaneous Approach (ICD-10-PCS; CPT 62323; principal; 2023-11-19 13:00)
DX: M54.16 Radiculopathy, lumbar region (principal); M54.31 Sciatica, right side; G89.29 Other chronic pain; M53.3 Sacrococcygeal disorders, not elsewhere classified; M46.1 Sacroiliitis, not elsewhere classified; M51.36 Other intervertebral disc degeneration, lumbar region; M54.51 Vertebrogenic low back pain; M54.50 Low back pain, unspecified; I10 Essential (primary) hypertension; Z86.73 Personal history of transient ischemic attack (TIA), and cerebral infarction without residual deficits; Z79.899 Other long term (current) drug therapy; Z88.5 Allergy status to narcotic agent; Z91.010 Allergy to peanuts; Z91.018 Allergy to other foods; Z98.890 Other specified postprocedural states
CPT/HCPCS: 62323; J2250; J2704; J3010; J3301; Q9967

== ENCOUNTER → 2023-11-19 10:54 | Outpatient (BNV) | payer MEDICARE, BC, SELFPAY | PROVIDERS: PCP Nurse Practitioner Family; Visit Provider Anesthesiology | DX: M54.16 Radiculopathy, lumbar region (principal) | CPT/HCPCS: 62323 ==

== ENCOUNTER 2023-11-24 09:36 | Outpatient (AMB) | payer MEDICARE, BC, MEDICAID, SELFPAY ==
--- NOTE | 2023-11-24 09:39 | MHC.OFFVIS ---
Intake Vital Signs 11/24/23 09:43 11/24/23 10:21 Height 5 ft 2.5 in Weight 165 lb BMI 29.7 BP 167/94 H 160/80 H Blood Pressure Location Lt brachial Lt brachial Position Sitting Sitting Pulse 65 Pulse Oximetry (%) 96 Intake Visit Reasons: Nausea/Epigastric pain Intake Note: Patient new consult for Nauseas/Epigastric pain Patient cc: Nauseas, abdominal pain, burning sensation with chest pain, constipation and denies any other GI issues. 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 Required: No Accompanied by: Self / Same As Patient Allergies peanut [Peanut] Allergy (Mild, Verified 11/24/23 11:55) AVOIDS PREFERANCE strawberry [[place]] Allergy (Mild, Verified 11/24/23 11:55) HIVES lactose [Lactose] Adverse Reaction (Mild, Verified 11/24/23 11:55) STOMACH UPSET tramadol Adverse Reaction (Unknown, Verified 11/24/23 11:55) severe headaches Medication List - Last Reconciled 11/24/23 by Josefina Lincoln PA-C acetaminophen ER 1,950 mg PO DAILY PRN alum-mag hydroxide-simeth 400-400-40 mg/5 mL (Maalox Maximum Strength) 5 mL PO QID PRN amlodipine 5 mg PO DAILY aspirin 81 mg PO DAILY 30 days atorvastatin 40 mg PO BEDTIME 30 days lidocaine 5% 1 patch topical DAILY 30 days metoprolol succinate ER 25 mg PO QPM omeprazole magnesium (Prilosec OTC) 20 mg PO DAILY ondansetron 4 mg PO DAILY PRN 5 days ondansetron 4 mg PO Q8-12H PRN pantoprazole (Protonix) 40 mg PO BEDTIME 4 weeks sertraline 50 mg PO DAILY triamcinolone acetonide 0.5% 1 appl topical DAILY 10 days HPI HPI Comments History of Present Illness Details DIL present-A 58-year-old female referred with multiple GI concerns. She has intermittent constipation, nausea, chest discomfort she cannot associates with heartburn- she says it is very scary-she has nausea- she has not vomited-pantoprazole 40 mg daily- She is c/o- kind of heart burn- feels differrent- feels like tapping in the chest- becoming SOB- noted strange sx about 1 month ago- however the past 2 day sx are very differrent -she does have intermittent r-arm pain -with numbness ti nt e fingers- she says it eventually goes away- when she sits upright-but is SOB- she cannot lie down flat- uses 7 pillows She has fam hx- [place] sister recent and father in 60s- She says she feels like this is how they started shes had TIA-. EGD and colonoscopy 09/2022-Dr. Mast-she was scheduled to come back for follow-up however she did not return Here today we Reviewed procedure report, pathology recommendation [facility] Medical History (Updated 11/25/23 @ 11:26 by Josefina Lincoln PA-C) GERD (gastroesophageal reflux disease) HTN (hypertension) Essential hypertension Hx of TIA (transient ischemic attack) and stroke Sinus mucosal thickening Colitis Idiopathic thrombocytopenia Heartburn Chronic low back pain Spondyloarthropathy of lumbar spine Eczema of both hands Dermatitis Anxiety Depression Lumbar back pain with radiculopathy affecting right lower extremity IBS (irritable bowel syndrome) Surgical History History of esophagogastroduodenoscopy (EGD) H/O colonoscopy History of surgery History of partial hysterectomy History of tubal ligation Family History Father IBS (irritable bowel syndrome) Myocardial infarction Mother Arthritis Maternal Aunt Breast cancer Sister Substance use disorder Sister Substance use disorder Mental health disorder Sister Mental health disorder Sister No problems noted. Sister No problems noted. Son No problems noted. Son No problems noted. Son No problems noted. Son No problems noted. Social History Household Members: Spouse Household Members Other:: son Housing: House Do you presently have visiting nurse or other home services: No Alcohol intake: never Patient Tobacco Use Status: Never used Tobacco e-Cigarette/Vaping Use: Never Used Second Hand Smoke Exposure: Yes Advance Directives: No service: No Current occupational status: employed Cognitive needs: No Hearing needs: No Vision needs: Yes Review of Systems Const All systems reviewed & are unremarkable except as noted in HPI and below Physical Exam Vital Signs: Last Vital Signs Pulse 65 11/24/23 09:43 BP 160/80 H 11/24/23 10:21 Pulse Ox 96 11/24/23 10:21 BMI result Body Mass Index 29.7 Const General: cooperative and anxious Orientation/consciousness: patient oriented x3 Limitations: no limitations Resp Auscultation: no rales, no rhonchi and no wheezes Cardio Rate: regular rate Rhythm: regular rhythm (APR92) Neuro General: patient oriented x3 Extrem General: Yes full ROM Psych Speech and movement: Clear speech present Results Reviewed Results Reviewed: 09/2022- [place] Impression and Post Procedure Diagnosis: Endoscopy Findings: gastritis esophagitis Colonoscopy Findings: polyps internal hemorrhoids diverticular disease rectal erythema Plan: Await Pathology results Repeat Colonoscopy in 5 years due to fair prep or earlier if clinically indicated High fiber diet leaflet avoid straining at stool, epsom salts and sitz bath, anusol supps or cream if H pylori pos then treat Above findings were reviewed with the patient and relevant handouts were provided if indicated. t #: [id number] Copies to: Danielle Wahl MD MR #: [id number] Status: [facility] Collected: 10/13/22 Location: [facility] Received: 10/13/22 Diagnosis A. Duodenum, biopsy: Duodenal mucosa with mildly increased intraepithelial lymphocytes and preserved villous architecture. See comment. B. Stomach, biopsy: Antral-type and oxyntic mucosa with moderate chronic inactive inflammation; no Helicobacter organisms seen. C. GE junction, biopsy: - Cardiofundic-type mucosa with moderate chronic inactive inflammation; no intestinal metaplasia seen. - Squamous mucosa within normal limits. D. Esophagus, distal, biopsy: - Cardiofundic-type mucosa with moderate chronic, focally active, inflammation; no intestinal metaplasia seen. - Active esophagitis (maximum eosinophil count 3 per high powered field). E. Esophagus, proximal, biopsy: Active esophagitis (maximum eosinophil count 7 per high powered field). F. Cecum, polypectomy: Colonic mucosa with mild surface hyperplastic changes and inflammatory changes. G. Terminal ileum, biopsy: Terminal ileal mucosa within normal limits. H. Colon, random right, biopsy: Colonic mucosa within normal limits. I. Rectum, polypectomy: Colonic mucosa with prominent lymphoid aggregates; no dysplasia seen. J. Rectum, biopsy: Focally active proctitis. Clinical History Pre-Op Dx: Colon cancer screening, heartburn Post-Op Dx: Gastritis, esophagitis, colon polyps, diverticulosis, hemorrhoids, rectal erythema Microscopic Description A-J. Microscopic sections reviewed. Immunostain for H. pylori is non-reactive (B). Patient: Stephany Peña Age/Sex: 57/F MR#: [id number] Page 1 of 3 10/11/23- EKG NSR Assessment & Plan Assessment & Plan (1) Chest pain: Comment: Extremely anxious- may be assoc- however- she is focused-on at this time- needs further eval Code(s): R07.9 - Chest pain, unspecified Plan: MLC- anxiety-however patient needs further eval sent to ED as there expertise will serve her well (2) Anxiety: Comment: Likely cause of sx- Code(s): F41.9 - Anxiety disorder, unspecified (3) GERD (gastroesophageal reflux disease): Code(s): K21.9 - Gastro-esophageal reflux disease without esophagitis Plan: To ED-declined W/C- with-2 family members- Plan ED-r/o cardiac v GI/ anxiety Medications: New sucralfate 1 g (10 mL) PO QIDACHS 420 mL 0RF 4 weeks Patient Instructions: Extremely anxious 58-year-old female seen today with GERD, complains of chest pain arm pain radiates up into the jaw has been going on for a couple of months however is increased over the past couple of days-very focused on family history sister recent by [place] Physical exam was unremarkable however sent to the ED for further eval Will follow-up when time appropriate for GI concerns. Coding Level of Care Code Est Pt Level 4 (01336) Diagnoses Chest pain R07.9 Anxiety F41.9 GERD (gastroesophageal reflux disease) K21.9 Time Spent (min) 25
[2023-11-24 09:43] VITALS: BP 167/94; PULSE 65; BMI 29.7
[2023-11-24 10:21] VITALS: BP 160/80; O2SAT 96
== END 2023-11-24 13:34 | disposition home or self-care (01) ==
PROVIDERS: PCP Internal Medicine; Visit Provider Physician Assistant
DX: R07.9 Chest pain, unspecified (principal); F41.9 Anxiety disorder, unspecified; K21.9 Gastro-esophageal reflux disease without esophagitis
CPT/HCPCS: 99214

== ENCOUNTER → 2023-11-24 09:36 | Outpatient (BNVA) | payer MEDICARE, BC, MEDICAID, SELFPAY | PROVIDERS: PCP Internal Medicine; Visit Provider Physician Assistant ==

== ENCOUNTER 2023-11-24 10:39 | Emergency (ER) | payer MEDICARE, BC, SELFPAY ==
--- NOTE | 2023-11-24 | ECG_ITS ---
Test Reason : cp Blood Pressure : / mmHG Vent. Rate : 059 BPM Atrial Rate : 059 BPM P-R Int : 160 ms QRS Dur : 076 ms QT Int : 418 ms P-R-T Axes : 060 048 060 degrees QTc Int : 413 ms Sinus bradycardia Otherwise normal ECG When compared with ECG of 11-OCT-2023 11:51, No significant change was found Referred By: Generic ED Physician Electronically Signed By:RUDY MENESES MD
--- NOTE | ~2023-11-24 | XR_ITS ---
EXAMINATION: XR CHEST CLINICAL INFORMATION: Right-sided chest pain. COMPARISON: Chest x-ray 10/11/23. TECHNIQUE: 2 views of the chest were obtained. FINDINGS: The cardiomediastinal silhouette is within normal limits. No vascular congestion or edema. The lungs are well expanded. New hazy airspace disease in the middle lobe. No effusion. Mild endplate degenerative changes in the thoracic spine. No displaced rib fracture. XR/XR chest 2V IMPRESSION: New hazy airspace disease in the middle lobe consistent with pneumonia in the appropriate clinical context. Recommend follow-up two-view chest x-ray in 4-6 weeks to ensure resolution.
[2023-11-24 11:52] VITALS: BP 163/87; PULSE 63; RESP 18; TEMP 36.8; O2SAT 99; BMI 28.9
--- NOTE | 2023-11-24 11:54 | ED_ITS ---
HPI - Chest Pain General Chief Complaint: Chest Pain Stated Complaint: CP High Blood Pressure Time Seen by Provider: 11/24/23 13:29 Source: patient, RN notes reviewed and old records reviewed Mode of arrival: ambulatory Limitations: no limitations History of Present Illness HPI narrative: 58 year old female with pmhx significant for anxiety, GERD, and HTN presents to the ED today for evaluation of elevated blood pressure while at her GI appointment prior to arrival. She admits to 2 months of intermittent central/ right sided chest pain and recently had an unremarkable cardiac work up. She presented to her GI doctor today for follow up regarding her GERD and her blood pressure was noted to be elevated. Given her intermittent chest pain over the last two months, they advised her to come to the ED. She currently takes amlodipine and metoprolol for her HTN and endorses compliance with these medications. She has not appreciated elevated blood pressure at home. She notes her chest discomfort occasionally radiates into her right jaw and admits to tingling down her right arm. Denies exacerbating or relieving factors. Denies OTC medications for this. Denies fever, chills, cough, hemoptysis, SOB, dyspnea, diaphoresis, N/V, headache, vision changes, dizziness. Related Data Home Medications ?Medication ?Instructions ?Recorded ?Confirmed acetaminophen 650 mg 1,950 mg PO DAILY PRN Pain 03/01/23 11/24/23 tablet,extended release omeprazole magnesium 20 mg 20 mg PO DAILY 07/29/23 11/24/23 tablet,delayed release (Prilosec OTC) sertraline 50 mg tablet 50 mg PO DAILY 07/29/23 11/24/23 Previous Rx's ?Medication ?Instructions ?Recorded aluminum-mag hydroxide-simethicone 5 ml PO QID PRN indigestion #240 mL 07/28/22 400 mg-400 mg-40 mg/5 mL oral susp (Maalox Maximum Strength) aspirin 81 mg chewable tablet 81 mg PO DAILY 30 days #30 tabs 03/04/23 atorvastatin 40 mg tablet 40 mg PO BEDTIME 30 days #30 tabs 03/04/23 triamcinolone acetonide 0.5 % 1 appl topical DAILY rash on palm 03/19/23 topical cream 10 days #15 grams lidocaine 5 % topical patch 1 patch topical DAILY Pain 30 days 04/26/23 #30 ea ondansetron 4 mg disintegrating 4 mg PO Q8-12H PRN nausea and 09/23/23 tablet vomiting #4 tabs amlodipine 5 mg tablet 5 mg PO DAILY #90 tabs 09/27/23 ondansetron 4 mg disintegrating 4 mg PO DAILY PRN nausea and 10/11/23 tablet vomiting 5 days #14 tabs pantoprazole 40 mg tablet,delayed 40 mg PO BEDTIME 4 weeks #28 tabs 10/11/23 release (Protonix) metoprolol succinate 25 mg 25 mg PO QPM #30 tabs 11/14/23 tablet,extended release 24 hr amoxicillin 875 mg-potassium 1 tab PO Q12H 5 days #10 tabs 11/24/23 clavulanate 125 mg tablet azithromycin 250 mg tablet See Rx Instructions PO .COMPLEX #6 11/24/23 (Zithromax Z-Jay) tabs sucralfate 100 mg/mL oral 1 g (10 mL) PO QIDACHS 4 weeks 11/24/23 suspension #420 mL Allergies Allergy/AdvReac Type Severity Reaction Status Date / Time peanut [Peanut] Allergy Mild AVOIDS Verified 11/24/23 11:55 PREFERANCE strawberry [[place]] Allergy Mild HIVES Verified 11/24/23 11:55 lactose [Lactose] AdvReac Mild STOMACH Verified 11/24/23 11:55 UPSET tramadol AdvReac Unknown severe Verified 11/24/23 11:55 headaches Review of Systems 2 Review of Systems: Constitutional: No fever, chills, fatigue, night sweats, weight changes ENT/Mouth: No ear pain, hearing loss, nasal congestion, sinus pain, rhinorrhea, sore throat Eyes: No eye pain, swelling, redness, vision changes, discharge Cardio: No palpitations, [place], orthopnea, peripheral edema, +chest pain Pulm: No SOB, cough, sputum, wheezing, dyspnea, hemoptysis GI: No nausea, vomiting, hematemesis, abdominal pain, diarrhea, constipation, hematochezia, melena : No irregular bleeding, dysuria, frequency, urgency, hesitancy, hematuria, flank pain, urinary flow changes, urinary incontinence or retention MSK: No back pain, neck pain, joint pain, myalgias Skin: No lesions, rashes Neuro: No weakness, numbness, paresthesias, LOC, dizziness, headache Psych: No anxiety/panic, depression, SI/HI, AH/VH All other systems reviewed and are negative. [facility] Past Medical History Attestation statement: The following information was validated with the patient. Source: old records reviewed and nursing notes reviewed Medical History GERD (gastroesophageal reflux disease) HTN (hypertension) Essential hypertension Hx of TIA (transient ischemic attack) and stroke Sinus mucosal thickening Colitis Idiopathic thrombocytopenia Heartburn Chronic low back pain Spondyloarthropathy of lumbar spine Eczema of both hands Dermatitis Anxiety Depression Lumbar back pain with radiculopathy affecting right lower extremity IBS (irritable bowel syndrome) Surgical History History of esophagogastroduodenoscopy (EGD) H/O colonoscopy History of surgery History of partial hysterectomy History of tubal ligation Family History Family History Father IBS (irritable bowel syndrome) Myocardial infarction Mother Arthritis Maternal Aunt Breast cancer Sister Substance use disorder Sister Substance use disorder Mental health disorder Sister Mental health disorder Sister No problems noted. Sister No problems noted. Son No problems noted. Son No problems noted. Son No problems noted. Son No problems noted. Social History Social History Household Members: Spouse Household Members Other:: son Housing: House Do you presently have visiting nurse or other home services: No Alcohol intake: never Patient Tobacco Use Status: Never used Tobacco e-Cigarette/Vaping Use: Never Used Second Hand Smoke Exposure: Yes Advance Directives: No service: No Current occupational status: employed Cognitive needs: No Hearing needs: No Vision needs: Yes Physical Exam 2 Vital Signs: Vital Signs: Last Vital Signs Temp 0 F L 11/24/23 13:57 Pulse 75 11/24/23 13:57 Resp 20 11/24/23 13:57 BP 00/00 L 11/24/23 13:57 Pulse Ox 97 11/24/23 13:57 O2 Del Method Room Air 11/24/23 13:57 BMI result Body Mass Index 28.9 Vital signs stable Const: General: cooperative, healthy appearing, comfortable and no acute distress Orientation/consciousness: patient oriented x3 Limitations: no limitations HEENT: Head: Yes normal to inspection, Yes No palpable skull fracture present, Yes normocephalic and Yes atraumatic Eyes: General: appearance normal, both eyes and all related structures C onjunctivae: conjunctivae normal Sclerae: sclerae normal Pupils: Equal, round and reactive pupils present EOM: EOMs intact bilaterally Neck: Neck: Yes normal visual inspection, Yes full ROM, Yes no lymphadenopathy and Yes no JVD Chest: Chest palpation & inspection: normal inspection of the chest and normal palpation of entire chest wall Resp: Effort & Inspection: normal respiratory effort and able to speak in complete sentences Auscultation: clear to auscultation bilaterally Cardio: Other: + 2+ radial pulses. No peripheral edema. Jugular venous distension: no JVD Rate: regular rate Rhythm: regular rhythm GI: Inspection: Yes normal to inspection Skin: General skin exam: no rashes or lesions noted Neuro: General: patient oriented x3 and gait normal Cranial nerves: Yes Equal, round and reactive pupils present Extrem: General: Yes normal to inspection Course Course Course Narrative: RME:?58 yo female hx of anxiety, GERD, HTN here from GI office upstairs for elevated blood pressure and associated right sided chest pain that radiates to right jaw and down right arm, intermittently x2 months. was seen 2 mo ago for same with unremarkable work up. she has not followed up with cardiology. labs, ekg, cxr ordered. Full HPI, ROS and PE to be performed by the primary ED provider. Reevaluation(s) Reevaluation #1: 1348-- CBC without leukocytosis or left shift. No anemia. H&H stable. Lipase wnl > no pancreatitis. Chemistry without acute electrolyte abnormalities requiring intervention. Troponin undetectable > unlikely ACS. EKG showing sinus bradycardia at a rate of 59 bpm, QT 418, QTC 413, no acute ischemic changes or ST elevations. When compared to EKG on 10/11/23, no significant changes. Sherman likely secondary to metoprolol. No concern for arrhythmia. CXR showing hazy opacities within the right middle lobe consistent with pneumonia > this correlates with history and presentation. She has tested negative for covid/flu/rsv. Will treat with azithro and augmentin. Discussed all work up results with patient. She is agreeable with antibiotic treatment. Patient has remained stable throughout ED visit today. Discussed worrisome signs and symptoms and when to return to the ED. All questions answered at this time. Patient is agreeable with disposition and stable for discharge. Medical Decision Making Medical Decision Making [facility] Narrative: 58 year old female with pmhx significant for anxiety, GERD, and HTN presents to the ED today for evaluation of elevated blood pressure while at her GI appointment prior to arrival. Blood pressure elevated to 163/87, vitals otherwise wnl. She is well appearing and in NAD. Not diaphoretic. RRR. No JVD or peripheral edema. No reproducible chest wall tenderness or crepitus. Lungs CTA b/l. Differential diagnosis includes ACS, arrhythmia, costochondritis, pleuritis, msk sprain/ strain, viral syndrome, pneumonia, GERD. Lower suspicion for PE, effusion, rupture aneurysm. Plan for labs, ekg, cxr, and re-evaluation. Differential Diagnosis Differential Diagnoses: The differential diagnosis associated with the presentation includes as above. Admission/Observation not indicated. Lab Data [facility] Lab Attestation statement: I reviewed the patient's lab results. as above. 11/24/23 12:19 11/24/23 12:19 Labs: Lab Results 11/24/23 Range/Units 12:19 WBC 10.4 (4.8-10.8) X10*3/uL RBC 4.65 (4.20-5.50) X10*6/uL Hgb 14.1 (12.0-16.0) g/dl Hct 41.8 (37.0-47.0) % MCV 89.9 (80.0-98.0) fL MCH 30.3 (27.0-33.0) pg MCHC 33.7 (31.0-35.0) g/dl RDW 12.9 (11.0-16.0) % Plt Count 177 (160-400) X10*3/uL MPV 10.6 (9.4-12.3) fL Immature Gran % (Auto) 1.0 H (0.0-0.4) % Neut % (Auto) 66.9 (45-73) % Lymph % (Auto) 24.3 (20-40) % Reynolds % (Auto) 7.0 (2-11) % Eos % (Auto) 0.4 (0-4) % Baso % (Auto) 0.4 (0-2) % Lymph # (Auto) 2.5 (1.2-4.9) X10*3/uL Reynolds # (Auto) 0.7 (0.1-1.2) X10*3/uL Eos # (Auto) 0.0 (0.0-0.4) X10*3/uL Baso # (Auto) 0.0 (0.0-0.2) X10*3/uL Abs Immat Gran (auto) 0.10 H (0.00-0.03) X10*3/uL Absolute Neuts (auto) 6.9 (2.0-8.3) x10*3/uL Absolute Nucleated RBC 0.000 (0.0-0.012) X10*3/uL Nucleated RBC % (auto) 0.0 (0.0-0.2) /100WBC PT 11.1 (11.1-13.3) SEC INR 0.9 (0.9-1.1) Sodium 141 (135-145) mmol/L Potassium 3.6 (3.3-5.1) mmol/L Chloride 106 (96-108) mmol/L Carbon Dioxide 26 (22-29) mmol/L Anion Gap 13 (12-20) BUN 18 H (9-16) mg/dL Creatinine 0.76 (0.5-1.4) mg/dL Estim Creat Clear Calc 73.9 Estimated GFR > 60 Random Glucose 105 (60-115) mg/dL Calcium 9.3 (8.4-10.2) mg/dL Magnesium 2.4 (1.6-2.6) mg/dL Total Bilirubin 0.3 (0.0-1.0) mg/dL AST 18 (5-31) U/L ALT 31 (0-31) U/L Alkaline Phosphatase 81 (39-117) U/L Troponin I High Sens < 2.7 (<3.5-17.0) ng/L Total Protein 8.0 (6.5-8.0) g/dL Albumin 4.5 (3.5-5.0) g/dL Lipase 42 (8-78) U/L Influenza Type A (PCR) NEGATIVE (Negative) Influenza Type B (PCR) NEGATIVE (Negative) RSV RNA Qual (PCR) NEGATIVE (Negative) SARS-CoV-2 RNA (RT-PCR) NEGATIVE (Negative) Independent Interpretation I performed an independent interpretation of an: EKG and Plain X-Ray Interpretation: EKG showing sinus bradycardia at a rate of 59 bpm, QT 418, QTC 413, no acute ischemic changes or ST elevations. When compared to EKG on 10/11/23, no significant changes. Sherman likely secondary to metoprolol. I personally reviewed chest x-ray and agree with radiologist's interpretation Radiology Impression Discussion of test interpretation with radiology: I have reviewed the radiologist's reading. Radiologist Impression: EXAMINATION: XR CHEST CLINICAL INFORMATION: Right-sided chest pain. COMPARISON: Chest x-ray 10/11/23. TECHNIQUE: 2 views of the chest were obtained. FINDINGS: The cardiomediastinal silhouette is within normal limits. No vascular congestion or edema. The lungs are well expanded. New hazy airspace disease in the middle lobe. No effusion. Mild endplate degenerative changes in the thoracic spine. No displaced rib fracture. XR/XR chest 2V IMPRESSION: New hazy airspace disease in the middle lobe consistent with pneumonia in the appropriate clinical context. Recommend follow-up two-view chest x-ray in 4-6 weeks to ensure resolution. External Record Review External record reviewed: Inpatient record, Office record, Outpatient record, Prior outpatient labs, Prior outpatient radiology, Primary care record and Outside ED record Prescription Management I considered prescription management with: Pain Medication and Antibiotic (augmentin, zpak) Chronic Conditions Patient?s care impacted by: Hypertension Social Determinants Patient?s care significantly limited by Social Determinants of Health including: Other Social Determinant of Health Critical Care Time Critical Care Time Critical Care Time: Yes Total Critical Care Time: 52 Attestation: Critical care time in the amount of 52 minutes has been provided to the patient in terms of direct patient care, frequent reevaluation, review and interpretation of medical data and results, and management of potentially life- threatening conditions. This is all outside of any medical procedures. Discharge Plan Discharge Clinical Impression: Community acquired pneumonia Patient Disposition: Home, Self-Care Instructions: Community Acquired Pneumonia (ED) Additional Instructions: You were evaluated in the ED today for right sided chest pain. Your labs are reassuring. Your EKG showed slightly slower heart rate otherwise normal. As discussed, your chest xray shows pneumonia within the middle lobe of your right lung. Augmentin is an antibiotic that has been sent to your pharmacy. Take this to completion and do not skip any doses. On Augmentin, softer bowel movements are to be expected. Call your provider if you move your bowels more than 4 times a day, your bowel movements are almost all liquid, or you get a rash.? Azithromycin (z-jay) is another antibiotic that has been sent to your pharmacy. Take this to completion and do not skip any doses. You will need to have a repeat two view chest x-ray in 4-6 weeks to ensure resolution of pneumonia. You may call your PCP to schedule this. You may take Tylenol and ibuprofen as needed for pain/discomfort. You have also been provided with a referral to a airplane cleaner to establish care. You may call them to make an appointment, they will not call you. Return with new or worsening symptoms. In the case of an emergency call 911. Prescriptions: New amoxicillin-pot clavulanate 875-125 mg tablet 1 tab PO Q12H 5 Days Qty: 10 0RF azithromycin [Zithromax Z-Jay] 250 mg tablet See Rx Instructions .ROUTE .COMPLEX Qty: 6 0RF Rx Instructions: For 500 mg dose pack: take 500 mg once daily for 3 days No Action amlodipine 5 mg tablet 5 mg PO DAILY Qty: 90 1RF metoprolol succinate 25 mg tablet extended release 24 hr 25 mg PO QPM Qty: 30 2RF acetaminophen 650 mg Tablet Extended Release 1,950 mg PO DAILY PRN (Reason: Pain) atorvastatin 40 mg Tablet 40 mg PO BEDTIME 30 Days Qty: 30 0RF aspirin 81 mg Tablet,Chewable 81 mg PO DAILY 30 Days Qty: 30 0RF omeprazole magnesium [Prilosec OTC] 20 mg Tablet,Delayed Release (Dr/Ec) 20 mg PO DAILY sertraline 50 mg tablet 50 mg PO DAILY ondansetron 4 mg tablet,disintegrating 4 mg PO DAILY PRN (Reason: nausea and vomiting) 5 Days Qty: 14 0RF pantoprazole [Protonix] 40 mg tablet,delayed release (DR/EC) 40 mg PO BEDTIME 28 Days Qty: 28 0RF triamcinolone acetonide 0.5 % cream 1 appl topical DAILY 10 Days Qty: 15 1RF ondansetron 4 mg tablet,disintegrating 4 mg PO Q8-12H PRN (Reason: nausea and vomiting) Qty: 4 0RF alum-mag hydroxide-simeth [Maalox Maximum Strength] 400-400-40 mg/5 mL suspension 5 ml PO QID PRN (Reason: indigestion) Qty: 240 0RF sucralfate 100 mg/mL suspension 1 g PO QIDACHS 28 Days Qty: 420 0RF lidocaine 5 % adhesive patch,medicated 1 patch topical DAILY 30 Days Qty: 30 0RF Rx Instructions: 1 patch topically up to 12 hours per day Referrals: [facility] [place] Group] Interventions: ED Discharge Assessment Last Done: 11/24/23 13:57 Discharge Date/Time: 11/24/23 13:58 Print Language: [place]ian
[2023-11-24 12:26] LABS: MANUAL DIFF FLAG NO
[2023-11-24 12:33] LABS: Basophils Percent Auto 0.4 % (0-2); Eosinophils Percent Auto 0.4 % (0-4); Hematocrit 41.8 % (37.0-47.0); Hemoglobin 14.1 g/dl (12.0-16.0); Lymphocytes Absolute Auto 2.5 X10*3/uL (1.2-4.9); Lymphocytes Percent Auto 24.3 % (20-40); Mean Corpuscular HGB Conc 33.7 g/dl (31.0-35.0); Mean Corpuscular Hemoglobin 30.3 pg (27.0-33.0); Mean Corpuscular Volume 89.9 fL (80.0-98.0); Mean Platelet Volume 10.6 fL (9.4-12.3); Monocytes Absolute Auto 0.7 X10*3/uL (0.1-1.2); Neutrophils Absolute Auto 6.9 x10*3/uL (2.0-8.3); Neutrophils Percent Auto 66.9 % (45-73); Platelet Count 177 X10*3/uL (160-400); Red Blood Count 4.65 X10*6/uL (4.20-5.50); Red Cell Distribution Width 12.9 % (11.0-16.0); White Blood Count 10.4 X10*3/uL (4.8-10.8)
[2023-11-24 12:40] LABS: INTERNATIONAL NORM RATIO 0.9 (0.9-1.1); Prothrombin Time 11.1 SEC (11.1-13.3)
[2023-11-24 12:48] LABS: Alanine Aminotransferase 31 U/L (0-31); Albumin Level 4.5 g/dL (3.5-5.0); Alkaline Phosphatase 81 U/L (39-117); Anion Gap 13 (12-20); Aspartate Amino Transferase 18 U/L (5-31); Bilirubin Total 0.3 mg/dL (0.0-1.0); Blood Urea Nitrogen 18 mg/dL (9-16); Calcium 9.3 mg/dL (8.4-10.2); Carbon Dioxide 26 mmol/L (22-29); Chloride 106 mmol/L (96-108); Creatinine Clr Calc Pharmacy 73.9; Estimated Glomerular Filt Rate > 60; Glucose Random 105 mg/dL (60-115); Lipase 42 U/L (8-78); Magnesium 2.4 mg/dL (1.6-2.6); Potassium 3.6 mmol/L (3.3-5.1); Sodium 141 mmol/L (135-145)
[2023-11-24 12:52] LABS: Troponin-I High Sensitivity < 2.7 ng/L (<3.5-17.0)
[2023-11-24 13:05] LABS: Influenza A PCR NEGATIVE (Negative); Influenza B PCR NEGATIVE (Negative); Resp Syncy Virus RNA Qual PCR NEGATIVE (Negative); SARS COV2 PCR INHOUSE NEGATIVE (Negative)
[2023-11-24 13:57] VITALS: BP 00/00; PULSE 75; RESP 20; TEMP -17.7; TEMP 0; O2SAT 97
== END 2023-11-24 13:58 | disposition home or self-care (01) ==
PROVIDERS: Physician Assistant Medical; Emergency Provider Student in an Organized Health Care Education/Training Program; PCP Internal Medicine
DX: J18.9 Pneumonia, unspecified organism (principal); R07.89 Other chest pain; I10 Essential (primary) hypertension; Z11.52 Encounter for screening for COVID-19; Z20.822 Contact with and (suspected) exposure to COVID-19; Z79.899 Other long term (current) drug therapy
CPT/HCPCS: 0241U; 71046; 80053; 83690; 83735; 84484; 85025; 85610; 93005; 99212; 99283

== ENCOUNTER → 2023-11-24 10:48 | Outpatient (BNV) | payer MEDICARE, BC, MEDICAID, SELFPAY | PROVIDERS: PCP Internal Medicine; Visit Provider Internal Medicine Cardiovascular Disease | DX: R07.9 Chest pain, unspecified (principal) | CPT/HCPCS: 93010 ==

== ENCOUNTER 2023-12-30 | Outpatient (REF) | payer MEDICARE, BC, SELFPAY | END 2023-12-30 00:01 | disposition home or self-care (01) | LOC: CF | PROVIDERS: PCP Internal Medicine; Visit Provider Nurse Practitioner Family | DX: R10.13 Epigastric pain (principal); R11.0 Nausea; M53.3 Sacrococcygeal disorders, not elsewhere classified; G89.29 Other chronic pain; M47.816 Spondylosis without myelopathy or radiculopathy, lumbar region; M51.36 Other intervertebral disc degeneration, lumbar region; M54.51 Vertebrogenic low back pain; Z98.890 Other specified postprocedural states | CPT/HCPCS: 99212 ==

== ENCOUNTER 2023-12-30 10:18 | Outpatient (AMB) | payer MEDICARE, BC, SELFPAY ==
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
[2023-12-30 10:25] VITALS: BP 143/79; PULSE 65; O2SAT 100; BMI 29.1
== END 2023-12-30 10:54 | disposition home or self-care (01) ==
PROVIDERS: PCP Internal Medicine; Visit Provider Nurse Practitioner Family
DX: M53.3 Sacrococcygeal disorders, not elsewhere classified (principal); M54.50 Low back pain, unspecified; G89.29 Other chronic pain; M47.816 Spondylosis without myelopathy or radiculopathy, lumbar region; M51.36 Other intervertebral disc degeneration, lumbar region; M54.51 Vertebrogenic low back pain
CPT/HCPCS: 99214

== ENCOUNTER 2024-04-13 11:39 | Outpatient (AMB) | payer MEDICARE, BC, SELFPAY ==
--- NOTE | 2024-04-13 11:41 | AM.OFFWIN_ITS ---
Intake Vital Signs 04/13/24 11:43 Height 5 ft 2 in Weight 159 lb BMI 29.1 BP 122/84 Blood Pressure Location Rt brachial Position Sitting Pulse 58 Pulse Source Pulse Oximeter Pulse Oximetry (%) 98 Oxygen Delivery Method Room Air Intake Visit Reasons: EP Pain in right hand/thumb pain Intake Note: Patient here for pain in right hand, she does have a hx of arthritis and has been dropping things and causes pain and radiates up the wrist that has been present for about 1 month. Patient Tobacco Use Status: Never used Tobacco Allergies peanut [Peanut] Allergy (Mild, Verified 04/13/24 11:45) AVOIDS PREFERANCE strawberry [[place]] Allergy (Mild, Verified 04/13/24 11:45) HIVES lactose [Lactose] Adverse Reaction (Mild, Verified 04/13/24 11:45) STOMACH UPSET tramadol Adverse Reaction (Unknown, Verified 04/13/24 11:45) severe headaches Do you need a note to return to daycare/school/sports/work: No HPI HPI Comments History of Present Illness Details Patient is a 58-year-old female complaining of right thumb pain weakness for 2 weeks. She states that 2 weeks ago she went kayaking for 4 hours which is something she typically does not do. She says it is weak secondary to pain. She also has a history of arthritis throughout her whole body so she is not sure if this is something different. She states she does take Tylenol arthritis for her arthritis pain but she does not take any NSAIDs typically she has not done anything to try to make her thumb and wrist feel better [facility] Medical History GERD (gastroesophageal reflux disease) HTN (hypertension) Essential hypertension Hx of TIA (transient ischemic attack) and stroke Sinus mucosal thickening Colitis Idiopathic thrombocytopenia Heartburn Chronic low back pain Spondyloarthropathy of lumbar spine Eczema of both hands Dermatitis Anxiety Depression Lumbar back pain with radiculopathy affecting right lower extremity IBS (irritable bowel syndrome) Surgical History History of esophagogastroduodenoscopy (EGD) H/O colonoscopy History of surgery History of partial hysterectomy History of tubal ligation Family History Father IBS (irritable bowel syndrome) Myocardial infarction Mother Arthritis Maternal Aunt Breast cancer Sister Substance use disorder Sister Substance use disorder Mental health disorder Sister Mental health disorder Sister No problems noted. Sister No problems noted. Son No problems noted. Son No problems noted. Son No problems noted. Son No problems noted. Social History Household Members: Spouse Household Members Other:: son Housing: House Do you presently have visiting nurse or other home services: No Alcohol intake: never Patient Tobacco Use Status: Never used Tobacco e-Cigarette/Vaping Use: Never Used Second Hand Smoke Exposure: Yes service: No Current occupational status: employed Cognitive needs: No Hearing needs: No Vision needs: Yes Review of Systems Const All systems reviewed & are unremarkable except as noted in HPI and below Physical Exam Vital Signs: Last Vital Signs Pulse 58 04/13/24 11:43 BP 122/84 04/13/24 11:43 Pulse Ox 98 04/13/24 11:43 Oxygen Delivery Method Room Air 04/13/24 11:43 BMI result Body Mass Index 29.1 Const General: cooperative, healthy appearing, comfortable, no acute distress and well developed Orientation/consciousness: patient oriented x3 Limitations: no limitations HEENT Head: Yes normal to inspection Ears: hearing grossly normal bilaterally General nose exam: Normal external nose present Face and sinus: Yes normal facial exam Eyes General: appearance normal, both eyes and all related structures Neck Neck: Yes normal visual inspection and Yes full ROM Resp Effort & Inspection: normal respiratory effort and able to speak in complete sentences Skin General skin exam: no rashes or lesions noted Neuro General: patient oriented x3 Extrem General: Yes normal to inspection Right upper extremity: Extremity exam: right hand (+ phalens, negative tinels) Details: normal capillary refill, neuromotor exam normal, tendon exam normal, tenderness Location: of the thumb, abnormal ROM of finger (thumb) Details: pain with active ROM, pain with passive ROM and unable to flex or extend and swelling; no unusual warmth, no lacerations and no ecchymosis Assessment & Plan Assessment & Plan (1) Sprain of right thumb: Code(s): S63.601A - Unspecified sprain of right thumb, initial encounter Qualifiers: Encounter type: initial encounter Sprain of finger site: metacarpophalangeal joint Qualified Code(s): S63.641A - Sprain of metacarpophalangeal joint of right thumb, initial encounter Plan: Gave patient wrist brace, likely sprain from overuse and along with some arthritis, did send diclofenac so she could try a few pills to use as needed. Also recommended Voltaren gel and ice. Just warned not to use while she is taking any other NSAIDs. She states she does not typically take them. Recommended she follow up with her PCP if no improvement over the next couple of weeks Plan See above Medications: New diclofenac sodium 50 mg PO Q12H PRN 10 tabs 0RF pain Coding Level of Care Code Est Pt Level 3 (86208) Diagnoses Sprain of metacarpophalangeal (MCP) joint of right thumb, initial encounter S63.641A Encounter type: initial encounter Sprain of finger site: metacarpophalangeal joint
[2024-04-13 11:43] VITALS: BP 122/84; PULSE 58; O2SAT 98; BMI 29.1
== END 2024-04-13 12:06 | disposition home or self-care (01) ==
PROVIDERS: PCP Internal Medicine; Visit Provider Physician Assistant
DX: S63.641A Sprain of metacarpophalangeal joint of right thumb, initial encounter (principal)
CPT/HCPCS: 99213

== ENCOUNTER 2024-06-13 13:25 | Outpatient (AMB) | payer MEDICARE, BC, SELFPAY ==
[2024-06-13 13:27] VITALS: BP 132/80; PULSE 66; O2SAT 97; BMI 29.4
--- NOTE | 2024-06-13 13:27 | A.OFFPC_ITS ---
Vital Signs 06/13/24 13:27 Height 5 ft 2 in Weight 161 lb BMI 29.4 BP 132/80 Blood Pressure Location Lt brachial Position Sitting Pulse 66 Pulse Source Pulse Oximeter Pulse Oximetry (%) 97 Oxygen Delivery Method Room Air Intake Visit Reasons: lump on collar bone and upper back Intake Note: Pt is here today for a sick visit. Pt c/o lump on her R upper back and one on her collar bone. Allergies peanut [Peanut] Allergy (Mild, Verified 06/13/24 13:47) AVOIDS PREFERANCE strawberry [Iona] Allergy (Mild, Verified 06/13/24 13:47) HIVES lactose [Lactose] Adverse Reaction (Mild, Verified 06/13/24 13:47) STOMACH UPSET tramadol Adverse Reaction (Unknown, Verified 06/13/24 13:47) severe headaches Medication List - Last Reconciled 06/13/24 by Danielle Wahl MD acetaminophen ER 1,950 mg PO DAILY PRN alum-mag hydroxide-simeth 400-400-40 mg/5 mL (Maalox Maximum Strength) 5 mL PO QID PRN amlodipine 5 mg PO DAILY aspirin 81 mg PO DAILY 30 days atorvastatin 40 mg PO BEDTIME 30 days diclofenac sodium 50 mg PO Q12H PRN lidocaine 5% 1 patch topical DAILY 30 days losartan 50 mg PO DAILY metoprolol succinate ER 25 mg PO QPM omeprazole magnesium (Prilosec OTC) 20 mg PO DAILY ondansetron 4 mg PO Q8-12H PRN pantoprazole (Protonix) 40 mg PO BEDTIME 4 weeks sertraline 50 mg PO DAILY sucralfate 1 g (10 mL) PO QIDACHS 4 weeks triamcinolone acetonide 0.5% 1 appl topical DAILY 10 days Tobacco use date assessed: 06/13/24 Dental Screening Dental Screen Date: 10/14/23 HPI lump on collar bone and upper back HPI Details 59-year-old lady here today complaining of painful lump on right upper back, which has been steadily increasing size, gets irritated with her bra strap and complains of a bony protrusion on her anterior chest on her collar bone on the right. Denies any history of trauma. [facility]LY [facility] Medical History GERD (gastroesophageal reflux disease) HTN (hypertension) Essential hypertension Hx of TIA (transient ischemic attack) and stroke Sinus mucosal thickening Colitis Idiopathic thrombocytopenia Heartburn Chronic low back pain Spondyloarthropathy of lumbar spine Eczema of both hands Dermatitis Anxiety Depression Lumbar back pain with radiculopathy affecting right lower extremity IBS (irritable bowel syndrome) Surgical History History of esophagogastroduodenoscopy (EGD) H/O colonoscopy History of surgery History of partial hysterectomy History of tubal ligation Family History Father IBS (irritable bowel syndrome) Myocardial infarction Mother Arthritis Maternal Aunt Breast cancer Sister Substance use disorder Sister Substance use disorder Mental health disorder Sister Mental health disorder Sister No problems noted. Sister No problems noted. Son No problems noted. Son No problems noted. Son No problems noted. Son No problems noted. Social History Household Members: Spouse Household Members Other:: son Housing: House Do you presently have visiting nurse or other home services: No Alcohol intake: never Patient Tobacco Use Status: Never used Tobacco e-Cigarette/Vaping Use: Never Used Second Hand Smoke Exposure: Yes service: No Current occupational status: employed Cognitive needs: No Hearing needs: No Vision needs: Yes Questionnaire PHQ-9 Over the last 2 weeks, how often have you been bothered by any of the following problems? 1. Little interest or pleasure in doing things: not at all 2. Feeling down, depressed, or hopeless: not at all 3. Trouble falling or staying asleep, or sleeping too much: not at all 4. Feeling tired or having little energy: not at all 5. Poor appetite or overeating: not at all 6. Feeling bad about yourself - or that you are a failure or have let yourself or your family down: not at all 7. Trouble concentrating on things, such as reading the newspaper or watching television: not at all 8. Moving or speaking so slowly that other people could have noticed. Or the opposite - being so fidgety or restless that you have been moving around a lot more than usual: not at all 9. Thoughts that you would be better off or of hurting yourself in some way: not at all Total score: 0 Depression Screening Interpretation: Negative Depression Screening Done: Yes 64323 - PHQ-9 Billing: Yes Source: Developed by Lilly Elena, Eduardo Teixeira and colleagues, with an educational cooper from [employer]. Thrive Questionnaire Date Thrive assessed: 06/13/24 I am a: Patient What is your living situation today?: I have a steady place to live Within the past 12 months, did the food you bought not last and you didn't have the money to get more?: Never true Within the past 12 months, did you worry whether your food would run out before you got money to buy more?: Never true Do you have trouble paying for medicines?: No Do you have trouble getting transportation to medical appointments?: No Do you have trouble paying your heating and electricity bill?: No Do you have trouble taking care of your child, family member or friend?: No Do you have trouble with day-to-day activities such as bathing, preparing meals, shopping, managing finances, etc.?: No Are you currently unemployed and looking for a job?: No Are you interested in more education?: No Please select the resources that you would like help with: None Currently or been in a relationship where the following occur: No concerns reported THRIVE Score: 0 AUDIT C Alcohol Use Questionnaire (AUDIT-C) 1. How often do you have a drink containing alcohol?: Never Total Score: 0 ANNA-7 AMB Questionnaire ANNA-7 Date ANNA - 7 assessed: 06/13/24 Feeling nervous, anxious, or on edge: 0 = Not at all Not being able to stop or control worryin = Not at all Worrying too much about different things: 0 = Not at all Trouble relaxin = Not at all Being so restless that it is hard to sit still: 0 = Not at all Becoming easily annoyed or irritable: 0 = Not at all Feeling afraid as if something awful might happen: 0 = Not at all Total ANNA-7 score (0-4 normal; 5-9 mild; 10-14 moderate; 15-21 severe): 0 Source: Developed by Lilly Elena Kurt Kroenke and colleagues, with an educational cooper from [employer]. ANNA-7 Assessment Billing ANNA-7 Assessment Tool: ANNA-7 Assessment 55751 Review of Systems Const All systems reviewed & are unremarkable except as noted in HPI and below Physical exam (Primary Care) Vital Signs: Last Vital Signs Pulse 66 06/13/24 13:27 BP 132/80 06/13/24 13:27 Pulse Ox 97 06/13/24 13:27 Oxygen Delivery Method Room Air 06/13/24 13:27 BMI result Body Mass Index 29.4 Tobacco/Smoking Status: Tobacco use Status Tobacco use date assessed 06/13/24 06/13/24 13:33 Patient Tobacco Use Status Never used Tobacco 06/13/24 13:33 e-Cigarette/Vaping Use Never Used 06/13/24 13:33 PHQ-9: PHQ-9 Score PHQ-9: Total score 0 06/13/24 14:05 Depression Screening Interpretation: Negative Thrive Assessment: Date of Thrive Assessment Date Thrive assessed 06/13/24 06/13/24 13:34 Currently or been in a relationship where the following occur: No concerns reported Const General: comfortable, no acute distress and alert Orientation/consciousness: patient oriented x3 Chest Other: Slightly enlarged right sternoclavicular area, nontender to palpation Resp Auscultation: clear to auscultation bilaterally Cardio Other: S1-S2 present regular rate and rhythm Skin Other: Firm slightly tender raised lesion on right upper back Neuro General: patient oriented x3 Office Procedures Flu Questionnaire Does the patient have a severe egg allergy?: No Does the patient have severe life threatening allergies?: No Does the patient have a fever or illness today?: No Has the patient ever had Guillain-Ruskin Syndrome?: No Has the patient ever had any past reaction to a flu shot?: No Immunizations Fluarix Triv [id number] (PF) 45 mcg (15 mcg x 3)/0.5 mL IM syringe Performing Provider: Danielle Wahl MD Performing Location: [facility] [place] [facility] Administered by: ENRIQUETA Vogel on 06/13/24 14:05 Dose Route Admin Location Dispensed Lot Number Expiration Date [facility] Extender 0.5 mL IM Left Deltoid 0.5 mL [id number] 02/12/25 [id number] [employer] VIS Given Date VIS Provided VIS Publication Date 06/13/24 Single Vaccine 21 Eligibility Eligibility Date Funding Source Not [facility] Eligible 06/13/24 Private Coding Level of Care Code Est Pt Level 3 (72919) Diagnoses Subcutaneous mass of back R22.2 Arthralgia of right acromioclavicular joint M25.511 Need for influenza vaccination Z23 Additional Codes ANNA-7 Assessment Billing - ANNA-7 Assessment Tool: ANNA-7 Assessment 45608 ([id number]) Assessment & Plan Assessment & Plan (1) Subcutaneous mass of back: Code(s): R22.2 - Localized swelling, mass and lump, trunk Plan: Likely lipoma, referred to general surgery (2) Arthralgia of right acromioclavicular joint: Code(s): M25.511 - Pain in right shoulder Plan: X-ray of right clavicle ordered, advised to try massaging diclofenac gel 1% to affected area 3 to 4 times a day as needed for pain control (3) Need for influenza vaccination: Code(s): Z23 - Encounter for immunization Plan: Flu vaccine given today Orders: Orders XR clavicle RT 06/13/24 M25.511 - Pain in right shoulder Influenza [id number] Immunization 06/13/24 Z23 - Encounter for immunization Referrals General Surgery Referral R22.2 - Localized swelling, mass and lump, trunk
== END 2024-06-13 14:45 | disposition home or self-care (01) ==
LOC: HO.HMCC 13:26
PROVIDERS: PCP Internal Medicine; Visit Provider Internal Medicine
DX: R22.2 Localized swelling, mass and lump, trunk (principal); M25.511 Pain in right shoulder; Z23 Encounter for immunization

== ENCOUNTER 2024-06-13 13:25 | Outpatient (REF) | payer MEDICARE, BC, SELFPAY ==
--- NOTE | ~2024-06-13 | XR_ITS ---
EXAMINATION: XR RIGHT CLAVICLE 2 VIEWS CLINICAL INFORMATION: Pain in right shoulder M25.511. COMPARISON: XR Right shoulder 05/08/2014 TECHNIQUE: 2 views of the right clavicle. FINDINGS: Mild arthrosis of the acromioclavicular joint unchanged. Clavicle otherwise normal. Surrounding bone and soft tissues unremarkable. XR/XR clavicle RT IMPRESSION: Mild arthrosis of the acromioclavicular joint unchanged. Right clavicle otherwise normal Electronically signed by: Rodri Ford MD 08/15/2024 01:25 PM EST
== END 2024-06-13 13:26 | disposition home or self-care (01) ==
LOC: HO.HMGCX 13:25
PROVIDERS: PCP Internal Medicine; Visit Provider Internal Medicine
DX: M25.511 Pain in right shoulder (principal); R22.2 Localized swelling, mass and lump, trunk; Z23 Encounter for immunization
CPT/HCPCS: 73000; 90471; 90656; 96127; 99212

== ENCOUNTER 2024-10-17 11:09 | Outpatient (AMB) | payer MEDICARE, BC, SELFPAY ==
--- NOTE | 2024-10-17 12:01 | MHC.PC.OV ---
Vital Signs 10/17/24 12:02 Height 5 ft 2 in Weight 160 lb BMI 29.3 BP 122/80 Blood Pressure Location Lt brachial Position Sitting Respiration 16 Pulse 58 Pulse Source Pulse Oximeter Temp 98.0 F Temp Source Oral Pulse Oximetry (%) 96 Oxygen Delivery Method Room Air Intake Visit Reasons: Annual PE/Secondary covers Allergies peanut [Peanut] Allergy (Mild, Verified 10/20/24 18:40) AVOIDS PREFERANCE strawberry [[place]] Allergy (Mild, Verified 10/20/24 18:40) HIVES lactose [Lactose] Adverse Reaction (Mild, Verified 10/20/24 18:40) STOMACH UPSET tramadol Adverse Reaction (Unknown, Verified 10/20/24 18:40) severe headaches Medication List - Last Reconciled 10/20/24 by Danielle Wahl MD acetaminophen ER 1,950 mg PO DAILY PRN alum-mag hydroxide-simeth 400-400-40 mg/5 mL (Maalox Maximum Strength) 5 mL PO QID PRN amlodipine 5 mg PO DAILY aspirin 81 mg PO DAILY 30 days atorvastatin 40 mg PO BEDTIME 30 days diclofenac sodium 50 mg PO Q12H PRN lidocaine 5% 1 patch topical DAILY 30 days losartan 50 mg PO DAILY metoprolol succinate ER 25 mg PO QPM omeprazole magnesium (Prilosec OTC) 20 mg PO DAILY ondansetron 4 mg PO Q8-12H PRN sertraline 50 mg PO DAILY sucralfate 1 g (10 mL) PO QIDACHS 4 weeks triamcinolone acetonide 0.5% 1 appl topical DAILY 10 days Tobacco use date assessed: 10/17/24 Dental Screening Dental Screen Date: 10/17/24 Did you have a dental visit in the last 12 months?: Yes Did you have a dental problem in the last 6 months where you did not have access to dental care?: No Was dental information given to patient?: Patient has dentist HPI Annual PE/Secondary covers HPI Details 59-year-old lady with history of hypertension, idiopathic thrombocytopenia, GERD, depression with anxiety, history of TIA, colitis , and chronic low back pain currently by pain management clinic, here today for physical exam. She is overdue for screening mammogram and cervical cancer screening. Had her colonoscopy in 2021, but will repeat again in 5 years due presence of polyps and poor prep on last exam. Complains of refuse red raised spots appearing on arm, legs back which is worse during the colder months. Depression anxiety stable and controlled on sertraline. Hypertension is well controlled with metoprolol succinate ER 25 mg at night and losartan 50 mg in the morning. Her chronic GERD is controlled with taking omeprazole daily. [facility] Medical History (Updated 10/20/24 @ 22:43 by Danielle Wahl MD) Dry skin dermatitis History of dysfunctional uterine bleeding Hx of endometriosis GERD (gastroesophageal reflux disease) HTN (hypertension) Essential hypertension Hx of TIA (transient ischemic attack) and stroke Sinus mucosal thickening Colitis Idiopathic thrombocytopenia Heartburn Chronic low back pain Spondyloarthropathy of lumbar spine Eczema of both hands Dermatitis Anxiety Depression Lumbar back pain with radiculopathy affecting right lower extremity IBS (irritable bowel syndrome) Surgical History History of esophagogastroduodenoscopy (EGD) H/O colonoscopy History of surgery History of partial hysterectomy History of tubal ligation Family History Father IBS (irritable bowel syndrome) Myocardial infarction Mother Arthritis Maternal Aunt Breast cancer Sister Substance use disorder Sister Substance use disorder Mental health disorder Sister Mental health disorder Sister No problems noted. Sister No problems noted. Son No problems noted. Son No problems noted. Son No problems noted. Son No problems noted. Social History Household Members: Spouse Household Members Other:: son Housing: House Do you presently have visiting nurse or other home services: No Alcohol intake: never Patient Tobacco Use Status: Never used Tobacco e-Cigarette/Vaping Use: Never Used Second Hand Smoke Exposure: Yes service: No Current occupational status: employed Cognitive needs: No Hearing needs: No Vision needs: Yes Questionnaire PHQ-9 Over the last 2 weeks, how often have you been bothered by any of the following problems? 1. Little interest or pleasure in doing things: not at all 2. Feeling down, depressed, or hopeless: not at all 3. Trouble falling or staying asleep, or sleeping too much: more than half the days 4. Feeling tired or having little energy: more than half the days 5. Poor appetite or overeating: several days 6. Feeling bad about yourself - or that you are a failure or have let yourself or your family down: not at all 7. Trouble concentrating on things, such as reading the newspaper or watching television: not at all 8. Moving or speaking so slowly that other people could have noticed. Or the opposite - being so fidgety or restless that you have been moving around a lot more than usual: not at all 9. Thoughts that you would be better off or of hurting yourself in some way: not at all Total score: 5 Depression Screening Interpretation: Negative (Depression and anxiety controlled with sertraline) Depression Screening Done: Yes 53638 - PHQ-9 Billing: Yes Source: Developed by Drs. Chi Ingram, Lilly Tirado, Eduardo Teixeira and colleagues, with an educational cooper from [employer]. Thrive Questionnaire Date Thrive assessed: 10/17/24 I am a: Patient What is your living situation today?: I have a steady place to live Within the past 12 months, did the food you bought not last and you didn't have the money to get more?: Never true Within the past 12 months, did you worry whether your food would run out before you got money to buy more?: Never true Do you have trouble paying for medicines?: No Do you have trouble getting transportation to medical appointments?: No Do you have trouble paying your heating and electricity bill?: No Do you have trouble taking care of your child, family member or friend?: No Do you have trouble with day-to-day activities such as bathing, preparing meals, shopping, managing finances, etc.?: No Are you currently unemployed and looking for a job?: No Are you interested in more education?: No Please select the resources that you would like help with: None Currently or been in a relationship where the following occur: No concerns reported and I choose not to answer THRIVE Score: 0 AUDIT C Alcohol Use Questionnaire (AUDIT-C) 1. How often do you have a drink containing alcohol?: Never Total Score: 0 ANNA-7 AMB Questionnaire ANNA-7 Date ANNA - 7 assessed: 10/17/24 Feeling nervous, anxious, or on edge: 0 = Not at all Not being able to stop or control worryin = Not at all Worrying too much about different things: 1 = Several days Trouble relaxin = Several days Being so restless that it is hard to sit still: 0 = Not at all Becoming easily annoyed or irritable: 1 = Several days Feeling afraid as if something awful might happen: 0 = Not at all Total ANNA-7 score (0-4 normal; 5-9 mild; 10-14 moderate; 15-21 severe): 3 Source: Developed by Drs. Chi Ingram, Lilly Tirado, Eduardo Teixeira and colleagues, with an educational cooper from [employer]. ANNA-7 Assessment Billing ANNA-7 Assessment Tool: ANNA-7 Assessment 02545 Review of Systems Const Reports no additional complaints Eyes Denies change in vision ENT Reports no additional complaints Card Reports no additional complaints Resp Reports no additional complaints GI Denies change in bowel habits Denies hematuria, Denies urinary frequency, Denies dysuria, Denies urinary incontinence and Denies urinary urgency Musc Reports back pain, Denies joint swelling, Denies numbness and Reports stiffness Skin/Breast Reports as per HPI, Denies breast pain and Denies breast mass Neuro Reports no additional complaints and Denies numbness Psych Reports as per HPI Endo Denies polydipsia and Denies polyuria Dmitry/Lymph Denies easy bleeding and Reports easy bruising Aller/Immun Reports no additional complaints Physical exam (Primary Care) Vital Signs: Last Vital Signs Temp 98.0 F 10/17/24 12:02 Pulse 58 10/17/24 12:02 Resp 16 10/17/24 12:02 BP 122/80 10/17/24 12:02 Pulse Ox 96 10/17/24 12:02 Oxygen Delivery Method Room Air 10/17/24 12:02 BMI result Body Mass Index 29.3 Tobacco/Smoking Status: Tobacco use Status Tobacco use date assessed 10/17/24 10/17/24 12:06 Patient Tobacco Use Status Never used Tobacco 10/17/24 12:06 e-Cigarette/Vaping Use Never Used 10/17/24 12:06 PHQ-9: PHQ-9 Score PHQ-9: Total score 5 10/21/24 00:54 Depression Screening Interpretation: Negative (Depression and anxiety controlled with sertraline) Thrive Assessment: Date of Thrive Assessment Date Thrive assessed 10/17/24 10/17/24 12:06 Currently or been in a relationship where the following occur: No concerns reported and I choose not to answer Const General: comfortable, no acute distress and alert Orientation/consciousness: patient oriented x3 HENMT Ears: external ears normal General nose exam: Normal external nose present Face and sinus: Yes face symmetric Mouth: Normal oral and palatal mucosa present, oropharynx normal and moist mucous membranes Eyes General: appearance normal, both eyes and all related structures Neck Neck: Yes full ROM, Yes no lymphadenopathy and Yes supple Chest Breast/axilla palpation: normal palpation of the breasts Resp Effort & Inspection: normal respiratory effort and able to speak in complete sentences Auscultation: clear to auscultation bilaterally Cardio Other: S1-S2 present regular rate and rhythm Rate: regular rate Rhythm: regular rhythm Heart sounds: S1 normal heart sound present and S2 normal heart sound present GI Palpation (GI): Soft to palpation, nontender, no guarding and no masses Auscultation: normal bowel sounds General: Yes no CVA tenderness Back/Spine/Pelvis Back: no CVA tenderness and No back tenderness Skin Other: Erythematous bumps scattered on arms, legs and back General skin exam: dry skin Neuro General: patient oriented x3 Extrem General: Yes full ROM, Yes no joint enlargement, Yes no clubbing, cyanosis or edema, Yes no calf tenderness and Yes normal gait Psych Appearance: grossly normal and well kempt Mental Status: mental status grossly normal Speech and movement: Normal speech and movement present and Clear speech present Affect: normal affect Coding Level of Care Code Est Pt Prev Care 40-64y(44190) Diagnoses Annual visit for general adult medical examination with abnormal findings Z. Dry skin dermatitis L85.3 Recurrent major depressive disorder, in remission F33.40 Active/Remission status: in remission of unspecified degree Depression Type: major depressive disorder Major depression recurrence: recurrent Essential hypertension I10 Lumbar degenerative disc disease M51.36 GERD (gastroesophageal reflux disease) K21.9 Additional Codes ANNA-7 Assessment Billing - ANNA-7 Assessment Tool: ANNA-7 Assessment 78209 ([id number]) PHQ-9 - 13997 - PHQ-9 Billing: Yes ([id number]) Assessment & Plan Assessment & Plan (1) Annual visit for general adult medical examination with abnormal findings: Code(s): Z00.01 - Encounter for general adult medical examination with abnormal findings Plan: Will check appropriate labs. Recommended dental visit every 6 months and regular eye exams, at least every 2 years. Take adequate calcium in diet and vitamin-D 3 at 2000 IU per cap once a day, in addition to weight-bearing exercises to help maintain good muscle tone and weight control. Instructed to do self-breast exam, and yearly mammogram ordered and referred to [facility] for routine Pap and pelvic exam. She already had her screening colonoscopies and is not due until 2026 . Up-to-date with her flu vaccine but does not want to get COVID booster, up-to-date with Tdap, reminded to get her shingles vaccination, given at the pharmacy. (2) Dry skin dermatitis: Code(s): L85.3 - Xerosis cutis Category: Medical Plan: Advised to moisturize well after bathing, referred to dermatology for further evaluation management (3) Depression: Code(s): F32.9 - Major depressive disorder, single episode, unspecified Category: Medical Qualifiers: Active/Remission status: in remission of unspecified degree Depression Type: major depressive disorder Major depression recurrence: recurrent Qualified Code(s): F33.40 - Major depressive disorder, recurrent, in remission, unspecified Plan: Continue sertraline (4) Essential hypertension: Code(s): I10 - Essential (primary) hypertension Category: Medical Plan: Blood pressure at goal of less than 130/80. Continue with current medication. Reinforced importance of following a low sodium diet, getting regular exercise, and lowering stress levels. (5) Lumbar degenerative disc disease: Code(s): M51.36 - Other intervertebral disc degeneration, lumbar region Category: Medical Plan: Currently followed by [facility] pain management clinic (6) GERD (gastroesophageal reflux disease): Code(s): K21.9 - Gastro-esophageal reflux disease without esophagitis Category: Medical Plan: Continued on omeprazole Orders: Orders Aspartate Amino Transferase 10/17/24 F32.9 - Major depressive disorder, single episode, unspecified, I10 - Essential (primary) hypertension, Z13.1 - Encounter for screening for diabetes mellitus Basic Metabolic Panel Fasting 04/16/25 I10 - Essential (primary) hypertension MM tomosynthesis screening BI 10/17/24 Z12.31 - Encounter for screening mammogram for malignant neoplasm of breast Lipid Panel 10/17/24 F32.9 - Major depressive disorder, single episode, unspecified, I10 - Essential (primary) hypertension, Z13.1 - Encounter for screening for diabetes mellitus Basic Metabolic Panel Fasting 10/17/24 F32.9 - Major depressive disorder, single episode, unspecified, I10 - Essential (primary) hypertension, Z13.1 - Encounter for screening for diabetes mellitus Alanine Aminotransferase 10/17/24 F32.9 - Major depressive disorder, single episode, unspecified, I10 - Essential (primary) hypertension, Z13.1 - Encounter for screening for diabetes mellitus Vitamin D 25-OH Total 10/17/24 F32.9 - Major depressive disorder, single episode, unspecified, I10 - Essential (primary) hypertension, Z13.1 - Encounter for screening for diabetes mellitus Lipid Panel 04/16/25 I10 - Essential (primary) hypertension Alanine Aminotransferase 04/16/25 I10 - Essential (primary) hypertension Aspartate Amino Transferase 04/16/25 I10 - Essential (primary) hypertension Referrals CERTIFIED NUTRITIONIST Referral Z87.42 - Personal history of other diseases of the female genital tract Dermatology Referral L85.3 - Xerosis cutis
[2024-10-17 12:02] VITALS: BP 122/80; PULSE 58; RESP 16; TEMP 36.7; O2SAT 96; BMI 29.3
--- OUTSIDE RECORDS SUMMARY | 2024-10-17 14:04 | XMS_ITS | Encounter Summary ---
Author Organization [facility], Address [address] [place] [address] Phone Care Team Providers Care Cad Designer Drafter Name Role Phone Alexei Wahl MD Primary Care Provider [phone]- [phone] Reason for Visit * Reason Onset Date Comments Med Refill 09/29/2024 Encounter Details Date Type Department Care Team (Late st Contact Info) Description 09/29/2024 Refill [facility], [address] [place] [address] Lindsay Pleitez [place] [address] [place] [address] Social History Tobacco Use Types Packs/Day Years Used Date Smoking Tobacco: Never Assessed Comments Unknown Sex and Gender Information Value Date Recorded Sex Assigned at Not on file Legal Sex Female 2:37 PM EDT Gender Identity Not on file Sexual Orientation Not on file documented as of this encounter Plan of Treatment Not on file documented as of this encounter Visit Diagnoses Not on filedocumented in this encounter Care Teams Cad Designer Drafter Relationship Specialty Start Date End Date Alexei Wahl MD [address] [place] [address] PCP - General Internal Medicine 03/05/23 documented as of this encounter
--- OUTSIDE RECORDS SUMMARY | 2024-10-17 14:04 | XMS_ITS | Clinical Summary ---
Author Organization [facility], Address [address] [place] [address] Phone Care Team Providers Care Server Support Technician Name Role Phone Alexei Wahl MD Primary Care Provider +1- [phone] Allergies Active Allergy Reactions Criticality Noted Date Comments Lactose GI intolerance 03/08/2023 Peanut-Containing Drug Products 02/14 [place] Flavoring Agent (Non-Screening) Hives 03/08/2023 Tramadol 03/08/2023 Medications sertraline (ZOLOFT) 50 MG tablet Take 50 mg by mouth 1 (one) time each day Active tiZANidine (ZANAFLEX) 4 MG tablet Take 4 mg by mouth every 6 (six) hours if needed for muscle spasms Active pantoprazole (PROTONIX) 40 MG EC tablet Take 40 mg by mouth 1 (one) time each day before breakfast Do not crush, chew, or split. Active ondansetron ODT (ZOFRAN-ODT) 4 MG dispersible tablet Take 1 tablet (4 mg total) by mouth every 8 (eight) hours if needed for nausea or vomiting 20 tablet 3 3 Active losartan (Cozaar) 50 MG tablet Take 1 tablet (50 mg total) by mouth 1 (one) time each day 30 tablet 11 5 09/29/19 26 Active losartan (Cozaar) 50 MG tablet Take 1 tablet (50 mg total) by mouth 1 (one) time each day 30 tablet 11 3 09/29/19 25 Discontinu ed(Reorder (does not appear on AVS)) Active Problems Problem Noted Date Diagnosed Date Hypertension 03/08/2023 Encounters Date Type Department Care Team Description 09/29/2024 Telephone [facility], [address] [place] [address] Lindsay Pleitez MA 09/29/2024 Refill [facility], [address] [place] [address] Lindsay Pleitez MA from Last 3 Months Social History Tobacco Use Types Packs/Day Years Used Date Smoking Tobacco: Never Assessed Comments Unknown Sex and Gender Information Value Date Recorded Sex Assigned at Not on file Legal Sex Female 2:37 PM EDT Gender Identity Not on file Sexual Orientation Not on file Plan of Treatment Health Maintenance Due Date Last Done Comments Breast Cancer Screening 1964 Pneumococcal Vaccine: Pediat rics (0 to 5 Years) and At-Risk Patients (6 to 64 Years) (1 of 2 - PCV) 1970 Colorectal Cancer Screening: Annual FOBT 2013 Colorectal Cancer Screening: Colonoscopy 2013 Colorectal Cancer Screening: Sigmoidoscopy 2013 Influenza Vaccine (#1) 2024 Hepatitis B Vaccine Aged Out No longe r eligible based on patient's age to complete this topic Insurance [facility] Care Teams Server Support Technician Relationship Specialty Start Date End Date Alexei Wahl MD [address] [place] [address] PCP - General Internal Medicine 03/05/23
--- OUTSIDE RECORDS SUMMARY | 2024-10-17 14:04 | XMS_ITS | Encounter Summary ---
Author Organization [facility] Address [address] [place] [address] Phone Care Team Providers Care Radio Despatcher Name Role Phone Alexei Wahl MD Primary Care Provider [phone]- [phone] Encounter Details Date Type Department Care Team (Late st Contact Info) Description 09/29/2024 Telephone [facility], [address] [place] [address] Lindsay Pleitez [place] [address] [place] [address] Social History Tobacco Use Types Packs/Day Years Used Date Smoking Tobacco: Never Assessed Comments Unknown Sex and Gender Information Value Date Recorded Sex Assigned at Not on file Legal Sex Female 2:37 PM EDT Gender Identity Not on file Sexual Orientation Not on file documented as of this encounter Miscellaneous Notes * Telephone Encounter - Lindsay Pleitez MA - 09/29/2024 1:04 PM EST Left vm to call us to reschedule an appt documented in this encounter Plan of Treatment Not on file documented as of this encounter Visit Diagnoses Not on filedocumented in this encounter Care Teams Radio Despatcher Relationship Specialty Start Date End Date Alexei Wahl MD [address] [place], [place] PCP - General Internal Medicine 03/05/23 documented as of this encounter
--- OUTSIDE RECORDS SUMMARY | 2024-10-17 14:04 | XMS_ITS | Clinical Summary ---
Author Organization [facility] [address] [place] [address] [place] [address] [place] Phone Care Team Providers Care Veneer Patcher Name Role Phone Unavailable Primary Care Provider Unavailabl e Social History Tobacco Use Types Packs/Day Years Used Date Smoking Tobacco: Never Assessed Comments Unknown Sex and Gender Information Value Date Recorded Sex Assigned at Not on file Legal Sex Female 6:26 PM EST Gender Identity Not on file Sexual Orientation Not on file Plan of Treatment Health Maintenance Due Date Last Done Comments Breast Cancer Screening 1964 DTaP,Tdap,and Td Vaccines (1 - Tdap) 1983 Cervical Cancer Screening: P ap Smear 1985 Pneumococcal Vaccine: 50+ Ye ars (1 of 1 - PCV) 2014 Zoster Vaccines (1 of 2) 2014 COVID-19 Vaccine ( - 2023-2 5 season) 2024 Influenza Vaccine (#1) 2024 RSV Immunization Patients 60 + Years Old (1 - 1-dose 75+ series) 2039 HIB Vaccines Aged Out No longer eligi ble based on patient's age to complete this topic HPV Vaccines Aged Out No longer eligi ble based on patient's age to complete this topic Hepatitis A Vaccines Aged Out No long er eligible based on patient's age to complete this topic Hepatitis B Vaccines Aged Out No long er eligible based on patient's age to complete this topic IPV Vaccines Aged Out No longer eligi ble based on patient's age to complete this topic MMR Vaccines Aged Out No longer eligi ble based on patient's age to complete this topic Meningococcal ACWY Vaccine Aged Out N o longer eligible based on patient's age to complete this topic Meningococcal B Vacine Aged Out No lo nger eligible based on patient's age to complete this topic Pneumococcal Vaccine: Pediat rics (0 to 5 Years) and At-Risk Patients (6 to 64 Years) Aged Out No longer eligible b ased on patient's age to complete this topic RSV Immunization Patients Un pamela 20 months Aged Out No longer eligible b ased on patient's age to complete this topic Varicella Vaccines Aged Out No longer eligible based on patient's age to complete this topic
--- OUTSIDE RECORDS SUMMARY | 2024-10-17 14:04 | XMS_ITS | Encounter Summary ---
Author Organization [facility], Address [address] [place] [address] Phone Care Team Providers Care Nailhead Setter Name Role Phone Alexei Wahl MD Primary Care Provider +1- [phone] Encounter Details Date Type Department Care Team (Late st Contact Info) Description 03/12/2023 Documentation Only [facility], [address] [place] [address] Modesto Plasencia MD [address] [place] [address] Social History Tobacco Use Types Packs/Day Years [...] on filedocumented in this encounter Care Teams Nailhead Setter Relationship Specialty Start Date End Date Alexei Wahl MD [address] [place] [address] PCP - General Internal Medicine 03/05/23 documented as of this encounter
--- OUTSIDE RECORDS SUMMARY | 2024-10-17 14:04 | XMS_ITS | Encounter Summary ---
Author Organization [facility] Address [address] [place] [address] Phone Care Team Providers Care Desk Reporter Name Role Phone Alexei Wahl MD Primary Care Provider +1- [phone] Encounter Details Date Type Department Care Team (Late st Contact Info) Description 03/05/2023 Documentation Only [facility], [address] [place] [address] Alexei Wahl MD [facility] [place] [address] Social History Tobacco Use Types Packs/Day Years [...] on filedocumented in this encounter Care Teams Desk Reporter Relationship Specialty Start Date End Date Alexei Wahl MD [address] [place] [address] PCP - General Internal Medicine 03/05/23 documented as of this encounter
--- OUTSIDE RECORDS SUMMARY | 2024-10-17 14:04 | XMS_ITS | Encounter Summary ---
Author Organization [facility] Address [address] [place] [address] Phone Care Team Providers Care Subscription Crew Leader Name Role Phone Alexei Wahl MD Primary Care Provider +1- [phone] Encounter Details Date Type Department Care Team (Late st Contact Info) Description 04/05/2023 Documentation Only [facility] [place], [address] [place] [address] Modesto Plasencia MD [address] [place] [address] Social History Tobacco Use Types [...] on filedocumented in this encounter Care Teams Subscription Crew Leader Relationship Specialty Start Date End Date Alexei Wahl MD [facility] [place] [address] PCP - General Internal Medicine 03/05/23 documented as of this encounter
== END 2024-10-17 14:18 | disposition home or self-care (01) ==
PROVIDERS: PCP Internal Medicine; Visit Provider Internal Medicine
DX: Z00.01 Encounter for general adult medical examination with abnormal findings (principal); L85.3 Xerosis cutis; F33.40 Major depressive disorder, recurrent, in remission, unspecified; I10 Essential (primary) hypertension; M51.369 Other intervertebral disc degeneration, lumbar region without mention of lumbar back pain or lower extremity pain; K21.9 Gastro-esophageal reflux disease without esophagitis

== ENCOUNTER → 2024-10-17 11:09 | Outpatient (BNVA) | payer MEDICARE, BC, SELFPAY | PROVIDERS: PCP Internal Medicine; Visit Provider Internal Medicine | DX: Z00.01 Encounter for general adult medical examination with abnormal findings (principal); L85.3 Xerosis cutis; F33.40 Major depressive disorder, recurrent, in remission, unspecified; I10 Essential (primary) hypertension; K21.9 Gastro-esophageal reflux disease without esophagitis | CPT/HCPCS: 96127; 99396 ==

== ENCOUNTER 2024-12-07 11:55 | Outpatient (AMB) | payer MEDICARE, BC, SELFPAY ==
[2024-12-07 12:45] VITALS: BP 130/84; PULSE 57; TEMP 36.7; O2SAT 97
--- NOTE | 2024-12-07 12:45 | AM.OFFWIN_ITS ---
Intake Vital Signs 12/07/24 12:45 Weight 156 lb BP 130/84 Blood Pressure Location Rt brachial Position Sitting Pulse 57 Pulse Source Pulse Oximeter Temp 98.1 F Temp Source Oral Pulse Oximetry (%) 97 Oxygen Delivery Method Room Air Intake Visit Reasons: EP Sore throat Intake Note: Patient here for sore throat that has been present for 3 weeks. she states she was treated for strep with antibiotics and finished it and is still having symptoms. Patient Tobacco Use Status: Never used Tobacco Allergies peanut [Peanut] Allergy (Mild, Verified 12/07/24 13:03) AVOIDS PREFERANCE strawberry [[place]] Allergy (Mild, Verified 12/07/24 13:03) HIVES lactose [Lactose] Adverse Reaction (Mild, Verified 12/07/24 13:03) STOMACH UPSET tramadol Adverse Reaction (Unknown, Verified 12/07/24 13:03) severe headaches Do you need a note to return to daycare/school/sports/work: No HPI HPI Comments History of Present Illness Details 59 y/o Female patient who presents to [facility] walk in clinic with c/o Sore- throat x 3 weeks. She was seen at a local Urgent Care then and diagnosed with Strept Throat. She received Augmentin for 10 days. Today Patient reports that symptoms have return, where her throat hurts to swallow. Denies fevers, chills, nausea or vomiting. [facility] Medical History (Updated 12/07/24 @ 14:02 by Geraldine Holley NP) Acute pharyngitis Dry skin dermatitis History of dysfunctional uterine bleeding Hx of endometriosis GERD (gastroesophageal reflux disease) HTN (hypertension) Essential hypertension Hx of TIA (transient ischemic attack) and stroke Sinus mucosal thickening Colitis Idiopathic thrombocytopenia Heartburn Chronic low back pain Spondyloarthropathy of lumbar spine Eczema of both hands Dermatitis Anxiety Depression Lumbar back pain with radiculopathy affecting right lower extremity IBS (irritable bowel syndrome) Surgical History History of esophagogastroduodenoscopy (EGD) H/O colonoscopy History of surgery History of partial hysterectomy History of tubal ligation Family History Father IBS (irritable bowel syndrome) Myocardial infarction Mother Arthritis Maternal Aunt Breast cancer Sister Substance use disorder Sister Substance use disorder Mental health disorder Sister Mental health disorder Sister No problems noted. Sister No problems noted. Son No problems noted. Son No problems noted. Son No problems noted. Son No problems noted. Social History Household Members: Spouse Household Members Other:: son Housing: House Do you presently have visiting nurse or other home services: No Alcohol intake: never Patient Tobacco Use Status: Never used Tobacco e-Cigarette/Vaping Use: Never Used Second Hand Smoke Exposure: Yes service: No Current occupational status: employed Cognitive needs: No Hearing needs: No Vision needs: Yes Physical Exam Vital Signs: Last Vital Signs Temp 98.1 F 12/07/24 12:45 Pulse 57 12/07/24 12:45 BP 130/84 12/07/24 12:45 Pulse Ox 97 12/07/24 12:45 Oxygen Delivery Method Room Air 12/07/24 12:45 Const General: no acute distress Nutritional Appearance: overweight Orientation/consciousness: patient oriented x3 HEENT Head: Yes normocephalic Mouth: moist mucous membranes and Abnormal oral and palatal mucosa present erythematous; not edematous, no hematomas and no white patches Throat: Yes uvula midline, Yes abnormal tonsil (Tonsils enlarged +3 ) and Yes postnasal drainage Neuro General: patient oriented x3 Assessment & Plan Assessment & Plan (1) Acute pharyngitis: Code(s): J02.9 - Acute pharyngitis, unspecified Qualifiers: Pharyngitis/tonsillitis etiology: unspecified etiology Qualified Code(s): J02.9 - Acute pharyngitis, unspecified Plan: Rapid Strep Negative. Ordered Prednisone to help with enlarged tonsils. F/U with PCP for possible ENT referral. Medications: New prednisone 20 mg PO DAILY 5 tabs 0RF 5 days J02.9 - Acute pharyngitis, unspecified Coding Level of Care Code Est Pt Level 4 (64145) Diagnoses Acute pharyngitis, unspecified etiology J02.9 Pharyngitis/tonsillitis etiology: unspecified etiology Time Spent (min) 20
--- OUTSIDE RECORDS SUMMARY | 2024-12-07 14:16 | XMS_ITS | Encounter Summary ---
Author Organization [facility] [place], Address [address] [place] [address] Phone Care Team Providers Care Milk Pickup Driver Name Role Phone Alexei Wahl MD Primary Care Provider +1- [phone] Encounter Details Date Type Department Care Team (Late st Contact Info) Description 04/05/2023 Documentation Only [facility] [place], [address] [place] [address] Modesto Plasencia MD [address] [place] [address] Social History Tobacco Use Types [...] on filedocumented in this encounter Care Teams Milk Pickup Driver Relationship Specialty Start Date End Date Alexei Wahl MD [facility] [place] [address] PCP - General Internal Medicine 03/05/23 documented as of this encounter
--- OUTSIDE RECORDS SUMMARY | 2024-12-07 14:16 | XMS_ITS | Clinical Summary ---
Author Organization [facility] [place], Address [address] [place] [address] Phone Care Team Providers Care Photo Stylist Name Role Phone Alexei Wahl MD Primary Care Provider +1- [phone] Allergies Active Allergy Reactions Criticality Noted Date Comments Lactose GI intolerance 03/08/2023 Peanut-Containing Drug Products 02/14 [place] Flavoring Agent (Non-Screening) Hives 03/08/2023 Tramadol 03/08/2023 [...] 30 tablet 11 5 09/29/19 26 Active Active Problems Problem Noted Date Diagnosed Date Hypertension 03/08/2023 Encounters Date Type Department Care Team Description 09/29/2024 Telephone [facility] [place], [address] [place] [address] Lindsay Pleitez MA 09/29/2024 Refill [facility] [address] [place] [address] Lindsay Pleitez MA from Last 3 Months [...] Comments Breast Cancer Screening 1964 Pneumococcal Vaccine: 50+ Ye ars (1 of 2 - PCV) 1983 Colorectal Cancer Screening: Annual FOBT 2013 Colorectal Cancer Screening: Colonoscopy 2013 Colorectal Cancer Screening: Sigmoidoscopy 2013 Influenza Vaccine (Season Ended) 2025 Hepatitis B Vaccine Aged Out No longe r eligible based on patient's age to complete this topic Insurance [facility] Care Teams Photo Stylist Relationship Specialty Start Date End Date Alexei Wahl MD [address] [place] [address] PCP - General Internal Medicine 03/05/23
--- OUTSIDE RECORDS SUMMARY | 2024-12-07 14:16 | XMS_ITS | Clinical Summary ---
Author Organization [facility] [address] [place] [address] [place] [address] [place] Phone Care Team Providers Care Ladle Repairman Name Role Phone Unavailable Primary Care Provider [...] - 2023-2 5 season) 2024 Influenza Vaccine (Season Ended) 2025 RSV Immunization Adult Patie nts (1 - 1-dose 75+ series) 2039 HIB [...] age to complete this topic Meningococcal B Vaccine Aged Out No l onger eligible based on patient's age to complete [...]
--- OUTSIDE RECORDS SUMMARY | 2024-12-07 14:16 | XMS_ITS | Encounter Summary ---
Author Organization [facility] Address [address] [place] [address] Phone Care Team Providers Care Weaver Tire Cord Name Role Phone Alexei Wahl MD Primary Care Provider +1- [phone] Encounter Details Date Type Department Care Team (Late st Contact Info) Description 03/05/2023 Documentation Only [facility] [place], [address] [place] [address] Alexei Wahl MD [facility] [place] [address] Social History Tobacco Use Types Packs/Day Years [...] on filedocumented in this encounter Care Teams Weaver Tire Cord Relationship Specialty Start Date End Date Alexei Wahl MD [address] [place] [address] PCP - General Internal Medicine 03/05/23 documented as of this encounter
--- OUTSIDE RECORDS SUMMARY | 2024-12-07 14:16 | XMS_ITS | Encounter Summary ---
Author Organization [facility] [place], Address [address] [place] [address] Phone Care Team Providers Care Polygraph Examiner Name Role Phone Alexei Wahl MD Primary Care Provider +1- [phone] Encounter Details Date Type Department Care Team (Late st Contact Info) Description 03/12/2023 Documentation Only [facility] [place], [address] [place] [address] Modesto Plasencia MD [address] [place] [address] Social History Tobacco Use Types [...] on filedocumented in this encounter Care Teams Polygraph Examiner Relationship Specialty Start Date End Date Alxeei Wahl MD [place] [address] PCP - General Internal Medicine 03/05/23 documented as of this encounter
== END 2024-12-07 14:19 | disposition home or self-care (01) ==
PROVIDERS: PCP Internal Medicine; Visit Provider Nurse Practitioner Family
DX: Z13.9 Encounter for screening, unspecified (principal); J02.9 Acute pharyngitis, unspecified

== ENCOUNTER → 2024-12-07 11:55 | Outpatient (BNVA) | payer MEDICARE, BC, SELFPAY | PROVIDERS: PCP Internal Medicine; Visit Provider Nurse Practitioner Family | DX: J02.9 Acute pharyngitis, unspecified (principal) | CPT/HCPCS: 87880; 99212 ==

== ENCOUNTER 2024-12-27 09:28 | Outpatient (AMB) | payer MEDICARE, BC, SELFPAY ==
[2024-12-27 09:31] VITALS: BP 130/80; PULSE 80; TEMP 36.7; O2SAT 98; BMI 28.0
--- NOTE | 2024-12-27 09:31 | AM.OFFWIN_ITS ---
Intake Vital Signs 12/27/24 09:31 Height 5 ft 2 in Weight 153 lb BMI 28.0 BP 130/80 Blood Pressure Location Rt brachial Position Sitting Pulse 80 Pulse Source Pulse Oximeter Temp 98.1 F Temp Source Oral Pulse Oximetry (%) 98 Oxygen Delivery Method Room Air Intake Visit Reasons: EP pain on LT side ? bladder infection Patient Tobacco Use Status: Never used Tobacco Allergies peanut [Peanut] Allergy (Mild, Verified 12/27/24 09:31) AVOIDS PREFERANCE strawberry [[place]] Allergy (Mild, Verified 12/27/24 09:31) HIVES lactose [Lactose] Adverse Reaction (Mild, Verified 12/27/24 09:31) STOMACH UPSET tramadol Adverse Reaction (Unknown, Verified 12/27/24 09:31) severe headaches Do you need a note to return to daycare/school/sports/work: No HPI HPI Comments History of Present Illness Details History of Present Illness - The patient is a 59-year-old female pr esenting with urinary symptoms and back pain. - Urinary issues started during a trip t o [place] last week, with a noted strong odor in her urine despite increased hydration upon returning home. - Back pain noted to be severe, differin g from her chronic back issue, commenced the day prior and impacted her breathing. - No urinary burning, hematuria, or subs tantial abdominal pain noted, though minor abdominal cramping occurred. - Recent history of a sore throat treate d with prednisone, with subsequent development of lymphadenopathy in the neck region. - The patient routinely experiences naus ea and utilizes ondansetron as required. States she has been evaluated for it but no doc knows why she has nausea episodes. PCP usually fills for her but she ran out. Physical Exam General: Cooperative, healthy appearing, comfortable, no acute distress and well developed Orientation: Patient oriented x3 Limitations: No limitations Head: Normal to inspection Ears: Hearing grossly normal bilaterally Nose: Normal External nose present Face and sinus: Normal facial exam Eyes: Appearance normal, both eyes and all related structures Neck: palpable right sided cervical lymph node noted, full rom Respiratory: Normal respiratory effort and able to speak in complete sentences. Skin: No rashes or lesions noted Neuro: Patient oriented x3 Extremities: Normal to inspection [facility] Medical History (Updated 12/27/24 @ 10:02 by Tanna Rojas PA-C) Acute pharyngitis Dry skin dermatitis History of dysfunctional uterine bleeding Hx of endometriosis GERD (gastroesophageal reflux disease) HTN (hypertension) Essential hypertension Hx of TIA (transient ischemic attack) and stroke Sinus mucosal thickening Colitis Idiopathic thrombocytopenia Heartburn Chronic low back pain Spondyloarthropathy of lumbar spine Eczema of both hands Dermatitis Anxiety Depression Lumbar back pain with radiculopathy affecting right lower extremity IBS (irritable bowel syndrome) Surgical History History of esophagogastroduodenoscopy (EGD) H/O colonoscopy History of surgery History of partial hysterectomy History of tubal ligation Family History Father IBS (irritable bowel syndrome) Myocardial infarction Mother Arthritis Maternal Aunt Breast cancer Sister Substance use disorder Sister Substance use disorder Mental health disorder Sister Mental health disorder Sister No problems noted. Sister No problems noted. Son No problems noted. Son No problems noted. Son No problems noted. Son No problems noted. Social History Household Members: Spouse Household Members Other:: son Housing: House Do you presently have visiting nurse or other home services: No Alcohol intake: never Patient Tobacco Use Status: Never used Tobacco e-Cigarette/Vaping Use: Never Used Second Hand Smoke Exposure: Yes service: No Current occupational status: employed Cognitive needs: No Hearing needs: No Vision needs: Yes Review of Systems Const All systems reviewed & are unremarkable except as noted in HPI and below Physical Exam Vital Signs: Last Vital Signs Temp 98.1 F 12/27/24 09:31 Pulse 80 12/27/24 09:31 BP 130/80 12/27/24 09:31 Pulse Ox 98 12/27/24 09:31 Oxygen Delivery Method Room Air 12/27/24 09:31 BMI result Body Mass Index 28.0 Results AMB Urinalysis, Automated UA Leukoctes 15 Rocael/uL Last Edit by Trey Cardona CMA on 12/27/24 09:53 UA Nitrite Negative Last Edit by Trey Cardona CMA on 12/27/24 09:53 UA Urobilinogen 0.2 mg/dL Last Edit by Trey Cardona CMA on 12/27/24 09 :53 UA Protein 0 mg/dL Last Edit by Trey Cardona CMA on 12/27/24 09:53 UA pH 6.0 Last Edit by Trey Cardona CMA on 12/27/24 09:53 UA Blood 0 Kota/uL Last Edit by Trey Cardona CMA on 12/27/24 09:53 UA Specific [place] 1.015 Last Edit by Trey Cardona CMA on 12/27/24 09:53 UA Ketone Negative Last Edit by Trey Cardona CMA on 12/27/24 09:53 UA Bilirubin 0 mg/dL Last Edit by Trey Cardona CMA on 12/27/24 09:53 UA Glucose 0 mg/dL Last Edit by Trey Cardona CMA on 12/27/24 09:53 Results Reviewed Results Reviewed: Laboratory Last Values Urine pH (Auto) 6.0 12/27/24 09:53 Specific [place] (Auto) 1.015 12/27/24 09:53 Urine Protein (Auto) 0 mg/dL 12/27/24 09:53 Glucose (UA)(Auto) 0 mg/dL 12/27/24 09:53 Urine Ketones (Auto) Negative 12/27/24 09:53 Urine Blood (Auto) 0 Kota/uL 12/27/24 09:53 Urine Nitrite (Auto) Negative 12/27/24 09:53 Urine Bilirubin (Auto) 0 mg/dL 12/27/24 09:53 Urine Urobilinogen (Auto) 0.2 mg/dL 12/27/24 09:53 Leukocyte Esterase (Auto) 15 Rocael/uL 12/27/24 09:53 Assessment & Plan Assessment & Plan (1) UTI (urinary tract infection): Code(s): N39.0 - Urinary tract infection, site not specified Qualifiers: Hematuria presence: without hematuria Urinary tract infection type: acute cystitis Qualified Code(s): N30.00 - Acute cystitis without hematuria Plan: UA + 15Leuks, neg blood. The patient has been prescribed cefuroxime for five days to address the suspected urinary tract infection, with instructions for maintaining hydration. A urine culture is being conducted to confirm the infection and ensure proper antibiotic selection. To prevent absorption interference, the patient will switch acid-reducing medication from Prilosec to Tums. She was informed about possible kidney stones, with instructions to seek emergency care if symptoms worsen despite antibiotic treatment. Additionally, ondansetron has been pre scribed for nausea control. Patient was informed and verbally consented to the use of an ambient scribe for clinic note documentation during this visit. (2) Cervical lymphadenopathy: Code(s): R59.0 - Localized enlarged lymph nodes Plan: Regarding the swollen lymph node post-prednisone treatment, observation is advised and a follow-up is recommended if it persists. Orders: Orders AMB Urinalysis Automated Today Z13.9 - Encounter for screening, unspecified Urine Culture Today N39.0 - Urinary tract infection, site not specified Medications: New ondansetron 4 mg PO Q8H PRN 10 tabs 0RF nausea and vomiting cefuroxime axetil 500 mg PO Q12H 10 tabs 0RF Coding Level of Care Code Est Pt Level 4 (33075) Diagnoses Acute cystitis without hematuria N30.00 Hematuria presence: without hematuria Urinary tract infection type: acute cystitis Cervical lymphadenopathy R59.0
--- OUTSIDE RECORDS SUMMARY | 2024-12-27 10:01 | XMS_ITS | Encounter Summary ---
Author Organization [facility] [place], Address [address] [place] [address] Phone Care Team Providers Care Production Control Expediter Name Role Phone Alexei Wahl MD Primary Care Provider +1- [phone] Encounter Details Date Type Department Care Team (Late st Contact Info) Description 03/12/2023 Documentation Only [facility] [place], [address] [address] Modesto Plasencia MD [address] [place] [address] Social History Tobacco Use Types [...] on filedocumented in this encounter Care Teams Production Control Expediter Relationship Specialty Start Date End Date Alexei Wahl MD [facility] [address] PCP - General Internal Medicine 03/05/23 documented as of this encounter
--- OUTSIDE RECORDS SUMMARY | 2024-12-27 10:01 | XMS_ITS | Clinical Summary ---
Author Organization [facility] [place], Address [address] [place] [address] Phone Care Team Providers Care Geomagnetist Name Role Phone Alexei Wahl MD Primary Care Provider +1- [phone] Allergies Active Allergy Reactions Criticality Noted Date Comments Lactose GI intolerance 03/08/2023 Peanut-Containing Drug Products 02/14 [place] Flavoring Agent (Non-Screening) Hives 03/08/2023 Tramadol 03/08/2023 [...] Telephone [facility] [place], [address] [place] [address] Lindsay Pleitez MA 09/29/2024 Refill [facility] [address] [place] [address] Lindsay Pleitez MA from Last 3 Months [...] patient's age to complete this topic Insurance [facility] Care Teams Geomagnetist Relationship Specialty Start Date End Date Alexei Wahl MD [address] [place] [address] PCP - General Internal Medicine 03/05/23
--- OUTSIDE RECORDS SUMMARY | 2024-12-27 10:01 | XMS_ITS | Clinical Summary ---
Author Organization [facility] [address] [place] [address] [place] [address] [place] Phone Care Team Providers Care Drop Machine Operator Name Role Phone Unavailable Primary Care Provider [...]
--- OUTSIDE RECORDS SUMMARY | 2024-12-27 10:02 | XMS_ITS | Encounter Summary ---
Author Organization [facility] Address [address] [place] [address] Phone Care Team Providers Care Ceramic Artist Name Role Phone Alexei Wahl MD Primary Care Provider +1- [phone] Encounter Details Date Type Department Care Team (Late st Contact Info) Description 03/05/2023 Documentation Only [facility] [place], [address] [place] [address] Alexei Wahl MD [place] [address] Social History Tobacco Use Types Packs/Day Years [...] on filedocumented in this encounter Care Teams Ceramic Artist Relationship Specialty Start Date End Date Alexei Wahl MD [address] [place] [address] PCP - General Internal Medicine 03/05/23 documented as of this encounter
--- OUTSIDE RECORDS SUMMARY | 2024-12-27 10:02 | XMS_ITS | Encounter Summary ---
Author Organization [facility] Address [address] [place] [address] Phone Care Team Providers Care Clinical Assessment Manager Name Role Phone Alexei Wahl MD Primary Care Provider +1- [phone] Encounter Details Date Type Department Care Team (Late st Contact Info) Description 04/05/2023 Documentation Only [facility] [place], [address] [place] [address] Modesto Plasencia MD [address] [place] [address] Social History Tobacco Use Types [...] on filedocumented in this encounter Care Teams Clinical Assessment Manager Relationship Specialty Start Date End Date Alexei Wahl MD [facility] [place] [address] PCP - General Internal Medicine 03/05/23 documented as of this encounter
== END 2024-12-27 10:01 | disposition home or self-care (01) ==
PROVIDERS: PCP Internal Medicine; Visit Provider Physician Assistant
DX: N30.00 Acute cystitis without hematuria (principal); R59.0 Localized enlarged lymph nodes; Z13.9 Encounter for screening, unspecified

== ENCOUNTER 2024-12-27 09:28 | Outpatient (REF) | payer MEDICARE, BC, SELFPAY ==
--- OUTSIDE RECORDS SUMMARY | 2024-12-27 10:39 | XMS_ITS | Encounter Summary ---
Author Organization [facility] [place], Address [address] [place] [address] Phone Care Team Providers Care Cocoa Milling Machine Operator Name Role Phone Alexei Wahl MD Primary Care Provider +1- [phone] Encounter Details Date Type Department Care Team (Late st Contact Info) Description 03/12/2023 Documentation Only [facility] [place], [address] [place] [address] Modesto Plasencia MD [address] [place] [address] Social History Tobacco Use Types [...] on filedocumented in this encounter Care Teams Cocoa Milling Machine Operator Relationship Specialty Start Date End Date Alexei Wahl MD [facility] [place] [address] PCP - General Internal Medicine 03/05/23 documented as of this encounter
--- OUTSIDE RECORDS SUMMARY | 2024-12-27 10:39 | XMS_ITS | Clinical Summary ---
Author Organization [facility] [place], Address [address] [place] [address] Phone Care Team Providers Care Glassware Maker Demonstrator Name Role Phone Alexei Wahl MD Primary Care Provider +1- [phone] Allergies Active Allergy Reactions Criticality Noted Date Comments Lactose GI intolerance 03/08/2023 Peanut-Containing Drug Products 02/14 [place] Flavoring Agent (Non-Screening) Hives 03/08/2023 Tramadol 03/08/2023 [...] Telephone [facility] [place], [address] [place] [address] Lindsay Pleitez MA 09/29/2024 Refill [facility] [address] [place] [address] Lindsay Pleitez MA from Last 3 Months [...] patient's age to complete this topic Insurance [facility] Care Teams Glassware Maker Demonstrator Relationship Specialty Start Date End Date Alexei Wahl MD [address] [place] [address] PCP - General Internal Medicine 03/05/23
--- OUTSIDE RECORDS SUMMARY | 2024-12-27 10:39 | XMS_ITS | Encounter Summary ---
Author Organization [facility] Address [address] [place] [address] Phone Care Team Providers Care Elastic Attacher Coverstitch Name Role Phone Alexei Wahl MD Primary Care Provider +1- [phone] Encounter Details Date Type Department Care Team (Late st Contact Info) Description 03/05/2023 Documentation Only [facility] [place], [address] [place] [address] Alexei Wahl MD [facility] [place] [address] Social History Tobacco Use Types Packs/Day Years [...] on filedocumented in this encounter Care Teams Elastic Attacher Coverstitch Relationship Specialty Start Date End Date Alexei Wahl MD [address] [place] [address] PCP - General Internal Medicine 03/05/23 documented as of this encounter
--- OUTSIDE RECORDS SUMMARY | 2024-12-27 10:39 | XMS_ITS | Clinical Summary ---
Author Organization [facility] [address] [place] [address] [place] [address] [place] Phone Care Team Providers Care Web Assistant Name Role Phone Unavailable Primary Care Provider [...]
--- OUTSIDE RECORDS SUMMARY | 2024-12-27 10:40 | XMS_ITS | Encounter Summary ---
Author Organization [facility] Address [address] [place] [address] Phone Care Team Providers Care Cabin Man Name Role Phone Alexei Wahl MD Primary Care Provider [phone] Encounter Details Date Type Department Care Team (Late st Contact Info) Description 04/05/2023 Documentation Only [facility], [address] [place] [address] Modesto Plasencia MD [address] [place] [address] Social History Tobacco Use Types [...] on filedocumented in this encounter Care Teams Cabin Man Relationship Specialty Start Date End Date Alexei Wahl MD [facility] [place] [address] PCP - General Internal Medicine 03/05/23 documented as of this encounter
== END 2024-12-27 09:29 | disposition home or self-care (01) ==
LOC: HO.LAB 09:28
PROVIDERS: PCP Internal Medicine
DX: N30.00 Acute cystitis without hematuria (principal); R59.0 Localized enlarged lymph nodes
CPT/HCPCS: 81003; 87086; 87088; 87186; 99212

== ENCOUNTER 2025-01-12 09:32 | Outpatient (REF) | payer MEDICARE, BC, SELFPAY ==
--- OUTSIDE RECORDS SUMMARY | 2025-01-12 09:53 | XMS_ITS | Clinical Summary ---
Author Organization [facility] [address] [place] [address] [place] [address] [place] Phone Care Team Providers Care Airline Station Agent Name Role Phone Unavailable Primary Care Provider [...]
[2025-01-12 14:18] LABS: Alanine Aminotransferase 23 U/L (0-31); Anion Gap 10 (12-20); Aspartate Amino Transferase 31 U/L (5-31); Blood Urea Nitrogen 14 mg/dL (9-16); Calcium 9.3 mg/dL (8.4-10.2); Carbon Dioxide 29 mmol/L (22-29); Chloride 105 mmol/L (96-108); Cholesterol 235 mg/dL (<200); Estimated Glomerular Filt Rate > 60; Glucose Fasting 91 mg/dL (60-99); HDL Cholesterol 36 mg/dL (>40); LDL Cholesterol Calculated 139 mg/dL (<100); Potassium 3.6 mmol/L (3.3-5.1); Sodium 140 mmol/L (135-145); Triglycerides 304 mg/dL (<150)
== END 2025-01-12 09:33 | disposition home or self-care (01) ==
LOC: HO.HMGCLDS 09:32
PROVIDERS: PCP Internal Medicine; Visit Provider Internal Medicine
DX: I10 Essential (primary) hypertension (principal); F32.9 Major depressive disorder, single episode, unspecified; Z13.1 Encounter for screening for diabetes mellitus
CPT/HCPCS: 36415; 80048; 80061; 82306; 84450; 84460

== ENCOUNTER 2025-01-29 09:58 | Outpatient (REF) | payer MEDICARE, BC, SELFPAY ==
--- NOTE | ~2025-01-29 | XR_ITS ---
EXAMINATION: XR FOREARM, RIGHT CLINICAL INFORMATION: S63.591A - Other specified sprain of right wrist, initial encounter COMPARISON: None available. TECHNIQUE: AP and lateral views of the right forearm were obtained. FINDINGS: The bones and soft tissues are normal. No fracture. Imaged portions of the elbow and wrist are unremarkable. XR/XR forearm RT 2V IMPRESSION: Unremarkable right forearm. Electronically signed by: Logan Abarca MD 01/29/2025 11:59 AM EDT
== END 2025-01-29 09:59 | disposition home or self-care (01) ==
LOC: HO.HMGCX 09:58
PROVIDERS: PCP Internal Medicine; Visit Provider Nurse Practitioner Family
DX: S63.591A Other specified sprain of right wrist, initial encounter (principal); X58.XXXA Exposure to other specified factors, initial encounter; Y93.9 Activity, unspecified; Y92.9 Unspecified place or not applicable; Y99.9 Unspecified external cause status
CPT/HCPCS: 73090; 99212

== ENCOUNTER 2025-01-29 09:58 | Outpatient (AMB) | payer MEDICARE, BC, MEDICAID, SELFPAY ==
--- NOTE | 2025-01-29 10:00 | AM.OFFWIN_ITS ---
Intake Vital Signs 01/29/25 10:01 Height 5 ft 2 in Weight 156 lb BMI 28.5 BP 118/82 Blood Pressure Location Lt brachial Position Sitting Pulse 58 Pulse Source Pulse Oximeter Temp 98.1 F Temp Source Oral Pulse Oximetry (%) 95 Oxygen Delivery Method Room Air Intake Visit Reasons: EP-rt hand pain Intake Note: Patient present with right hand pain that radiates up to mid arm x's 2 months Patient Tobacco Use Status: Never used Tobacco Allergies peanut [Peanut] Allergy (Mild, Verified 01/29/25 10:08) AVOIDS PREFERANCE strawberry [[place]] Allergy (Mild, Verified 01/29/25 10:08) HIVES lactose [Lactose] Adverse Reaction (Mild, Verified 01/29/25 10:08) STOMACH UPSET tramadol Adverse Reaction (Unknown, Verified 01/29/25 10:08) severe headaches Medication List - Last Reconciled 01/29/25 by Geraldine Holley NP acetaminophen ER (Tylenol Arthritis Pain) 650 mg PO Q12H amlodipine 5 mg PO DAILY sertraline 25 mg PO DAILY Do you need a note to return to daycare/school/sports/work: No HPI HPI Comments History of Present Illness Details 59 y/o Female patient who presents to [facility] in clinic with c/o right hand/wrist pain that radiates up to her fore-arm. Describes feeling Spams and rates the pain at 8/10 on pain-scale. Reports pain with movement and ROM. Reports that pain comes and goes for over a month now - and pain worse at Bedtime. [facility] Medical History (Updated 01/29/25 @ 10:29 by Geraldine Holley NP) Right wrist sprain Acute pharyngitis Dry skin dermatitis History of dysfunctional uterine bleeding Hx of endometriosis GERD (gastroesophageal reflux disease) HTN (hypertension) Essential hypertension Hx of TIA (transient ischemic attack) and stroke Sinus mucosal thickening Colitis Idiopathic thrombocytopenia Heartburn Chronic low back pain Spondyloarthropathy of lumbar spine Eczema of both hands Dermatitis Anxiety Depression Lumbar back pain with radiculopathy affecting right lower extremity IBS (irritable bowel syndrome) Surgical History History of esophagogastroduodenoscopy (EGD) H/O colonoscopy History of surgery History of partial hysterectomy History of tubal ligation Family History Father IBS (irritable bowel syndrome) Myocardial infarction Mother Arthritis Maternal Aunt Breast cancer Sister Substance use disorder Sister Substance use disorder Mental health disorder Sister Mental health disorder Sister No problems noted. Sister No problems noted. Son No problems noted. Son No problems noted. Son No problems noted. Son No problems noted. Social History Household Members: Spouse Household Members Other:: son Housing: House Do you presently have visiting nurse or other home services: No Alcohol intake: never Patient Tobacco Use Status: Never used Tobacco e-Cigarette/Vaping Use: Never Used Second Hand Smoke Exposure: Yes service: No Current occupational status: employed Cognitive needs: No Hearing needs: No Vision needs: Yes Review of Systems Const All systems reviewed & are unremarkable except as noted in HPI and below Physical Exam Vital Signs: Last Vital Signs Temp 98.1 F 01/29/25 10:01 Pulse 58 01/29/25 10:01 BP 118/82 01/29/25 10:01 Pulse Ox 95 01/29/25 10:01 Oxygen Delivery Method Room Air 01/29/25 10:01 BMI result Body Mass Index 28.5 Const General: no acute distress Orientation/consciousness: patient oriented x3 Skin General skin exam: no rashes or lesions noted Neuro General: patient oriented x3 Extrem Right upper extremity: wrist Details: normal to inspection, tenderness Location: of the distal radius and of the distal ulna, normal vascular exam, radial pulse present, ulnar pulse present, Tinel's negative and Phalen's negative; no swelling, no ecchymosis and no crepitus and Extremity exam: right hand Details: normal to inspection, normal capillary refill, normal ROM of fingers and no swelling; no crepitus Psych Speech and movement: Normal speech and movement present Assessment & Plan Assessment & Plan (1) Right wrist sprain: Code(s): S63.501A - Unspecified sprain of right wrist, initial encounter Qualifiers: Encounter type: initial encounter Wrist sprain location: other location Qualified Code(s): S63.591A - Other specified sprain of right wrist, initial encounter Plan: Ordered Xray Upper Arm Placed referral to Pain management for Cortisone shots. Ordered Flexeril Muscle Spasm Ordered Wrist Brace. Orders: Orders XR forearm RT 2V Today S63.591A - Other specified sprain of right wrist, initial encounter Referrals Pain Management Referral S63.591A - Other specified sprain of right wrist, initial encounter Medications: New cyclobenzaprine 10 mg PO BEDTIME 20 tabs 0RF S63.591A - Other specified sprain of right wrist, initial encounter Discontinued lidocaine 5% 1 patch topically up to 12 hours per day Discontinued Reason: Patient Completed Course 1 patch topical DAILY 30 days 30 ea 3RF Pain G89.29 - Other chronic pain, M47.816 - Spondylosis without myelopathy or radiculopathy, lumbar region, M51.36 - Other intervertebral disc degeneration, lumbar region, M53.3 - Sacrococcygeal disorders, not elsewhere classified, M54.50 - Low back pain, unspecified ondansetron Discontinued Reason: Patient Completed Course 4 mg PO Q8H PRN 10 tabs 0RF nausea and vomiting cefuroxime axetil Discontinued Reason: Patient Completed Course 500 mg PO Q12H 10 tabs 0RF Coding Level of Care Code Est Pt Level 4 (30857) Diagnoses Sprain of other part of right wrist, initial encounter S63.591A Encounter type: initial encounter Wrist sprain location: other location Time Spent (min) 20
[2025-01-29 10:01] VITALS: BP 118/82; PULSE 58; TEMP 36.7; O2SAT 95; BMI 28.5
--- OUTSIDE RECORDS SUMMARY | 2025-01-29 11:00 | XMS_ITS | Clinical Summary ---
Author Organization [facility] [address] [place] [address] [place] [address] [place] Phone Care Team Providers Care Bd Special Education Teacher Name Role Phone Unavailable Primary Care Provider [...]
== END 2025-01-29 10:38 | disposition home or self-care (01) ==
PROVIDERS: PCP Internal Medicine; Visit Provider Nurse Practitioner Family
DX: S63.591A Other specified sprain of right wrist, initial encounter (principal)

== ENCOUNTER → 2025-01-29 10:36 | Outpatient (BNV) | payer MEDICARE, BC, SELFPAY | PROVIDERS: PCP Internal Medicine; Visit Provider Radiology Diagnostic Radiology | DX: M79.601 Pain in right arm (principal) | CPT/HCPCS: 73090 ==

== ENCOUNTER 2025-02-12 09:39 | Outpatient (AMB) | payer MEDICARE, BC, MEDICAID, SELFPAY ==
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
[2025-02-12 09:43] VITALS: BP 189/87; PULSE 58; O2SAT 99; BMI 28.2
[2025-02-12 09:57] VITALS: BP 159/79
--- OUTSIDE RECORDS SUMMARY | 2025-02-12 10:02 | XMS_ITS | Clinical Summary ---
Author Organization [facility] [address] [place] [address] [place] [address] [place] Phone Care Team Providers Care Drilling Field Operator Name Role Phone Unavailable Primary Care [...]
== END 2025-02-12 09:57 | disposition home or self-care (01) ==
LOC: HO.PMC 09:39
PROVIDERS: PCP Internal Medicine; Visit Provider Nurse Practitioner Family
DX: S63.591A Other specified sprain of right wrist, initial encounter (principal); M79.631 Pain in right forearm; M51.369 Other intervertebral disc degeneration, lumbar region without mention of lumbar back pain or lower extremity pain; M53.3 Sacrococcygeal disorders, not elsewhere classified; M54.51 Vertebrogenic low back pain; M54.50 Low back pain, unspecified; G89.29 Other chronic pain; M47.816 Spondylosis without myelopathy or radiculopathy, lumbar region; M46.1 Sacroiliitis, not elsewhere classified
CPT/HCPCS: 99214; G2211

== ENCOUNTER → 2025-02-12 09:39 | Outpatient (BNVA) | payer MEDICARE, BC, MEDICAID, SELFPAY | PROVIDERS: PCP Internal Medicine; Visit Provider Nurse Practitioner Family | DX: M54.51 Vertebrogenic low back pain (principal); S63.501A Unspecified sprain of right wrist, initial encounter; M51.360 Other intervertebral disc degeneration, lumbar region with discogenic back pain only; M47.816 Spondylosis without myelopathy or radiculopathy, lumbar region; G89.29 Other chronic pain; Z79.01 Long term (current) use of anticoagulants | CPT/HCPCS: 99212 ==

== ENCOUNTER 2025-04-02 08:02 | Outpatient (REF) | payer MEDICARE, BC, MEDICAID, SELFPAY ==
--- OUTSIDE RECORDS SUMMARY | 2025-04-02 08:04 | XMS_ITS | Clinical Summary ---
Author Organization [facility] [address] [place] [address] [place] [address] [place] Phone Care Team Providers Care Learning Center Instructor Name Role Phone Unavailable Primary Care Provider [...] Vaccine ( - 2023-2 5 season) 2024 Depression Screening 08/16/2024 Influenza Vaccine (#1) 2025 RSV Immunization Adult Patie nts (1 [...]
--- OUTSIDE RECORDS SUMMARY | 2025-04-02 08:04 | XMS_ITS | Encounter Summary ---
Author Organization [facility], Address [address] [place] [address] Phone Care Team Providers Care Training And Documentation Specialist Name Role Phone Alexei Wahl MD Primary Care Provider [phone]- [phone] Encounter Details Date Type Department Care Team (Late st Contact Info) Description 03/12/2023 Documentation Only [facility], [address] [place] [address] Modesto Plasencia MD [address] [place] [address] Social History Tobacco Use Types [...] on filedocumented in this encounter Care Teams Training And Documentation Specialist Relationship Specialty Start Date End Date Alexei Wahl MD [address] [place] [id number] PCP - General Internal Medicine 03/05/23 documented as of this encounter
== END 2025-04-02 08:03 | disposition home or self-care (01) ==
LOC: HO.HOSX 08:02
DX: Z13.89 Encounter for screening for other disorder (principal)

== ENCOUNTER 2025-05-04 07:31 | Day surgery (SDC) | payer MEDICARE, BC, MEDICAID, SELFPAY ==
--- OUTSIDE RECORDS SUMMARY | 2025-04-05 07:03 | XMS_ITS | Encounter Summary ---
Author Organization [facility], Address [address] [place] [address] Phone Care Team Providers Care Copying Machine Repairer Name Role Phone Alexei Wahl MD Primary Care Provider [phone]- [phone] Encounter Details Date Type Department Care Team (Late st Contact Info) Description 03/12/2023 Documentation Only [facility], [address] [place] [address] Modesto Plasencia MD [address] [place] [address] Social History Tobacco Use Types [...] on filedocumented in this encounter Care Teams Copying Machine Repairer Relationship Specialty Start Date End Date Alexei Wahl MD [address] [place] [id number] PCP - General Internal Medicine 03/05/23 documented as of this encounter
[2025-04-18 15:20] VITALS: BMI 28.2
--- NOTE | 2025-04-19 10:16 | HO.ANESPROP2 ---
HPI - Anesthesia Eval Consult details Narrative: 59yo F for Right Therapeutic Sacroiliac Joint Steroid Injection PMFSH Active Problems Active Problems: All Active Problems Right forearm pain (Acute) Cervical lymphadenopathy (Acute) Chest pain (Acute) Vertebrogenic low back pain (Acute) Lumbar radiculopathy (Acute) Sacroiliitis (Acute) Sacroiliac joint pain (Acute) Lumbar degenerative disc disease (Acute) Right wrist sprain (Acute) Acute pharyngitis (Acute) Dry skin dermatitis (Acute) GERD (gastroesophageal reflux disease) (Acute) Essential hypertension (Acute) Idiopathic thrombocytopenia (Acute) Spondyloarthropathy of lumbar spine (Acute) Anxiety (Acute) Depression (Acute) Past Medical History Medical History Right wrist sprain Acute pharyngitis Dry skin dermatitis History of dysfunctional uterine bleeding Hx of endometriosis GERD (gastroesophageal reflux disease) HTN (hypertension) Essential hypertension Hx of TIA (transient ischemic attack) and stroke Sinus mucosal thickening Colitis Idiopathic thrombocytopenia Heartburn Chronic low back pain Spondyloarthropathy of lumbar spine Eczema of both hands Dermatitis Anxiety Depression Lumbar back pain with radiculopathy affecting right lower extremity IBS (irritable bowel syndrome) Family History Family History Father IBS (irritable bowel syndrome) Myocardial infarction Mother Arthritis Maternal Aunt Breast cancer Sister Substance use disorder Sister Substance use disorder Mental health disorder Sister Mental health disorder Sister No problems noted. Sister No problems noted. Son No problems noted. Son No problems noted. Son No problems noted. Son No problems noted. Family history of problems with anesthesia: No Surgical History Surgical History (Updated 04/18/25 @ 15:15 by Gale Bond RN) History of esophagogastroduodenoscopy (EGD) H/O colonoscopy History of surgery History of partial hysterectomy History of tubal ligation History of Problems with Anesthesia: No Social History Social History Household Members: Spouse Household Members Other:: son Housing: House Do you presently have visiting nurse or other home services: No Alcohol intake: never Patient Tobacco Use Status: Never used Tobacco e-Cigarette/Vaping Use: Never Used Second Hand Smoke Exposure: Yes service: No Current occupational status: employed Cognitive needs: No Hearing needs: No Vision needs: Yes Meds Allergies Allergy/AdvReac Type Severity Reaction Status Date / Time peanut (Peanut) Allergy Mild AVOIDS Verified 02/12/25 09:44 PREFERANCE strawberry ([place]) Allergy Mild HIVES Verified 02/12/25 09:44 lactose (Lactose) AdvReac Mild STOMACH Verified 02/12/25 09:44 UPSET tramadol AdvReac Unknown severe Verified 02/12/25 09:44 headaches Home Medications ?Medication ?Instructions ?Recorded ?Confirmed ?Last Taken ?Type acetaminophen 650 mg 650 mg PO Q12H 12/27/24 01/29/25 Unknown History tablet,extended release (Tylenol Arthritis Pain) sertraline 50 mg tablet 25 mg PO DAILY 12/27/24 04/18/25 Unknown History Exam Height,Weight and Vital Signs: Height 5 ft 2 in Weight 69.853 kg Assessment and Plan Assessment Anesthesia Assessment: Chart Reviewed Final Anesthetic Review Family History of Problems with Anesthesia: No History of Problems with Anesthesia: No
--- NOTE | 2025-05-02 13:03 | HO.ANESPROP2 ---
Documented by User: Hansa Galeas NP 05/02/25 13:04 HPI - Anesthesia Eval Consult details Narrative: 59yo F for Right Therapeutic Sacroiliac Joint Steroid Injection PMFSH Active Problems Active Problems: All Active Problems Right forearm pain (Acute) Cervical lymphadenopathy (Acute) Chest pain (Acute) Vertebrogenic low back pain (Acute) Lumbar radiculopathy (Acute) Sacroiliitis (Acute) Sacroiliac joint pain (Acute) Lumbar degenerative disc disease (Acute) Right wrist sprain (Acute) Acute pharyngitis (Acute) Dry skin dermatitis (Acute) GERD (gastroesophageal reflux disease) (Acute) Essential hypertension (Acute) Idiopathic thrombocytopenia (Acute) Spondyloarthropathy of lumbar spine (Acute) Anxiety (Acute) Depression (Acute) Past Medical History Medical History Right wrist sprain Acute pharyngitis Dry skin dermatitis History of dysfunctional uterine bleeding Hx of endometriosis GERD (gastroesophageal reflux disease) HTN (hypertension) Essential hypertension Hx of TIA (transient ischemic attack) and stroke Sinus mucosal thickening Colitis Idiopathic thrombocytopenia Heartburn Chronic low back pain Spondyloarthropathy of lumbar spine Eczema of both hands Dermatitis Anxiety Depression Lumbar back pain with radiculopathy affecting right lower extremity IBS (irritable bowel syndrome) Family History Family History Father IBS (irritable bowel syndrome) Myocardial infarction Mother Arthritis Maternal Aunt Breast cancer Sister Substance use disorder Sister Substance use disorder Mental health disorder Sister Mental health disorder Sister No problems noted. Sister No problems noted. Son No problems noted. Son No problems noted. Son No problems noted. Son No problems noted. Family history of problems with anesthesia: No Surgical History Surgical History (Updated 04/18/25 @ 15:15 by Gale Bond RN) History of esophagogastroduodenoscopy (EGD) H/O colonoscopy History of surgery History of partial hysterectomy History of tubal ligation History of Problems with Anesthesia: No Social History Social History Household Members: Spouse Household Members Other:: son Housing: House Do you presently have visiting nurse or other home services: No Alcohol intake: never Patient Tobacco Use Status: Never used Tobacco e-Cigarette/Vaping Use: Never Used Second Hand Smoke Exposure: No Use of substances other than those prescribed or required for medical reasons: No Have you been hit, kicked, punched, or otherwise hurt by someone within the past year? If so, by whom?: No Advance Directives: No Advance Directives Information Provided: Yes Patient : No : No Poor oral hygiene: No service: No Current occupational status: employed Cognitive needs: No Hearing needs: No Vision needs: Yes Meds Allergies Allergy/AdvReac Type Severity Reaction Status Date / Time peanut (Peanut) Allergy Mild AVOIDS Verified 02/12/25 09:44 PREFERANCE strawberry ([place]) Allergy Mild HIVES Verified 02/12/25 09:44 lactose (Lactose) AdvReac Mild STOMACH Verified 02/12/25 09:44 UPSET tramadol AdvReac Unknown severe Verified 02/12/25 09:44 headaches Home Medications ?Medication ?Instructions ?Recorded ?Confirmed ?Last Taken ?Type acetaminophen 650 mg 650 mg PO Q12H 12/27/24 01/29/25 Unknown History tablet,extended release (Tylenol Arthritis Pain) sertraline 50 mg tablet 25 mg PO DAILY 12/27/24 04/18/25 05/04/25 History Exam Height,Weight and Vital Signs: Height 5 ft 2 in Weight 69.853 kg Assessment and Plan Assessment Anesthesia Assessment: Chart Reviewed Final Anesthetic Review Family History of Problems with Anesthesia: No History of Problems with Anesthesia: No Documented by User: Arlen Mackenzie MD 05/04/25 08:40 [facility] Past Medical History Medical History Right wrist sprain Acute pharyngitis Dry skin dermatitis History of dysfunctional uterine bleeding Hx of endometriosis GERD (gastroesophageal reflux disease) HTN (hypertension) Essential hypertension Hx of TIA (transient ischemic attack) and stroke Sinus mucosal thickening Colitis Idiopathic thrombocytopenia Heartburn Chronic low back pain Spondyloarthropathy of lumbar spine Eczema of both hands Dermatitis Anxiety Depression Lumbar back pain with radiculopathy affecting right lower extremity IBS (irritable bowel syndrome) Family History Family History Father IBS (irritable bowel syndrome) Myocardial infarction Mother Arthritis Maternal Aunt Breast cancer Sister Substance use disorder Sister Substance use disorder Mental health disorder Sister Mental health disorder Sister No problems noted. Sister No problems noted. Son No problems noted. Son No problems noted. Son No problems noted. Son No problems noted. Surgical History Surgical History (Updated 04/18/25 @ 15:15 by Gale Bond RN) History of esophagogastroduodenoscopy (EGD) H/O colonoscopy History of surgery History of partial hysterectomy History of tubal ligation Social History Social History Household Members: Spouse Household Members Other:: son Housing: House Do you presently have visiting nurse or other home services: No Alcohol intake: never Patient Tobacco Use Status: Never used Tobacco e-Cigarette/Vaping Use: Never Used Second Hand Smoke Exposure: No Use of substances other than those prescribed or required for medical reasons: No Have you been hit, kicked, punched, or otherwise hurt by someone within the past year? If so, by whom?: No Advance Directives: No Advance Directives Information Provided: Yes Patient : No : No Poor oral hygiene: No service: No Current occupational status: employed Cognitive needs: No Hearing needs: No Vision needs: Yes Meds Allergies Allergy/AdvReac Type Severity Reaction Status Date / Time peanut (Peanut) Allergy Mild AVOIDS Verified 02/12/25 09:44 PREFERANCE strawberry ([place]) Allergy Mild HIVES Verified 02/12/25 09:44 lactose (Lactose) AdvReac Mild STOMACH Verified 02/12/25 09:44 UPSET tramadol AdvReac Unknown severe Verified 02/12/25 09:44 headaches Home Medications ?Medication ?Instructions ?Recorded ?Confirmed ?Last Taken ?Type acetaminophen 650 mg 650 mg PO Q12H 12/27/24 01/29/25 Unknown History tablet,extended release (Tylenol Arthritis Pain) sertraline 50 mg tablet 25 mg PO DAILY 12/27/24 04/18/25 05/04/25 History Exam Airway Mallampati Class: II (missing teeth laterally, nothing loose) TM Dist: >3cm Neck ROM: Full Heart: rrr Lungs: cta Assessment and Plan Assessment Anesthesia Assessment: Anesthesia Plan Discussed Final Anesthetic Review NPO: Yes ASA Class: II Final Preanesthetic Review: No Changes in Pt Med Stat, Meds/Allgs Chart Reviewed and Consent Obtained/Reviewed Patient Risk: Low Procedure Risk: Intermediate Anesthetic Plan Anesthetic Plan: MAC: Disposition: Standard PACU
--- NOTE | ~2025-05-04 | FL_ITS ---
EXAMINATION: XR FLUOROSCOPY WITH IMAGES CLINICAL INFORMATION: SI joint pain management injection right side. COMPARISON: None available. TECHNIQUE: Fluoroscopy provided to: Dr. Mack Fluoroscopy time: 13 seconds DAP: [id number] [id number] Images: 3 FINDINGS: Prefluoroscopic spot images obtained during right SI joint pain management injection. Please refer to the full operative report for details. FL/FL guidance in OR IMPRESSION: Fluoroscopic guidance. Electronically signed by: Jay Diallo MD 05/04/2025 09:35 AM EDT
[2025-05-04 08:15] VITALS: BP 146/73; PULSE 61; RESP 16; TEMP 36.3; O2SAT 96
[2025-05-04] MEDS: Lactated Ringers 1,000 ML 100 ML IVCONT (08:16)
--- NOTE | 2025-05-04 08:51 | P.HPSUR_ITS ---
Pre-Procedural Eval Section A - 24 Hr Update-Section A only Date of Service: 05/04/25 The patient is an INPATIENT: No Changes since office visit: Yes Patient answered all questions The patient has been examined within 24 hours of the surgical procedure. The History & Physical has been completed within 30 days and I have reviewed it.: No Section B - Complete if H&P > 30 days Chief Complaint: Sacrococcygeal disorders,Sacroiliitis Details of Present Illness: as above Relevant Family History (Specify if Yes): No Relevant Social History: None Present Medications: None Medical History: No relevant PMH History of Previous Operations: Relevant previous surgery/procedure and date(s) Allergies: Allergies Allergy/AdvReac Type Severity Reaction Status Date / Time peanut (Peanut) Allergy Mild AVOIDS Verified 02/12/25 09:44 PREFERANCE strawberry ([place]) Allergy Mild HIVES Verified 02/12/25 09:44 lactose (Lactose) AdvReac Mild STOMACH Verified 02/12/25 09:44 UPSET tramadol AdvReac Unknown severe Verified 02/12/25 09:44 headaches Review of Systems Sugical H&P ROS: Negative: Constitution, Respiratory, Neurological, Allergic/Immunologic, Genitourinary, Integumentary, Endocrine and Eyes/Ears/Nose/Throat and Yes, Specify: Cardiovascular (HTN), Psychiatric (severe anxiety), Hem-Onc (idiopathic thrombocytopenia pletelets now 177K), [place] rointestinal (GERD) and Musculoskeletal (spondylosis secroiliac joint pain, vertebrogenic pain syndrome) Exam Surgical H&P Exam: Normal: HEENT, Normal: Heart, Normal: Lungs, Normal: Extremities, Normal: Abdomen, Normal: Skin and Normal: Neurological Plan Diagnosis/Plan: Unchanged I have reviewed the history and physical and performed a pertinent physical examination on my patient. No changes have occurred unless specified. Time Spent With Patient Time: Total time managing care of this patient today ____ minutes.
[2025-05-04 09:22] VITALS: BP 110/56; PULSE 60; RESP 12; TEMP 36.8; O2SAT 98
--- NOTE | 2025-05-04 09:33 | PM.OP ---
Brief Operative Note Date of Service: 05/04/25 Pre-op diagnosis: sacroiliitis right sacroiliac joint pain Post-op diagnosis: same Procedure: therapeutic sacroiliac joint injection. Surgeon: Sylvain Mack MD Was an Branch Store Manager used for this Procedure?: No Estimated blood loss (mL): 2 Condition: stable Disposition: PACU
--- NOTE | 2025-05-04 09:35 | P.OP_ITS ---
Operative Note Operative Note Date of Service: 05/04/25 Narrative: Right therapeutic Sacroiliac joint injection. Informed consent was explained thoroughly to the patient.? All questions about benefits and risks for the procedure were answered. Patient came to the operating room and was positioned prone on the operating table with the pillow under the abdomen.? ASA monitors were applied and the patient was sedated. The lower back and buttocks of the patient were prepped with ChloraPrep prepped and draped with sterile utility towels.? Sterilely draped C-arm was brought over the operating field and sq picture of patient's pelvis was demonstrated on the screen.? Forright joint tilting C-arm contralateral to the site of the joint the most posterior portion of the joints was superimposed with anterior joint silhouette of the joint.? Skin was injected in the projection of the joint slightly medial to the location of the joint with 25 gauge 1/2 inch needle using local lidocaine 2% mixed with ropivacaine 0.5% one to one. After that 22 gauge 3 and 1/2 inch needle was driven to the right joint in tunnel vision fashion.? When needle entered the joint capsule C arm was repositioned for the lateral view and injection of the contrast was performed demonstrating intra-articular and minimally periarticular spread of the contras t.? After that 5 cc. of ropivacaine 0.5% was injected into the joint. Upon completion of the injections the needles were removed, Band-Aids were applied.? Upon completion of the injection patient was taken outside of the operating room to the recovery room where recovered uneventfully.
[2025-05-04 09:37] VITALS: BP 111/44; PULSE 59; RESP 16; TEMP 36.4; O2SAT 96
== END 2025-05-04 10:16 | disposition home or self-care (01) ==
PROVIDERS: PCP Internal Medicine; Visit Provider Anesthesiology
PROC: 3E0U33Z Introduction of Anti-inflammatory into Joints, Percutaneous Approach (ICD-10-PCS; CPT 27096; principal; 2025-05-04 09:00)
DX: M53.3 Sacrococcygeal disorders, not elsewhere classified (principal); M46.1 Sacroiliitis, not elsewhere classified; G89.29 Other chronic pain; M54.51 Vertebrogenic low back pain; M54.16 Radiculopathy, lumbar region; M47.816 Spondylosis without myelopathy or radiculopathy, lumbar region; M51.369 Other intervertebral disc degeneration, lumbar region without mention of lumbar back pain or lower extremity pain; I10 Essential (primary) hypertension; Z86.73 Personal history of transient ischemic attack (TIA), and cerebral infarction without residual deficits; D69.3 Immune thrombocytopenic purpura; K21.9 Gastro-esophageal reflux disease without esophagitis; K52.9 Noninfective gastroenteritis and colitis, unspecified; F32.A Depression, unspecified; F41.9 Anxiety disorder, unspecified; Z79.1 Long term (current) use of non-steroidal anti-inflammatories (NSAID); Z79.899 Other long term (current) drug therapy; Z88.5 Allergy status to narcotic agent; Z91.010 Allergy to peanuts; Z91.011 Allergy to milk products; Z91.018 Allergy to other foods; Z98.890 Other specified postprocedural states
CPT/HCPCS: G0260; J1885; J2003; J2250; J2704; J2795; J3010; J3301; Q9967

== ENCOUNTER → 2025-05-04 07:31 | Outpatient (BNV) | payer MEDICARE, BC, MEDICAID, SELFPAY | PROVIDERS: PCP Internal Medicine; Visit Provider Anesthesiology | DX: M46.1 Sacroiliitis, not elsewhere classified (principal) | CPT/HCPCS: 27096 ==

== ENCOUNTER 2025-06-08 09:07 | Outpatient (AMB) | payer MEDICARE, BC, MEDICAID, SELFPAY ==
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
[2025-06-08 09:12] VITALS: BP 194/84; PULSE 56; O2SAT 97; BMI 32.9
--- OUTSIDE RECORDS SUMMARY | 2025-06-08 09:54 | XMS_ITS | Encounter Summary ---
Author Organization [facility] Address [address] [place] [address] Phone Care Team Providers Care Scallop Binder Name Role Phone Alexei Wahl MD Primary Care Provider [phone]- [phone] Encounter Details Date Type Department Care Team (Late st Contact Info) Description 03/05/2023 Documentation Only [facility] [place], [address] [place] [address] Alexei Wahl MD [address] [facility] [place] [address] Social History Tobacco Use Types Packs/Day Years [...] on filedocumented in this encounter Care Teams Scallop Binder Relationship Specialty Start Date End Date Alexei Wahl MD [address] [facility] [place] [address] PCP - General Internal Medicine 03/05/23 documented as of this encounter
--- OUTSIDE RECORDS SUMMARY | 2025-06-08 09:54 | XMS_ITS | Encounter Summary ---
Author Organization [facility] Address [address] [place] [address] Phone Care Team Providers Care Kitchen Food Assembler Name Role Phone Alexei Wahl MD Primary Care Provider [phone]- [phone] Encounter Details Date Type Department Care Team (Late st Contact Info) Description 04/05/2023 Documentation Only [facility] [place], [address] [place] [address] Modesto Plasencia MD [address] [place] [address] Social History Tobacco Use Types [...] on filedocumented in this encounter Care Teams Kitchen Food Assembler Relationship Specialty Start Date End Date Alexei Wahl MD [facility] [place] [address] PCP - General Internal Medicine 03/05/23 documented as of this encounter
--- OUTSIDE RECORDS SUMMARY | 2025-06-08 09:54 | XMS_ITS | Encounter Summary ---
Author Organization [facility] [place], Address [address] [place] [address] Phone Care Team Providers Care Resident Care Provider Name Role Phone Alexei Wahl MD Primary Care Provider +1- [phone] Encounter Details Date Type Department Care Team (Late st Contact Info) Description 03/12/2023 Documentation Only [facility] [place], [address] [place] [address] Modesto Plasencia MD [address] [place] [address] Social History Tobacco Use Types [...] on filedocumented in this encounter Care Teams Resident Care Provider Relationship Specialty Start Date End Date Alexei Wahl MD [address] [place] [id number] PCP - General Internal Medicine 03/05/23 documented as of this encounter
--- OUTSIDE RECORDS SUMMARY | 2025-06-08 09:54 | XMS_ITS | Clinical Summary ---
Author Organization [facility], Address [address] [place] [phone] Phone Care Team Providers Care Qm Nurse Name Role Phone Alexei Wahl MD Primary Care Provider +1- [phone] Allergies Active Allergy Reactions Criticality Noted Date Comments Lactose GI intolerance 03/08/2023 Peanut-Containing Drug Products 02/14 [place] Flavoring Agent (Non-Screening) Hives 03/08/2023 Tramadol 03/08/2023 [...] Problem Noted Date Diagnosed Date Hypertension 03/08/2023 Social History Tobacco Use Types Packs/Day Years [...] Cancer Screening: Sigmoidoscopy 2013 Influenza Vaccine (#1) 2025 Hepatitis B Vaccine Aged Out No longe r eligible based on patient's age to complete this topic Insurance [facility] Care Teams Qm Nurse Relationship Specialty Start Date End Date Alexei Wahl MD [address] [place] [address] PCP - General Internal Medicine 03/05/23
--- OUTSIDE RECORDS SUMMARY | 2025-06-08 09:54 | XMS_ITS | Clinical Summary ---
Author Organization [facility] [address] [place] [address] [place] [address] [place] Phone Care Team Providers Care Test Baker Name Role Phone Unavailable Primary Care Provider [...] 2014 Zoster Vaccines (1 of 2) 2014 Depression Screening 08/16/2024 COVID-19 Vaccine (1 - 2023-2 5 season) 2025 Influenza Vaccine (#1) 2025 RSV Immunization Adult [...]
== END 2025-06-08 09:34 | disposition home or self-care (01) ==
LOC: HO.PMC 09:08
PROVIDERS: PCP Internal Medicine; Visit Provider Nurse Practitioner Family
DX: M25.511 Pain in right shoulder (principal); M47.816 Spondylosis without myelopathy or radiculopathy, lumbar region; M51.369 Other intervertebral disc degeneration, lumbar region without mention of lumbar back pain or lower extremity pain; M53.3 Sacrococcygeal disorders, not elsewhere classified; M25.50 Pain in unspecified joint
CPT/HCPCS: 99214; G2211

== ENCOUNTER 2025-06-08 09:07 | Outpatient (REF) | payer MEDICARE, BC, MEDICAID, SELFPAY ==
--- NOTE | ~2025-06-08 | XR_ITS ---
EXAMINATION: XR SHOULDER, RIGHT CLINICAL INFORMATION: M25.511 - Pain in right shoulder COMPARISON: 06/13/2024. TECHNIQUE: AP external rotation, Grashey, scapular Y, and axillary views of the right shoulder. FINDINGS: Normal bone mineralization. No fracture, dislocation, or suspicious bone lesion. Normal alignment. The glenohumeral joint demonstrates minimal degenerative arthritis. The AC joint demonstrates mild predominately superior surface spurring. There is a type II acromion. No undersurface spurring. The subacromial space is preserved. Remainder of the soft tissue and bony structures appear normal. XR/XR shoulder RT min 2V IMPRESSION: 1. No acute bony or soft tissue abnormalities. 2. Minimal osteoarthritis in the glenohumeral joint, and mild changes in the AC joint. Electronically signed by: Jay Diallo MD 06/08/2025 11:55 AM EDT
== END 2025-06-08 09:08 | disposition home or self-care (01) ==
LOC: HO.HMGCX 09:07
PROVIDERS: PCP Internal Medicine; Visit Provider Nurse Practitioner Family
DX: G89.29 Other chronic pain (principal); M25.511 Pain in right shoulder; R22.31 Localized swelling, mass and lump, right upper limb; Z79.899 Other long term (current) drug therapy; M47.816 Spondylosis without myelopathy or radiculopathy, lumbar region; M53.3 Sacrococcygeal disorders, not elsewhere classified; M51.360 Other intervertebral disc degeneration, lumbar region with discogenic back pain only
CPT/HCPCS: 73030; 99212

== ENCOUNTER 2025-06-08 10:16 | Outpatient (AMB) | payer MEDICARE, BC, MEDICAID, SELFPAY ==
[2025-06-08 10:19] VITALS: BP 148/88; PULSE 71; TEMP 36.5; O2SAT 99; BMI 32.9
--- NOTE | 2025-06-08 10:19 | AM.OFFWIN_ITS ---
Intake Vital Signs 06/08/25 10:19 Height 5 ft 2 in Weight 180 lb BMI 32.9 BP 148/88 H Blood Pressure Location Lt brachial Position Sitting Pulse 71 Pulse Source Pulse Oximeter Temp 97.7 F Temp Source Oral Pulse Oximetry (%) 99 Oxygen Delivery Method Room Air Intake Visit Reasons: EP-rt shoulder pain & swollen Intake Note: Patient presents with c/o intermittent throbbing pain in right shoulder for a few weeks. Patient Tobacco Use Status: Never used Tobacco Allergies peanut (Peanut) Allergy (Mild, Verified 06/08/25 10:23) AVOIDS PREFERANCE strawberry ([place]) Allergy (Mild, Verified 06/08/25 10:23) HIVES lactose (Lactose) Adverse Reaction (Mild, Verified 06/08/25 10:23) STOMACH UPSET tramadol Adverse Reaction (Unknown, Verified 06/08/25 10:23) severe headaches Medication List - Last Reconciled 06/08/25 by Niki Teresa MD acetaminophen ER (Tylenol Arthritis Pain) 650 mg PO Q12H amlodipine 5 mg PO DAILY cyclobenzaprine 10 mg PO BEDTIME hydrocodone-acetaminophen 5-325 mg 1 tab PO BID PRN 10 days lidocaine 5% 1 patch topically; 30 days sertraline 25 mg PO DAILY HPI HPI Comments History of Present Illness Details History of Present Illness The patient is a 60-year-old female presenting with right shoulder pain. Right Shoulder Pain: - The pain began approximately a few wee ks prior to the visit. - The patient reports that the pain is c onstant but worsening primarily at night, describing it as throbbing and pinching in nature. - Initially localized to the shoulder, t he pain worsens with certain arm movements, particularly when lifting the arm. - The pain has progressively worsened, a ffecting her ability to perform certain movements such as lifting the arm. - She takes Tylenol Arthritis daily to m anage arthritis pain, which is contributing to her general pain management routine. - Patient follows with pain management. [facility] a right [facility] x-[facility]. - No reported history of trauma or speci fic inciting events related to this pain. - The patient experiences numbness in he r fingers (excluding the thumb) on the affected side, described as tingling, only when sleeping on her left side - A history of a fatty mass previously r emoved surgically under general anesthesia. - The patient acknowledges the recurrenc e of a similar mass or lipoma on her shoulder. Review of Systems - Musculoskeletal: Reports right shoulde r pain - Respiratory: Denies shortness of breat h. - General: Reports fatigue. - Neurologic: Tingling in fingers. Denie s numbness - Dermatological: Denies any new rashes. Physical Exam General Appearance: Normal appearance, well developed. No acute distress Head: Normocephalic, atraumatic Pulmonary: No respiratory distress. Speaking in full sentences Musculoskeletal: No ecchymosis or swelling noted of the right shoulder. No TTP of the clavicle, acromion, AC joint. TTP overlying the biceps tendon. Patient has limited ROM of the right shoulder. Reoccurance of soft, well circumscribed, flesh colored mass present along the right upper back. Small 1 cm nodule present along the right posterior shoulder. Sensation intact distally. Mental Status: Alert and Oriented x 3 Psychiatric: Normal mood. Normal affect. [facility] Medical History Right wrist sprain Acute pharyngitis Dry skin dermatitis History of dysfunctional uterine bleeding Hx of endometriosis GERD (gastroesophageal reflux disease) HTN (hypertension) Essential hypertension Hx of TIA (transient ischemic attack) and stroke Sinus mucosal thickening Colitis Idiopathic thrombocytopenia Heartburn Chronic low back pain Spondyloarthropathy of lumbar spine Eczema of both hands Dermatitis Anxiety Depression Lumbar back pain with radiculopathy affecting right lower extremity IBS (irritable bowel syndrome) Surgical History History of esophagogastroduodenoscopy (EGD) H/O colonoscopy History of surgery History of partial hysterectomy History of tubal ligation Family History Father IBS (irritable bowel syndrome) Myocardial infarction Mother Arthritis Maternal Aunt Breast cancer Sister Substance use disorder Sister Substance use disorder Mental health disorder Sister Mental health disorder Sister No problems noted. Sister No problems noted. Son No problems noted. Son No problems noted. Son No problems noted. Son No problems noted. Social History Household Members: Spouse Household Members Other:: son Housing: House Do you presently have visiting nurse or other home services: No Alcohol intake: never Patient Tobacco Use Status: Never used Tobacco e-Cigarette/Vaping Use: Never Used Second Hand Smoke Exposure: No service: No Current occupational status: employed Cognitive needs: No Hearing needs: No Vision needs: Yes Physical Exam Vital Signs: Last Vital Signs Temp 97.7 F 06/08/25 10:19 Pulse 71 06/08/25 10:19 BP 148/88 H 06/08/25 10:19 Pulse Ox 99 06/08/25 10:19 Oxygen Delivery Method Room Air 06/08/25 10:19 BMI result Body Mass Index 32.9 Assessment & Plan Assessment & Plan (1) Right shoulder pain: Code(s): M25.511 - Pain in right shoulder Qualifiers: Chronicity: acute Qualified Code(s): M25.511 - Pain in right shoulder (2) Mass of shoulder region: Code(s): R22.30 - Localized swelling, mass and lump, unspecified upper limb Plan - An x-ray was ordered by the pain management clinic for evaluation of right shoulder pain. - No acute changes noted upon personal review of xray - Symptoms appear 2/2 to muscular strain vs tendonitis based on location of pain and physical exam - Continue Tylenol Arthritis for analgesia. Consider the use of muscle relaxants such as Flexeril as needed to address potential muscular tension. Patient reports NDAIDS bother her stomach. - Advised further follow up with pain management - Nodule noted on the right posterior shoulder may be consistent with cyst or lipoma. Consider ultrasound to confirm findings. - Educated the patient on positional adjustments during sleep that might alleviate symptoms. Orders: Orders XR shoulder RT min 2V Today M25.511 - Pain in right shoulder Coding Level of Care Code Est Pt Level 3 (91904) Diagnoses Acute pain of right shoulder M25.511 Chronicity: acute Mass of shoulder region R22.30
== END 2025-06-08 12:23 | disposition home or self-care (01) ==
PROVIDERS: PCP Internal Medicine; Visit Provider Family Medicine
DX: M25.511 Pain in right shoulder (principal); R22.30 Localized swelling, mass and lump, unspecified upper limb
CPT/HCPCS: 99213

== ENCOUNTER → 2025-06-08 11:35 | Outpatient (BNV) | payer MEDICARE, BC, MEDICAID, SELFPAY | PROVIDERS: PCP Internal Medicine; Visit Provider Radiology Diagnostic Radiology | DX: M25.511 Pain in right shoulder (principal) | CPT/HCPCS: 73030 ==

== ENCOUNTER 2025-08-10 06:16 | Day surgery (SDC) | payer MEDICARE, BC, MEDICAID, SELFPAY ==
[2025-08-06 13:57] VITALS: BMI 27.8
--- NOTE | 2025-08-06 14:22 | HO.ANESPROP2 ---
Documented by User: Vale Henriquez NP 08/06/25 14:23 HPI - Anesthesia Eval Consult details Narrative: 60 yr old female for bilateral Diagnostic L3-L4-DR L5 Medial Branch Block GERD: on PPI PMFSH Active Problems Active Problems: All Active Problems (Updated 08/06/25 @ 14:04 by Sue Gonsalez, BENIGNO) Polyarthralgia (Acute) Right shoulder pain (Acute) Right forearm pain (Acute) Cervical lymphadenopathy (Acute) Chest pain (Acute) Vertebrogenic low back pain (Acute) Lumbar radiculopathy (Acute) Sacroiliitis (Acute) Sacroiliac joint pain (Acute) Lumbar degenerative disc disease (Acute) Right wrist sprain (Acute) Acute pharyngitis (Acute) Dry skin dermatitis (Acute) GERD (gastroesophageal reflux disease) (Acute) Essential hypertension (Acute) Idiopathic thrombocytopenia (Acute) Spondyloarthropathy of lumbar spine (Acute) Anxiety (Acute) Depression (Acute) Past Medical History Medical History (Updated 08/06/25 @ 14:04 by Sue Gonsalez RN) Hx-TIA (transient ischemic attack) (~2022) Right wrist sprain Acute pharyngitis Dry skin dermatitis History of dysfunctional uterine bleeding Hx of endometriosis GERD (gastroesophageal reflux disease) HTN (hypertension) Essential hypertension Hx of TIA (transient ischemic attack) and stroke Sinus mucosal thickening Colitis Idiopathic thrombocytopenia Heartburn Chronic low back pain Spondyloarthropathy of lumbar spine Eczema of both hands Dermatitis Anxiety Depression Lumbar back pain with radiculopathy affecting right lower extremity IBS (irritable bowel syndrome) Family History Family History Father IBS (irritable bowel syndrome) Myocardial infarction Mother Arthritis Maternal Aunt Breast cancer Sister Substance use disorder Sister Substance use disorder Mental health disorder Sister Mental health disorder Sister No problems noted. Sister No problems noted. Son No problems noted. Son No problems noted. Son No problems noted. Son No problems noted. Family history of problems with anesthesia: No Surgical History Surgical History History of esophagogastroduodenoscopy (EGD) H/O colonoscopy History of surgery History of partial hysterectomy History of tubal ligation History of Problems with Anesthesia: No Social History Social History (Updated 08/06/25 @ 14:02 by Sue Gonsalez RN) Household Members: Spouse Household Members Other:: son Housing: House Are you a primary respiratory care faculty to a significant other at home: Yes (grandchildren) Do you presently have visiting nurse or other home services: No Alcohol intake: never Patient Tobacco Use Status: Never used Tobacco e-Cigarette/Vaping Use: Never Used Second Hand Smoke Exposure: No Use of substances other than those prescribed or required for medical reasons: No Have you been hit, kicked, punched, or otherwise hurt by someone within the past year? If so, by whom?: No Are you DNR?: No Advance Directives: No (will bring dos) Advance Directives Information Provided: Yes Advance Directives on File: No service: No Current occupational status: employed Cognitive needs: No Hearing needs: No Vision needs: Yes Meds Allergies Allergy/AdvReac Type Severity Reaction Status Date / Time peanut (Peanut) Allergy Intermediate Hives Verified 08/06/25 14:00 strawberry ([place]) Allergy Mild HIVES Verified 08/06/25 14:00 tramadol AdvReac Severe severe Verified 08/06/25 14:00 headaches lactose (Lactose) AdvReac Mild STOMACH Verified 08/06/25 14:00 UPSET Home Medications ?Medication ?Instructions ?Recorded ?Confirmed ?Last Taken ?Type acetaminophen 650 mg 650 mg PO Q12H 12/27/24 08/06/25 Unknown History tablet,extended release (Tylenol Arthritis Pain) sertraline 50 mg tablet 25 mg PO DAILY 12/27/24 08/06/25 05/04/25 History omeprazole 20 mg capsule,delayed 20 mg PO DAILY PRN Acid Reflux 08/06/25 08/06/25 Unknown History release Exam Height,Weight and Vital Signs: Height 5 ft 2 in Weight 68.946 kg Pertinent Lab Results Pertinent Lab Results: Laboratory Tests 01/12/25 09:42 Sodium 140 Potassium 3.6 Chloride 105 BUN 14 Creatinine 0.65 Narrative Narrative: EKG 11/2023 Vent. Rate : 059 BPM Atrial Rate : 059 BPM P-R Int : 160 ms QRS Dur : 076 ms QT Int : 418 ms P-R-T Axes : 060 048 060 degrees QTc Int : 413 ms Sinus bradycardia Otherwise normal ECG When compared with ECG of 11-OCT-2023 11:51, No significant change was found Assessment and Plan Assessment Anesthesia Assessment: Chart Reviewed Final Anesthetic Review Family History of Problems with Anesthesia: No History of Problems with Anesthesia: No Documented by User: Faustino Taylor MD 08/10/25 07:13 [facility] Past Medical History Medical History (Updated 08/06/25 @ 14:04 by Sue Gonsalez, BENIGNO) Hx-TIA (transient ischemic attack) (~2022) Right wrist sprain Acute pharyngitis Dry skin dermatitis History of dysfunctional uterine bleeding Hx of endometriosis GERD (gastroesophageal reflux disease) HTN (hypertension) Essential hypertension Hx of TIA (transient ischemic attack) and stroke Sinus mucosal thickening Colitis Idiopathic thrombocytopenia Heartburn Chronic low back pain Spondyloarthropathy of lumbar spine Eczema of both hands Dermatitis Anxiety Depression Lumbar back pain with radiculopathy affecting right lower extremity IBS (irritable bowel syndrome) Family History Family History Father IBS (irritable bowel syndrome) Myocardial infarction Mother Arthritis Maternal Aunt Breast cancer Sister Substance use disorder Sister Substance use disorder Mental health disorder Sister Mental health disorder Sister No problems noted. Sister No problems noted. Son No problems noted. Son No problems noted. Son No problems noted. Son No problems noted. Surgical History Surgical History History of esophagogastroduodenoscopy (EGD) H/O colonoscopy History of surgery History of partial hysterectomy History of tubal ligation Social History Social History (Updated 08/06/25 @ 14:02 by Sue Gonsalez RN) Household Members: Spouse Household Members Other:: son Housing: House Are you a primary respiratory care faculty to a significant other at home: Yes (grandchildren) Do you presently have visiting nurse or other home services: No Alcohol intake: never Patient Tobacco Use Status: Never used Tobacco e-Cigarette/Vaping Use: Never Used Second Hand Smoke Exposure: No Use of substances other than those prescribed or required for medical reasons: No Have you been hit, kicked, punched, or otherwise hurt by someone within the past year? If so, by whom?: No Are you DNR?: No Advance Directives: No (will bring dos) Advance Directives Information Provided: Yes Advance Directives on File: No service: No Current occupational status: employed Cognitive needs: No Hearing needs: No Vision needs: Yes Meds Allergies Allergy/AdvReac Type Severity Reaction Status Date / Time peanut (Peanut) Allergy Intermediate Hives Verified 08/06/25 14:00 strawberry ([place]) Allergy Mild HIVES Verified 08/06/25 14:00 tramadol AdvReac Severe severe Verified 08/06/25 14:00 headaches lactose (Lactose) AdvReac Mild STOMACH Verified 08/06/25 14:00 UPSET Home Medications ?Medication ?Instructions ?Recorded ?Confirmed ?Last Taken ?Type acetaminophen 650 mg 650 mg PO Q12H 12/27/24 08/06/25 Unknown History tablet,extended release (Tylenol Arthritis Pain) sertraline 50 mg tablet 25 mg PO DAILY 12/27/24 08/06/25 05/04/25 History omeprazole 20 mg capsule,delayed 20 mg PO DAILY PRN Acid Reflux 08/06/25 08/06/25 Unknown History release Exam Airway Mallampati Class: I TM Dist: <=3cm Neck ROM: Full Loose/Missing/Broken Teeth: No Heart: ok Lungs: ok Assessment and Plan Assessment Anesthesia Assessment: Anesthesia Plan Discussed Final Anesthetic Review NPO: Yes ASA Class: II Final Preanesthetic Review: No Changes in Pt Med Stat, Meds/Allgs Chart Reviewed, Consent Obtained/Reviewed and Anes Risks/Benef Reviewed Patient Risk: Intermediate Procedure Risk: Intermediate Anesthetic Plan Anesthetic Plan: MAC: and Agree w/ Assess. and Plan Disposition: Standard PACU
--- NOTE | ~2025-08-10 | FL_ITS ---
EXAMINATION: FL GUIDANCE ONLY HISTORY: MBB COMPARISON: None available. TECHNIQUE: Fluoroscopy time: 38.2 seconds. Cumulative Dose: 10.983 mGy. DAP: 4.0893 Gycm2 Images: 4. FINDINGS: Fluoroscopic spot films of the lumbar spine demonstrate contrast material in the regions of the bilateral L3-4, L4-5, and L5-S1 facet joints. FL/FL guidance in OR IMPRESSION: Fluoroscopy during procedure. Please see procedure report for additional information. Electronically signed by: Chi Ballard MD 08/13/2025 10:51 AM [facility]
[2025-08-10 06:21] VITALS: BMI 29.6
[2025-08-10 06:24] VITALS: BP 130/70; PULSE 72; RESP 16; TEMP 36.4; O2SAT 96
[2025-08-10] MEDS: Lactated Ringers 1,000 ML 100 ML IVCONT (06:45)
--- NOTE | 2025-08-10 07:10 | P.HPSUR_ITS ---
Pre-Procedural Eval Section A - 24 Hr Update-Section A only Date of Service: 08/10/25 The patient is an INPATIENT: No Changes since office visit: Yes Patient answered all questions The patient has been examined within 24 hours of the surgical procedure. The History & Physical has been completed within 30 days and I have reviewed it.: No Section B - Complete if H&P > 30 days Chief Complaint: Other intervertebral disc degeneration, lumbar Details of Present Illness: Spondylosis lumbar without myelopathy or radiculopathy Relevant Family History (Specify if Yes): No Relevant Social History: Other (specify) Present Medications: None Medical History: No relevant PMH History of Previous Operations: No relevant previous surgery Allergies: Allergies Allergy/AdvReac Type Severity Reaction Status Date / Time peanut (Peanut) Allergy Intermediate Hives Verified 08/06/25 14:00 strawberry ([place]) Allergy Mild HIVES Verified 08/06/25 14:00 tramadol AdvReac Severe severe Verified 08/06/25 14:00 headaches lactose (Lactose) AdvReac Mild STOMACH Verified 08/06/25 14:00 UPSET Review of Systems Sugical H&P ROS: Negative: Constitution, Respiratory, Neurological, Hem-Onc, Allergic/Immunologic, Gastrointestinal, Genitourinary, Integumentary, Endocrine and Eyes/Ears/Nose/Throat and Yes, Specify: Cardiovascular (HTN), Psychiatric (Anxiety depression) and Musculoskeletal (Spondylosis lumbar without myelopathy or radiculopathy) Exam Surgical H&P Exam: Normal: HEENT, Normal: Heart, Normal: Lungs, Normal: Extremities, Normal: Abdomen, Normal: Skin and Normal: Neurological Plan Diagnosis/Plan: Unchanged I have reviewed the history and physical and performed a pertinent physical examination on my patient. No changes have occurred unless specified. Time Spent With Patient Time: Total time managing care of this patient today ____ minutes.
[2025-08-10 08:00] VITALS: BP 134/64; PULSE 56; RESP 18; TEMP 36.6; O2SAT 95
--- NOTE | 2025-08-10 08:03 | PM.OP ---
Brief Operative Note Date of Service: 08/10/25 Pre-op diagnosis: Spondylosis lumbar without myelopathy or radiculopathy Post-op diagnosis: same Procedure: Diagnostic medial branch block L3, L4, dorsal ramus L5 bilateral. Surgeon: Sylvain Mack MD Anesthesia: MAC Was an Research And Development Scientist used for this Procedure?: No Estimated blood loss (mL): 0 Condition: stable Disposition: PACU
--- NOTE | 2025-08-10 08:04 | W.PM.OPN ---
Operative Note Operative Note Date of Service: 08/10/25 Narrative: Stephany is very pleasant 60 years old female who presents today in the operating room to perform bilateral diagnostic medial branch block L3, L4, dorsal ramus L5. Informed consent was thoroughly explained to the patient risks and benefits were explained. The patient was taken to the operating room and positioned prone on operating table. Time-out was performed delineating name and date of of the patient, allergies of the patient. ASA monitors were applied and patient was deeply sedated. Ketamine and fentanyl were avoided during the sedation. The lower back of the patient was prepped with ChloraPrep and draped with sterile self adhesive utility towels. C-arm was brought to the operating field and point of interest were delineated under C-arm view as confluence of the superior articular process of L4 vertebra with transfers process bilaterally, as well as confluence of the superior articular process of L5 vertebra with transfer process bilaterally as well as confluence of the superior articular process of S1 bilaterally with sacral ala. The point of interest projection to the skin were injected with small amount of lidocaine 1%. After that 22 gauge 3-1/2 inch [place]ke point spinal needle was advanced to were each point of interest under fluoroscopy guidance in tunnel vision fashion. When the tip of the needle gently contacted the bone injection of the contrast was performed delineating no intrathecal and no intravascular spread of the contrast. After that injection of the Naropin 0.5% into each needle positioned was performed no more than 1 mL. Upon completion of the injections needle was removed and sterile Band-Aids were applied. Patient tolerated the procedure well. She was awaken, transferred to the recovery room where recovered uneventfully.
[2025-08-10 08:15] VITALS: BP 136/64; PULSE 60; RESP 14; O2SAT 98
[2025-08-10 08:28] VITALS: BP 138/73; PULSE 57; RESP 14; TEMP 36.6; O2SAT 98
== END 2025-08-10 09:26 | disposition home or self-care (01) ==
PROVIDERS: PCP Internal Medicine; Visit Provider Anesthesiology
PROC: (CPT 64493; principal; 2025-08-10 07:30)
DX: M51.360 Other intervertebral disc degeneration, lumbar region with discogenic back pain only (principal); G89.29 Other chronic pain; M47.896 Other spondylosis, lumbar region; M54.16 Radiculopathy, lumbar region; M47.816 Spondylosis without myelopathy or radiculopathy, lumbar region; M53.3 Sacrococcygeal disorders, not elsewhere classified; M25.551 Pain in right hip; I10 Essential (primary) hypertension; D69.3 Immune thrombocytopenic purpura; Z88.5 Allergy status to narcotic agent; Z91.010 Allergy to peanuts; Z91.018 Allergy to other foods; Z86.73 Personal history of transient ischemic attack (TIA), and cerebral infarction without residual deficits
CPT/HCPCS: 64493; 64494; J2003; J2250; J2405; J2704; J2795; J3010; Q9967

== ENCOUNTER → 2025-08-10 06:16 | Outpatient (BNV) | payer MEDICARE, BC, MEDICAID, SELFPAY | PROVIDERS: PCP Internal Medicine; Visit Provider Anesthesiology | DX: M47.816 Spondylosis without myelopathy or radiculopathy, lumbar region (principal) | CPT/HCPCS: 64493; 64494 ==

== ENCOUNTER 2025-08-14 11:26 | Outpatient (AMB) | payer MEDICARE, BC, MEDICAID, SELFPAY ==
--- NOTE | 2025-08-14 11:29 | A.OFFVIS_ITS ---
Vital Signs 08/14/25 11:33 Height 5 ft 2 in Weight 160 lb BMI 29.3 BP 190/80 H Blood Pressure Location Rt brachial Position Sitting Pulse 69 Pulse Source Pulse Oximeter Pulse Oximetry (%) 98 Oxygen Delivery Method Room Air Intake Visit Reasons: S/p B/l Dx L3-L4-DRL5 MBB 08/10/25 Intake Note: Pain today 02/22 Rn Military Required: No Accompanied by: Self / Same As Patient Allergies peanut (Peanut) Allergy (Intermediate, Verified 08/14/25 11:33) Hives strawberry ([place]) Allergy (Mild, Verified 08/14/25 11:33) HIVES tramadol Adverse Reaction (Severe, Verified 08/14/25 11:33) severe headaches lactose (Lactose) Adverse Reaction (Mild, Verified 08/14/25 11:33) STOMACH UPSET HPI Comments Details: The patient is a 60 year old female presenting for a follow-up visit after undergoing bilateral diagnostic L3, L4, L5 injections on 08/10/25 for chronic back pain. She reports that immediately after the procedure, she had no pain or minimal pain 0-2/10 for 5-6 hours, but noted gradual return to baseline pain 6 hours after the injections. Patient reports improved functioning and mobility during diagnostic window for injections and interested to proceed with lumbar radiofrequency ablation for a longer term pain relief. Denies any recent cough, cold, infection, fever or any significant changes in medical history since last office visit. Past Procedures: 08/10/25: Bilateral Diagnostic L3-L4 DR L5 MBBs-85% pain relief for 6 hours 05/04/25: Right therapeutic Sacroiliac joint [id number]-24-59% pain relief 11/19/23: Interlaminar L3-L4 SAM injections-0% pain relief 07/29/23: Bilateral Therapeutic SIJ injections-100% for 3 days, 06/04/23: Bilateral Diagnostic SIJ injections-100% pain relief for 16 hours 01/07/23: Bilateral L4-L5 TFESI-80% pain relief for 3 months [facility] Medical History (Updated 08/14/25 @ 22:36 by TEJINDER Hunter) Chronic low back pain Hx-TIA (transient ischemic attack) (~2022) Right wrist sprain Acute pharyngitis Dry skin dermatitis History of dysfunctional uterine bleeding Hx of endometriosis GERD (gastroesophageal reflux disease) HTN (hypertension) Essential hypertension Hx of TIA (transient ischemic attack) and stroke Sinus mucosal thickening Colitis Idiopathic thrombocytopenia Heartburn Spondyloarthropathy of lumbar spine Eczema of both hands Dermatitis Anxiety Depression Lumbar back pain with radiculopathy affecting right lower extremity IBS (irritable bowel syndrome) Surgical History History of esophagogastroduodenoscopy (EGD) H/O colonoscopy History of surgery History of partial hysterectomy History of tubal ligation Family History Father IBS (irritable bowel syndrome) Myocardial infarction Mother Arthritis Maternal Aunt Breast cancer Sister Substance use disorder Sister Substance use disorder Mental health disorder Sister Mental health disorder Sister No problems noted. Sister No problems noted. Son No problems noted. Son No problems noted. Son No problems noted. Son No problems noted. Social History Household Members: Spouse Household Members Other:: son Housing: House Are you a primary resident care assistant to a significant other at home: Yes (grandchildren) Do you presently have visiting nurse or other home services: No Alcohol intake: never Patient Tobacco Use Status: Never used Tobacco e-Cigarette/Vaping Use: Never Used Second Hand Smoke Exposure: No service: No Current occupational status: employed Cognitive needs: No Hearing needs: No Vision needs: Yes Review of Systems Narrative Const All systems reviewed & are unremarkable except as noted in HPI and below Physical Exam Exam Exam: Vital Signs: Last Vital Signs Pulse 69 08/14/25 11:33 BP 190/80 H 08/14/25 11:33 Pulse Ox 98 08/14/25 11:33 Oxygen Delivery Method Room Air 08/14/25 11:33 BMI result Body Mass Index 29.3 General: Appears afebrile. Alert and oriented. Mood and affect appropriate. Follows and participates in conversation appropriately. Respiratory effort is unlabored. No cough. Able to transition from sit to stand unassisted. Back/Spine/Pelvis Other: Limited lumbar ROM due to pain. Lumbar extension reproduce moderate pain. Lumbar flexion and bending forward elicits mild to moderate pain. Positive facet loading bilaterally. Back: back tenderness Cervical Spine: cervical ROM normal and No Cervical spine tenderness Thoracic/Lumbar Spine: thoracic and lumbar spine normal to inspection, No Thoracic/lumbar spine scar(s), Lasegue's sign negative, straight leg raise negative bilaterally, pain with thoraco-lumbar ROM, paraspinal muscle tenderness, thoraco-lumbar ROM limited, No thoracic spinal tenderness and lumbar spinal tenderness (L4-S1) Sacroiliac joints: bilaterally tender to palpation (minimal ) Results Reviewed Results Reviewed: MR LUMBAR SPINE WITHOUT CONTRAST 09/06/23 CLINICAL INFORMATION: Lumbar radiculopathy COMPARISON: MRI lumbar spine 08/21/2020 FINDINGS: Slight levocurvature of the mid lumbar spine, apex at L3-L4. Straightening of the normal lumbar lordosis. Stable grade 1 retrolisthesis at L3-L4. Vertebral body heights are maintained. There is no suspicious osseous lesion. Multilevel disc desiccation with stable disc height loss, most pronounced and severe eccentric to the right at L3-L4 along the concavity of the levocurvature, and moderate eccentric to the left at L5-S1. Multilevel endplate Schmorl's nodes again seen, a couple which are larger in size along the opposing T12 and L1 endplates with new marginal endplate edema. Redemonstrated mixed type I/II Modic endplate change at L3-L4 and type I Modic endplate change on the left at L5-S1. Multilevel anterior osteophytic spurring is seen. Level by level detail as follows: L1-L2: No spinal canal or neural foraminal stenosis. L2-L3: Slight annular disc bulge and mild bilateral facet arthrosis. No spinal canal or neural foraminal stenosis. L3-L4: Redemonstrated retrolisthesis with right eccentric annular disc bulge and right lateral disc osteophyte. Mild bilateral facet arthrosis. No spinal canal stenosis. Redemonstrated right subarticular zone narrowing and abutment of the traversing right L4 nerve root. Stable mild right without left neural foraminal narrowing. L4-L5: Annular disc bulge eccentric to the left with mild to moderate bilateral facet arthrosis and ligamentum flavum thickening. No spinal canal stenosis, noting subarticular zone narrowing and abutment along the traversing right and possibly also left L5 nerve root. Stable mild bilateral neural foraminal stenosis. L5-S1: Annular disc bulge with redemonstrated central and left subarticular/foraminal disc protrusions with mild to moderate bilateral facet arthrosis. No spinal canal stenosis. Stable mild to moderate left neural foraminal stenosis. Patent right neural foramen. The conus medullaris terminates at the level of L1-L2. The distal spinal cord is normal in appearance. No epidural fluid collection, hematoma, or mass. No significant abnormalities of the paraspinal musculature. Retroaortic left renal vein. Hepatomegaly. The abdominal aorta is of normal contour and caliber. IMPRESSION: 1. Slight levocurvature of the mid lumbar spine and grade 1 retrolisthesis at L3-L4, unchanged. 2. Increased size of opposing endplate Schmorl's nodes with new marginal edema at T12-L1. 3. Stable lumbar spondylosis as above without significant spinal canal stenosis and varying degrees of mild neural foraminal encroachment without significant mass effect on the exiting nerve roots. 4. Hepatomegaly. Assessment & Plan Assessment & Plan (1) Spondyloarthropathy of lumbar spine: Code(s): M47.816 - Spondylosis without myelopathy or radiculopathy, lumbar region Category: Medical (2) Lumbar degenerative disc disease: Code(s): M51.36 - Other intervertebral disc degeneration, lumbar region Category: Medical (3) Sacroiliac joint pain: Code(s): M53.3 - Sacrococcygeal disorders, not elsewhere classified Category: Medical (4) Chronic low back pain: Code(s): M54.50 - Low back pain, unspecified; G89.29 - Other chronic pain Category: Medical Plan The patient's arthritic back pain was successfully identified with diagnostic L3, L4, and L5 medial branch blocks, to which she had a good response. Given the positive result, two procedural options were discussed: radiofrequency ablation (RFA) and peripheral nerve stimulation. The patient declined peripheral nerve stimulation because she did not want wires implanted and opted to proceed with RFA. Schedule bilateral L3-L4-L5 medial branch RFA with sedation and fluoroscopy. Expectations, risks and benefits were reviewed. Patient is aware she will be contacted to schedule this procedure. All questions and concerns have been answered and patient agreed with the treatment plan. Follow up after lumbar RFA and sooner as needed. Patient was informed and verbally consented to the use of an ambient scribe for clinic note documentation during this visit. Coding Level of Care Code Est Pt Level 3 (99485) Diagnoses Spondyloarthropathy of lumbar spine M47.816 Lumbar degenerative disc disease M51.36 Sacroiliac joint pain M53.3 Chronic low back pain M54.50; G89.29
[2025-08-14 11:33] VITALS: BP 190/80; PULSE 69; O2SAT 98; BMI 29.3
--- OUTSIDE RECORDS SUMMARY | 2025-08-14 15:28 | XMS_ITS | Clinical Summary ---
Author Organization [facility], Address [address] [place] [id number] Phone Care Team Providers Care It Web Development Consultant Name Role Phone Alexei Wahl MD Primary Care Provider +1- [phone] Allergies Active Allergy Reactions Criticality Noted Date Comments Lactose GI intolerance 03/08/2023 Peanut-Containing Drug Products 02/14 [place] Flavoring Agent (Non-Screening) Hives 03/08/2023 Tramadol 03/08/2023 [...] patient's age to complete this topic Insurance [facility] Care Teams It Web Development Consultant Relationship Specialty Start Date End Date Alexei Wahl MD PCP - General Internal Medicine 03/05/23
--- OUTSIDE RECORDS SUMMARY | 2025-08-14 15:28 | XMS_ITS | Encounter Summary ---
Author Organization [facility] Address [address] [place] [address] Phone Care Team Providers Care Upholstery Bundler Name Role Phone Alexei Wahl MD Primary Care Provider +1- [phone] Encounter Details Date Type Department Care Team (Late st Contact Info) Description 03/05/2023 Documentation Only [facility] [place], [address] [place] [address] Alexei Wahl MD [address] [place] [address] Social History Tobacco Use Types Packs/Day Years [...] on filedocumented in this encounter Care Teams Upholstery Bundler Relationship Specialty Start Date End Date Alexei Wahl MD PCP - General Internal Medicine 03/05/23 documented as of this encounter
--- OUTSIDE RECORDS SUMMARY | 2025-08-14 15:28 | XMS_ITS | Encounter Summary ---
Author Organization [facility] [place], Address [address] [place] [address] Phone Care Team Providers Care Fine Arts Instructor Name Role Phone Alexei Wahl MD Primary Care Provider +1- [phone] Encounter Details Date Type Department Care Team (Late st Contact Info) Description 03/12/2023 Documentation Only [facility], [address] [place] [address] Modesto Plasencia MD [address] [place] [address] Social History Tobacco Use Types [...] on filedocumented in this encounter Care Teams Fine Arts Instructor Relationship Specialty Start Date End Date Alexei Wahl MD PCP - General Internal Medicine 03/05/23 documented as of this encounter
--- OUTSIDE RECORDS SUMMARY | 2025-08-14 15:28 | XMS_ITS | Encounter Summary ---
Author Organization [facility] [place], Address [address] [place] [address] Phone Care Team Providers Care Seat Trimmer Name Role Phone Alexei Wahl MD Primary Care Provider +1- [phone] Encounter Details Date Type Department Care Team (Late st Contact Info) Description 04/05/2023 Documentation Only [facility] [place], [address] [place] [address] Modesto Plasencia MD [address] [place] [address] Social History Tobacco Use Types [...] on filedocumented in this encounter Care Teams Seat Trimmer Relationship Specialty Start Date End Date Alexei Wahl MD PCP - General Internal Medicine 03/05/23 documented as of this encounter
--- OUTSIDE RECORDS SUMMARY | 2025-08-14 15:28 | XMS_ITS | Clinical Summary ---
Author Organization [facility] [address] [place] [address] [place] [address] [place] Phone Care Team Providers Care Artist Relationship Manager Name Role Phone Unavailable Primary Care Provider Unavailabl e Social History Tobacco Use Types Packs/Day Years Used Date Smoking Tobacco: Never Assessed Comments Unknown Sex and Gender Information Value Date Recorded Sex Assigned at Female 06/11/2025 9:24 AM EDT Legal Sex Female 6:26 PM EST Gender Identity Female 06/11/2025 9:24 AM EDT Sexual Orientation Not on file Plan of Treatment Health Maintenance Due Date Last Done Comments Breast Cancer Screening 1964 DTaP,Tdap,and Td Vaccines (1 - Tdap) 1983 Cervical Cancer Screening: P ap Smear 1985 Pneumococcal Vaccine: 50+ Ye ars (1 of 1 - PCV) 2014 Zoster Vaccines (1 of 2) 2014 Depression Screening 08/16/2024 COVID-19 Vaccine (1 - 2024-2 6 season) 2025 Influenza Vaccine (#1) 2025 RSV [...]
== END 2025-08-14 12:07 | disposition home or self-care (01) ==
LOC: HO.PMC 11:27
PROVIDERS: PCP Internal Medicine; Visit Provider Nurse Practitioner Family
DX: M47.816 Spondylosis without myelopathy or radiculopathy, lumbar region (principal); M51.369 Other intervertebral disc degeneration, lumbar region without mention of lumbar back pain or lower extremity pain; M53.3 Sacrococcygeal disorders, not elsewhere classified; M54.50 Low back pain, unspecified; G89.29 Other chronic pain
CPT/HCPCS: 99213

== ENCOUNTER → 2025-08-14 11:26 | Outpatient (BNVA) | payer MEDICARE, BC, MEDICAID, SELFPAY | PROVIDERS: PCP Internal Medicine; Visit Provider Nurse Practitioner Family | DX: M54.50 Low back pain, unspecified (principal); G89.29 Other chronic pain; M47.816 Spondylosis without myelopathy or radiculopathy, lumbar region; M51.369 Other intervertebral disc degeneration, lumbar region without mention of lumbar back pain or lower extremity pain; M53.3 Sacrococcygeal disorders, not elsewhere classified | CPT/HCPCS: 99212 ==